=== PATIENT | female | born 1955 | race Caucasian/White ===

== ENCOUNTER → 2018-01-04 15:28 | Outpatient (CLI) | payer MEDICARE, SELFPAY ==
[2018-01-04 15:55] LABS: ALB/GLOB Ratio 1.1 RATIO (0.9-2.4); AST(SGOT) 28 U/L (15-37); Alanine Aminotransfer ALT/SGPT 13 U/L (13-56); Albumin, Serum 3.6 g/dL (3.2-5.0); Alkaline Phosphatase 121 U/L (45-117); Anion Gap 4 (5-15); BUN 22 mg/dL (7-18); BUN/Creat Ratio 26.3 RATIO (10-20); Calcium,Total 9.2 mg/dL (8.5-10.1); Chloride 108 mmol/L (98-107); Creatinine, Serum 0.84 mg/dL (0.55-1.02); EST Glomerular Filtration Rate 73 mL/min (>60); Est Glom Filt Rate - Afr Amer 88 mL/min (>60); Globulin 3.2 g/dL (2.2-4.2); Glucose 88 mg/dL (74-106); Potassium 4.1 mmol/L (3.5-5.1); Protein, Total 6.8 g/dL (6.4-8.2); Sodium Level 144 mmol/L (136-145)
== END ==
PROVIDERS: Family Provider Family Medicine; PCP Family Medicine; Visit Provider Family Medicine
DX: I10 Essential (primary) hypertension (principal)
CPT/HCPCS: 80053

== ENCOUNTER 2018-03-12 04:21 | Emergency (ER) | payer MEDICARE, SELFPAY ==
[2018-03-12 04:22] VITALS: BP 140/86; PULSE 105; RESP 19; TEMP 36.5; O2SAT 98; BMI 26.1
--- NOTE | 2018-03-12 04:34 | CT_ITS ---
STUDY: CT ABDOMEN AND PELVIS WITH CONTRAST REASON FOR EXAM: Female, 62 years old. Abdominal pain and nausea since Sunday. RADIATION DOSAGE (If Supplied By Facility): CTDIvol = ( 14.18 ) mGy, DLP = ( 704.49 ) mGycm TECHNIQUE: Transaxial 3.75 mm images were obtained from the dome of the diaphragm to the symphysis pubis with oral contrast. 100 ml of Isovue 300 contrast was administered. Sagittal and coronal images were reconstructed. Individualized dose optimization techniques were used for this CT. COMPARISON: CT abdomen and pelvis report only 07/04/2012. FINDINGS: Probable minor atelectasis right base, atelectasis or mild mild scarring left base. The visualized portions of the heart are within normal limits. Normal liver. Normal gallbladder and extrahepatic biliary system. Normal spleen. Normal pancreas. Normal bilateral adrenal glands. There is no obstructive uropathy, obstructive renal or ureteral calculi. Anterior rotation of the left renal pelvis. Oral contrast is reaching the transverse colon. Normal visualized stomach. Normal small intestine. Normal colon with mobile cecum in the right upper abdomen. The appendix is not visualized but there are no secondary signs of appendicitis. There is atherosclerosis of the bilateral superficial and proximal femoral arteries. Normal inferior vena cava. Normal retroperitoneum. Normal urinary bladder. Normal abdominal wall. There are diffuse degenerative changes of the visualized spine, bilateral sacroiliac joints, lower lumbar facet joints. Small sacral cyst. CT/Abdomen/Pelvis WITH Contrast IMPRESSION: There is no abscess, collection, perforation or obstruction. Atherosclerosis of the bilateral proximal superficial and deep femoral arteries. The appendix is not visualized but there are no secondary signs of appendicitis. Electronically Signed: Sandra Monge MD at 6:50 EDT , Service support ,
--- NOTE | 2018-03-12 04:37 | ED.VISSUMM ---
- ER Visit Summary Date of Service: 03/12/18 Chief Complaint: Abdominal pain History of Present Illness: The patient is a 62 F presenting with abdominal pain. She states this started on Sunday. She had pain throughout the day on Sunday. She states on Sunday and Sunday she felt okay. Around 2 or 3am today she started having pain again. Pain is in the left lower quadrant. She has associated nausea with no vomiting. Denies diarrhea or constipation. Denies urinary complaints. Denies fever. Denies chest pain or shortness of breath. Denies other complaints. Physical Examination: Vitals are stable. Patient is afebrile. Alert no acute distress. HEENT exam is unremarkable. Neck is supple. Lungs are clear and equal bilaterally. Heart is regular rate and rhythm. Abdomen is soft left lower quadrant tenderness with no rebound or guarding Extremities are unremarkable. Skin is warm and dry. Remainder of exam is unremarkable. Emergency Department Course and Treatment: Patient was given tylenol, Zofran IV. She declined morphine. CBC, chemistries unremarkable other than BUN 22. Alk phos 142. Lipase 73. Urinalysis unremarkable. CT abdomen pelvis IV and oral contrast shows no acute process. On repeat exam her abdomen is soft and nontender with no guarding or rebound. She is feeling improved. She is comfortable with discharge home. She will follow-up with her primary care physician. She is advised return to ED if worsening complaints. Disposition: Discharge home Impression: Abdominal pain This note was generated with SMS Assist dictation software. It may contain incorrect words, spelling, and punctuation that were not noted in review of the chart prior to signing ED Disposition - Plan for ED Patient: Disposition: Home or Assisted Living Chief Complaint: Abd Pain Instructions: ED Abdominal Pain Unkn Cause Prescriptions: Ondansetron [Zofran Odt] 4 mg PO Q8H PRN PRN #10 tablet PRN Reason: Nausea Referrals: David Mujica III, MD [Primary Care Provider] -
[2018-03-12] MEDS: Ondansetron 4 MG/2 ML Vial IV (04:48)
[2018-03-12 04:51] LABS: Absolute Lymphocyte Count 1.17 X10^3/ul (0.83-4.51); Basophil# 0.01 X10^3/uL; Basophil% 0.1 % (0-1); Eosinophil# 0.12 X10^3/uL; Eosinophils% 1.7 % (0-5); Hematocrit 39.9 % (37-47); Lymphocyte # 1.17 X10^3/ul (4.0); Mean Corp Hgb Conc 32.6 g/gl (32-36); Mean Corpuscular Hgb 31.4 pg (27.0-32.0); Mean Corpuscular Volume 96.4 fL (81-99); Mean Platelet Vol. 10.9 fl (6.2-12.0); Monocyte# 0.57 X10^3/uL; Monocyte% 8.3 % (0-10); Neutrophil % 72.9 % (47-70); POSITIVE COUNT NO; POSITIVE DIFFERENTIAL NO; POSITIVE MORPHOLOGY NO; Platelet Count 160 K/mm3 (150-450); RBC Distribution Width CV 13.6 % (11.6-14.6); Red Blood Count 4.14 M/mm3 (4.2-5.4); White Blood Count 6.9 K/mm3 (4.4-11.0)
[2018-03-12 05:04] LABS: AST(SGOT) 25 U/L (15-37); Alanine Aminotransfer ALT/SGPT 28 U/L (13-56); Albumin, Serum 3.1 g/dL (3.2-5.0); Alkaline Phosphatase 142 U/L (45-117); Anion Gap 6 (5-15); BUN 22 mg/dL (7-18); BUN/Creat Ratio 25.5 RATIO (10-20); Calcium,Total 8.8 mg/dL (8.5-10.1); Chloride 107 mmol/L (98-107); Creatinine, Serum 0.86 mg/dL (0.55-1.02); EST Glomerular Filtration Rate 70 mL/min (>60); Est Glom Filt Rate - Afr Amer 85 mL/min (>60); Estimated Creatinine Clearance 57.82 ml/min; Globulin 3.2 g/dL (2.2-4.2); Glucose 91 mg/dL (74-106); Lipase 73 U/L (73-393); Potassium 3.9 mmol/L (3.5-5.1); Protein, Total 6.3 g/dL (6.4-8.2); Sodium Level 143 mmol/L (136-145)
[2018-03-12] MEDS: Acetaminophen 500 MG Tablet 1000 MG PO (05:24)
[2018-03-12 06:35] VITALS: BP 135/84; PULSE 78; RESP 15; O2SAT 97
[2018-03-12 06:46] LABS: White Blood Cells 0 SEEN /hpf (0-5)
[2018-03-12 06:47] LABS: Bacteria 0 SEEN /hpf (None Seen); Mucous, Urine 0 SEEN /hpf (<or=2+); Red Blood Cells-Urine 0 SEEN /hpf (0-5); Squamous Epithelial Cells - UA 0 SEEN /hpf (5-10)
[2018-03-12 06:52] LABS: Glucose, Dipstick Normal (Normal); Ketone-Dipstick Negative (Negative); Leukocyte Esterase-Dipstick Negative /ul (Negative); Nitrite-Dipstick Negative (Negative); Occult Blood-Urine Negative /ul (Negative); Protein-Dipstick Negative (Negative); Urine Bilirubin Dipstick Negative (Negative); Urine Urobilinogen Normal (Normal); Urine pH 6.5 (5.0 - 8.0)
[2018-03-12 06:55] LABS: Color, Urine Yellow (Yellow); Urine Clarity Clear (Clear)
[2018-03-12 07:38] VITALS: BP 101/66; PULSE 85; RESP 16; O2SAT 95
--- NOTE | 2018-03-12 07:46 | ED.DEP ---
ED Disposition - Plan for ED Patient: Chief Complaint: Abd Pain Instructions: ED Abdominal Pain Unkn Cause Prescriptions: Ondansetron [Zofran Odt] 4 mg PO Q8H PRN PRN #10 tablet PRN Reason: Nausea Referrals: David Mujica III, MD [Primary Care Provider] -
== END 2018-03-12 07:49 | disposition home or self-care (01) ==
LOC: ED 04:41
PROVIDERS: Emergency Provider Emergency Medicine; Family Provider Family Medicine; PCP Family Medicine
DX: R10.9 Unspecified abdominal pain (principal); R11.0 Nausea; I10 Essential (primary) hypertension; E78.00 Pure hypercholesterolemia, unspecified; K21.9 Gastro-esophageal reflux disease without esophagitis; G20 Parkinson's disease
CPT/HCPCS: 74177; 80053; 81001; 83690; 85025; 96374; 96375; 99285; J7030; J7040; Q9967; A4216; J2405

== ENCOUNTER → 2018-07-15 20:26 | Outpatient (CLI) | payer MEDICARE, SELFPAY | PROVIDERS: Family Provider Family Medicine; PCP Family Medicine; Referring Provider Nurse Practitioner Adult Health; Visit Provider Nurse Practitioner Adult Health | DX: G47.33 Obstructive sleep apnea (adult) (pediatric) (principal) | CPT/HCPCS: 95810 ==

== ENCOUNTER → 2018-08-06 13:48 | Outpatient (CLI) | payer MEDICARE, SELFPAY ==
[2018-08-06 14:38] LABS: Cholesterol 150 mg/dL (200); High Density Lipoprotein 51 mg/dL; Triglycerides 131 mg/dL; Very Low Density Lipoprotein 26 mg/dL (5-40)
[2018-08-06 14:43] LABS: Vitamin B12 650 pg/mL (211-911); Vitamin D,25 Hydroxy 33.4 ng/mL (29.95-100.01)
== END ==
PROVIDERS: Family Provider Family Medicine; PCP Family Medicine; Referring Provider Family Medicine; Visit Provider Family Medicine
DX: E53.8 Deficiency of other specified B group vitamins (principal); E55.9 Vitamin D deficiency, unspecified; E78.5 Hyperlipidemia, unspecified
CPT/HCPCS: 80061; 82306; 82607

== ENCOUNTER → 2018-09-03 13:02 | Outpatient (CLI) | payer MEDICARE, SELFPAY | LOC: SL 13:03 | PROVIDERS: Family Provider Family Medicine; PCP Family Medicine; Referring Provider Family Medicine; Visit Provider Family Medicine | DX: G47.33 Obstructive sleep apnea (adult) (pediatric) (principal) | CPT/HCPCS: 95811 ==

== ENCOUNTER → 2018-09-07 12:54 | Outpatient (CLI) | payer MEDICARE, SELFPAY | PROVIDERS: Family Provider Family Medicine; PCP Family Medicine; Referring Provider Family Medicine; Visit Provider Family Medicine | DX: R30.0 Dysuria (principal) | CPT/HCPCS: 87086; 87088; 87186 ==

== ENCOUNTER → 2018-12-03 | Outpatient (CLI) | payer MEDICARE, SELFPAY ==
[2018-12-06 11:13] LABS: HSV Culture Without Typing NEGATIVE (.)
== END | disposition home or self-care (01) ==
LOC: LABSPEC 10:35
PROVIDERS: Family Provider Family Medicine; PCP Family Medicine
DX: R21 Rash and other nonspecific skin eruption (principal)
CPT/HCPCS: 87255

== ENCOUNTER 2019-06-25 12:00 | Outpatient (RCR) | payer MEDICARE, SELFPAY ==
--- NOTE | 2019-04-30 15:42 | HP.SP.AD ---
History - History Date of Eval: 04/29/19 Medical Diagnosis (from RX): Parkinsons Date of Onset of Diagnosis: 2004 Previous speech therapy: Yes Results: Excellent results to LSVT Other Relevant Medical History/Diagnoses/Surgery: neuropathy, peripheral, melaonma, Medications related to this diagnosis: Aspirin, symmetrel, sinemet x5 daily, klonopin, fish oil, metoprolol, omeprazole, vitamins, Smoking Status: Never smoker Hx Smoking: No Hx Tobacco Use: No - Pain Is pain an issue with your current prescribed condition?: No Patient Allergies - Allergies Allergies haloperidol [From Haldol] Allergy (Verified 03/12/18 04:21) Other haloperidol lactate [From Haldol] Allergy (Verified 03/12/18 04:21) Other metoclopramide HCl [From Reglan] Allergy (Verified 03/12/18 04:21) Other Subjective Oral Motor - Comments Comments: Patient reported having coughing occasionally during eating. Her last MBS was in 2017. At this time it is recommended to complete one to determine currect abilities. Subjective Voice - Intubation Was the Client intubated: No - Other Product Usage Do you use products containing menthol (if yes, list): No Subjective Clinical Impression - Non-Phonatory Behaviors/Respiration Reduced loudness or vocal weakness: Present Limited breath support for speech: Present Objective Voice - Date of Diagnosis Previous Speech Therapy (If yes, describe): Yes Details of therapy: LSVT - Very positive results. - Medications Familiar with on/off effect: Yes - Implantation Deep brain implantation (If yes, answer next question): Yes - Objective data Objective Data: Objective data: Sound pressure level (SPL acoustic correlation of vocal loudness) was measured with a sound level meter at a distance of 40 cm from the patient's mouth. Average conversational loudness is 70-80 dB and sustained phonation duration is 15 to 20 seconds for a typical adult. Sustained Phonation Intensity (dB SPL): 81 Is the individual stimulable to increase vocal intensity: Yes Vocal Intensity at Conversational Level (dB SPL): 62 dB Plan - Plan Plan: Speech therapy is warranted as Charline's decreased voice is interfering with her ability to communicate wants and needs in all areas of her life. - Recommendations Treatment Warranted: Yes - Frequency Frequency: 2x /Week Duration: 4 Weeks Visits in this POC: 8 - Goals that are Established: Determination:: Goals will be added/modified as deemed necessary and appropriate. Therapy will be discontinued when results of re-evaluation indicate therapy is no longer needed or lack of progress has been documented. - Goal #1-5 Goal #1: Patient will increase vocal loudness to reach a target sound pressure level of 70 dB AUTOMOTIVE SERVICE WRITER with 1 cue during reading at the word and sentence level, which will help increase vocal respiratory support for functional communication. Goal #2: Patient will increase vocal loudness to reach a target sound pressure level of 70 dB AUTOMOTIVE SERVICE WRITER during conversation for functional communication. Education - Patient has Indicated that the Following Identified Educational Needs: None The Patient has indicated that they have no educational or learning abilities that may effect their care.: Yes - Patient Instruction Patient Education: Diagnosis, Treatment Plan, Goals Person Taught: Patient, Significant Other Teaching Method: Discussion Response to teaching: Verbalize understanding
--- NOTE | 2019-07-28 09:15 | HP.SP.DC ---
ST Discharge Summary - Discharged: Discharge: Charline Arreguin is discharged from [facility] as of July 10, 2019. She attended a total of 8 sessions after her initial evaluation on 04/29/19. Her diagnosis is Parkinsons disease which impacted her overall volume. Goals focused on increased volume in structured and unstructured tasks to reach a sound pressure level of 70 dB. She typically averaged around 65 dB to 66 dB in conversation. The patient has a very quiet demeanor. She was able to increase her volume with cues but overall remained functional in a quiet room for her volume. She stated that her reminds her at home as he cannot hear her. (this may be partially due to his hearing impairment as he does not have aids and she stated that he will not get them at this time). She also had a modified barium swallow study completed. No aspiration or penetration. Mild oropharyngeal dysphagia noted but diet was not changed at this time. The patient is aware of progressive nature of her disease and is aware of the need to monitor her swallowing abilities. No further treatment is necessary at this time. A copy of this discharge summary will be sent to her referring physician.
== END 2019-06-25 19:00 | disposition home or self-care (01) ==
LOC: SP 12:00
PROVIDERS: Family Provider Family Medicine; PCP Family Medicine
DX: G20 Parkinson's disease (principal); R47.1 Dysarthria and anarthria
CPT/HCPCS: 92507; 92524

== ENCOUNTER → 2019-07-10 12:36 | Outpatient (CLI) | payer MEDICARE, SELFPAY ==
--- NOTE | 2019-07-10 14:14 | SP.MBSS_ITS ---
PRIMARY / SECONDARY DIAGNOSIS: dysphagia (R13.10) REFERRING PHYSICIAN: Ernestine Mendez NP CURRENT DIET: regular textures, thin liquids DENTITION: WFL MENTAL STATUS: WNL RESPIRATORY STATUS: O2 via room air PREVIOUS MODIFIED BARIUM SWALLOW STUDY: 03/14/[address] [facility] [place] REASON FOR REFERRAL: The patient is a 63/F referred for a modified barium swallow (MBS) study from neurology practice in order to determine presence/degree of aspiration. Patient and spouse report occasional coughing with liquids and solids. Patient reports occasional difficulty with one particular pill that she cuts in half as it scratches and feels as if it gets stuck on occasion. MEDICAL HISTORY: Patient has past medical history of Parkinsons disease status post deep brain simulation (2013), gastroesophageal reflux disease, hypertension, and hypercholesterolemia. STUDY FINDINGS: Patient participated in a Modified Barium Swallow (MBS) study on 07/10/2019. technician inventory specialist present for this evaluation. This study was recorded in the lateral view and images were sent to PACs for storage. The following consistencies were presented to this patient for analysis of oropharyngeal swallow function: thin liquids, nectar thick liquids, pudding, and a regular textured, Lottie Doone cookie. Results of the MBS are as follows: PENETRATION / ASPIRATION SCALE (DEVRIES): 1 = does not enter airway 2 = enters airway/above vocal folds/ejected 3 = enters airway/above vocal folds/not ejected 4 = enters airway/contacts vocal folds/ejected 5 = enters airway/contacts vocal folds/not ejected 6 = enters airway/below vocal folds/ejected 7 = enters airway/below vocal folds/not ejected despite effort 8 = enters airway/below vocal folds/no effort PENETRATION / ASPIRATION SCALE (SCORE): 1) Thin liquid via teaspoon = 1 2) Thin liquids via teaspoon =1 3) Thin liquids via small single sip from cup = 1 4) Thin liquids via large single sip from cup = 1 5) Thin liquids via sequential sips from cup= 1 6) Thin liquids via sequential sips via straw= 1 7) [place] thick liquids via single sip from cup = 1 8) Pudding= 1 9) Cookie= 1 10) Thin liquids via sip from cup = 1 IMPRESSION: mild oropharyngeal dysphagia (R13.12) ORAL PHASE CHARACTERIZED BY: LABIAL SEAL: no labial escape TONGUE CONTROL DURING BOLUS MANIPULATION: cohesive bolus between tongue to palatal seal BOLUS PREPARATION / MASTICATION: slow prolonged chewing/mashing with complete recollection BOLUS TRANSPORT / LINGUAL MOTION: delayed initiation of tongue motion ORAL RESIDUE: trace residue lining oral structures PHARYNGEAL PHASE CHARACTERIZED BY: INITIATION OF PHARYNGEAL SWALLOW: bolus head at posterior angle of ramus at first hyoid excursion SOFT PALATE ELEVATION: no bolus between soft palate and pharyngeal wall LARYNGEAL ELEVATION: complete superior movement of thyroid cartilage with complete approximation of arytenoids cartilage to epiglottic petiole ANTERIOR HYOID EXCURSION: partial anterior movement EPIGLOTTIC MOVEMENT: complete epiglottic inversion LARYNGEAL VESTIBULE CLOSURE AT HEIGHT OF SWALLOW: complete laryngeal vestibule closure with no air/contrast in laryngeal vestibule PHARYNGEAL STRIPPING WAVE: pharyngeal stripping wave present / complete PHARYNGOESOPHAGEAL SEGMENT OPENING: partial distension and partial duration; partial obstruction of flow TONGUE BASE RETRACTION: trace contrast between tongue base and posterior pharyngeal wall PHARYNGEAL RESIDUE: trace residue within or on pharyngeal structures ESOPHAGEAL PHASE CHARACTERIZED BY: ESOPHAGEAL BOLUS CLEARANCE IN THE UPRIGHT POSITION: could not view DIET TEXTURE RECOMMENDATIONS: Will recommend a regular/soft textured, thin liquid diet. COMPENSATORY STRATEGIES RECOMMENDED: Will recommend small bites/sips, alternate bites and sips, cut food into bite sized pieces, seated upright at 90 degrees during PO intake, remain upright for 30-60 minutes post meal (GERD precaution), and medications whole with liquid chaser (larger half pill consider mixing with pudding or puree texture for ease of swallowing). INTERPRETATION OF RESULTS: Patient presents with mild oropharyngeal dysphagia likely secondary to the diagnosis of Parkinsons disease. Oral phase primarily marked by slightly slowed mastication with Lottie Doone shortbread cookie and slight delay in tongue movement. Pharyngeal phase primarily marked by slightly reduced hyoid excursion and trace pharyngeal residue. No aspiration found during evaluation. RECOMMENDATIONS: No further skilled ST services warranted for dysphagia as patient is able to swallow without aspiration at this time. Patient and patients present for review of slides and education regarding recommendations. Both verbalize understanding and agreement at this time. Provided brief overview of signs and symptoms of aspiration, with recommendations for the patient to further discuss symptoms with the patients physician / neurology team. Would consider a repeat modified barium swallow study if any further signs and symptoms of aspiration are noted. Mi Nunez M.A., [facility] RE[employer]ATION TECHNICIAN Speech Language Pathologist [address] [address] [email or web address] [phone]
== END ==
PROVIDERS: PCP Family Medicine
DX: G20 Parkinson's disease (principal); R13.10 Dysphagia, unspecified
CPT/HCPCS: 76000; 92611

== ENCOUNTER → 2019-07-23 08:33 | Outpatient (CLI) | payer MEDICARE, SELFPAY ==
--- NOTE | 2019-07-23 08:35 | BI_ITS ---
MAMMOGRAPHY - BILATERAL SCREENING REASON FOR EXAM: Female, 63 years old. Routine annual screening examination. PERTINENT HISTORY: Aunt with breast cancer. TECHNIQUE: Digital bilateral breast damari (3D mammographic acquisition) in the CC and MLO projections. 2-D mediolateral oblique (MLO) and craniocaudad (CC) views of both breasts were obtained. CAD: Full Field Digital Mammography with Computer Added Detection was performed. COMPARISON: Comparison is made with prior outside examination dated March 17, 2014. FINDINGS: Breast Composition: There are scattered areas of fibroglandular density. There are no dominant masses or suspicious calcifications. No other significant abnormalities are identified. There has been no significant change since the prior study. BI/SCREEN MAMM (CAD) W/DAMARI BILAT IMPRESSION: Stable bilateral screening mammogram. Yearly follow-up mammogram recommended. (A) ASSESSMENT CATEGORY: BIRADS Category 1: Negative. A letter regarding these results will be sent to the patient by the facility within 30 days. Approximately 10% of breast cancers are not detected by mammography. A normal mammogram should not delay biopsy of a clinically suspicious abnormality. [id number] Electronically Signed: Osmar Luo, at 9:17 EST , Service support ,
== END ==
PROVIDERS: PCP Family Medicine; Referring Provider Family Medicine; Visit Provider Family Medicine
DX: Z12.31 Encounter for screening mammogram for malignant neoplasm of breast (principal)
CPT/HCPCS: 77063; 77067

== ENCOUNTER 2020-02-26 14:36 | Emergency (ER) | payer MEDICARE, SELFPAY ==
[2020-02-26 14:37] VITALS: BP 144/77; PULSE 95; RESP 16; TEMP 36.6; O2SAT 99; BMI 29.2
--- NOTE | 2020-02-26 14:54 | ED.VIS.GEN ---
History of Present Illness Chief Complaint: Fall Informant: Patient, Family Narrative: 64-year-old female with past medical history of hypertension and Parkinson's presents with concern for fall. Patient fell last night when she tripped over a box. States that she fell on her right side. Is having pain in her right hip as well as the right side of her back. States it is aching and worse with movement. Denies any head injury or loss of consciousness. On anticoagulation Past Medical History - Allergies and Home Meds Allergies/Adverse Reactions: Allergies haloperidol [From Haldol] Allergy (Verified 02/26/20 14:38) Other haloperidol lactate [From Haldol] Allergy (Verified 02/26/20 14:38) Other metoclopramide HCl [From Reglan] Allergy (Verified 02/26/20 14:38) Other Primary Care Physician: David Mujica III, MD [Primary Care Provider] - Prior records reviewed: Yes Past Medical History: - - Parkinsons and HTN Surgical History: appendectomy, hysterectomy, - - DBS Lives: Spouse/ Significant Other Smoking Status: Never smoker Alcohol: None Drugs: None Review of Systems General: Denies: Chills, Fever, Sweats Eyes: Denies: Visual changes - bilaterally, Diplopia ENT: Denies: Rhinorrhea, Sore throat Cardiovascular: Denies: Chest pain, Palpitations Respiratory: Denies: Dyspnea, Cough, Dyspnea on exertion Gastrointestinal: Denies: Abdominal pain, Nausea, Vomiting, Diarrhea, Melena, Hematochezia Genitourinary: Denies: Dysuria, Hematuria, Frequency Musculoskeletal: Reports: Arthralgias, Back pain. Denies: Extremity Pain Skin: Denies: Rash, Wounds Neurological: Denies: Headache, Weakness, Numbness Physical Exam Vital Signs/Narrative: Vital Signs Temp Pulse Resp BP Pulse Ox 02/26/20 14:37 97.8 F 95 16 144/77 H 99 Inital Vital Signs reviewed: Yes General: Well nourished, Well developed, No Acute Distress Head: Normocephalic, Atraumatic Eyes: Perrl, EOMI ENT: Moist mucous membranes, No rhinorrhea Neck: Supple, Nontender Cardiovascular: Regular rate, Regular rhythm, No murmurs Respiratory: No distress, CTA bilaterally, Chest nontender Abdomen: Soft, Nontender, Nondistended, Normal bowel sounds Back: Normal Inspection, - - Right lumbar spine tenderness into the right posterior pelvis. Extremities: No edema, - - TTP over the right greater trochanter. Skin: Normal color, No rash Neurological: Alert, Oriented x3, Cranial nerves II-XII grossly intact, Normal Strength, Normal Sensation Psychological: Normal Mood, - - Flat affect. Diagnostic/Tx/Re-eval Clinical Impression(s) from Imaging Studies Lumbar Spine CT 02/26/20 15:25 IMPRESSION: L3-4 and L4-5 degenerative changes, as described above. Electronically Signed: Hahnrohan Plasencia, at 15:55 EDT Tel , Service support , Hip/Pelvis X-Ray 02/26/20 15:35 IMPRESSION: No acute bone injury of the pelvis and hip. Electronically Signed: Selma Plasencia, at 15:53 EDT Tel , Service support , - Medical Decision Making Patient appears well nontoxic. Vital signs within normal limits. X-ray of the right hip and pelvis negative. CT of the lumbar spine negative. Patient does not want anything stronger than Advil. Patient able to bear weight. Will be discharged home to the care of her . Asked to return for worsening pain or inability to ambulate. Patient and agreeable and discharged home in stable condition. Impression: 1. Fall 2. Right hip contusion 3. Acute right-sided lumbar back pain 4. History of Parkinson's ED Disposition - Plan for ED Patient: Disposition: Home or Assisted Living Referrals: David Mujica III, MD [Primary Care Provider] -
--- NOTE | 2020-02-26 15:25 | CT_ITS ---
STUDY: CT LUMBAR SPINE WITHOUT CONTRAST REASON FOR EXAM: Female, 64 years old. FALL. having lower back and right hip pain RADIATION DOSAGE (If Supplied By Facility): CTDIvol = ( 15.59 ) mGy, DLP = ( 534.99 ) mGycm TECHNIQUE: The patient was scanned in a multi detector CT scanner. High resolution transaxial imaging was performed. Images were obtained from to . Sagittal and coronal images were reconstructed. Individualized dose optimization techniques were used for this CT. COMPARISON: None FINDINGS: Normal lumbar lordosis. There is no substantial scoliosis. Normal vertebrae of the lumbar spine. L1-2: Normal endplates. Normal disc height and morphology. Normal bilateral facet joints. Normal central canal and bilateral lateral recesses. Normal bilateral intervertebral neural foramina. L2-3: Normal endplates. Normal disc height and morphology. Normal bilateral facet joints. Normal central canal and bilateral lateral recesses. Normal bilateral intervertebral neural foramina. L3-4: Endplate spondylosis. Decreased disc height and small circumferential disc bulge. Degenerative changes of the bilateral facet joints. Mild narrowing of the central canal and bilateral intervertebral neural foramina. L4-5: Endplate spondylosis. Decreased disc height and moderate circumferential disc bulge. Degenerative changes of the bilateral facet joints. Moderate narrowing of the central canal and bilateral intervertebral neural foramina. L5-S1: Normal endplates. Normal disc height and morphology. Normal bilateral facet joints. Normal central canal and bilateral lateral recesses. Normal bilateral intervertebral neural foramina. Normal visualized paraspinous soft tissue structures. CT/Spine Lumbar without Contrast IMPRESSION: L3-4 and L4-5 degenerative changes, as described above. Electronically Signed: Selma Plasencia, at 15:55 EDT Tel , Service support ,
--- NOTE | 2020-02-26 15:35 | RAD_ITS ---
STUDY: X-RAY - PELVIS AND RIGHT HIP REASON FOR EXAM: Female, 64 years old. right hip pain after fall TECHNIQUE: 3 views of the pelvis and hip. COMPARISON: None. FINDINGS: There is a non-specific bowel gas pattern. Normal visualized soft tissue structures. There is narrowing with cortical sclerosis and osteophyte formation of the sacroiliac joint consistent with degenerative osteoarthritic changes. Normal bilateral superior and inferior pubic rami. Normal pubic symphysis. Normal bilateral ischial tuberosities. Normal visualized femoral head. Normal acetabulum. Normal hip joint. RAD/HIP, UNI W/ Pelvis 2-3 Views IMPRESSION: No acute bone injury of the pelvis and hip. Electronically Signed: Selma Plasencia, at 15:53 EDT Tel , Service support ,
[2020-02-26 16:42] VITALS: BP 132/85; PULSE 82; RESP 18; O2SAT 98
== END 2020-02-26 16:43 | disposition home or self-care (01) ==
PROVIDERS: Emergency Provider Emergency Medicine; PCP Family Medicine
DX: S70.01XA Contusion of right hip, initial encounter (principal); W01.0XXA Fall on same level from slipping, tripping and stumbling without subsequent striking against object, initial encounter; Y93.9 Activity, unspecified; Y92.9 Unspecified place or not applicable; Y99.9 Unspecified external cause status; M54.5 Low back pain; G20 Parkinson's disease; I10 Essential (primary) hypertension; Z79.82 Long term (current) use of aspirin; Z79.899 Other long term (current) drug therapy
CPT/HCPCS: 72131; 73502; 99282

== ENCOUNTER → 2020-03-17 12:16 | Outpatient (CLI) | payer MEDICARE, SELFPAY ==
[2020-02-26 14:37] VITALS: BMI 29.2
[2020-03-17 12:50] LABS: Absolute Lymphocyte Count 1.52 X10^3/uL (0.83-4.51); Absolute Neutrophil Count 4.4 X10^3/uL (2.0-7.7); Basophil# 0.04 X10^3/uL; Basophil% 0.6 % (0-1); Eosinophil# 0.14 X10^3/uL; Eosinophils% 2.2 % (0-5); Hematocrit 42.4 % (37-47); Hemoglobin 13.8 g/dL (12.0-15.0); Lymphocyte # 1.52 X10^3/ul (4.0); Lymphocyte % 23.6 % (19-41); Mean Corp Hgb Conc 32.5 g/dL (32-36); Mean Corpuscular Hgb 31.9 pg (27.0-32.0); Mean Corpuscular Volume 98.1 fL (81-99); Monocyte# 0.34 X10^3/uL; Monocyte% 5.3 % (0-10); NRBC Flagged by Analyzer 0 % (0-5); Neutrophil # 4.39 X10^3/uL (2.7-7.7); Neutrophil % 68.1 % (47-70); Platelet Count 189 K/mm3 (150-450); RBC Distribution Width CV 12.4 % (11.6-14.6); RBC Distribution Width SD 44.8 fl (35.1-43.9); Red Blood Count 4.32 M/mm3 (4.2-5.4); White Blood Count 6.4 K/mm3 (4.4-11.0)
[2020-03-17 13:12] LABS: ALB/GLOB Ratio 1.1 RATIO (0.9-2.4); AST(SGOT) 19 U/L (15-37); Alanine Aminotransfer ALT/SGPT 11 U/L (13-56); Albumin, Serum 3.7 g/dL (3.2-5.0); Alkaline Phosphatase 126 U/L (45-117); Anion Gap 4 (5-15); BUN 20 mg/dL (7-18); BUN/Creat Ratio 22.4 RATIO (10-20); Calcium,Total 9.4 mg/dL (8.5-10.1); Chloride 110 mmol/L (98-107); Creatinine, Serum 0.89 mg/dL (0.55-1.02); EST Glomerular Filtration Rate 68 mL/min (>60); Est Glom Filt Rate - Afr Amer 82 mL/min (>60); Globulin 3.5 g/dL (2.2-4.2); Glucose 102 mg/dL (74-106); Potassium 3.9 mmol/L (3.5-5.1); Protein, Total 7.2 g/dL (6.4-8.2); Sodium Level 144 mmol/L (136-145); T4 Free Direct 0.87 ng/dL (0.76-1.46); Thyroid Stim Hormone (TSH) 3.16 uIU/mL (0.358-3.74)
== END ==
PROVIDERS: PCP Family Medicine; Visit Provider Family Medicine
DX: E03.9 Hypothyroidism, unspecified (principal)
CPT/HCPCS: 80053; 84439; 84443; 85025

== ENCOUNTER → 2020-09-06 12:50 | Outpatient (CLI) | payer MEDICARE, SELFPAY ==
--- NOTE | 2020-09-06 12:51 | BI_ITS ---
MAMMOGRAPHY - BILATERAL SCREENING REASON FOR EXAM: Female, 64 years old. Routine annual screening examination. PERTINENT HISTORY: Aunt with breast cancer. TECHNIQUE: Digital bilateral breast damari (3D mammographic acquisition) in the CC and MLO projections. 2-D mediolateral oblique (MLO) and craniocaudad (CC) views of both breasts were obtained. CAD: Full Field Digital Mammography with Computer Added Detection was performed. COMPARISON: Comparison is made with prior study dated 07/23/2019. FINDINGS: Breast Composition: There are scattered areas of fibroglandular density. There are no dominant masses or suspicious calcifications. No other significant abnormalities are identified. There has been no significant change since the prior study. BI/SCRN MAMM (CAD)W/DAMARI BILAT IMPRESSION: Stable bilateral screening mammogram. Yearly follow-up mammogram recommended. (A) ASSESSMENT CATEGORY: BIRADS Category 2: Benign. A letter regarding these results will be sent to the patient by the facility within 30 days. Approximately 10% of breast cancers are not detected by mammography. A normal mammogram should not delay biopsy of a clinically suspicious abnormality. [id number] Electronically Signed: Osmar Luo MD at 13:43 EDT , Service support ,
== END ==
LOC: OPBI 12:50
PROVIDERS: PCP Family Medicine; Referring Provider Family Medicine; Visit Provider Family Medicine
DX: Z12.31 Encounter for screening mammogram for malignant neoplasm of breast (principal)
CPT/HCPCS: 77063; 77067

== ENCOUNTER → 2020-10-29 10:16 | Outpatient (CLI) | payer MEDICARE, SELFPAY ==
[2020-10-29 10:37] LABS: Absolute Lymphocyte Count 1.55 X10^3/uL (0.83-4.51); Absolute Neutrophil Count 4.2 X10^3/uL (2.0-7.7); Basophil# 0.03 X10^3/uL; Basophil% 0.5 % (0-1); Eosinophil# 0.12 X10^3/uL; Eosinophils% 1.9 % (0-5); Hematocrit 44.5 % (37-47); Hemoglobin 14.5 g/dL (12.0-15.0); Lymphocyte # 1.55 X10^3/ul (0.83-4.51); Lymphocyte % 24.3 % (19-41); Mean Corp Hgb Conc 32.6 g/dL (32-36); Mean Corpuscular Volume 98.2 fL (81-99); Mean Platelet Vol. 12.1 fl (6.2-12.0); Monocyte# 0.51 X10^3/uL; NRBC Flagged by Analyzer 0 % (0-5); Neutrophil # 4.15 X10^3/uL (2.7-7.7); Neutrophil % 65.1 % (47-70); Platelet Count 187 K/mm3 (150-450); RBC Distribution Width CV 12.7 % (11.6-14.6); RBC Distribution Width SD 45.4 fl (35.1-43.9); Red Blood Count 4.53 M/mm3 (4.2-5.4); White Blood Count 6.4 K/mm3 (4.4-11.0)
[2020-10-29 10:54] LABS: ALB/GLOB Ratio 1.1 RATIO (0.9-2.4); AST(SGOT) 15 U/L (15-37); Alanine Aminotransfer ALT/SGPT 11 U/L (13-56); Albumin, Serum 3.8 g/dL (3.2-5.0); Alkaline Phosphatase 128 U/L (45-117); Anion Gap 4 (5-15); BNP,B-Type NATRIURETIC PEPTIDE 71.7 pg/mL (0-100); BUN 24 mg/dL (7-18); BUN/Creat Ratio 23.3 RATIO (10-20); Calcium,Total 9.7 mg/dL (8.5-10.1); Chloride 107 mmol/L (98-107); Creatinine, Serum 1.03 mg/dL (0.55-1.02); EST Glomerular Filtration Rate 57 mL/min (>60); Est Glom Filt Rate - Afr Amer 69 mL/min (>60); Globulin 3.5 g/dL (2.2-4.2); Glucose 103 mg/dL (74-106); Magnesium 2.3 mg/dL (1.6-2.6); Potassium 3.9 mmol/L (3.5-5.1); Protein, Total 7.3 g/dL (6.4-8.2); Sodium Level 141 mmol/L (136-145); Thyroid Stim Hormone (TSH) 2.18 uIU/mL (0.358-3.74)
== END ==
PROVIDERS: PCP Family Medicine
DX: R00.2 Palpitations (principal)
CPT/HCPCS: 80053; 83735; 83880; 84443; 85025

== ENCOUNTER → 2020-11-24 08:42 | Outpatient (CLI) | payer MEDICARE, SELFPAY ==
[2020-11-11 16:02] VITALS: BMI 28.3
--- NOTE | 2020-11-24 08:46 | ECHOD_ITS ---
Reason For Study: ARRHYTHMIA Procedure This was a 2D Doppler, Color Flow transthoracic echocardiogram. Exam performed in department. Left Ventricle Normal LV size. Left ventricular systolic function is lower limits of normal. The estimated ejection fraction is 50 %. Stage 1 diastolic dysfunction. No regional wall motion abnormalities noted. Right Ventricle Normal RV size. Normal systolic function. Atria Normal left atrium. Normal right atrium. Mitral Valve Normal mitral valve. Tricuspid Valve Normal tricuspid valve. Mild tricuspid valve insufficiency. Pulmonary artery systolic pressure is 27 mmHg. Aortic Valve Normal aortic valve. Trisinus/trileaflet aortic valve. Mild (1+) eccentric aortic valve insufficiency. Pulmonic Valve Normal pulmonic valve. Great Vessels Normal aortic root. The pulmonary artery is normal size. Normal inferior vena cava. Pericardium/Pleural No pericardial effusion. MMode/2D Measurements & Calculations LVIDd: 4.2 cm IVSd: 0.86 cm Ao root diam: 3.1 cm LVIDs: 3.1 cm LVPWd: 0.87 cm RVDd: 3.6 cm FS: 27.8 % LAV(MOD-bp): 41.7 ml LA A4 area: 16.6 cm2 LA dimension(2D): 3.0 cm LAV(MOD-bp) Indexed: 24.3 ml/m2 LAV(MOD-sp2): 39.7 ml LAV(MOD-sp4): 41.9 ml RA A4 area: 16.5 cm2 Time Measurements MV dec time: 0.21 sec Doppler Measurements & Calculations MV E max toño: 52.2 cm/sec Lat Peak E' Toño: 5.9 cm/sec Med Peak E' Toño: 5.1 cm/sec MV A max toño: 89.2 cm/sec E/E' lat: 8.8 E/E' med: 10.2 MV E/A: 0.59 Ao V2 max: 120.3 cm/sec AI max toño: 438.1 cm/sec LV V1 max: 78.3 cm/sec Ao max P.8 mmHg AI max P.8 mmHg LV V1 max P.5 mmHg AI dec slope: 261.8 cm/sec2 AI P1/2t: 490.2 msec PA V2 max: 80.1 cm/sec TR max toño: 241.2 cm/sec TR max P.3 mmHg ECHO/Echo Complete Interpretation Summary Normal LV size. Left ventricular systolic function is lower limits of normal. The estimated ejection fraction is 50 %. Stage 1 diastolic dysfunction. Mild (1+) eccentric aortic valve insufficiency. Pulmonary artery systolic pressure is 27 mmHg. Ordering Physician: Porfirio Addison Referring Physician: DAVON WHITING III Performed By: Cori Tracy, CHARLIE, RVT
== END ==
PROVIDERS: PCP Family Medicine; Referring Provider Internal Medicine Cardiovascular Disease; Visit Provider Internal Medicine Cardiovascular Disease
DX: G47.33 Obstructive sleep apnea (adult) (pediatric) (principal); Z99.89 Dependence on other enabling machines and devices; I49.3 Ventricular premature depolarization; I10 Essential (primary) hypertension
CPT/HCPCS: 93225; 93226; 93306

== ENCOUNTER → 2020-11-29 12:49 | Outpatient (CLI) | payer MEDICARE, SELFPAY ==
[2020-11-11 16:02] VITALS: BMI 28.3
[2020-11-29 13:39] LABS: Cholesterol 193 mg/dL (200); High Density Lipoprotein 47 mg/dL; Triglycerides 160 mg/dL; Very Low Density Lipoprotein 32 mg/dL (5-40)
== END ==
PROVIDERS: PCP Family Medicine; Referring Provider Nurse Practitioner Family; Visit Provider Nurse Practitioner Family
DX: E78.5 Hyperlipidemia, unspecified (principal)
CPT/HCPCS: 80061

== ENCOUNTER → 2020-12-24 15:20 | Outpatient (CLI) | payer MEDICARE, SELFPAY ==
[2020-11-11 16:02] VITALS: BMI 28.3
== END ==
PROVIDERS: PCP Family Medicine
DX: R35.0 Frequency of micturition (principal)
CPT/HCPCS: 87086; 87088

== ENCOUNTER → 2021-05-11 15:45 | Outpatient (CLI) | payer MEDICARE, SELFPAY ==
[2021-05-11 16:39] LABS: Calcium,Total 9.5 mg/dL (8.5-10.1); Cholesterol 165 mg/dL (200); High Density Lipoprotein 51 mg/dL; Triglycerides 198 mg/dL; Very Low Density Lipoprotein 40 mg/dL (5-40)
[2021-05-11 16:41] LABS: PTHIN 60.1 pg/mL (18.4-80.1)
== END ==
PROVIDERS: PCP Family Medicine; Referring Provider Family Medicine; Visit Provider Family Medicine
DX: I10 Essential (primary) hypertension (principal); E83.52 Hypercalcemia
CPT/HCPCS: 80061; 82310; 83970

== ENCOUNTER 2021-07-30 11:53 | Inpatient (IN) | payer MEDICARE, SELFPAY ==
[2021-07-30] VITALS (13 sets, daily range): BP systolic 59–124; BP diastolic 37–68; PULSE 52–107; RESP 12–30; TEMP 35.9–38.2; O2SAT 91–99; BMI 29.9; BMI 29.5
--- NOTE | 2021-07-30 11:58 | EKG12_ITS ---
Test Reason : Blood Pressure : / mmHG Vent. Rate : 067 BPM Atrial Rate : 067 BPM P-R Int : 088 ms QRS Dur : 060 ms QT Int : 394 ms P-R-T Axes : 012 007 007 degrees QTc Int : 416 ms Sinus rhythm with short AR ST & T wave abnormality, consider inferior ischemia Abnormal ECG Confirmed by BOBO PHILLIPS, HOSSEIN ([id number]), health editor ANG ASCENCIO ([id number]) on 08/01/2021 11:05:25 AM Referred By: JIGNESH Confirmed By:HOSSEIN BROUSSARD MD
--- NOTE | 2021-07-30 11:59 | EDS_ITS ---
HPI History of Present Illness Chief Complaint: Dizziness Informant: patient, spouse/S.O. and EMS Onset/Context/Timing Onset: Hours (Per squad 1 hour prior to presentation. Per who arrived after squad 3 hours) Context: Sudden Onset Timing: Continuous Quality: Dizzy which he defines as vertical diplopia Location: Residents Current Severity: Mild Maximum Severity: Severe Worsened by: Upright position Relieved by: Nothing Associated Symptoms Associated Symptoms: Patient reported black and maroon-colored stool. She is not on an anticoag Narrative Narrative: Patient is an elderly woman with history of hypertension, hyperlipidemia, obstructive sleep apnea and Parkinson's disease. Based on what she and her are telling me she probably has autonomic dysfunction due to her Parkinson's disease. She does have a device that was implanted that prohibits her from having an MRI. She denies headache. She reports vertical diplopia when she is upright. She does not describe a spinning sensation. She denies ringing in ears or decreased hearing. She denies trouble with speech or swallowing. She denies chest pain. She denies shortness of breath. She did endorse black or maroon-colored stool and had significant diarrhea that started this morning. She denies dysuria, frequency, urgency or hematuria. She denies myalgias or arthralgias. Prior similar symptoms: Yes (Autonomic dysfunction due to Parkinson's) Recent Illness/Hospitalization: [facility] Medical History Collagenous colitis Depression with anxiety Diverticulosis Essential hypertension Hyperlipidemia Melanoma Neurogenic bladder NEHEMIAH on CPAP Parkinson's disease RBD (REM behavioral disorder) Squamous cell cancer of skin of forearm Home Medications atorvastatin 10 mg PO QODAY 07/11/13 [History Last Taken Unknown] clonazepam 0.5 mg PO QHS 07/11/13 [History Last Taken Unknown] omeprazole 20 mg PO DAILY 07/11/13 [History Last Taken Unknown] ascorbic acid (vitamin C) 500 mg tablet 500 mg PO DAILY 11/10/20 [History Last Taken Unknown] ergocalciferol (vitamin D2) 400 unit capsule 10 mcg PO DAILY 11/10/20 [History Last Taken Unknown] multivitamin 1 tab PO DAILY 11/10/20 [History Last Taken Unknown] carvedilol 6.25 mg tablet 6.25 mg PO BID #60 tab 12/13/20 [Rx Last Taken Unknown] amantadine HCl 50 mg PO DAILY 07/30/21 [History Last Taken Unknown] carbidopa-levodopa 4.5 tab PO DAILY 07/30/21 [History Last Taken Unknown] metoprolol succinate 25 mg PO DAILY 07/30/21 [History Last Taken Unknown] Allergy/AdvReac Type Severity Reaction Status Date / Time prochlorperazine Allergy Unknown unknown Verified 07/30/21 12:00 [From Compazine] promethazine [From Phenergan] Allergy Unknown unknown Verified 07/30/21 12:00 thioridazine Allergy Unknown unknown Verified 07/30/21 12:00 haloperidol [From Haldol] Allergy Other Verified 07/30/21 12:00 haloperidol lactate Allergy Other Verified 07/30/21 12:00 [From Haldol] metoclopramide HCl Allergy Other Verified 07/30/21 12:00 [From Reglan] Family History Father Diabetes Heart disease Mother Hypertension Diabetes Cancer brain, lymphoma Hyperlipidemia Sister Seizures Brother Heart disease Surgical History History of appendectomy History of bunionectomy (~02/2008) History of colonoscopy (07/19/12) History of hammer toe correction (~02/2008) History of total abdominal hysterectomy and bilateral salpingo-oophorectomy (~1995) S/P deep brain stimulator placement (06/23/13) Social History (Updated 07/30/21 @ 12:[address] Rehan Whittaker MD) household members: spouse Smoking Status: Never smoker alcohol intake: current alcohol intake frequency: a few times a month Alcohol type: wine substance use type: does not use ROS ROS ED Constitutional Constitutional ED: Denies chills, fever(s), subjective, sweats or weight loss Eyes Eyes: Reports diplopia; Denies blurry vision or change in vision ENT ENT ED: Denies ear pain, rhinorrhea or sore throat Cardiovascular Cardiovascular: Denies chest pain, orthopnea, palpitations, paroxysmal nocturnal dyspnea or racing heartbeat Respiratory/Chest Respiratory/Chest: Denies cough, dyspnea, dyspnea on exertion, orthopnea or paroxysmal nocturnal dyspnea Gastrointestinal Gastrointestinal: Reports diarrhea and melena; Denies abdominal pain, constipation, nausea or vomiting Genitourinary Genitourinary ED: Denies dysuria, hematuria or urinary frequency Musculoskeletal Musculoskeletal: Denies arthralgias, back pain, myalgias or neck pain Integumentary Denies rash Neurologic Neurologic: Reports weakness; Denies headache(s) or paresthesias Psychiatric Psychiatric: Reports depression Endocrine Endocrinology: Denies polydipsia, polyphagia or polyuria Hematologic/Lymphatic Hematologic/Lymphatic: Denies anemia, easy bleeding or easy bruising EXAM Physical Exam Const Vital Signs: 07/30/21 11:53 07/30/21 12:02 07/30/21 12:23 Temperature 96.7 F L 96.7 F L Temperature Source Temporal Temporal Pulse Rate 75 52 L Respiratory Rate 16 18 Respiratory Effort Normal Blood Pressure 84/63 L 59/37 L Blood Pressure Mean 70 44 Pulse Ox 91 Oxygen Delivery Method Room Air 07/30/21 12:35 07/30/21 13:06 07/30/21 14:01 Temperature 97.8 F 99.2 F H 99.9 F H Temperature Source Core Core Core Pulse Rate 75 99 100 Respiratory Rate 22 H 30 H 29 H Respiratory Effort Blood Pressure 124/48 H 114/47 L 107/59 L Blood Pressure Mean 73 69 75 Pulse Ox 99 99 96 Oxygen Delivery Method Room Air Room Air Room Air Positive well nourished and well developed General Appearance ED: well developed, NAD and other Patient has masked fax consistent with Parkinson's disease. Mentation is slow. Patient is mottled with delayed capillary refill. HEENT Reports TM's clear and dry mucous membranes HEENT Narrative: Nares patent. Negative for trauma or tenderness Tympanic Membrane ED: Yes TM's clear Mouth ED: Yes dry mucous membranes Mouth: dry mucous membranes Eyes PERRL and EOMs intact bilaterally General Eye ED: Negative for pale conjunctiva or scleral icterus Neck no lymphadenopathy, supple and no JVD Chest Wall inspection of chest normal and palpation of chest normal Resp normal respiratory effort and clear to auscultation bilaterally Cardio regular rate, regular rhythm, S1 normal heart sound, S2 normal heart sound and no murmurs GI normal to inspection, nondistended, normoactive bowel sounds, non-tender and non-distended GI Narrative: There are no fissures, fistulas or hemorrhoids on rectal exam. Stool is watery brown in color. There is no mucus or blood noted. Palpation: soft Back/Spine no CVA tenderness Thoracic Spine / Upper Back: Negative for thoracic spinal tenderness or paraspinal muscle tenderness Extremity normal to inspection Extremity Narrative: Edema is not pitting. General Extremety ED: Yes edema; Negative for tenderness General Extremity: edema Neuro No oriented x3, CN's II-XII intact bilaterally and no sensory deficits noted Sensorium / Orientation: orientation impaired; Negative for alert Motor Exam: strength 5/5 throughout Psych Mood & Affect: depressed Skin Skin Narrative: Skin is mottled. Patient is very cold to touch. Capillary refill is delayed. MDM MDM MDM Narrative Medical decision making narrative: With patient stating her dizziness is worse when she is upright and has a blood pressure of 84/63 suspect her dizziness is due to hypotension. We will need to rule out metabolic versus infectious versus other causes. Since neuro exam is nonfocal imaging of the head was not obtained. A liter of normal saline was ordered. Patient is not tachycardic most likely secondary to patient taking a beta-moris twice daily. Repeat blood pressure is 59/37. And repeat temperature is low. Need to entertain possibility of sepsis. Since patient is hypothermic has edema the lower extremities is cold will obtain TSH to evaluate for possible myxedema coma/profound hypothyroidism. Patient ankle reflex is essentially absent. Unable to determine if she has a delayed relaxation phase. Temperature probe Toure was placed. Patient's core temperature is 93.4. Initial reading was 89.4. I was informed that she has made no urine. She is receiving her second liter of normal saline. Nurse informed me at 1307 that she was having left-sided abdominal pain. Patient was reexamined at 1311. There is no guarding rigidity or peritoneal findings. Bowel sounds are diminished. Of note patient is not tachycardic and her blood pressure is normal. Her temperature has increased as well to 99.2 with passive rewarming. Lab Data Attestation: I reviewed the patient's lab results. Lab results narrative: Hemoglobin is approximately 2 g higher than baseline. This may represent hemoconcentration due to profound dehydration and would explain why there was no urine when Toure was placed. This may also explain her hypotension. This, however, would not explain her hypothermia. TSH is elevated. She does have hypothyroidism. This will need to be addressed during her hospital admission. Lactate elevated 2.6. Since there is no objective finding for infection suspect the lactic acidosis is due to the hypotension. And acute renal insufficiency. Urine reveals hematuria with no evidence of infection. Labs: Laboratory Results - last 24 hr 07/30/21 07/30/21 07/30/21 11:44 11:44 11:44 WBC 10.8 RBC 4.99 Hgb 16.4 H Hct 49.1 H MCV 98.4 MCH 32.9 H MCHC 33.4 RDW Std Deviation 47.8 H RDW Coeff of Carie 13.2 Plt Count 200 MPV 11.9 Immature Gran % (Auto) 0.400 Neut % (Auto) 90.9 H Lymph % (Auto) 2.6 L [place] % (Auto) 5.3 Eos % (Auto) 0.4 Baso % (Auto) 0.4 Absolute Neuts (auto) 9.8 H Absolute Lymphs (auto) 0.28 L Nucleated RBC % 0 Sodium 141 Potassium 4.5 Chloride 107 Carbon Dioxide 28.0 Anion Gap 6 BUN 28 H Creatinine 1.54 H Estim Creat Clear Calc 28.42 Est GFR (MDRD) Af Amer 43 L Est GFR (MDRD) Non-Af 36 L BUN/Creatinine Ratio 18.2 Glucose 133 H Lactic Acid 2.6 H* Calcium 10.2 H Total Bilirubin 0.70 AST 17 ALT 23 Alkaline Phosphatase 132 H Total Protein 8.0 Albumin 4.2 Globulin 3.8 Albumin/Globulin Ratio 1.1 TSH 21.70 H Urine Color Urine Clarity Urine pH Ur Specific [place] Urine Protein Urine Glucose (UA) Urine Ketones Urine Occult Blood Urine Nitrite Urine Bilirubin Urine Urobilinogen Ur Leukocyte Esterase Urine RBC Urine WBC Ur Squamous Epith Cells Urine Bacteria Urine Mucus 07/30/21 12:15 WBC RBC Hgb Hct MCV MCH MCHC RDW Std Deviation RDW Coeff of Carie Plt Count MPV Immature Gran % (Auto) Neut % (Auto) Lymph % (Auto) [place] % (Auto) Eos % (Auto) Baso % (Auto) Absolute Neuts (auto) Absolute Lymphs (auto) Nucleated RBC % Sodium Potassium Chloride Carbon Dioxide Anion Gap BUN Creatinine Estim Creat Clear Calc Est GFR (MDRD) Af Amer Est GFR (MDRD) Non-Af BUN/Creatinine Ratio Glucose Lactic Acid Calcium Total Bilirubin AST ALT Alkaline Phosphatase Total Protein Albumin Globulin Albumin/Globulin Ratio TSH Urine Color Yellow Urine Clarity Sl. Cloudy Urine pH 6.0 Ur Specific [place] 1.010 Urine Protein 100 H Urine Glucose (UA) Normal Urine Ketones 5 H Urine Occult Blood 250 H Urine Nitrite Negative Urine Bilirubin Negative Urine Urobilinogen Normal Ur Leukocyte Esterase 25 H Urine RBC > 100 SEEN Urine WBC 0 SEEN Ur Squamous Epith Cells 5-10 SEEN Urine Bacteria 0 SEEN Urine Mucus 0 SEEN EKG Initial EKG: Attestation: I personally reviewed and interpreted this EKG as follows: Interpretation: Sinus Rhythm (Sinus rhythm with a ventricular rate of 67 and short [place] interval. NJ interval is 88 ms. Cures duration 60 ms. QT durations are 94 ms. [place] is normal. Computer is reading ST and T wave abnormality consider ischemia. This represents her tremor and motion artifact.) Critical Care Time Critical Care Time: Yes Critical care time (excluding procedures): 30-74 minutes (37), Including time spent: (AP, History, physical, documentation, review of prior records, initiation of therapy for hypotension and initiate work-up for possible sepsis versus thyroid disease versus other cause.), Discussing w/Patient &/or Family/[employer] ( informed me that she cannot have an MRI since she has a implanted brain stimulator for her Parkinson's disease. He states he had to help her get dressed this morning. She did not voice any complaints to him other than dizziness .), Discussing w/Consultants and Arranging Admission or Transfer Discharge Plan Triage Chief Complaint: Dizziness ED Provider: Rehan Whittaker Dx/Rx/DC Orders Clinical Impression: Acute hypotension, Acidosis, lactic, Hypovolemia dehydration, Diarrhea, Hypothermia, Hypothyroidism, Acute kidney insufficiency, Hyperglycemia Prescriptions: No Action ergocalciferol (vitamin D2) 400 unit capsule 10 mcg PO DAILY RF: 0 multivitamin Tablet 1 tab PO DAILY RF: 0 ascorbic acid (vitamin C) 500 mg tablet 500 mg PO DAILY RF: 0 atorvastatin 10 MG tablet 10 mg PO QODAY RF: 0 clonazepam 0.5 MG tablet 0.5 mg PO QHS RF: 0 omeprazole 20 MG capsule 20 mg PO DAILY RF: 0 amantadine HCl 100 mg tablet 50 mg PO DAILY RF: 0 metoprolol succinate 25 mg tablet extended release 24 hr 25 mg PO DAILY RF: 0 carbidopa-levodopa 25-100 mg tablet 4.5 tab PO DAILY RF: 0 carvedilol [Coreg] 6.25 mg tablet 6.25 mg PO BID Qty: 60 RF: 11 Primary Care Provider: Abdullahi Major Referrals: Abdullahi Major MD [Primary Care Provider] -
[2021-07-30] MEDS: 0.9% Normal Saline 1,000 ML 1000 ML IV ×2 (12:02→12:23)
[2021-07-30 12:20] LABS: Absolute Lymphocyte Count 0.28 X10^3/uL (0.83-4.51); Absolute Neutrophil Count 9.8 X10^3/uL (2.0-7.7); Basophil# 0.04 X10^3/uL; Basophil% 0.4 % (0-1); Eosinophil# 0.04 X10^3/uL; Eosinophils% 0.4 % (0-5); Hematocrit 49.1 % (37-47); Hemoglobin 16.4 g/dL (12.0-15.0); Lymphocyte # 0.28 X10^3/ul (0.83-4.51); Lymphocyte % 2.6 % (19-41); Mean Corp Hgb Conc 33.4 g/dL (32-36); Mean Corpuscular Hgb 32.9 pg (27.0-32.0); Mean Corpuscular Volume 98.4 fL (81-99); Mean Platelet Vol. 11.9 fl (6.2-12.0); Monocyte# 0.57 X10^3/uL; Monocyte% 5.3 % (0-10); NRBC Flagged by Analyzer 0 % (0-5); Neutrophil # 9.81 X10^3/uL (2.7-7.7); Neutrophil % 90.9 % (47-70); POSITIVE DIFFERENTIAL YES; Platelet Count 200 K/mm3 (150-450); RBC Distribution Width CV 13.2 % (11.6-14.6); RBC Distribution Width SD 47.8 fl (35.1-43.9); Red Blood Count 4.99 M/mm3 (4.2-5.4); White Blood Count 10.8 K/mm3 (4.4-11.0)
[2021-07-30 12:21] LABS: Differential Indicated SCAN CRITERIA MET
[2021-07-30 12:42] LABS: ALB/GLOB Ratio 1.1 RATIO (0.9-2.4); AST(SGOT) 17 U/L (15-37); Alanine Aminotransfer ALT/SGPT 23 U/L (13-56); Albumin, Serum 4.2 g/dL (3.2-5.0); Alkaline Phosphatase 132 U/L (45-117); Anion Gap 6 (5-15); BUN 28 mg/dL (7-18); BUN/Creat Ratio 18.2 RATIO (10-20); Calcium,Total 10.2 mg/dL (8.5-10.1); Chloride 107 mmol/L (98-107); Creatinine, Serum 1.54 mg/dL (0.55-1.02); EST Glomerular Filtration Rate 36 mL/min (>60); Est Glom Filt Rate - Afr Amer 43 mL/min (>60); Estimated Creatinine Clearance 28.42 ml/min; Globulin 3.8 g/dL (2.2-4.2); Glucose 133 mg/dL (74-106); Potassium 4.5 mmol/L (3.5-5.1); Sodium Level 141 mmol/L (136-145)
[2021-07-30 13:16] LABS: Bacteria 0 SEEN /hpf (None Seen); Mucous, Urine 0 SEEN /hpf (<or=2+); White Blood Cells 0 SEEN /hpf (0-5)
[2021-07-30 13:29] LABS: Lactic Acid 2.6 mmol/L (0.4-1.9)
[2021-07-30 13:35] LABS: Color, Urine Yellow (Yellow); Glucose, Dipstick Normal (Normal); Ketone-Dipstick 5 mg/dl (Negative); Leukocyte Esterase-Dipstick 25 /ul (Negative); Nitrite-Dipstick Negative (Negative); Occult Blood-Urine 250 /ul (Negative); Protein-Dipstick 100 mg/dl (Negative); Urine Bilirubin Dipstick Negative (Negative); Urine Clarity Sl. Cloudy (Clear); Urine Urobilinogen Normal (Normal)
[2021-07-30 13:43] LABS: Red Blood Cells-Urine > 100 SEEN /hpf (0-5); Squamous Epithelial Cells - UA 5-10 SEEN /hpf (5-10)
[2021-07-30] MEDS: Levothyroxine 100 MCG Tablet PO (14:00)
--- NOTE | 2021-07-30 14:40 | HP.PCM.HOS_ITS ---
HPI - General General Date of Admission: 07/30/21 Date of Service: 07/30/21 Chief Complaint: Lightheadedness HPI Narrative GLORIA WOOD, is a 65 F with past medical history significant for Parkinson disease with autonomic dysfunction, essential hypertension who presents with lightheadedness. Patient symptoms started diarrhea of almost a days duration. On the morning of her admission patient did experience profound lightheadedness. Per patient's who was with her in the ER patient passed out which he described as patient experiencing a brief moment of unresponsiveness while sitting on the toilet. Patient was brought to the emergency department where he was found to be hypotensive with systolic blood pressure in the 80s. He was also found to be in acute kidney injury with markedly elevated TSH. Her TSH was ordered as a result of bradycardia. Admitted to a monitored bed for further management [facility] Medical History Collagenous colitis Depression with anxiety Diverticulosis Essential hypertension Hyperlipidemia Melanoma Neurogenic bladder NEHEMIAH on CPAP Parkinson's disease RBD (REM behavioral disorder) Squamous cell cancer of skin of forearm Home Medications atorvastatin 10 mg PO QODAY 07/11/13 [History Last Taken Unknown] clonazepam 0.5 mg PO QHS 07/11/13 [History Last Taken Unknown] omeprazole 20 mg PO DAILY 07/11/13 [History Last Taken Unknown] ascorbic acid (vitamin C) 500 mg tablet 500 mg PO DAILY 11/10/20 [History Last Taken Unknown] ergocalciferol (vitamin D2) 400 unit capsule 10 mcg PO DAILY 11/10/20 [History Last Taken Unknown] multivitamin 1 tab PO DAILY 11/10/20 [History Last Taken Unknown] carvedilol 6.25 mg tablet 6.25 mg PO BID #60 tab 12/13/20 [Rx Last Taken Unknown] amantadine HCl 50 mg PO DAILY 07/30/21 [History Last Taken Unknown] carbidopa-levodopa 4.5 tab PO DAILY 07/30/21 [History Last Taken Unknown] metoprolol succinate 25 mg PO DAILY 07/30/21 [History Last Taken Unknown] Allergy/AdvReac Type Severity Reaction Status Date / Time prochlorperazine Allergy Unknown unknown Verified 07/30/21 12:00 [From Compazine] promethazine [From Phenergan] Allergy Unknown unknown Verified 07/30/21 12:00 thioridazine Allergy Unknown unknown Verified 07/30/21 12:00 haloperidol [From Haldol] Allergy Other Verified 07/30/21 12:00 haloperidol lactate Allergy Other Verified 07/30/21 12:00 [From Haldol] metoclopramide HCl Allergy Other Verified 07/30/21 12:00 [From Reglan] Family History Father Diabetes Heart disease Mother Hypertension Diabetes Cancer brain, lymphoma Hyperlipidemia Sister Seizures Brother Heart disease Surgical History History of appendectomy History of bunionectomy (~02/2008) History of colonoscopy (07/19/12) History of hammer toe correction (~02/2008) History of total abdominal hysterectomy and bilateral salpingo-oophorectomy (~1995) S/P deep brain stimulator placement (06/23/13) Social History household members: spouse Smoking Status: Never smoker alcohol intake: current alcohol intake frequency: a few times a month Alcohol type: wine substance use type: does not use ROS ROS Narrative GENERAL: denies fever, chills, night sweats, weight loss, anorexia HEENT: denies headache, sinus congestion, or drainage, dysphagia RESPIRATORY: denies cough, sputum production, shortness of breath, CARDIAC: denies chest pain, palpitations, orthopnea, PND GASTROINTESTINAL: denies abdominal pain, nausea, vomiting, melena, GENITOURINARY: denies dysuria, urgency, frequency, heamaturia EXTREMITY: denies swelling MUSCULOSKELETAL: denies current joint pain or tenderness NEUROLOGIC: denies focal numbness, weakness, tingling HEMATOLOGIC: denies easy bruising and/or hemorrhage INTEGUMENT: denies rashes PSYCHIATRIC: denies suicidal or homicidal ideation Vital Signs Vital Signs Vital Signs: 07/30/21 11:53 07/30/21 12:02 07/30/21 12:23 Temperature 96.7 F L 96.7 F L Temperature Source Temporal Temporal Pulse Rate 75 52 L Respiratory Rate 16 18 Respiratory Effort Normal Blood Pressure 84/63 L 59/37 L Blood Pressure Mean 70 44 Pulse Ox 91 Oxygen Delivery Method Room Air 07/30/21 12:35 07/30/21 13:06 07/30/21 14:01 Temperature 97.8 F 99.2 F H 99.9 F H Temperature Source Core Core Core Pulse Rate 75 99 100 Respiratory Rate 22 H 30 H 29 H Respiratory Effort Blood Pressure 124/48 H 114/47 L 107/59 L Blood Pressure Mean 73 69 75 Pulse Ox 99 99 96 Oxygen Delivery Method Room Air Room Air Room Air 07/30/21 14:30 Temperature 100.3 F H Temperature Source Core Pulse Rate 98 Respiratory Rate 28 H Respiratory Effort Blood Pressure 106/42 L Blood Pressure Mean 63 Pulse Ox 92 Oxygen Delivery Method Room Air Weight Weight: 74.4 kg Body Mass Index (BMI) 29.9 Physical Exam Narrative GENERAL: cooperative HEENT: Atraumatic; EYES; Anicteric, Normal Conjunctiva NECK; supple, normal thyroid, RESPIRATORY: Diminished to auscultation CARDIOVASCULAR: Regular S1 S2, GI: soft, normoactive bowel sounds, : No Renal angle tenderness; EXTREMITIES: No edema, no clubbing, MUSCULOSKELETAL: no muscle wasting NEURO: Awake; no lateralizing signs. SKIN: No Rash PSYCH; Flat affect Results Lab / Micro Data Result Diagrams: 07/30/21 11:44 07/30/21 11:44 Labs: Laboratory Results - last 24 hr 07/30/21 11:44: WBC 10.8, RBC 4.99, Hgb 16.4 H, Hct 49.1 H, MCV 98.4, MCH 32.9 H , MCHC 33.4, RDW Std Deviation 47.8 H, RDW Coeff of Carie 13.2, Plt Count 200, MPV 11.9, Immature Gran % (Auto) 0.400, Neut % (Auto) 90.9 H, Lymph % (Auto) 2.6 L, [place] % (Auto) 5.3, Eos % (Auto) 0.4, Baso % (Auto) 0.4, Absolute Neuts (auto) 9.8 H, Absolute Lymphs (auto) 0.28 L, Nucleated RBC % 0 07/30/21 11:44: Sodium 141, Potassium 4.5, Chloride 107, Carbon Dioxide 28.0, Anion Gap 6, BUN 28 H, Creatinine 1.54 H, Estim Creat Clear Calc 28.42, Est GFR (MDRD) Af Amer 43 L, Est GFR (MDRD) Non-Af 36 L, BUN/Creatinine Ratio 18.2, Glucose 133 H, Calcium 10.2 H, Total Bilirubin 0.70, AST 17, ALT 23, Alkaline Phosphatase 132 H, Total Protein 8.0, Albumin 4.2, Globulin 3.8, Albumi n/Globulin Ratio 1.1, TSH 21.70 H 07/30/21 11:44: Lactic Acid 2.6 H* 07/30/21 12:15: Urine Color Yellow, Urine Clarity Sl. Cloudy, Urine pH 6.0, Ur Specific [place] 1.010, Urine Protein 100 H, Urine Glucose (UA) Normal, Urine Ketones 5 H, Urine Occult Blood 250 H, Urine Nitrite Negative, Urine Bilirubin Negative, Urine Urobilinogen Normal, Ur Leukocyte Esterase 25 H, Urine RBC > 100 SEEN, Urine WBC 0 SEEN, Ur Squamous Epith Cells 5-10 SEEN, Urine Bacteria 0 SEEN, Urine Mucus 0 SEEN Assessment & Plan Assessment/Plan (1) Acidosis, lactic: (2) Acute hypotension: (3) Hypovolemia dehydration: (4) Acute kidney insufficiency: (5) Hypothyroidism: (6) Hypothermia: (7) Diarrhea: PLAN: Patient is a 65-year-old lady presented with lightheadedness. Found to be hypotensive in the ED 1. Acute hypotension ?Secondary to hypovolemia as a result of diarrhea. Patient admitted to a monitored bed where patient is currently being resuscitated with IV fluid with close monitoring of patient's vitals 2. Acute kidney injury ?Secondary to hypovolemia with subsequent hypotension. Patient be resuscitated with IV fluids with serial monitoring of electrolytes ordered 3. Diarrhea ?Patient has history of collagenous colitis plan is to treat symptomatically 4. Lactic acidosis ?Attributed to patient hypovolemia patient does not have any evidence of an infection 5. New onset hypothyroidism ?Patient presented with bradycardia as well as hypothermia. Patient did receive levothyroxine in the ED. An order has been written for patient to be started on levothyroxine 50 mcg daily starting from 07/31/2021 with plans to repeat TSH in 6 weeks 6. History of Parkinson's disease ?Status post deep brain stimulator placement in 2013 7. Essential hypertension ?Patient antihypertensives on hold in view of hypotension 8. Hypothyroidism - Patient is on levothyroxine home dose continued 9. Obstructive sleep apnea ?Patient is on CPAP at night 10. GERD ?Patient is on PPI 11. Depression with anxiety ?Patient is on clonazepam 12. DVT prophylaxis ?SC Lovenox Advance planning; did discuss with the patient and family regarding advanced directives as well as CODE STATUS. Did explain the various scenarios involved ( FULL CODE, DNR CCA, DNR CCA with no intubation, and DNR CC and what each meant) patient elected to remain full code with CPR and intubation if needed. Order was placed. Time spent on discussion 18 minutes. Charges/Coding Visit Charges Inpatient E&M: 43622 Init Hosp L3 Procedures Hospitalists Procedures: 32347 Advncd Care Plan 30 Min
[2021-07-30 16:13] LABS: Reflex Lactate? Y
[2021-07-30] MEDS: 0.9% Normal Saline 1,000 ML 150 ML IV ×2 (16:20→22:15)
[2021-07-30 17:24] LABS: Lactic Acid 2.8 mmol/L (0.4-1.9)
[2021-07-30] MEDS: Carbidopa/Levodopa 25/100 Tablet PO (17:50)
[2021-07-30] MEDS: Ondansetron 4 MG/2 ML Vial IV (21:57)
--- NOTE | 2021-07-30 22:02 | RAD_ITS ---
STUDY: X-RAY - ABDOMEN/PELVIS REASON FOR EXAM: Female, 65 years old. N/V TECHNIQUE: Two AP supine views of the abdomen and pelvis. COMPARISON: 02/26/2020 FINDINGS: Numerous mildly dilated loops of small bowel throughout the abdomen and pelvis suggesting early small bowel obstruction. There are some gaseous distended loops of large bowel as well. No evidence of free air. KAUFMAN catheter in place. Normal osseous structures RAD/Abdomen Single View (Portable) IMPRESSION: Likely early small bowel obstruction Electronically Signed: Albert Ricci DO at 22:25 EST ,
--- NOTE | 2021-07-30 22:30 | RAD_ITS ---
STUDY: X-RAY - ABDOMEN/PELVIS REASON FOR EXAM: Female, 65 years old. Nasogastric tube placement. TECHNIQUE: AP upright abdomen at 11:25 PM. COMPARISON: July 30, 2021 at 10:03 PM, July 30, 2021 11:25 PM # 2, July 30, 2021 at 11:25 PM #3. FINDINGS: Normal visualized lung bases. propulsion generator repairer overlies left mid lung. On image #1 nasogastric tube tip is at the gastric cardia. On image #2 nasogastric tube has been advanced and the tip is overlying the gastric fundus. On image #3 nasogastric tube has been advanced so that the tip is in the gastric fundus and now the side-port is also in the gastric fundus. Dilated loops of small bowel upper abdomen. There is no demonstrated free abdominal air. The visualized liver, spleen and kidneys are grossly normal in size and morphology. Normal soft tissue structures. Normal visualized osseous structures. RAD/Abdomen Single View (Portable) IMPRESSION: On the most recent image of the upper abdomen, July 30, 2021 at 11:25 PM #3, the nasogastric tube tip is in expected location in the gastric fundus. Small bowel obstruction noted previously. Electronically Signed: Alexander Richardson MD at 0:20 EST Reading Location ID and State: [id number] / , Service support ,
--- NOTE | 2021-07-30 22:33 | PCM.HOSP.N ---
Hospitalist Note Patient with recurrent nausea and emesis as well as abdominal distention. Noted have started prior to admission. KUB obtained w/ noted early SBO. Will place NGT, hold all oral regimen, transition to IV PPI, consult General surgery to be cautious.
[2021-07-30] MEDS: Oxymetazoline 0.05% 1 SPRAY SPRAY.BTL 2 SPRAY NASAL (23:20)
[2021-07-30] MEDS: Lidocaine 4% 5 ML Ampul 2 ML INHALATION (23:20)
--- NOTE | 2021-07-30 23:41 | RAD_ITS ---
STUDY: X-RAY - ABDOMEN/PELVIS REASON FOR EXAM: Female, 65 years old. NG placement TECHNIQUE: Single AP view of the abdomen / pelvis. COMPARISON: Plain film earlier FINDINGS: Enteric tube with side-port at the GE junction, recommend advancement by roughly 9 cm. Remainder is unchanged RAD/Abdomen Single View (Portable) IMPRESSION: Continued advancement of NG tube recommended Electronically Signed: Albert Ricci DO at 0:42 EST ,
--- NOTE | 2021-07-30 23:41 | RAD_ITS ---
STUDY: X-RAY - ABDOMEN/PELVIS REASON FOR EXAM: Female, 65 years old. Nasogastric tube placement. TECHNIQUE: AP portable upright abdomen. COMPARISON: July 30, 2021. FINDINGS: Normal visualized lung bases. A nasogastric tube is present which has been advanced so that the tip and side port are in the gastric fundus. Dilated loops of small bowel in the upper abdomen. There is no demonstrated free abdominal air. The visualized liver, spleen and kidneys are grossly normal in size and morphology. Normal soft tissue structures. Normal visualized osseous structures. RAD/Abdomen Single View (Portable) IMPRESSION: Nasogastric tube tip in suspected location. Partially visualized small bowel obstruction noted previously. Electronically Signed: Alexander Richardson MD at 1:09 EST Reading Location ID and State: [id number] / , Service support ,
[2021-07-31] VITALS (10 sets, daily range): BP systolic 94–128; BP diastolic 51–75; PULSE 85–102; RESP 16–18; TEMP 36.5–37; O2SAT 92–97
--- NOTE | 2021-07-31 00:11 | RAD_ITS ---
STUDY: X-RAY CHEST REASON FOR EXAM: Female, 65 years old. fever, mild hypoxia, ? aspiration TECHNIQUE: Single AP portable view of the chest. COMPARISON: None. FINDINGS: NG tube with tip and side-port in the stomach; interval advancement as compared to most recent prior chest x-ray and abdominal plain film The lungs are clear and expanded. There is no demonstrated pleural abnormality. Normal size heart. Normal mediastinum and stefan. Normal visualized pulmonary arteries. Normal visualized aortic arch and descending thoracic aorta. Normal visualized thoracic spine. Normal visualized ribs, clavicles, and shoulders. There is no demonstrated abnormality of the visualized soft tissue structures of the upper abdomen. RAD/Chest 1 View (Portable) IMPRESSION: NG tube with both the tip and side-port in the stomach. Lungs are clear. Electronically Signed: Albert Ricci DO at 0:43 EST ,
[2021-07-31] MEDS: Acetaminophen 650 MG Suppository RC (00:17)
--- NOTE | 2021-07-31 05:55 | RAD_ITS ---
EXAM: XR ABDOMEN, 1 VIEW CLINICAL INDICATION: SBO PAIN TECHNIQUE: Frontal supine view of the abdomen/pelvis. This report was created using [employer] report generation technology. COMPARISON: 07.30.21 FINDINGS: LOWER THORAX: No acute pathology. GASTROINTESTINAL TRACT: Dilated loops of small bowel in the abdomen. ORGANS: Unremarkable as visualized. No organomegaly. No abnormal calcifications. BONES/JOINTS: No acute pathology. SOFT TISSUES: No acute pathology. RAD/Abdomen Single View (Portable) IMPRESSION: Minimal improvement in the small bowel obstruction noted. Electronically Signed: Zen Heard MD at 8:42 EDT ,
[2021-07-31] MEDS: 0.9% Normal Saline 1,000 ML 125 ML IV ×2 (06:53→17:07)
--- NOTE | 2021-07-31 07:18 | PN.HOSP_ITS ---
Subjective Subjective Patient apparently had a complicated night. She had a bout of emesis and abdominal distention KUB demonstrated partial small bowel obstruction conservative management with bowel rest NG tube to suction antinausea medication and pain meds started. Consult placed to general surgery. Patient also did experience a syncopal episode this a.m. while working with PT. Objective Data Objective Data Vital Signs: Vital Signs Temp Pulse Resp BP Pulse Ox 98.4 F 92 18 94/51 L 96 07/31/21 05:24 07/31/21 05:24 07/31/21 05:24 07/31/21 05:24 07/31/21 05:24 Oxygen Flow Rate (L/min) 2 Oxygen Delivery Method Room Air Weight: 73.3 kg Body Mass Index (BMI) 29.5 Intake & Output: Intake and Output for Last 24 Hours 07/29/21 07/30/21 08/01/21 23:59 23:59 00:59 Intake Total 3390.0 / 3390.0 1295.42 / 1295.42 Output Total 550 / 550 325 / 325 Balance 2840.0 / 2840.0 970.42 / 970.42 Lab / Micro Data Result Diagrams: 07/31/21 08:04 07/31/21 08:04 Labs: Laboratory Results - last 24 hr 07/30/21 11:44: WBC 10.8, RBC 4.99, Hgb 16.4 H, Hct 49.1 H, MCV 98.4, MCH 32.9 H , MCHC 33.4, RDW Std Deviation 47.8 H, RDW Coeff of Carie 13.2, Plt Count 200, MPV 11.9, Immature Gran % (Auto) 0.400, Neut % (Auto) 90.9 H, Lymph % (Auto) 2.6 L, [place] % (Auto) 5.3, Eos % (Auto) 0.4, Baso % (Auto) 0.4, Absolute Neuts (auto) 9.8 H, Absolute Lymphs (auto) 0.28 L, Nucleated RBC % 0 07/30/21 11:44: Sodium 141, Potassium 4.5, Chloride 107, Carbon Dioxide 28.0, Anion Gap 6, BUN 28 H, Creatinine 1.54 H, Estim Creat Clear Calc 28.42, Est GFR (MDRD) Af Amer 43 L, Est GFR (MDRD) Non-Af 36 L, BUN/Creatinine Ratio 18.2, Glucose 133 H, Calcium 10.2 H, Total Bilirubin 0.70, AST 17, ALT 23, Alkaline Phosphatase 132 H, Total Protein 8.0, Albumin 4.2, Globulin 3.8, Albumin/Globulin Ratio 1.1, TSH 21.70 H 07/30/21 11:44: Lactic Acid 2.6 H* 07/30/21 12:15: Urine Color Yellow, Urine Clarity Sl. Cloudy, Urine pH 6.0, Ur Specific [place] 1.010, Urine Protein 100 H, Urine Glucose (UA) Normal, Urine Ketones 5 H, Urine Occult Blood 250 H, Urine Nitrite Negative, Urine Bilirubin Negative, Urine Urobilinogen Normal, Ur Leukocyte Esterase 25 H, Urine RBC > 100 SEEN, Urine WBC 0 SEEN, Ur Squamous Epith Cells 5-10 SEEN, Urine Bacteria 0 SEEN, Urine Mucus 0 SEEN 07/30/21 16:42: Lactic Acid 2.8 H* Radiography Diagnostic Testing: Radiology Impression KUB X-Ray 07/30/21 22:02 IMPRESSION: Likely early small bowel obstruction Electronically Signed: Albert Ricci DO at 22:25 EST , KUB X-Ray 07/30/21 22:30 IMPRESSION: On the most recent image of the upper abdomen, July 30, 2021 at 11:25 PM #3, the nasogastric tube tip is in expected location in the gastric fundus. Small bowel obstruction noted previously. Electronically Signed: Alexander Richardson MD at 0:20 EST Reading Location ID and State: [id number] / , Service support , KUB X-Ray 07/30/21 23:41 IMPRESSION: Continued advancement of NG tube recommended Electronically Signed: Albert Ricci DO at 0:42 EST , KUB X-Ray 07/30/21 23:41 IMPRESSION: Nasogastric tube tip in suspected location. Partially visualized small bowel obstruction noted previously. Electronically Signed: Alexander Richardson MD at 1:09 EST , Chest X-Ray 07/31/21 00:11 IMPRESSION: NG tube with both the tip and side-port in the stomach. Lungs are clear. Electronically Signed: Albert Ricci DO at 0:43 EST , Physical Exam Narrative GENERAL: cooperative HEENT: Atraumatic; EYES; Anicteric, Normal Conjunctiva NECK; supple, normal thyroid, RESPIRATORY: Diminished to auscultation CARDIOVASCULAR: Regular S1 S2, GI: soft, normoactive bowel sounds, : No Renal angle tenderness; EXTREMITIES: No edema, no clubbing, MUSCULOSKELETAL: no muscle wasting NEURO: Awake; no lateralizing signs. SKIN: No Rash PSYCH; Flat affect Assessment & Plan Assessment/Plan (1) Acidosis, lactic: (2) Acute hypotension: (3) Hypovolemia dehydration: (4) Acute kidney insufficiency: (5) Hypothyroidism: (6) Hypothermia: (7) Diarrhea: PLAN: Patient is a 65-year-old lady presented with lightheadedness. Found to be hypotensive in the ED 1. Acute hypotension ?Secondary to hypovolemia as a result of diarrhea. Patient admitted to a monitored bed where patient is currently being resuscitated with IV fluid with close monitoring of patient's vitals -07/31/2021 patient blood pressure did stabilize however patient did receive Lasix for suspected fluid overload and IV fluid discontinued 2. Syncopal episode ?Suspected to be secondary to orthostatic hypotension patient did experience syncopal episode while working with PT. Of note she had received Lasix during the night and had IV fluid discontinued. As part of subsequent management ordered serial cardiac enzymes and D-dimer 3. Acute kidney injury ?Secondary to hypovolemia with subsequent hypotension. Patient be resuscitated with IV fluids with serial monitoring of electrolytes ordered -07/31/2021 creatinine down to 1.09 4. Partial small bowel obstruction ?07/31/2021 managed conservatively. Consult was placed to Dr. Smith with general surgery who recommended discontinuing duration of patient NG tube for patient to be started on clear liquids 5. Diarrhea ?Patient has history of collagenous colitis plan is to treat symptomatically 6. Lactic acidosis ?Attributed to patient hypovolemia patient does not have any evidence of an infection 7. New onset hypothyroidism ?Patient presented with bradycardia as well as hypothermia. Patient did receive levothyroxine in the ED. An order has been written for patient to be started on levothyroxine 50 mcg daily starting from 07/31/2021 with plans to repeat TSH in 6 weeks 07/31/2020 TSH on admission was 21.7 8. History of Parkinson's disease ?Status post deep brain stimulator placement in 2013 9. Obstructive sleep apnea ?Patient is on CPAP at night 10. GERD ?Patient is on PPI 11. Depression with anxiety ?Patient is on clonazepam 12. Essential hypertension ?Patient antihypertensives on hold in view of hypotension 13. DVT prophylaxis ?SC Lovenox Charges/Coding Visit Charges Inpatient E&M: 25602 Subs Hosp L3
[2021-07-31 08:35] LABS: Absolute Lymphocyte Count 0.62 X10^3/uL (0.83-4.51); Absolute Neutrophil Count 4.8 X10^3/uL (2.0-7.7); Basophil# 0.02 X10^3/uL; Basophil% 0.3 % (0-1); Eosinophil# 0.03 X10^3/uL; Eosinophils% 0.5 % (0-5); Hematocrit 37.1 % (37-47); Hemoglobin 12.5 g/dL (12.0-15.0); Lymphocyte # 0.62 X10^3/ul (0.83-4.51); Lymphocyte % 10.6 % (19-41); Mean Corp Hgb Conc 33.7 g/dL (32-36); Mean Corpuscular Hgb 33.1 pg (27.0-32.0); Mean Corpuscular Volume 98.1 fL (81-99); Mean Platelet Vol. 11.9 fl (6.2-12.0); Monocyte# 0.37 X10^3/uL; Monocyte% 6.3 % (0-10); NRBC Flagged by Analyzer 0 % (0-5); Neutrophil # 4.75 X10^3/uL (2.7-7.7); Neutrophil % 81.6 % (47-70); POSITIVE MORPHOLOGY YES; Platelet Count 134 K/mm3 (150-450); RBC Distribution Width CV 13.8 % (11.6-14.6); RBC Distribution Width SD 49.4 fl (35.1-43.9); Red Blood Count 3.78 M/mm3 (4.2-5.4); White Blood Count 5.8 K/mm3 (4.4-11.0)
[2021-07-31 08:40] LABS: Differential Indicated SCAN CRITERIA MET
[2021-07-31 08:56] LABS: Anion Gap 4 (5-15); BUN 32 mg/dL (7-18); BUN/Creat Ratio 29.4 RATIO (10-20); Calcium,Total 8.1 mg/dL (8.5-10.1); Chloride 115 mmol/L (98-107); Creatinine, Serum 1.09 mg/dL (0.55-1.02); EST Glomerular Filtration Rate 53 mL/min (>60); Est Glom Filt Rate - Afr Amer 65 mL/min (>60); Estimated Creatinine Clearance 40.15 ml/min; Glucose 108 mg/dL (74-106); Magnesium 1.7 mg/dL (1.6-2.6); Potassium 3.6 mmol/L (3.5-5.1); Sodium Level 142 mmol/L (136-145)
--- NOTE | 2021-07-31 08:56 | EKG12_ITS ---
Test Reason : RAPID RESPONSE Blood Pressure : / mmHG Vent. Rate : 089 BPM Atrial Rate : 089 BPM P-R Int : 136 ms QRS Dur : 060 ms QT Int : 364 ms P-R-T Axes : 056 -01 -39 degrees QTc Int : 442 ms Normal sinus rhythm Septal infarct , age undetermined ST & T wave abnormality, consider anterior ischemia Abnormal ECG When compared with ECG of 30-JUL-2021 12:08, MANUAL COMPARISON REQUIRED, DATA IS UNCONFIRMED Confirmed by BOBO PHILLIPS, HOSSEIN ([id number]), book or script editor ANG ASCENCIO ([id number]) on 08/01/2021 11:19:21 AM Referred By: JOSE Confirmed By:HOSSEIN BROUSSARD MD
[2021-07-31 09:56] LABS: Bedside Glucose 105 mg/dL (74-106)
[2021-07-31] MEDS: Enoxaparin 30 MG/0.3 ML Syringe SC (10:07)
--- NOTE | 2021-07-31 10:15 | CON.PCM.SX_ITS ---
Assessment & Plan Assessment/Plan (1) Partial small bowel obstruction: PLAN: Repeat x-ray showed some improvement in her partial small bowel obstruction. She is still having diarrhea. Her abdomen is soft and does not appear to be having any acute surgical needs at this time. We will follow along. HPI Consult Data Date of Consult: 07/31/21 HPI Narrative HPI Narrative: GLORIA WOOD, is a 65 F who presents with past medical history significant for Parkinson disease with autonomic dysfunction, essential hypertension who presents with lightheadedness. Patient symptoms started diarrhea of almost a days duration. On the morning of her admission patient did experience profound lightheadedness. Per patient's who was with her in the ER patient passed out which he described as patient experiencing a brief moment of unresponsiveness while sitting on the toilet. Patient was brought to the emergency department where he was found to be hypotensive with systolic blood pressure in the 80s. He was also found to be in acute kidney injury with markedly elevated TSH. Her TSH was ordered as a result of bradycardia. Admitted to a monitored bed for further management [facility] Medical History Collagenous colitis Depression with anxiety Diverticulosis Essential hypertension Hyperlipidemia Melanoma Neurogenic bladder NEHEMIAH on CPAP Parkinson's disease RBD (REM behavioral disorder) Squamous cell cancer of skin of forearm Home Medications atorvastatin 10 mg PO QODAY 07/11/13 [History Last Taken 07/30/21] clonazepam 0.5 mg PO QHS 07/11/13 [History Last Taken 07/29/21] omeprazole 20 mg PO DAILY 07/11/13 [History Last Taken 07/30/21] ascorbic acid (vitamin C) 500 mg tablet 500 mg PO DAILY 11/10/20 [History Last Taken 07/30/21] ergocalciferol (vitamin D2) 400 unit capsule 10 mcg PO DAILY 11/10/20 [History Last Taken 07/30/21] multivitamin 1 tab PO DAILY 11/10/20 [History Last Taken 07/30/21] carbidopa-levodopa 4.5 tab PO DAILY 07/30/21 [History Last Taken 07/30/21] carvedilol [Coreg] 6.25 mg PO BID 07/30/21 [History Last Taken 07/30/21] metoprolol succinate 25 mg PO DAILY 07/30/21 [History Last Taken 07/30/21] Allergy/AdvReac Type Severity Reaction Status Date / Time prochlorperazine Allergy Unknown unknown Verified 07/30/21 12:00 [From Compazine] promethazine [From Phenergan] Allergy Unknown unknown Verified 07/30/21 12:00 thioridazine Allergy Unknown unknown Verified 07/30/21 12:00 haloperidol [From Haldol] Allergy Other Verified 07/30/21 12:00 haloperidol lactate Allergy Other Verified 07/30/21 12:00 [From Haldol] metoclopramide HCl Allergy Other Verified 07/30/21 12:00 [From Reglan] Family History Father Diabetes Heart disease Mother Hypertension Diabetes Cancer brain, lymphoma Hyperlipidemia Sister Seizures Brother Heart disease Surgical History History of appendectomy History of bunionectomy (~02/2008) History of colonoscopy (07/19/12) History of hammer toe correction (~02/2008) History of total abdominal hysterectomy and bilateral salpingo-oophorectomy (~1995) S/P deep brain stimulator placement (06/23/13) Social History household members: spouse Smoking Status: Never smoker alcohol intake: current alcohol intake frequency: a few times a month Alcohol type: wine substance use type: does not use ROS Constitutional Constitutional: Denies chills, fatigue or fever(s) Cardiovascular Cardiovascular: Denies chest pain Respiratory/Chest Respiratory/Chest: Denies cough Gastrointestinal Gastrointestinal: Denies abdominal pain, nausea or vomiting Physical Exam Const alert, oriented x3 and no apparent distress General Appearance: cooperative HEENT normocephalic and head/scalp atraumatic Eyes Negative for PERRL or EOMs intact bilaterally Resp No clear to auscultation bilaterally Cardio Rate: Negative for regular rate Rhythm: Negative for regular rhythm GI soft to palpation, non-tender and non-distended Palpation: Negative for guarding Skin no rashes or lesions noted Lab / Micro Data Result Diagrams: 07/31/21 08:04 07/31/21 08:04 Labs: Laboratory Results - last 24 hr 07/30/21 11:44: WBC 10.8, RBC 4.99, Hgb 16.4 H, Hct 49.1 H, MCV 98.4, MCH 32.9 H , MCHC 33.4, RDW Std Deviation 47.8 H, RDW Coeff of Carie 13.2, Plt Count 200, MPV 11.9, Immature Gran % (Auto) 0.400, Neut % (Auto) 90.9 H, Lymph % (Auto) 2.6 L, [place] % (Auto) 5.3, Eos % (Auto) 0.4, Baso % (Auto) 0.4, Absolute Neuts (auto) 9.8 H, Absolute Lymphs (auto) 0.28 L, Nucleated RBC % 0 07/30/21 11:44: Sodium 141, Potassium 4.5, Chloride 107, Carbon Dioxide 28.0, Anion Gap 6, BUN 28 H, Creatinine 1.54 H, Estim Creat Clear Calc 28.42, Est GFR (MDRD) Af Amer 43 L, Est GFR (MDRD) Non-Af 36 L, BUN/Creatinine Ratio 18.2, Glucose 133 H, Calcium 10.2 H, Total Bilirubin 0.70, AST 17, ALT 23, Alkaline Phosphatase 132 H, Total Protein 8.0, Albumin 4.2, Globulin 3.8, Albumin/Globulin Ratio 1.1, TSH 21.70 H 07/30/21 11:44: Lactic Acid 2.6 H* 07/30/21 12:15: Urine Color Yellow, Urine Clarity Sl. Cloudy, Urine pH 6.0, Ur Specific [place] 1.010, Urine Protein 100 H, Urine Glucose (UA) Normal, Urine Ketones 5 H, Urine Occult Blood 250 H, Urine Nitrite Negative, Urine Bilirubin Negative, Urine Urobilinogen Normal, Ur Leukocyte Esterase 25 H, Urine RBC > 100 SEEN, Urine WBC 0 SEEN, Ur Squamous Epith Cells 5-10 SEEN, Urine Bacteria 0 SEEN, Urine Mucus 0 SEEN 07/30/21 16:42: Lactic Acid 2.8 H* 07/31/21 08:04: Sodium 142, Potassium 3.6, Chloride 115 H, Carbon Dioxide 23.0, Anion Gap 4 L, BUN 32 H, Creatinine 1.09 H, Estim Creat Clear Calc 40.15, Est G FR (MDRD) Af Amer 65, Est GFR (MDRD) Non-Af 53 L, BUN/Creatinine Ratio 29.4 H, Glucose 108 H, Calcium 8.1 L, Magnesium 1.7 07/31/21 08:04: WBC 5.8, RBC 3.78 L, Hgb 12.5, Hct 37.1, MCV 98.1, MCH 33.1 H, MCHC 33.7, RDW Std Deviation 49.4 H, RDW Coeff of Carie 13.8, Plt Count 134 L, MPV 11.9, Immature Gran % (Auto) 0.700, Neut % (Auto) 81.6 H, Lymph % (Auto) 10.6 L, [place] % (Auto) 6.3, Eos % (Auto) 0.5, Baso % (Auto) 0.3, Absolute Neuts (auto) 4.8, Absolute Lymphs (auto) 0.62 L, Nucleated RBC % 0, Differential Comment 07/31/21 09:47: POC Glucose 105 Radiology Impression KUB X-Ray 07/30/21 22:02 IMPRESSION: Likely early small bowel obstruction Electronically Signed: Albert iRcci DO at 22:25 EST Reading Location ID and State: [facility] / [place] Tel , Service support , KUB X-Ray 07/30/21 22:30 IMPRESSION: On the most recent image of the upper abdomen, July 30, 2021 at 11:25 PM #3, the nasogastric tube tip is in expected location in the gastric fundus. Small bowel obstruction noted previously. Electronically Signed: Alexander Richardson MD at 0:20 EST Reading Location ID and State: [id number] / , Service support , KUB X-Ray 07/30/21 23:41 IMPRESSION: Continued advancement of NG tube recommended Electronically Signed: Albert Ricci DO at 0:42 EST , KUB X-Ray 07/30/21 23:41 IMPRESSION: Nasogastric tube tip in suspected location. Partially visualized small bowel obstruction noted previously. Electronically Signed: Alexander Richardson MD at 1:09 EST , Chest X-Ray 07/31/21 00:11 IMPRESSION: NG tube with both the tip and side-port in the stomach. Lungs are clear. Electronically Signed: Albert Ricci DO at 0:43 EST , KUB X-Ray 07/31/21 05:55 IMPRESSION: Minimal improvement in the small bowel obstruction noted. Electronically Signed: Zen Heard MD at 8:42 EDT ,
--- NOTE | 2021-07-31 10:21 | NURSING ---
While working with therapy patient became unresponsive, see [employer] documentation.
[2021-07-31 11:17] LABS: Troponin-I HS 52 pg/mL (3.0-54.0)
--- NOTE | 2021-07-31 11:21 | CPS ---
started by ponce
[2021-07-31 11:26] LABS: D-Dimer Quantitative (DVT/PE) 14.14 FEU/ug/m (0.27-0.49)
--- NOTE | 2021-07-31 11:35 | CT_ITS ---
We are attempting to reach an attending provider to discuss findings. An addendum with communication details will be sent when the communication is complete. STUDY: CTA CHEST REASON FOR EXAM: Female, 65 years old. ELEVATED D-DIMER RADIATION DOSAGE (If Supplied By Facility): CTDIvol = ( 6.27 ) mGy, DLP = ( 190.91 ) mGycm TECHNIQUE: The examination was performed with the intravenous administration of IV 100mL Isovue-370. Post-processing of the angiographic images was performed, with multiplanar reformation and 3D reconstruction. Individualized dose optimization techniques were used for this CT. COMPARISON: 07/10/2012, chest x-ray earlier today FINDINGS: Electronic device in the left side of the chest. Normal enhancement of the main pulmonary artery and right and left pulmonary arteries. Normal enhancement of the bilateral peripheral pulmonary arteries. There are multiple small filling defects within subsegmental pulmonary artery branches bilaterally consistent with subsegmental pulmonary emboli. Normal thoracic aorta and visualized great vessels. There is no demonstrated aortic dissection. Normal heart and pericardium. Normal mediastinum. Normal hilar regions. Normal visualized trachea and bronchi. The lungs are well expanded. Some dependent bibasilar atelectasis. Normal pleura. Normal chest wall structures. Normal osseous structures. Normal visualized upper abdomen. CT/CTA Chest W/WO Contrast IMPRESSION: Positive for bilateral subsegmental pulmonary emboli. Electronically Signed: Song Majano MD at 13:38 EDT ,
[2021-07-31 13:37] LABS: Troponin-I HS 324 pg/mL (3.0-54.0)
--- NOTE | 2021-07-31 13:50 | ECHOD_ITS ---
Reason For Study: EMBOLI Procedure This was a 2D Doppler, Color Flow transthoracic echocardiogram. Exam performed portable in patient room. Left Ventricle Normal LV size. Left ventricular systolic function is normal. The estimated ejection fraction is 55 %. Stage 1 diastolic dysfunction. No regional wall motion abnormalities noted. Right Ventricle Normal RV size. Normal systolic function. Atria Normal left atrium. Normal right atrium. Mitral Valve Normal mitral valve. Trivial eccentric mitral valve insufficiency. Tricuspid Valve Normal tricuspid valve. Mild tricuspid valve insufficiency. Pulmonary artery systolic pressure is 33 mmHg. Aortic Valve Trisinus/trileaflet aortic valve. Pulmonic Valve Normal pulmonic valve. Great Vessels Normal aortic root. The pulmonary artery is normal size. Inferior vena cava collapse with respiration. Pericardium/Pleural No pericardial effusion. MMode/2D Measurements & Calculations LVIDd: 4.3 cm IVSd: 0.76 cm Ao root diam: 2.9 cm LVIDs: 3.0 cm LVPWd: 0.98 cm RVDd: 2.9 cm FS: 30.3 % LAV(MOD-bp): 26.3 ml LVAd ap4: 27.5 cm2 SV(MOD-sp4): 46.0 ml LAV(MOD-bp) Indexed: 15.1 ml/m2 LVLd ap4: 8.2 cm LAV(MOD-sp2): 27.2 ml EDV(MOD-sp4): 76.2 ml LAV(MOD-sp4): 24.9 ml EDV(sp4-el): 78.0 ml LVAs ap4: 15.1 cm2 LVLs ap4: 6.7 cm ESV(MOD-sp4): 30.2 ml ESV(sp4-el): 29.0 ml EF(MOD-sp4): 60.3 % EF(sp4-el): 62.8 % SV(sp4-el): 49.0 ml LA A4 area: 12.3 cm2 LA dimension(2D): 3.0 cm RA A4 area: 12.9 cm2 Time Measurements MV dec time: 0.19 sec Doppler Measurements & Calculations MV E max toño: 71.8 cm/sec Lat Peak E' Toño: 8.5 cm/sec Med Peak E' Toño: 8.7 cm/sec MV A max toño: 98.8 cm/sec E/E' lat: 8.4 E/E' med: 8.2 MV E/A: 0.73 Ao V2 max: 159.0 cm/sec LV V1 max: 100.1 cm/sec PA V2 max: 78.7 cm/sec Ao max P.1 mmHg LV V1 max P.0 mmHg TR max toño: 269.4 cm/sec TR max P.0 mmHg ECHO/Echo Complete Interpretation Summary Normal LV size. Left ventricular systolic function is normal. The estimated ejection fraction is 55 %. Stage 1 diastolic dysfunction. Pulmonary artery systolic pressure is 33 mmHg. Ordering Physician: Steve Gonzales Referring Physician: CARON MORALES Performed By: Autumn Gill RDCS
[2021-07-31] MEDS: Carbidopa/Levodopa 25/100 Tablet PO ×2 (13:52→17:06)
[2021-07-31] MEDS: Piperacil/Tazobactam 3.375 GM Q8 PREMIX IV ×2 (13:59→21:18)
[2021-07-31 14:54] LABS: Partial Thromboplast Time 37.9 Seconds (24.1-36.2)
[2021-07-31 14:56] LABS: International Normalized Ratio 1.4; Prothrombin Time (Protime)PT. 16.7 SECONDS (11.7-14.9)
[2021-07-31] MEDS: Heparin Injection (Vial) 5,000 UNIT/ML VIAL 4000 UNIT IV (15:13)
[2021-07-31 17:06] LABS: Troponin-I HS 520 pg/mL (3.0-54.0)
[2021-08-01] VITALS (12 sets, daily range): BP systolic 118–132; BP diastolic 71–84; PULSE 69–101; RESP 16–18; TEMP 36.4–36.8; O2SAT 86–97
[2021-08-01] MEDS: 0.9% Normal Saline 1,000 ML 125 ML IV ×2 (01:07→10:26)
[2021-08-01 05:22] LABS: Absolute Lymphocyte Count 1.05 X10^3/uL (0.83-4.51); Basophil# 0.01 X10^3/uL; Basophil% 0.2 % (0-1); Eosinophil# 0.12 X10^3/uL; Eosinophils% 2.1 % (0-5); Hematocrit 35.2 % (37-47); Hemoglobin 11.6 g/dL (12.0-15.0); Lymphocyte # 1.05 X10^3/ul (0.83-4.51); Lymphocyte % 18.6 % (19-41); Mean Platelet Vol. 11.6 fl (6.2-12.0); Monocyte# 0.41 X10^3/uL; Monocyte% 7.2 % (0-10); NRBC Flagged by Analyzer 0 % (0-5); Neutrophil # 4.04 X10^3/uL (2.7-7.7); Neutrophil % 71.4 % (47-70); POSITIVE MORPHOLOGY YES; Platelet Count 107 K/mm3 (150-450); RBC Distribution Width CV 13.8 % (11.6-14.6); RBC Distribution Width SD 50.4 fl (35.1-43.9); Red Blood Count 3.52 M/mm3 (4.2-5.4); White Blood Count 5.7 K/mm3 (4.4-11.0)
[2021-08-01 05:27] LABS: Differential Indicated SCAN CRITERIA MET
[2021-08-01 05:33] LABS: Partial Thromboplast Time 47.7 Seconds (24.1-36.2)
[2021-08-01] MEDS: Piperacil/Tazobactam 3.375 GM Q8 PREMIX IV ×3 (05:35→22:15)
[2021-08-01] MEDS: Carbidopa/Levodopa 25/100 Tablet PO ×4 (05:36→17:40)
[2021-08-01] MEDS: Levothyroxine 50 MCG Tablet PO (05:36)
[2021-08-01 05:45] LABS: Anion Gap 5 (5-15); BUN 22 mg/dL (7-18); BUN/Creat Ratio 24.8 RATIO (10-20); Calcium,Total 7.6 mg/dL (8.5-10.1); Chloride 116 mmol/L (98-107); Creatinine, Serum 0.89 mg/dL (0.55-1.02); EST Glomerular Filtration Rate 68 mL/min (>60); Est Glom Filt Rate - Afr Amer 82 mL/min (>60); Estimated Creatinine Clearance 49.18 ml/min; Glucose 94 mg/dL (74-106); Sodium Level 143 mmol/L (136-145)
--- NOTE | 2021-08-01 10:24 | PN.HOSP_ITS ---
Subjective Subjective Follow-up on partial bowel obstruction/acute PE: Patient was seen and examined. Her brother was at the bedside. She denied any new complaints. She has been in bed predominantly. Denies any chest pain or dizziness or palpitations. Able to tolerate clear liquid diet Objective Data Objective Data Vital Signs: Vital Signs Temp Pulse Resp BP Pulse Ox 98.2 F 92 16 132/84 H 97 08/01/21 05:30 08/01/21 06:50 08/01/21 05:30 08/01/21 05:30 08/01/21 05:30 Oxygen Flow Rate (L/min) 3 Oxygen Delivery Method Nasal Cannula Weight: 73.3 kg Body Mass Index (BMI) 29.5 Intake & Output: Intake and Output for Last 24 Hours 07/30/21 07/31/21 08/01/21 22:59 23:59 23:59 Intake Total 2095.85 / 2095.85 Output Total 250 / 250 Balance 1845.85 / 1845.85 Lab / Micro Data Result Diagrams: 08/01/21 05:01 08/01/21 05:01 Labs: Laboratory Results - last 24 hr 07/31/21 10:45: D-Dimer Quant (PE/DVT) 14.14 H* 07/31/21 10:45: Troponin I High Sens 52 07/31/21 10:45: APTT 37.9 H 07/31/21 10:45: PT 16.7 H, INR 1.4 07/31/21 12:57: Troponin I High Sens 324 H* 07/31/21 16:30: Troponin I High Sens 520 H* 07/31/21 21:20: APTT 100.0 H* 08/01/21 05:01: WBC 5.7, RBC 3.52 L, Hgb 11.6 L, Hct 35.2 L, MCV 100.0 H, MCH 33.0 H, MCHC 33.0, RDW Std Deviation 50.4 H, RDW Coeff of Carie 13.8, Plt Count 107 L, MPV 11.6, Immature Gran % (Auto) 0.500, Neut % (Auto) 71.4 H, Lymph % (Auto) 18.6 L, [place] % (Auto) 7.2, Eos % (Auto) 2.1, Baso % (Auto) 0.2, Absolute Neuts (auto) 4.0, Absolute Lymphs (auto) 1.05, Nucleated RBC % 0 08/01/21 05:01: Sodium 143, Potassium 3.0 L, Chloride 116 H, Carbon Dioxide 22.0, Anion Gap 5, BUN 22 H, Creatinine 0.89, Estim Creat Clear Calc 49.18, Est GFR (MDRD) Af Amer 82, Est GFR (MDRD) Non-Af 68, BUN/Creatinine Ratio 24.8 H, Glucose 94, Calcium 7.6 L 08/01/21 05:01: APTT 47.7 H Micro: Microbiology 07/31/21 23:40 Stool Enteric Bacteriology - Final 07/31/21 23:40 Stool C. difficile DNA Amplification - Final 07/30/21 12:13 Blood Culture (Wb) - Anticubital Right Blood Culture - Preliminary No growth in 48 hours. 07/30/21 12:10 Blood Culture (Wb) - Anticubital Left Blood Culture - Prelim inary No growth in 48 hours. 07/31/21 17:40 Nasal Secretion SARS-CoV-2 Antigen (Rapid) - Final 07/30/21 12:15 Urine Catheter - Catheter Urine Culture - Preliminary Culture exhibits no growth. Radiography Diagnostic Testing: Radiology Impression Chest CTA 07/31/21 11:35 IMPRESSION: Positive for bilateral subsegmental pulmonary emboli. Electronically Signed: Song Majano MD at 13:38 EDT Reading Location ID and State: [id number] / [employer] Tel , Service support , ADDENDUM: 07/31/21 1352 IMPRESSION: Positive for bilateral subsegmental pulmonary emboli. N.B. : The above Results were Read Back by Song Majano MD to Steve Gonzales and understanding confirmed on 07/31/2021 13:45:19 (ET). Electronically Signed: Song Majano MD at 13:38 EDT , Physical Exam Narrative Physical exam: General: Alert, Oriented x3, Cooperative, No apparent distress, on 3 L of oxygen HEENT: Atraumatic Oral: Moist Mucosa Neck: Supple Lungs: Clear to auscultation Cardiovascular: HS I+II, regular, no murmurs Abdomen: Bowel Sounds Present, Soft, Non Tender Extremities: No edema Skin: No rashes, No breakdown Neurological: Grossly intact Psych/Mental Status: Appropriate Assessment & Plan Assessment/Plan (1) Acidosis, lactic: (2) Acute hypotension: (3) Hypovolemia dehydration: (4) Acute kidney insufficiency: (5) Hypothyroidism: QUALIFIERS: Hypothyroidism type: unspecified Qualified Code(s): E03.9 - Hypothyroidism, unspecified (6) Hypothermia: (7) Diarrhea: PLAN: 1. Acute hypotension, present on admission likely secondary to dehydration from diarrhea Patient blood pressure stable, orthostatic vitals are negative 2. Syncope secondary to acute PE, seen on CTA of the chest Continue heparin drip, continue to monitor 3. Acute kidney injury secondary to dehydration from diarrhea, resolved Continue to monitor 4. Partial small bowel obstruction, remained stable, patient tolerating clear liquid diet General surgery following 5. Diarrhea secondary to acute C. difficile infection, nonfulminant, nonsevere CDI Stool studies were negative for enteric panel but positive for acute C. difficile, antigen and PCR Patient with underlying collagenous colitis Start vancomycin 125 mg p.o. 4 times daily for 10 days 6. Lactic acidosis secondary to hypokalemia, resolved 7. New onset hypothyroidism, continue on levothyroxine Repeat TSH in 6 weeks 8. Rest of chronic medical conditions including history of Parkinson's disease, ?Status post deep brain stimulator placement in 2013, NEHEMIAH, anxiety/depression Remained stable. Home meds continued 9. DVT prophylaxis?Lovenox subcu Charges/Coding Visit Charges Inpatient E&M: 70402 Subs Hosp L2
[2021-08-01] MEDS: Potassium Chloride Oral Tablet 20 MEQ 40 MEQ PO (10:48)
[2021-08-01 11:36] LABS: Partial Thromboplast Time 46.9 Seconds (24.1-36.2)
--- NOTE | 2021-08-01 12:00 | CASEMGMT ---
KUMAR SOSA assessment: Face to Face with patient for initial transition planning/care coordination assessment. KUMAR SOSA introduced self and role at [facility], pt voices understanding and consents to assessment. Pt is sitting up in bed in no distress on 2L. Pt is A/Ox4 and answers questions appropriately. Pt's is at bedside during assessment. Care providers, pharmacy, and demographics verified/updated. Presentation: Pt c/o dizziness howell she woke up-has dbl vision and spinning Admitting dx: Hypotension, JABARI PCP: Moriah Specialists: Chavez and Ernestine Mendez, neuro at [facility] Preferred Pharmacy: [facility] Insurance: [facility] Prescription Benefit: [facility] Living Will/HPOA: Pt has LW/HPOA and is aware that they are not on file at [facility]. Pt states her , Edi Arreguin, is HPOA. LNOK: Edi Arreguin, /HPOA Living Arrangements: Pt lives with in 2 story home and states no concerns at home. Pt is independent with ADL's but assists, if needed Transportation: Pt's drives and states no transportation concerns. DME/HHC: Pt has a cpap thru [employer] and states no need for any further DME. Pt states no hx of SNF or HHC in the past. Pt states no concerns with going home at time of discharge. Pt is retired. Pt states does not smoke cigarettes but does drink Pt states no further concerns/needs. CM to follow for any further discharge planning/needs. Advised pt/ to ask for CM if any further questions/concerns/needs arise, voice understanding. Pt Goal: Home Plan: [place] KUMAR SOSA
--- NOTE | 2021-08-01 12:47 | PCM.PN.SRG ---
Subjective Subjective Patient has no nausea or vomiting. Still having diarrhea. Objective Data Objective Data Slightly distended but soft. No rebound guarding or peritoneal signs. Vital Signs: Vital Signs Temp Pulse Resp BP Pulse Ox 97.9 F 85 18 127/72 H 96 08/01/21 11:40 08/01/21 11:40 08/01/21 11:40 08/01/21 11:40 08/01/21 11:40 Oxygen Flow Rate (L/min) 2 Oxygen Delivery Method Nasal Cannula Weight: 161 lb 9.581 oz Body Mass Index (BMI) 29.5 Intake & Output: Intake and Output for Last 24 Hours 07/30/21 07/31/21 08/01/21 22:59 23:59 23:59 Intake Total 2546.78 / 2546.78 Output Total 650 / 650 Balance 1896.78 / 1896.78 Lab / Micro Data Result Diagrams: 08/01/21 05:01 08/01/21 05:01 Labs: Laboratory Results - last 24 hr 07/31/21 10:45: APTT 37.9 H 07/31/21 10:45: PT 16.7 H, INR 1.4 07/31/21 12:57: Troponin I High Sens 324 H* 07/31/21 16:30: Troponin I High Sens 520 H* 07/31/21 21:20: APTT 100.0 H* 08/01/21 05:01: WBC 5.7, RBC 3.52 L, Hgb 11.6 L, Hct 35.2 L, MCV 100.0 H, MCH 33.0 H, MCHC 33.0, RDW Std Deviation 50.4 H, RDW Coeff of Carie 13.8, Plt Count 107 L, MPV 11.6, Immature Gran % (Auto) 0.500, Neut % (Auto) 71.4 H, Lymph % (Auto) 18.6 L, [place] % (Auto) 7.2, Eos % (Auto) 2.1, Baso % (Auto) 0.2, Absolute Neuts (auto) 4.0, Absolute Lymphs (auto) 1.05, Nucleated RBC % 0 08/01/21 05:01: Sodium 143, Potassium 3.0 L, Chloride 116 H, Carbon Dioxide 22.0, Anion Gap 5, BUN 22 H, Creatinine 0.89, Estim Creat Clear Calc 49.18, Est GFR (MDRD) Af Amer 82, Est GFR (MDRD) Non-Af 68, BUN/Creatinine Ratio 24.8 H, Glucose 94, Calcium 7.6 L 08/01/21 05:01: APTT 47.7 H 08/01/21 11:16: APTT 46.9 H Micro: Microbiology 07/31/21 23:40 Stool Enteric Bacteriology - Final 07/31/21 23:40 Stool C. difficile GDH Antigen & Toxins - Final 07/31/21 23:40 Stool C. difficile DNA Amplification - Final 07/30/21 12:13 Blood Culture (Wb) - Anticubital Right Blood Culture - Preliminary No growth in 48 hours. 07/30/21 12:10 Blood Culture (Wb) - Anticubital Left Blood Culture - Preliminary No growth in 48 hours. 07/31/21 17:40 Nasal Secretion SARS-CoV-2 Antigen (Rapid) - Final 07/30/21 12:15 Urine Catheter - Catheter Urine Culture - Preliminary Culture exhibits no growth. Radiography Diagnostic Testing: Radiology Impression Chest CTA 07/31/21 11:35 IMPRESSION: Positive for bilateral subsegmental pulmonary emboli. Electronically Signed: Song Majano MD at 13:38 EDT , ADDENDUM: 07/31/21 1352 IMPRESSION: Positive for bilateral subsegmental pulmonary emboli. N.B. : The above Results were Read Back by Song Majano MD to Steve Gonzales and understanding confirmed on 07/31/2021 13:45:19 (ET). Electronically Signed: Song Majano MD at 13:38 EDT , Assessment & Plan Assessment/Plan (1) Partial small bowel obstruction: PLAN: Appears to be moving her bowels. Will sign off for now.
[2021-08-01] MEDS: Vancomycin 125 MG/5 ML Susp PO.SYRINGE PO ×2 (17:40→23:24)
[2021-08-01 18:28] LABS: Partial Thromboplast Time 44.8 Seconds (24.1-36.2)
[2021-08-01] MEDS: 0.9% Normal Saline 1,000 ML 75 ML IV (20:01)
[2021-08-01] MEDS: Atorvastatin Calcium 10 MG Tablet PO (22:19)
[2021-08-02] VITALS (11 sets, daily range): BP systolic 136–157; BP diastolic 75–101; PULSE 78–99; RESP 18–20; TEMP 36.8–36.9; O2SAT 93–97
[2021-08-02] MEDS: Piperacil/Tazobactam 3.375 GM Q8 PREMIX IV ×3 (05:09→22:07)
[2021-08-02] MEDS: Vancomycin 125 MG/5 ML Susp PO.SYRINGE PO ×4 (05:09→23:56)
[2021-08-02] MEDS: Levothyroxine 50 MCG Tablet PO (05:09)
[2021-08-02] MEDS: Carbidopa/Levodopa 25/100 Tablet PO ×4 (05:21→17:40)
[2021-08-02 08:01] LABS: Absolute Lymphocyte Count 0.98 X10^3/uL (0.83-4.51); Absolute Neutrophil Count 5.7 X10^3/uL (2.0-7.7); Basophil# 0.03 X10^3/uL; Basophil% 0.4 % (0-1); Eosinophil# 0.05 X10^3/uL; Eosinophils% 0.7 % (0-5); Hematocrit 34.4 % (37-47); Hemoglobin 12.3 g/dL (12.0-15.0); Lymphocyte # 0.98 X10^3/ul (0.83-4.51); Lymphocyte % 13.5 % (19-41); Mean Corp Hgb Conc 35.8 g/dL (32-36); Mean Corpuscular Hgb 33.2 pg (27.0-32.0); Mean Corpuscular Volume 92.7 fL (81-99); Mean Platelet Vol. 11.6 fl (6.2-12.0); Monocyte# 0.42 X10^3/uL; Monocyte% 5.8 % (0-10); NRBC Flagged by Analyzer 0 % (0-5); Neutrophil # 5.74 X10^3/uL (2.7-7.7); Platelet Count 125 K/mm3 (150-450); RBC Distribution Width CV 12.9 % (11.6-14.6); RBC Distribution Width SD 44.2 fl (35.1-43.9); Red Blood Count 3.71 M/mm3 (4.2-5.4); White Blood Count 7.3 K/mm3 (4.4-11.0)
[2021-08-02 08:07] LABS: Partial Thromboplast Time 52.6 Seconds (24.1-36.2)
[2021-08-02 08:17] LABS: ALB/GLOB Ratio 0.8 RATIO (0.9-2.4); AST(SGOT) 19 U/L (15-37); Alanine Aminotransfer ALT/SGPT 12 U/L (13-56); Albumin, Serum 2.6 g/dL (3.2-5.0); Alkaline Phosphatase 88 U/L (45-117); Anion Gap 5 (5-15); BUN 8 mg/dL (7-18); BUN/Creat Ratio 11.6 RATIO (10-20); Calcium,Total 8.2 mg/dL (8.5-10.1); Chloride 110 mmol/L (98-107); Creatinine, Serum 0.69 mg/dL (0.55-1.02); EST Glomerular Filtration Rate 90 mL/min (>60); Est Glom Filt Rate - Afr Amer 109 mL/min (>60); Estimated Creatinine Clearance 43.77 ml/min; Globulin 3.1 g/dL (2.2-4.2); Glucose 111 mg/dL (74-106); Potassium 2.9 mmol/L (3.5-5.1); Protein, Total 5.7 g/dL (6.4-8.2); Sodium Level 138 mmol/L (136-145)
[2021-08-02 08:42] LABS: Partial Thromboplast Time 29.9 Seconds (24.1-36.2)
[2021-08-02] MEDS: Heparin Injection (Vial) 5,000 UNIT/ML VIAL IV (08:57)
[2021-08-02 09:41] LABS: Magnesium 1.7 mg/dL (1.6-2.6)
[2021-08-02] MEDS: Potassium Chloride 10mEq/100mL 10 MEQ/100 ML IV.SOLN. 100 MEQ IV BOLUS ×4 (10:22→14:28)
[2021-08-02] MEDS: 0.9% Normal Saline 1,000 ML 75 ML IV (10:22)
--- NOTE | 2021-08-02 11:29 | CASEMGMT ---
Per , pt is currently active with OP therapy at [facility] and [facility] for a total of 3 days/week. Pt/ updated that pt was min assist of 2 today with therapy and they are recommending further skilled therapy. Per therapy, pt would do well in IP rehab unit. Pt/ discussing. CM to follow. Gela HEATH CM
--- NOTE | 2021-08-02 12:45 | CASEMGMT ---
SW spoke with patient about [facility] 4th floor Rehab Unit. SW left a pamphlet with patient. Patient would like to talk with her about it. SW did let patient know that insurance will have to approve it also. REGINA spoke with Merle and Dr Birmingham reviewed patient's chart. Rehab would be willing to take patient. SW will check back with patient and her . Ivanna LYMAN
--- NOTE | 2021-08-02 14:09 | CASEMGMT ---
SW spoke with patient and her . SW introduced self and role at [facility]. SW explained Inpatient Rehab Unit. Both are agreeable to Inpatient Rehab. SW did tell them that patient's insurance has to approve patient. Ivanna LYMAN
--- NOTE | 2021-08-02 14:15 | PCM.PN.HOSP ---
Subjective Subjective Follow-up on partial bowel obstruction/acute PE: Patient was seen and examined. She had more than 3 bowel movements today. Denies any fever or chills. Objective Data Objective Data Vital Signs: Vital Signs Temp Pulse Resp BP Pulse Ox 98.2 F 81 18 146/75 H 93 08/02/21 09:05 08/02/21 09:05 08/02/21 09:05 08/02/21 09:05 08/02/21 09:05 Oxygen Flow Rate (L/min) 2 Oxygen Delivery Method Nasal Cannula Weight: 73.3 kg Body Mass Index (BMI) 29.5 Intake & Output: Intake and Output for Last 24 Hours 07/31/21 08/01/21 08/02/21 23:59 23:59 23:59 Intake Total 4229.40 / 4229.40 2125. / 2125. Output Total 800 / 800 Balance 3429.40 / 3429.40 / Lab / Micro Data Result Diagrams: 08/02/21 07:42 08/02/21 07:42 Labs: Laboratory Results - last 24 hr 08/01/21 18:05: APTT 44.8 H 08/02/21 00:30: APTT 52.6 H 08/02/21 07:42: WBC 7.3, RBC 3.71 L, Hgb 12.3, Hct 34.4 L, MCV 92.7 D, MCH 33.2 H, MCHC 35.8 D, RDW Std Deviation 44.2 H, RDW Coeff of Carie 12.9, Plt Count 125 L, MPV 11.6, Immature Gran % (Auto) 0.600, Neut % (Auto) 79.0 H, Lymph % (Auto) 13.5 L, [place] % (Auto) 5.8, Eos % (Auto) 0.7, Baso % (Auto) 0.4, Absolute Neuts (auto) 5.7, Absolute Lymphs (auto) 0.98, Nucleated RBC % 0 08/02/21 07:42: Sodium 138, Potassium 2.9 L, Chloride 110 H, Carbon Dioxide 23.0, Anion Gap 5, BUN 8, Creatinine 0.69, Estim Creat Clear Calc 43.77, Est GFR (MDRD) Af Amer 109, Est GFR (MDRD) Non-Af 90, BUN/Creatinine Ratio 11.6, Glucose 111 H, Calcium 8.2 L, Total Bilirubin 0.80, AST 19, ALT 12 L, Alkaline Phosphatase 88, Total Protein 5.7 L, Albumin 2.6 L, Globulin 3.1, Albumin/Globulin Ratio 0.8 L 08/02/21 07:42: APTT 29.9 08/02/21 07:42: Magnesium 1.7 Micro: Microbiology 07/30/21 12:15 Urine Catheter - Catheter Urine Culture - Final Culture exhibits no growth. 07/31/21 23:40 Stool Enteric Bacteriology - Final 07/31/21 23:40 Stool C. difficile GDH Antigen & Toxins - Final 07/31/21 23:40 Stool C. difficile DNA Amplification - Final 07/30/21 12:13 Blood Culture (Wb) - Anticubital Right Blood Culture - Preliminary No growth in 48 hours. 07/30/21 12:10 Blood Culture (Wb) - Anticubital Left Blood Culture - Preliminary No growth in 48 hours. 07/31/21 17:40 Nasal Secretion SARS-CoV-2 Antigen (Rapid) - Final Radiography Diagnostic Testing: Radiology Impression Echocardiogram 07/31/21 13:50 Interpretation Summary Normal LV size. Left ventricular systolic function is normal. The estimated ejection fraction is 55 %. Stage 1 diastolic dysfunction. Pulmonary artery systolic pressure is 33 mmHg. Ordering Physician: Steve Gonzales Referring Physician: CARON MORALES Performed By: Autumn Gill RDCS Physical Exam Narrative Physical exam: General: Alert, Oriented x3, Cooperative, No apparent distress, on 2 L of oxygen HEENT: Atraumatic Oral: Moist Mucosa Neck: Supple Lungs: Clear to auscultation Cardiovascular: HS I+II, regular, no murmurs Abdomen: Bowel Sounds Present, Soft, Non Tender Extremities: No edema Skin: No rashes, No breakdown Neurological: Grossly intact Psych/Mental Status: Appropriate Assessment & Plan Assessment/Plan (1) Acidosis, lactic: (2) Acute hypotension: (3) Hypovolemia dehydration: (4) Acute kidney insufficiency: (5) Hypothyroidism: QUALIFIERS: Hypothyroidism type: unspecified Qualified Code(s): E03.9 - Hypothyroidism, unspecified (6) Hypothermia: (7) Diarrhea: PLAN: 1. Acute hypotension, present on admission likely secondary to dehydration from diarrhea, resolved 2. Syncope secondary to acute PE, seen on CTA of the chest Continue heparin drip, will switch to Eliquis at discharge 3. Acute kidney injury secondary to dehydration from diarrhea, resolved Continue to monitor 4. Partial small bowel obstruction, resolved, tolerating lazaro liquid diet Advance diet as tolerated. General surgery following 5. Diarrhea secondary to acute C. difficile infection, non-fulminant, nonsevere CDI Stool studies were negative for enteric panel but positive for acute C. difficile, antigen and PCR Patient with underlying collagenous colitis Continue on vancomycin 125 mg p.o. 4 times daily for 10 days 6. Lactic acidosis secondary to hypokalemia, resolved 7. New onset hypothyroidism, continue on levothyroxine Repeat TSH in 6 weeks 8. Rest of chronic medical conditions including history of Parkinson's disease, ?Status post deep brain stimulator placement in 2013, NEHEMIAH, anxiety/depression Remained stable. Home meds continued 9. DVT prophylaxis?Lovenox subcu Charges/Coding Visit Charges Inpatient E&M: 81709 Subs Hosp L2
[2021-08-02 15:37] LABS: Partial Thromboplast Time 75.6 Seconds (24.1-36.2)
[2021-08-02] MEDS: 0.9% Saline Lock 10 ML Syringe IV (22:14)
[2021-08-02 23:17] LABS: Partial Thromboplast Time 53.4 Seconds (24.1-36.2)
[2021-08-03] VITALS (8 sets, daily range): BP systolic 120–143; BP diastolic 58–93; PULSE 76–100; RESP 16–18; TEMP 36.5–36.8; O2SAT 92–95
[2021-08-03] MEDS: Vancomycin 125 MG/5 ML Susp PO.SYRINGE PO ×4 (05:34→23:24)
[2021-08-03] MEDS: Piperacil/Tazobactam 3.375 GM Q8 PREMIX IV ×3 (05:34→21:37)
[2021-08-03] MEDS: Levothyroxine 50 MCG Tablet PO (05:35)
[2021-08-03] MEDS: Carbidopa/Levodopa 25/100 Tablet PO ×4 (05:36→17:15)
[2021-08-03 06:02] LABS: Partial Thromboplast Time 48.9 Seconds (24.1-36.2)
--- NOTE | 2021-08-03 07:59 | CPS ---
Pt wearing own AutoPap @.
[2021-08-03 12:21] LABS: Absolute Lymphocyte Count 1.02 X10^3/uL (0.83-4.51); Absolute Neutrophil Count 5.6 X10^3/uL (2.0-7.7); Basophil# 0.03 X10^3/uL; Basophil% 0.4 % (0-1); Eosinophil# 0.04 X10^3/uL; Eosinophils% 0.5 % (0-5); Hematocrit 34.6 % (37-47); Hemoglobin 12.9 g/dL (12.0-15.0); Lymphocyte # 1.02 X10^3/ul (0.83-4.51); Lymphocyte % 13.8 % (19-41); Mean Corp Hgb Conc 37.3 g/dL (32-36); Mean Corpuscular Hgb 33.4 pg (27.0-32.0); Mean Corpuscular Volume 89.6 fL (81-99); Mean Platelet Vol. 11.3 fl (6.2-12.0); Monocyte# 0.59 X10^3/uL; NRBC Flagged by Analyzer 0.4 % (0-5); Neutrophil # 5.62 X10^3/uL (2.7-7.7); Neutrophil % 76.4 % (47-70); Platelet Count 158 K/mm3 (150-450); RBC Distribution Width CV 12.7 % (11.6-14.6); RBC Distribution Width SD 41.7 fl (35.1-43.9); Red Blood Count 3.86 M/mm3 (4.2-5.4); White Blood Count 7.4 K/mm3 (4.4-11.0)
[2021-08-03 12:36] LABS: Partial Thromboplast Time 59.7 Seconds (24.1-36.2)
[2021-08-03 12:57] LABS: ALB/GLOB Ratio 0.8 RATIO (0.9-2.4); AST(SGOT) 43 U/L (15-37); Alanine Aminotransfer ALT/SGPT 13 U/L (13-56); Albumin, Serum 2.8 g/dL (3.2-5.0); Alkaline Phosphatase 164 U/L (45-117); Anion Gap 7 (5-15); BUN 7 mg/dL (7-18); BUN/Creat Ratio 9.5 RATIO (10-20); Calcium,Total 9.1 mg/dL (8.5-10.1); Chloride 104 mmol/L (98-107); Creatinine, Serum 0.74 mg/dL (0.55-1.02); EST Glomerular Filtration Rate 83 mL/min (>60); Est Glom Filt Rate - Afr Amer 101 mL/min (>60); Estimated Creatinine Clearance 43.77 ml/min; Globulin 3.5 g/dL (2.2-4.2); Glucose 122 mg/dL (74-106); Potassium 2.7 mmol/L (3.5-5.1); Protein, Total 6.3 g/dL (6.4-8.2); Sodium Level 139 mmol/L (136-145)
[2021-08-03 14:16] LABS: Magnesium 2.2 mg/dL (1.6-2.6)
--- NOTE | 2021-08-03 15:00 | PN.HOSP_ITS ---
Subjective Subjective Follow-up on partial bowel obstruction/acute PE: Patient was seen and examined. Her diarrhea appears to have slowed down. Denied any fever or chills. Objective Data Objective Data Vital Signs: Vital Signs Temp Pulse Resp BP Pulse Ox 97.7 F L 91 16 131/75 H 92 08/03/21 09:22 08/03/21 09:22 08/03/21 09:22 08/03/21 09:22 08/03/21 09:28 Oxygen Flow Rate (L/min) [ 0 AMBULATING on Room Air] Oxygen Flow Rate (L/min) [At 0 REST on Room Air] Oxygen Flow Rate (L/min) 3 Oxygen Delivery Method Room Air Weight: 73.3 kg Body Mass Index (BMI) 29.5 Intake & Output: Intake and Output for Last 24 Hours 08/01/21 08/02/21 08/03/21 23:59 23:59 23:59 Intake Total 4229.40 / 4229.40 3106.95 / 3106.95 190.13 / 190.13 Output Total 800 / 800 1400 / 1400 Balance 3429.40 / 3429.40 3106.95 / 2206.95 -1209.87 / -1209.87 Lab / Micro Data Result Diagrams: 08/03/21 12:08 08/03/21 12:08 Labs: Laboratory Results - last 24 hr 08/02/21 15:05: APTT 75.6 H 08/02/21 22:40: APTT 53.4 H 08/03/21 05:15: APTT 48.9 H 08/03/21 12:08: APTT 59.7 H 08/03/21 12:08: WBC 7.4, RBC 3.86 L, Hgb 12.9, Hct 34.6 L, MCV 89.6, MCH 33.4 H, MCHC 37.3 H, RDW Std Deviation 41.7, RDW Coeff of Carie 12.7, Plt Count 158, MPV 11.3, Immature Gran % (Auto) 0.900, Neut % (Auto) 76.4 H, Lymph % (Auto) 13.8 L, [place] % (Auto) 8.0, Eos % (Auto) 0.5, Baso % (Auto) 0.4, Absolute Neuts (auto) 5.6, Absolute Lymphs (auto) 1.02, Nucleated RBC % 0.4 08/03/21 12:08: Sodium 139, Potassium 2.7 L*, Chloride 104, Carbon Dioxide 28.0, Anion Gap 7, BUN 7, Creatinine 0.74, Estim Creat Clear Calc 43.77, Est GFR ( MDRD) Af Amer 101, Est GFR (MDRD) Non-Af 83, BUN/Creatinine Ratio 9.5 L, Glucose 122 H, Calcium 9.1, Total Bilirubin 0.80, AST 43 H, ALT 13, Alkaline Phosphatase 164 H, Total Protein 6.3 L, Albumin 2.8 L, Globulin 3.5, Albumin/Globulin Ratio 0.8 L 08/03/21 12:08: Magnesium 2.2 Micro: Microbiology 07/30/21 12:15 Urine Catheter - Catheter Urine Culture - Final Culture exhibits no growth. 07/31/21 23:40 Stool Enteric Bacteriology - Final 07/31/21 23:40 Stool C. difficile GDH Antigen & Toxins - Final 07/31/21 23:40 Stool C. difficile DNA Amplification - Final 07/30/21 12:13 Blood Culture (Wb) - Anticubital Right Blood Culture - Preliminary No growth in 48 hours. 07/30/21 12:10 Blood Culture (Wb) - Anticubital Left Blood Culture - Preliminary No growth in 48 hours. 07/31/21 17:40 Nasal Secretion SARS-CoV-2 Antigen (Rapid) - Final Physical Exam Narrative Physical exam: General: Alert, Oriented x3, Cooperative, No apparent distress, off oxygen HEENT: Atraumatic Oral: Moist Mucosa Neck: Supple Lungs: Diminished to auscultation Cardiovascular: HS I+II, regular, no murmurs Abdomen: Bowel Sounds Present, Soft, Non Tender Extremities: No edema Skin: No rashes, No breakdown Neurological: Grossly intact Psych/Mental Status: Appropriate Assessment & Plan Assessment/Plan (1) Acidosis, lactic: (2) Acute hypotension: (3) Hypovolemia dehydration: (4) Acute kidney insufficiency: (5) Hypothyroidism: QUALIFIERS: Hypothyroidism type: unspecified Qualified Code(s): E03.9 - Hypothyroidism, unspecified (6) Hypothermia: (7) Diarrhea: PLAN: 1. Hypokalemia, potassium 2.7, replaced, recheck in a.m. 2. Acute hypotension, present on admission likely secondary to dehydration from diarrhea, resolved 3. Syncope secondary to acute PE, seen on CTA of the chest Continue heparin drip, will switch to Eliquis at discharge 4 Acute kidney injury secondary to dehydration from diarrhea, resolved Continue to monitor 5. Partial small bowel obstruction, resolved, tolerating lazaro liquid diet Advance diet as tolerated. General surgery following 6. Diarrhea secondary to acute C. difficile infection, non-fulminant, nonsevere CDI, improving Stool studies were negative for enteric panel but positive for acute C. difficile, antigen and PCR Patient with underlying collagenous colitis Continue on vancomycin 125 mg p.o. 4 times daily for 10 days 7. Lactic acidosis secondary to hypokalemia, resolved 8. New onset hypothyroidism, continue on levothyroxine Repeat TSH in 6 weeks 9. Rest of chronic medical conditions including history of Parkinson's disease, ?Status post deep brain stimulator placement in 2013, NEHEMIAH, anxiety/depression Remained stable. Home meds continued 10. DVT prophylaxis?on Heparin drip Charges/Coding Visit Charges Inpatient E&M: 34353 Subs Hosp L2
[2021-08-03] MEDS: Potassium Chloride 10mEq/100mL 10 MEQ/100 ML IV.SOLN. 100 MEQ IV BOLUS ×4 (15:09→18:38)
[2021-08-03 19:11] LABS: Partial Thromboplast Time 64.1 Seconds (24.1-36.2)
[2021-08-03] MEDS: Atorvastatin Calcium 10 MG Tablet PO (21:43)
--- NOTE | 2021-08-03 21:51 | NURSING ---
pt refusing care at this time, refusing vital signs to be check.
--- NOTE | 2021-08-03 23:10 | NURSING ---
pt refusing cpap tonight, 94% on RA.
[2021-08-04] VITALS (11 sets, daily range): BP systolic 89–143; BP diastolic 52–83; PULSE 67–111; RESP 16–18; TEMP 36.7–37.1; O2SAT 89–97
[2021-08-04] MEDS: Piperacil/Tazobactam 3.375 GM Q8 PREMIX IV (05:04)
[2021-08-04] MEDS: Vancomycin 125 MG/5 ML Susp PO.SYRINGE PO ×3 (05:04→17:05)
[2021-08-04] MEDS: Carbidopa/Levodopa 25/100 Tablet PO ×4 (05:04→17:05)
[2021-08-04] MEDS: Levothyroxine 50 MCG Tablet PO (05:04)
[2021-08-04 05:59] LABS: Absolute Lymphocyte Count 1.11 X10^3/uL (0.83-4.51); Absolute Neutrophil Count 5.1 X10^3/uL (2.0-7.7); Basophil# 0.03 X10^3/uL; Basophil% 0.4 % (0-1); Eosinophil# 0.23 X10^3/uL; Eosinophils% 3.2 % (0-5); Hematocrit 35.1 % (37-47); Hemoglobin 12.4 g/dL (12.0-15.0); Lymphocyte # 1.11 X10^3/ul (0.83-4.51); Lymphocyte % 15.5 % (19-41); Mean Corp Hgb Conc 35.3 g/dL (32-36); Mean Corpuscular Hgb 32.6 pg (27.0-32.0); Mean Corpuscular Volume 92.4 fL (81-99); Mean Platelet Vol. 11.2 fl (6.2-12.0); Monocyte# 0.59 X10^3/uL; Monocyte% 8.2 % (0-10); NRBC Flagged by Analyzer 0.3 % (0-5); Neutrophil # 5.11 X10^3/uL (2.7-7.7); Neutrophil % 71.2 % (47-70); Platelet Count 140 K/mm3 (150-450); RBC Distribution Width CV 12.9 % (11.6-14.6); RBC Distribution Width SD 43.2 fl (35.1-43.9); White Blood Count 7.2 K/mm3 (4.4-11.0)
[2021-08-04 06:08] LABS: Partial Thromboplast Time 58.9 Seconds (24.1-36.2)
[2021-08-04 06:25] LABS: ALB/GLOB Ratio 0.8 RATIO (0.9-2.4); AST(SGOT) 62 U/L (15-37); Alanine Aminotransfer ALT/SGPT 50 U/L (13-56); Albumin, Serum 2.8 g/dL (3.2-5.0); Alkaline Phosphatase 209 U/L (45-117); Anion Gap 6 (5-15); BUN 10 mg/dL (7-18); BUN/Creat Ratio 10.6 RATIO (10-20); Calcium,Total 8.8 mg/dL (8.5-10.1); Chloride 107 mmol/L (98-107); Creatinine, Serum 0.94 mg/dL (0.55-1.02); EST Glomerular Filtration Rate 63 mL/min (>60); Est Glom Filt Rate - Afr Amer 76 mL/min (>60); Estimated Creatinine Clearance 46.56 ml/min; Globulin 3.4 g/dL (2.2-4.2); Glucose 128 mg/dL (74-106); Protein, Total 6.2 g/dL (6.4-8.2); Sodium Level 139 mmol/L (136-145)
[2021-08-04] MEDS: Potassium Chloride Oral Tablet 20 MEQ 40 MEQ PO (09:54)
[2021-08-04] MEDS: Ondansetron 4 MG/2 ML Vial IV (09:56)
--- NOTE | 2021-08-04 13:10 | CASEMGMT ---
SW was notified that patient was approved for Inpatient Rehab. SW notified physician and patient. Plan: d/c to [facility] 4th floor rehab unit. Ivanna LYMAN
--- NOTE | 2021-08-04 13:52 | PCM.PN.HOSP ---
Subjective Subjective Follow-up on partial bowel obstruction/acute PE: Patient was seen and examined. She has been working with therapy. She remains with poor functional task performance. She has had fewer bowel movements today. Objective Data Objective Data Vital Signs: Vital Signs Temp Pulse Resp BP Pulse Ox 98.6 F 98 16 120/76 92 08/04/21 13:19 08/04/21 13:19 08/04/21 13:19 08/04/21 13:19 08/04/21 13:19 Oxygen Flow Rate (L/min) [ 0 AMBULATING on Room Air] Oxygen Flow Rate (L/min) [At 0 REST on Room Air] Oxygen Flow Rate (L/min) 3 Oxygen Delivery Method Room Air Weight: 73.3 kg Body Mass Index (BMI) 29.5 Intake & Output: Intake and Output for Last 24 Hours 08/02/21 08/03/21 08/04/21 23:59 23:59 23:59 Intake Total 3106.95 / 3106.95 1362.70 / 1362.70 1545.47 / 1545.47 Output Total 1750 / 1750 250 / 250 Balance 3106.95 / 2206.95 -387.30 / -387.30 1295.47 / 1295.47 Lab / Micro Data Result Diagrams: 08/04/21 05:20 08/04/21 05:20 Labs: Laboratory Results - last 24 hr 08/03/21 12:08: Magnesium 2.2 08/03/21 18:40: APTT 64.1 H 08/04/21 05:20: WBC 7.2, RBC 3.80 L, Hgb 12.4, Hct 35.1 L, MCV 92.4, MCH 32.6 H, MCHC 35.3 D, RDW Std Deviation 43.2, RDW Coeff of Carie 12.9, Plt Count 140 L, MPV 11.2, Immature Gran % (Auto) 1.500 H, Neut % (Auto) 71.2 H, Lymph % (Auto) 15.5 L, [place] % (Auto) 8.2, Eos % (Auto) 3.2, Baso % (Auto) 0.4, Absolute Neuts (auto) 5.1, Absolute Lymphs (auto) 1.11, Nucleated RBC % 0.3 08/04/21 05:20: Sodium 139, Potassium 3.0 L, Chloride 107, Carbon Dioxide 26.0, Anion Gap 6, BUN 10, Creatinine 0.94, Estim Creat Clear Calc 46.56, Est GFR (MDRD) Af Amer 76, Est GFR (MDRD) Non-Af 63, BUN/Creatinine Ratio 10.6, Glucose 128 H, Calcium 8.8, Total Bilirubin 0.60, AST 62 H, ALT 50, Alkaline Phosphatase 209 H, Total Protein 6.2 L, Albumin 2.8 L, Globulin 3.4, Albumin/Globulin Ratio 0.8 L 08/04/21 05:20: APTT 58.9 H Micro: Microbiology 07/30/21 12:15 Urine Catheter - Catheter Urine Culture - Final Culture exhibits no growth. 07/31/21 23:40 Stool Enteric Bacteriology - Final 07/31/21 23:40 Stool C. difficile GDH Antigen & Toxins - Final 07/31/21 23:40 Stool C. difficile DNA Amplification - Final 07/30/21 12:13 Blood Culture (Wb) - Anticubital Right Blood Culture - Preliminary No growth in 48 hours. 07/30/21 12:10 Blood Culture (Wb) - Anticubital Left Blood Culture - Preliminary No growth in 48 hours. 07/31/21 17:40 Nasal Secretion SARS-CoV-2 Antigen (Rapid) - Final Physical Exam Narrative Physical exam: General: Alert, Oriented x3, Cooperative, No apparent distress, off oxygen HEENT: Atraumatic Oral: Moist Mucosa Neck: Supple Lungs: Diminished to auscultation Cardiovascular: HS I+II, regular, no murmurs Abdomen: Bowel Sounds Present, Soft, Non Tender Extremities: No edema Skin: No rashes, No breakdown Neurological: Grossly intact Psych/Mental Status: Appropriate Assessment & Plan Assessment/Plan (1) Acidosis, lactic: (2) Acute hypotension: (3) Hypovolemia dehydration: (4) Acute kidney insufficiency: (5) Hypothyroidism: QUALIFIERS: Hypothyroidism type: unspecified Qualified Code(s): E03.9 - Hypothyroidism, unspecified (6) Hypothermia: (7) Diarrhea: PLAN: 1. Hypokalemia, improved, potassium 3.0, replaced, recheck in a.m. 2. Acute hypotension, present on admission likely secondary to dehydration from diarrhea, resolved 3. Syncope secondary to acute PE, seen on CTA of the chest Continue heparin drip, will switch to Eliquis at discharge 4 Acute kidney injury secondary to dehydration from diarrhea, resolved Continue to monitor 5. Partial small bowel obstruction, resolved, tolerating regular diet General surgery following 6.Diarrhea secondary to acute C. difficile infection, non-fulminant, nonsevere CDI, improving Stool studies were negative for enteric panel but positive for acute C. difficile, antigen and PCR Patient with underlying collagenous colitis Continue on vancomycin 125 mg p.o. 4 times daily for 10 days 7. Lactic acidosis secondary to hypokalemia, resolved 8. New onset hypothyroidism, continue on levothyroxine Repeat TSH in 6 weeks 9. Rest of chronic medical conditions including history of Parkinson's disease, ?Status post deep brain stimulator placement in 2013, NEHEMIAH, anxiety/depression Remained stable. Home meds continued 10. DVT prophylaxis?on Heparin drip 11. Debility, h/o Parkinson's, will be discharged to acute rehab Charges/Coding Visit Charges Inpatient E&M: 87247 Subs Hosp L2
--- NOTE | 2021-08-04 14:00 | PCM.DC ---
Discharge Instructions Diet Discharge Diet: No restrictions Activity Discharge Activity: Return to Normal Activity Follow Up Care Test Results: Test results from this visit will be discussed in further detail at your follow-up appointment, if applicable. Discharge Plan Admission Admit Date/Time: 07/30/21 14:22 Primary Reason for Your Visit: Acute PE, syncope Attending Provider: Soledad Terry Primary Care Provider: Abdullahi Major Consulting Providers: Reuben Smith Discharge Orders/Prescriptions Prescriptions: New Eliquis DVT-PE Treat 30D Start 5 mg (74 tabs) tablets,dose pack 5 mg PO BID Qty: 74 RF: 0 carbidopa-levodopa 25-100 mg Tablet 1 tab PO 0600,1000,1800 Qty: 0 RF: 0 carbidopa-levodopa 25-100 mg Tablet 1.5 tab PO 1400 Qty: 0 RF: 0 acidophilus-pectin, citrus 25 million cell -100 mg Tablet 2 tab PO 4X/DAY Qty: 0 RF: 0 levothyroxine 50 mcg Tablet 50 mcg PO 0600 Qty: 0 RF: 0 Firvanq 25 mg/mL Recon Soln 125 mg PO Q6 6 Days Qty: 120 RF: 0 Continued multivitamin Tablet 1 tab PO DAILY RF: 0 ascorbic acid (vitamin C) 500 mg tablet 500 mg PO DAILY RF: 0 atorvastatin 10 MG tablet 10 mg PO QODAY RF: 0 omeprazole 20 MG capsule 20 mg PO DAILY RF: 0 Discontinued ergocalciferol (vitamin D2) 400 unit capsule 10 mcg PO DAILY RF: 0 clonazepam 0.5 MG tablet 0.5 mg PO QHS RF: 0 metoprolol succinate 25 mg tablet extended release 24 hr 25 mg PO DAILY RF: 0 carbidopa-levodopa 25-100 mg tablet 4.5 tab PO DAILY RF: 0 carvedilol [Coreg] 6.25 mg tablet 6.25 mg PO BID RF: 0 Referrals / Follow Up: Abdullahi Major MD [Primary Care Provider] - Disposition Disposition (needs filled in before D/C Order can be placed): Inpatient Rehab Unit/Facility
--- NOTE | 2021-08-04 14:07 | DS.PCM_ITS ---
Providers Date of Admission: 07/30/21 Date of Discharge: 08/04/21 Primary Care Physician: Dr. Abdullahi Major MD Consultations 07/30/21 22:30 Consult: General Surgery Routine Consulting Provider: Reuben Smith Reason for Consult: early SBO EMERGENT Consult: No MD Notified: Yes Date Notified: 07/30/21 Time Notified: 22:31 Method of Notification: cortext Reason For Visit: HYPOTENSION, JABARI Diagnosis Discharge Diagnosis (1) Acidosis, lactic: Status: Acute Code(s): E87.2 - Acidosis (2) Acute hypotension: Status: Acute Code(s): I95.9 - Hypotension, unspecified (3) Hypovolemia dehydration: Status: Acute Code(s): E86.1 - Hypovolemia (4) Acute kidney insufficiency: Status: Acute Code(s): N28.9 - Disorder of kidney and ureter, unspecified (5) Hypothyroidism: Status: Acute Code(s): E03.9 - Hypothyroidism, unspecified Qualifiers: Hypothyroidism type: unspecified Qualified Code(s): E03.9 - Hypothyroidism, unspecified (6) Hypothermia: Status: Acute Code(s): T68.XXXA - Hypothermia, initial encounter (7) Diarrhea: Status: Acute Code(s): R19.7 - Diarrhea, unspecified Medications at Discharge Home Medications atorvastatin 10 mg PO QODAY 07/11/13 omeprazole 20 mg PO DAILY 07/11/13 ascorbic acid (vitamin C) 500 mg tablet 500 mg PO DAILY 11/10/20 multivitamin 1 tab PO DAILY 11/10/20 apixaban [Eliquis DVT-PE Treat 30D Start] 5 mg PO BID #74 tab 08/02/21 acidophilus-pectin, citrus 2 tab PO 4X/DAY #0 tab 08/04/21 carbidopa-levodopa 1 tab PO 0600,1000,1800 #0 tab 08/04/21 carbidopa-levodopa 1.5 tab PO 1400 #0 tab 08/04/21 levothyroxine 50 mcg PO 0600 #0 tab 08/04/21 vancomycin [Firvanq] 125 mg PO Q6 6 Days #120 ml 08/04/21 Hospital Course Operations None Procedures 2-D Echocardiogram Summary of Care Provided Minutes Spent on Discharge: 35 Hospital Course: 65-year-old female past medical history of Parkinson's disease with autonomic dysfunction, hypertension who comes in with diarrhea and lightheadedness. Patient was said to have passed out briefly while sitting on the toilet. She was brought to the emergency room and blood pressures were in the 80s. She also had acute kidney injury as well as markedly elevated TSH. Patient had underlying history of collagenous colitis. Patient was admitted to the floor, and given IV fluids. She later on developed recurrent nausea and emesis with abdominal distention. KUB was suggestive of partial small bowel obstruction. General surgery was consulted. Patient was managed conservative ly. On 07/31/21, patient had a syncopal episode. Further work-up showed bilateral PEs. Patient was started on heparin drip. She was also maintained on IV fluids. Patient stool studies came back -enteric panel was negative. C. difficile antigen was positive. C. difficile toxin was negative. C. difficile PCR was positive. In the light of patient's current diarrhea, patient was treated as acute C. difficile with oral vancomycin 125 mg p.o. 4 times daily for 10 days. Patient was followed by PT and OT and skilled for discharge to acute rehab. She had electrolyte imbalances -hypokalemia, hypomagnesemia in the hospital state that were repleted. Her acute kidney injury was back to normal at the time of discharge. On the day of discharge, patient had slight reduction a.m. blood pressures from sitting to standing but was not orthostatic. Patient has underlying autonomic dysfunction. She was given IV fluid 500 mils bolus x1. Physical Exam Narrative Physical exam: General: Alert, Oriented x3, Cooperative, No apparent distress, off oxygen HEENT: Atraumatic Oral: Moist Mucosa Neck: Supple Lungs: Diminished to auscultation Cardiovascular: HS I+II, regular, no murmurs Abdomen: Bowel Sounds Present, Soft, Non Tender Extremities: No edema Skin: No rashes, No breakdown Neurological: Grossly intact Psych/Mental Status: Appropriate Weight / BMI Weight Weight: 73.3 kg Body Mass Index (BMI) 29.5 ABG / Lab / Microbiology Data Result Diagrams: 08/04/21 05:20 08/04/21 05:20 Laboratory: Laboratory Results - last 24 hr 08/03/21 12:08: Magnesium 2.2 08/03/21 18:40: APTT 64.1 H 08/04/21 05:20: WBC 7.2, RBC 3.80 L, Hgb 12.4, Hct 35.1 L, MCV 92.4, MCH 32.6 H, MCHC 35.3 D, RDW Std Deviation 43.2, RDW Coeff of Carie 12.9, Plt Count 140 L, MPV 11.2, Immature Gran % (Auto) 1.500 H, Neut % (Auto) 71.2 H, Lymph % (Auto) 15.5 L, [place] % (Auto) 8.2, Eos % (Auto) 3.2, Baso % (Auto) 0.4, Absolute Neuts (auto) 5.1, Absolute Lymphs (auto) 1.11, Nucleated RBC % 0.3 08/04/21 05:20: Sodium 139, Potassium 3.0 L, Chloride 107, Carbon Dioxide 26.0, Anion Gap 6, BUN 10, Creatinine 0.94, Estim Creat Clear Calc 46.56, Est GFR (MD RD) Af Amer 76, Est GFR (MDRD) Non-Af 63, BUN/Creatinine Ratio 10.6, Glucose 128 H, Calcium 8.8, Total Bilirubin 0.60, AST 62 H, ALT 50, Alkaline Phosphatase 209 H, Total Protein 6.2 L, Albumin 2.8 L, Globulin 3.4, Albumin/Globulin Ratio 0.8 L 08/04/21 05:20: APTT 58.9 H Microbiology: Microbiology 07/30/21 12:15 Urine Catheter - Catheter Urine Culture - Final Culture exhibits no growth. 07/31/21 23:40 Stool Enteric Bacteriology - Final 07/31/21 23:40 Stool C. difficile GDH Antigen & Toxins - Final 07/31/21 23:40 Stool C. difficile DNA Amplification - Final 07/30/21 12:13 Blood Culture (Wb) - Anticubital Right Blood Culture - Preliminary No growth in 48 hours. 07/30/21 12:10 Blood Culture (Wb) - Anticubital Left Blood Culture - Preliminary No growth in 48 hours. 07/31/21 17:40 Nasal Secretion SARS-CoV-2 Antigen (Rapid) - Final D/C Instructions Discharge Diet: No restrictions Meaningful Use Info Meaningful Use Diagnoses (Choose all that apply): VTE VTE Anticoag overlap given w/in hospital stay or rx'd at dc?: Yes Pt receive overlap for 5 days?: Yes Discharge Plan Admission Admit Date/Time: 07/30/21 14:22 Primary Reason for Your Visit: Acute PE, syncope Attending Provider: Soledad Terry Primary Care Provider: Abdullahi Major Consulting Providers: Reuben Smith Discharge Orders/Prescriptions Prescriptions: New [place] DVT-PE Treat 30D Start 5 mg (74 tabs) tablets,dose pack 5 mg PO BID Qty: 74 RF: 0 carbidopa-levodopa 25-100 mg Tablet 1 tab PO 0600,1000,1800 Qty: 0 RF: 0 carbidopa-levodopa 25-100 mg Tablet 1.5 tab PO 1400 Qty: 0 RF: 0 acidophilus-pectin, citrus 25 million cell -100 mg Tablet 2 tab PO 4X/DAY Qty: 0 RF: 0 levothyroxine 50 mcg Tablet 50 mcg PO 0600 Qty: 0 RF: 0 Firvanq 25 mg/mL Recon Soln 125 mg PO Q6 6 Days Qty: 120 RF: 0 Continued multivitamin Tablet 1 tab PO DAILY RF: 0 ascorbic acid (vitamin C) 500 mg tablet 500 mg PO DAILY RF: 0 atorvastatin 10 MG tablet 10 mg PO QODAY RF: 0 omeprazole 20 MG capsule 20 mg PO DAILY RF: 0 Discontinued ergocalciferol (vitamin D2) 400 unit capsule 10 mcg PO DAILY RF: 0 clonazepam 0.5 MG tablet 0.5 mg PO QHS RF: 0 metoprolol succinate 25 mg tablet extended release 24 hr 25 mg PO DAILY RF: 0 carbidopa-levodopa 25-100 mg tablet 4.5 tab PO DAILY RF: 0 carvedilol [Coreg] 6.25 mg tablet 6.25 mg PO BID RF: 0 Referrals / Follow Up: Abdullahi Major MD [Primary Care Provider] - Disposition Disposition (needs filled in before D/C Order can be placed): Inpatient Rehab Unit/Facility Charges/Coding Visit Charges Inpatient E&M: 74771 Disch Hosp
[2021-08-04] MEDS: APIXABAN 5 MG TABLET 10 MG PO (16:25)
--- NOTE | 2021-08-04 16:42 | NURSING ---
Report called to KUMAR Arriola in Inpatient [phone].
== END 2021-08-04 17:40 | DRG 371 ==
LOC: ED 12:33 → PCU 14:53
PROVIDERS: Hospitalist; Nurse Practitioner Family; Admitting Provider Internal Medicine; Emergency Provider Emergency Medicine; PCP Family Medicine; Visit Provider Internal Medicine
DX: A04.72 Enterocolitis due to Clostridium difficile, not specified as recurrent (principal); I26.99 Other pulmonary embolism without acute cor pulmonale; N17.9 Acute kidney failure, unspecified; K56.600 Partial intestinal obstruction, unspecified as to cause; T68.XXXA Hypothermia, initial encounter; G20 Parkinson's disease; E86.0 Dehydration; I95.1 Orthostatic hypotension; G47.33 Obstructive sleep apnea (adult) (pediatric); I10 Essential (primary) hypertension; E78.5 Hyperlipidemia, unspecified; E03.9 Hypothyroidism, unspecified; K21.9 Gastro-esophageal reflux disease without esophagitis; F41.8 Other specified anxiety disorders; E86.1 Hypovolemia; E87.6 Hypokalemia; K52.831 Collagenous colitis; R73.9 Hyperglycemia, unspecified; N31.9 Neuromuscular dysfunction of bladder, unspecified; Z79.899 Other long term (current) drug therapy
CPT/HCPCS: 36415; 71045; 71275; 74018; 80048; 80053; 81001; 82962; 83605; 83735; 84443; 84484; 85025; 85379; 85610; 85730; 87040; 87086; 87493; 87506; 87811; 93005; 93306; 94640; 97110; 97163; 97165; 97530; 97535; 99251; 99285; J7030; J7040; Q9967; A4216; G0463; J2405

== ENCOUNTER 2021-08-04 18:05 | Inpatient (IN) | payer MEDICARE, SELFPAY ==
[2021-08-04 18:15] VITALS: BP 125/73; PULSE 94; RESP 18; TEMP 36.8; O2SAT 92; BMI 29.5
[2021-08-04] MEDS: Carbidopa/Levodopa 25/100 Tablet PO (21:31)
[2021-08-04 21:33] VITALS: BP 151/56; PULSE 79; RESP 16; TEMP 36.6; O2SAT 93
[2021-08-04 22:00] VITALS: O2SAT 93
[2021-08-05] MEDS: Vancomycin 125 MG/5 ML Susp PO.SYRINGE PO ×5 (00:21→23:34)
[2021-08-05] MEDS: Levothyroxine 50 MCG Tablet PO (05:01)
[2021-08-05] MEDS: Carbidopa/Levodopa 25/100 Tablet PO ×4 (05:01→17:24)
[2021-08-05 05:06] VITALS: BP 140/72; BP 146/81; BP 149/81; PULSE 100; PULSE 81; PULSE 92
[2021-08-05 07:40] VITALS: BP 155/77; PULSE 95; RESP 16; TEMP 36.8; O2SAT 96
[2021-08-05] MEDS: Multivitamins,Therapeutic Tablet 1 TABLET PO (08:24)
[2021-08-05] MEDS: APIXABAN 5 MG TABLET PO ×2 (08:24→20:47)
[2021-08-05] MEDS: Pantoprazole Sodium 20 MG Tablet PO (08:24)
[2021-08-05] MEDS: Ascorbic Acid 500 MG Tablet PO (08:25)
[2021-08-05 11:25] LABS: Hematocrit 36.8 % (37-47); Hemoglobin 12.3 g/dL (12.0-15.0); Mean Corp Hgb Conc 33.4 g/dL (32-36); Mean Corpuscular Hgb 31.7 pg (27.0-32.0); Mean Corpuscular Volume 94.8 fL (81-99); Mean Platelet Vol. 11.3 fl (6.2-12.0); Platelet Count 177 K/mm3 (150-450); RBC Distribution Width CV 13.4 % (11.6-14.6); RBC Distribution Width SD 46.1 fl (35.1-43.9); Red Blood Count 3.88 M/mm3 (4.2-5.4); White Blood Count 6.8 K/mm3 (4.4-11.0)
[2021-08-05 11:31] LABS: Scan Indicated on CBC? Y/N NO
[2021-08-05 12:01] LABS: ALB/GLOB Ratio 0.8 RATIO (0.9-2.4); AST(SGOT) 43 U/L (15-37); Alanine Aminotransfer ALT/SGPT 30 U/L (13-56); Albumin, Serum 2.7 g/dL (3.2-5.0); Alkaline Phosphatase 217 U/L (45-117); Anion Gap 6 (5-15); BUN 13 mg/dL (7-18); BUN/Creat Ratio 17.4 RATIO (10-20); Calcium,Total 9.3 mg/dL (8.5-10.1); Chloride 109 mmol/L (98-107); Creatinine, Serum 0.75 mg/dL (0.55-1.02); EST Glomerular Filtration Rate 82 mL/min (>60); Est Glom Filt Rate - Afr Amer 99 mL/min (>60); Estimated Creatinine Clearance 43.77 ml/min; Globulin 3.5 g/dL (2.2-4.2); Glucose 94 mg/dL (74-106); Magnesium 1.9 mg/dL (1.6-2.6); Potassium 3.2 mmol/L (3.5-5.1); Protein, Total 6.2 g/dL (6.4-8.2); Sodium Level 140 mmol/L (136-145)
--- NOTE | 2021-08-05 12:32 | REHABEVAL_ITS ---
Admission Information Primary Diagnosis:: Debility with syncope due to dehydration due to diarrhea secondary to C DIFF enterocolitis. Also with PE's (new diagnosis) and hypokalemia. Risk of Complications DVT: RAJ Hose and - (Eliquis) Bleeding: Monitor Lab Values, Nursing to Teach Precautions for anti-coagulation therapy., Wound, if applicable, to be assessed every shift. and Stroke patients assessed for lethargy or change in status. Infection: Clinical Staff to Monitor for S/S of infection: and S/S of infection include fever, redness, warmth, etc. Urinary Tract Infection: Monitor for frequency, burning, discomfort, or incontinence. and Nursing will obtain urine sample for urinalysis and C&S when ordered. Aspiration: Clinical staff will monitor for coughing, drooling, congestion., Speech will evaluate swallowing and dsyphasia. and Nursing will monitor patient swallowing during meals. Falls: Patient will be evaluated for Fall Precautions and Patient will be placed on Fall Precautions as indicated per protocol. Skin Breakdown: Nursing will assess skin daily using assessment tool. and Nursing will place on Skin Breakdown Precautions as indicated. Pain: Clinical staff will assess patient's pain level per protocol., Medications will be given, if needed, and the pain level reassessed. and Other methods: Massage, distraction, decrease stimulus, etc. used PRN. Plan of Care Patient requires physician specializing in physical medicine and rehab oversight to provide close medical supervision of rehab issues including: Pain Management, Sleep Problems, Bowel and Bladder, Medical and co-morbidity Management, DVT prophylaxis, Rehabilitation Leadership and Coordination of treatment team Patient needs Physical Therapy: For a minimum of 1 hour and At least 5 out of 7 days Patient needs Physical Therapy to improve:: Mobility, Strengthening, Transfers, Stretching, ROM, Endurance, Stairs, Gait and Balance Patient needs Occupational Therapy: For a minimum of 1 hour and At least 5 out of 7 days Patient needs Occupational Therapy to improve ADL's incl.: Eating, Grooming, Bathing, Dressing, Toileting, Toilet transfers, Community Reintegration, Higher functioning activities, Household tasks, Adaptive Equipment, Splinting and Other activities as determined Patient requires speech therapy: For a minimum of 1 hour and At least 5 out of 7 days Patient requires speech therapy for: Swallowing, Cognition, Language Skills and Compensatory Strategies Patient requires 24/ Rehabilitation Nursing for: Pain Issues, Identifying and preventing risk factors, Monitoring and reporting current medical conditions, Assisting with ambulation, transfer, and all ADL's, Teaching patients about disease process and medications, Family teaching, Providing safe environment, Bowel and Bladder Issues, Skin integrity and Medication Management Patient needs Medical Accountant/ Case Management for: Discharge Planning, Arranging Home Equipment or Services and Family Interventions Patient needs Dietary and Nutrition Services for: Adequate Nutrition, Nutritional Supplements and Nutritional Education Goals Patient will remain: free from falls and or injury at time of discharge. Patient will perform bed mobility at: MOD I level of assist. Patient will complete transfers from bed to chair at: MOD I level of assist. Patient will ambulate: - (300 feet with a single-point cane versus no assistive device at mod I) Patient will complete upper body dressing at: MOD I level of assist. Patient will complete lower body dressing at: MOD I level of assist. Patient will complete toileting at: MOD I level of assist. Patient will perform bathing at: MOD I level of assist. Patient will complete grooming at: MOD I level of assist. Patient will complete home management skills at: MOD I level of assist. Patient will achieve: - (2 steps at mod I with 1 handrail) Patient will have pain level of: of 3 or less Patient's skin will: remain intact Patient will receive: adequate nutrition.
--- NOTE | 2021-08-05 12:32 | PCM.HP.STD ---
[facility] - General General Date of Admission: 08/04/21 HPI Narrative GLORIA WOOD, is a 65 YO F with a PMH of PD with autonomic dysfunction, S/P deep brain stimulator, essential HTN, collagenous colitis, anxiety/depression, history of diverticulosis, hyperlipidemia, history of melanoma, neurogenic bladder, obstructive sleep apnea on CPAP, mild oropharyngeal dysphagia diagnosed on an MBS in 2019, RBD (REM behavioral disorder), GERD and squamous cell CA of the forearm who presented to the Ed at [facility] on 07/30/2021 complaining of lightheadedness. She also gave a history of recent diarrhea. Her stated that she had passed out while sitting on the toilet. She did not fall to the ground and the episode was very brief. Systolic BP in the ED was in the 80's. She was bradycardic and a TSH was ordered and it was high at 21.7. The BUN was 28 and the CREAT was 1.54 ( it was 1.03 in October of 2020). Hemoglobin was increased at 16.4 secondary to dehydration. The white blood cell count was within normal limits and platelets were also normal. Lactic acid was elevated. She was admitted to the hospital with hypotension and acute kidney injury due to hypovolemia due to diarrhea. Following admission she developed N/V and the KUB was consistent with a partial small bowel obstruction. General surgery was consulted and the patient was managed conservatively. She had a syncopal episode 1 day following admission and a CTA of the chest was obtained and showed bilateral pulmonary emboli. She was started on a heparin drip and later transitioned to Eliquis. An enteric pathogen panel was negative. C. difficile antigen was positive but C. difficile toxin was negative. The C. difficile PCR was also positive. The hospitalist caring for the patient elected to treat for C diff in light of the acute diarrhea and he was started on oral vancomycin 125 mg p.o. 4 times daily. PT and OT were consulted and they recommended admission to acute rehab. She was tilt negative on the day of discharge. At the time of discharge the white blood cell count and hemoglobin were within normal limits. Platelets were mildly decreased to 140,000 and this was likely secondary to heparin. Potassium was low at 3.0 and she was supplemented. BUN was 10 and the creatinine was down to 0.94. Alkaline phosphatase was elevated at 209 and the bilirubin was within normal limits. AST was mildly increased at 62 with a normal ALT. T3 and T4 were not obtained and neither were anti-thyroid antibodies. She ws transferred to the acute inpt rehab unit at [facility] on 08/04/21 for 3 hours of therapy daily to restore function/independence at or near her prior level of independence/function. The chart from the recent acute stay in the hospital was reviewed. An echocardiogram was done during her acute hospital stay and this showed an ejection fraction of 55% with no wall motion abnormalities. There was stage I diastolic dysfunction present. The PA systolic was estimated at 33 mmHg. There was no significant valvular heart disease. She denies any hx, personal or family, of VTE. No FH of thyroid disease. Has not been losing weight. 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 Denies any hx of spread of the melanoma to brain, liver, heart, etc. [facility] Medical History Collagenous colitis Depression with anxiety Diverticulosis Essential hypertension Hyperlipidemia Melanoma Neurogenic bladder NEHEMIAH on CPAP Parkinson's disease RBD (REM behavioral disorder) Squamous cell cancer of skin of forearm Home Medications atorvastatin 10 mg PO QODAY 07/11/13 [History Last Taken 08/03/21 22:00] omeprazole 20 mg PO DAILY 07/11/13 [History Last Taken 07/30/21] ascorbic acid (vitamin C) 500 mg tablet 500 mg PO DAILY 11/10/20 [History Last Taken 07/30/21] multivitamin 1 tab PO DAILY 11/10/20 [History Last Taken 07/30/21] acidophilus-pectin, citrus 2 tab PO 4X/DAY 08/04/21 [History Last Taken Unknown] apixaban [Eliquis DVT-PE Treat 30D Start] 5 mg PO BID 08/04/21 [History Last Taken Unknown] carbidopa-levodopa 1 tab PO 0600,1000,1800 08/04/21 [History Last Taken Unknown] carbidopa-levodopa 1.5 tab PO 1400 08/04/21 [History Last Taken Unknown] levothyroxine 50 mcg PO 0600 08/04/21 [History Last Taken Unknown] vancomycin [Firvanq] 125 mg PO Q6 08/04/21 [History Last Taken Unknown] Allergy/AdvReac Type Severity Reaction Status Date / Time prochlorperazine Allergy Unknown unknown Verified 07/30/21 12:00 [From Compazine] promethazine [From Phenergan] Allergy Unknown unknown Verified 07/30/21 12:00 thioridazine Allergy Unknown unknown Verified 07/30/21 12:00 haloperidol [From Haldol] Allergy Other Verified 07/30/21 12:00 haloperidol lactate Allergy Other Verified 07/30/21 12:00 [From Haldol] metoclopramide HCl Allergy Other Verified 07/30/21 12:00 [From Reglan] Family History Father Diabetes Heart disease Mother Hypertension Diabetes Cancer brain, lymphoma Hyperlipidemia Sister Seizures Brother Heart disease Surgical History History of appendectomy History of bunionectomy (~02/2008) History of colonoscopy (07/19/12) History of hammer toe correction (~02/2008) History of total abdominal hysterectomy and bilateral salpingo-oophorectomy (~1995) S/P deep brain stimulator placement (06/23/13) Social History household members: spouse Smoking Status: Never smoker alcohol intake: current alcohol intake frequency: a few times a month Alcohol type: wine substance use type: does not use ROS Constitutional Constitutional: Reports fatigue and weakness; Denies anorexia, change in weight, chills, fever(s) or night sweats Eyes Eyes: Denies blurry vision, change in vision, eye pain or loss of vision ENT HEENT: Denies abnormal hearing, dysphagia, headache(s), hearing loss, nasal congestion or sore throat Cardiovascular Cardiovascular: Reports edema, lightheadedness and syncope; Denies chest pain, dyspnea on exertion, orthopnea, palpitations or paroxysmal nocturnal dyspnea Respiratory/Chest Respiratory/Chest: Denies cough, dyspnea, shortness of breath at rest, shortness of breath with exertion or wheezing Gastrointestinal Gastrointestinal: Reports diarrhea and nausea; Denies abdominal pain, constipation, dyspepsia, hematemesis or hematochezia Genitourinary Genitourinary: Reports urinary frequency; Denies dysuria, hematuria, nocturia, urinary hesitancy, urinary incontinence or urinary urgency Musculoskeletal Musculoskeletal: Denies back pain, joint pain, joint swelling or neck pain Integumentary Integumentary: Reports change in hair, dry skin and other Details: hair loss recently ; Denies jaundice or wounds Neurologic Neurologic: Reports tremor(s) and weakness; Denies confusion, disequilibrium, dizziness, focal weakness, headache(s), paresthesias or seizures Psychiatric Psychiatric: Denies anxiety, depression, homicidal ideation or suicidal ideation Endocrine Endocrinology: Denies change in body appearance, polydipsia or polyuria Hematologic/Lymphatic Hematologic/Lymphatic: Denies easy bleeding, easy bruising or lymphadenopathy Allergic/Immunologic Allergic/Immunologic: Denies rhinitis, eczemia or asthma Vital Signs Vital Signs Vital Signs: 08/04/21 18:15 08/04/21 21:33 08/04/21 22:00 Temperature 98.3 F 97.8 F Temperature Source Temporal Oral Pulse Rate 94 79 Pulse Rate [Lying] Pulse Rate [Sitting (for 1 minute prior to obtaining)] Pulse Rate [Standing (for 1 minute prior to obtaining)] Respiratory Rate 18 16 Respiratory Effort Normal Non-Labored Respiratory Depth Normal Respiratory Pattern Normal Blood Pressure 125/73 H 151/56 H Blood Pressure [Lying] Blood Pressure [Sitting (for 1 minute prior to obtaining)] Blood Pressure [Standing (for 1 minute prior to obtaining)] Blood Pressure Mean 90 87 Blood Pressure Mean [Lying] Blood Pressure Mean [Sitting (for 1 minute prior to obtaining)] Blood Pressure Mean [Standing (for 1 minute prior to obtaining)] Blood Pressure Source Monitor Monitor Blood Pressure Position Semi-Fowlers Semi-Fowlers Blood Pressure Location Left Arm Left Arm Pulse Ox 92 93 93 Oxygen Delivery Method Room Air Room Air Room Air 08/05/21 05:06 08/05/21 07:40 Temperature 98.2 F Temperature Source Oral Pulse Rate 95 Pulse Rate [Lying] 81 Pulse Rate [Sitting (for 1 minute prior to obtaining)] 92 Pulse Rate [Standing (for 1 minute prior to obtaining)] 100 Respiratory Rate 16 Respiratory Effort Respiratory Depth Respiratory Pattern Blood Pressure 155/77 H Blood Pressure [Lying] 140/72 H Blood Pressure [Sitting (for 1 minute prior to obtaining)] 149/81 H Blood Pressure [Standing (for 1 minute prior to obtaining)] 146/81 H Blood Pressure Mean 103 Blood Pressure Mean [Lying] 94 Blood Pressure Mean [Sitting (for 1 minute prior to obtaining)] 103 Blood Pressure Mean [Standing (for 1 minute prior to obtaining)] 102 Blood Pressure Source Monitor Blood Pressure Position Sitting Blood Pressure Location Right Arm Pulse Ox 96 Oxygen Delivery Method Room Air Weight Weight: 166 lb 0.129 oz Body Mass Index (BMI) 29.5 Physical Exam Const alert, oriented x3 and no apparent distress Constitutional Narrative: Soft Spoken. Masked faces. General Appearance: cooperative, comfortable, well kempt and well developed HEENT HEENT Narrative: MM are very dry. No lesions of the buccal mucosa and no exudates in the posterior pharynx. Eyes PERRL, EOMs intact bilaterally, conjunctivae normal and no scleral icterus Eyes Narrative: no visual field cuts General Eye: normal appearance of both eyes; Negative for exophthalmos Neck no lymphadenopathy, supple and thyroid normal Neck Narrative: thyroid is not enlarged and I do not appreciate any asymmetry General: trachea midline Lymph Lymphatic: no lymphadenopathy noted Chest Chest Narrative: PM is present in the L chest Chest: symmetrical chest wall rise Resp Resp Narrative: Poor respiratory effort. Coarse crackles in both bases with no wheezing and no rhonchi. No cough and no tachypnea. No accessory muscle use. Effort and Inspection: able to speak in complete sentences Cardio regular rate, regular rhythm, S1 normal heart sound, S2 normal heart sound, no murmurs, no rub and no gallops Cardio Narrative: She is having premature beats. GI normal to inspection, nondistended, normoactive bowel sounds, soft to palpation and non-tender GI Narrative: BS's are not hyperactive Extremity no calf tenderness General Extremity: edema bilateral (suspect due the IV's of NS) Skin Skin Narrative: Mild ankle edema. No calf tenderness. Complete skin exam performed and the entire scalp was also visualized. No suspicious looking lesions. Neuro oriented x3 and CN's II-XII intact bilaterally Neuro Narrative: Masked facies. She has bradykinesia and some rigidity. She had no resting tremor at the time of my exam. Psych cooperative Psych Narrative: speech is slow and soft volume. Appearance: grossly normal and appropriate Speech: soft and No slurred Mood & Affect: flat affect Results Lab / Micro Data Result Diagrams: 08/05/21 10:47 08/08/21 05:05 Labs: Laboratory Results - last 24 hr 08/05/21 10:47: WBC 6.8, RBC 3.88 L, Hgb 12.3, Hct 36.8 L, MCV 94.8, MCH 31.7, MCHC 33.4 D, RDW Std Deviation 46.1 H, RDW Coeff of Carie 13.4, Plt Count 177, MPV 11.3 08/05/21 10:47: Sodium 140, Potassium 3.2 L, Chloride 109 H, Carbon Dioxide 25.0, Anion Gap 6, BUN 13, Creatinine 0.75, Estim Creat Clear Calc 43.77, Est GFR (MDRD) Af Amer 99, Est GFR (MDRD) Non-Af 82, BUN/Creatinine Ratio 17.4, Glucose 94, Calcium 9.3, Phosphorus 3.0, Magnesium 1.9, Total Bilirubin 0.30, AST 43 H, ALT 30, Alkaline Phosphatase 217 H, Total Protein 6.2 L, Albumin 2.7 L, Globulin 3.5, Albumin/Globulin Ratio 0.8 L Assessment & Plan Assessment/Plan (1) Pulmonary emboli: (2) Diarrhea: (3) Hypothyroidism: QUALIFIERS: Hypothyroidism type: unspecified Qualified Code(s): E03.9 - Hypothyroidism, unspecified (4) PVCs (premature ventricular contractions): (5) Palpitations: (6) Essential hypertension: (7) Hyperlipidemia: (8) NEHEMIAH on CPAP: (9) Parkinson's disease: (10) Hypokalemia: (11) Elevated alkaline phosphatase level: PLAN: PLAN PT for gait stability OT for ADL's ST for evaluation - cognitive function and swallowing evaluation Analgesics as needed Bowel protocol Fall precautions Assess for Anxiety/Depression GI prophylaxis with pantoprazole DVT prophylaxis with apixaban Follow up with Neurology and Dr. Major following DC from Rehab. Will also have her follow up with Dr. Burgos for hypothyroidism AM lab including CMP, CBC, Mag and Phos - reviewed Continue the Vancomycin for suspected acute C. Diff enterocolitis Needs a recheck on the TSH and a T4 and antithyroid antibodies in 4 weeks. AP may be mildly increased due to the Sinemet. May need a work up to determine why she has PE's......she is very active and has never had VTE. Occult malignancy? Why has she suddenly become hypothyroid? She has no FH of thyroid disease. And why PE's? She has a hx of melanoma? Recurrent CA? Thyroid was not imaged during the recent admission. Unit Exclusion This patient is an acute care inpatient being housed in the excluded unit because of capacity issues related to the disaster or emergency.: Yes Charges/Coding Visit Charges Inpatient E&M: 49487 Init Hosp L2
[2021-08-05] MEDS: Potassium Chloride Oral Tablet 20 MEQ 40 MEQ PO (13:41)
[2021-08-05 13:56] VITALS: O2SAT 96
[2021-08-05 19:50] VITALS: BP 150/84; PULSE 68; RESP 16; TEMP 36.4; O2SAT 95
[2021-08-05] MEDS: Atorvastatin Calcium 10 MG Tablet PO (20:47)
[2021-08-06] MEDS: Levothyroxine 50 MCG Tablet PO (05:12)
[2021-08-06] MEDS: Vancomycin 125 MG/5 ML Susp PO.SYRINGE PO ×3 (05:13→17:13)
[2021-08-06] MEDS: Carbidopa/Levodopa 25/100 Tablet PO ×4 (05:13→17:13)
[2021-08-06] MEDS: Ascorbic Acid 500 MG Tablet PO (07:31)
[2021-08-06] MEDS: Pantoprazole Sodium 20 MG Tablet PO (07:32)
[2021-08-06] MEDS: Multivitamins,Therapeutic Tablet 1 TABLET PO (07:32)
[2021-08-06] MEDS: APIXABAN 5 MG TABLET PO ×2 (07:32→22:22)
[2021-08-06] MEDS: Potassium Chloride Oral Tablet 10 MEQ PO (07:32)
[2021-08-06 09:57] VITALS: BP 111/75; PULSE 63; RESP 18; TEMP 37; O2SAT 97
[2021-08-06 19:32] VITALS: BP 156/67; PULSE 80; RESP 16; TEMP 36.6; O2SAT 97
[2021-08-07] MEDS: Vancomycin 125 MG/5 ML Susp PO.SYRINGE PO ×5 (01:33→23:56)
[2021-08-07] MEDS: Levothyroxine 50 MCG Tablet PO (05:43)
[2021-08-07] MEDS: Carbidopa/Levodopa 25/100 Tablet PO ×4 (05:43→18:16)
--- NOTE | 2021-08-07 07:33 | NURSING ---
Patient had several incontinent bm episodes yesterday. Stool is very soft semi loose. Today, patient upset that staff had to put an attends on her when she did not want it. This nurse explained the contact precaution and with being incontinent of stool she needs to wear an attends for staff safety of exposure.
--- NOTE | 2021-08-07 07:44 | NURSING ---
updated. This nurse asked if he can come in and let staff know if this is her normal state of mind or if he thinks she is confused. Night nurse found patient up at 5am walking out in the hallway looking for the bathroom and the alarm was unhooked that had been on her. Night nurse redirected her into the bathroom at that time and reported she was incontinent of urine throughout the night and at that time as well. Patient denies any dysuria at this time.
[2021-08-07 07:56] VITALS: BP 139/75; PULSE 81; RESP 20; TEMP 36.7; O2SAT 94
[2021-08-07] MEDS: APIXABAN 5 MG TABLET PO ×2 (08:24→20:38)
[2021-08-07] MEDS: Potassium Chloride Oral Tablet 10 MEQ PO (08:24)
[2021-08-07] MEDS: Pantoprazole Sodium 20 MG Tablet PO (08:25)
[2021-08-07] MEDS: Multivitamins,Therapeutic Tablet 1 TABLET PO (08:26)
[2021-08-07] MEDS: Ascorbic Acid 500 MG Tablet PO (08:26)
--- NOTE | 2021-08-07 09:00 | NURSING ---
Patient voiced no concern about wearing attends after she ate breakfast and was very pleasant. reports no noted confusion and neither does staff this AM at this time.
[2021-08-07 19:43] VITALS: BP 133/87; PULSE 97; RESP 16; TEMP 36.2; O2SAT 93
[2021-08-07] MEDS: Triamcinolone 0.5% Cream 1 APPLIC TOPICAL (19:47)
[2021-08-07] MEDS: Menthol/Lanolin/Calamine/Znox 113 GM Tube 1 APPLIC TOPICAL (19:47)
[2021-08-07] MEDS: Atorvastatin Calcium 10 MG Tablet PO (20:38)
[2021-08-08] MEDS: Carbidopa/Levodopa 25/100 Tablet PO ×4 (05:13→17:27)
[2021-08-08] MEDS: Vancomycin 125 MG/5 ML Susp PO.SYRINGE PO ×4 (05:13→23:18)
[2021-08-08] MEDS: Levothyroxine 50 MCG Tablet PO (05:13)
[2021-08-08 05:48] VITALS: BP 137/82; BP 139/83; BP 148/76; PULSE 103; PULSE 86; PULSE 97
[2021-08-08 06:17] LABS: Anion Gap 4 (5-15); BUN 14 mg/dL (7-18); BUN/Creat Ratio 18.7 RATIO (10-20); Calcium,Total 9.1 mg/dL (8.5-10.1); Chloride 107 mmol/L (98-107); Creatinine, Serum 0.75 mg/dL (0.55-1.02); EST Glomerular Filtration Rate 82 mL/min (>60); Est Glom Filt Rate - Afr Amer 99 mL/min (>60); Estimated Creatinine Clearance 43.77 ml/min; Glucose 110 mg/dL (74-106); Phosphorus 3.3 mg/dL (2.5-4.9); Potassium 3.8 mmol/L (3.5-5.1); Sodium Level 140 mmol/L (136-145)
[2021-08-08] MEDS: Potassium Chloride Oral Tablet 10 MEQ PO (07:34)
[2021-08-08] MEDS: Ascorbic Acid 500 MG Tablet PO (07:34)
[2021-08-08] MEDS: Multivitamins,Therapeutic Tablet 1 TABLET PO (07:34)
[2021-08-08] MEDS: Pantoprazole Sodium 20 MG Tablet PO (07:34)
[2021-08-08] MEDS: APIXABAN 5 MG TABLET PO ×2 (07:35→20:46)
[2021-08-08 08:22] VITALS: BP 137/82; PULSE 86; RESP 16; TEMP 36.7; O2SAT 94
[2021-08-08] MEDS: Menthol/Lanolin/Calamine/Znox 113 GM Tube 1 APPLIC TOPICAL ×2 (09:56→20:46)
[2021-08-08] MEDS: Triamcinolone 0.5% Cream 1 APPLIC TOPICAL (09:57)
--- NOTE | 2021-08-08 15:14 | CASEMGMT ---
Social Work IDT met with patient and for Team meeting. Discussed patient's progress in PT/OT/ST and nursing. Pt making progress. Explained [employer] with [employer] 08/11 and continued stay is not guaranteed with each review. The goal is for pt to return home with . Pt was very active prior. She participated in the [facility], [employer] and [employer] exercise classes and swam at the [facility]. ensure she completes HEP. Will Reteam. SW to continue to follow for DC planning. Nel Dobbs, PAYROLL AND BENEFITS MANAGER HEEL SEAM RUBBER
[2021-08-08 15:32] VITALS: O2SAT 98
[2021-08-08 19:28] VITALS: BP 146/85; PULSE 91; RESP 16; TEMP 36.6; O2SAT 95
[2021-08-08] MEDS: Ketoconazole Cream 1 APPLIC TOPICAL (20:46)
[2021-08-08 22:00] VITALS: PULSE 91; RESP 16
[2021-08-09 05:03] VITALS: BP 121/66; BP 136/77; BP 141/85; PULSE 101; PULSE 86; PULSE 87
[2021-08-09] MEDS: Carbidopa/Levodopa 25/100 Tablet PO ×5 (05:08→17:59)
[2021-08-09] MEDS: Vancomycin 125 MG/5 ML Susp PO.SYRINGE PO ×4 (05:08→23:27)
[2021-08-09] MEDS: Levothyroxine 50 MCG Tablet PO (05:08)
[2021-08-09 07:20] VITALS: O2SAT 96
[2021-08-09 07:46] VITALS: BP 121/66; PULSE 87; RESP 18; TEMP 36.7; O2SAT 95
[2021-08-09] MEDS: Potassium Chloride Oral Tablet 10 MEQ PO (08:46)
[2021-08-09] MEDS: Pantoprazole Sodium 20 MG Tablet PO (08:46)
[2021-08-09] MEDS: Ascorbic Acid 500 MG Tablet PO (08:46)
[2021-08-09] MEDS: Multivitamins,Therapeutic Tablet 1 TABLET PO (08:46)
[2021-08-09] MEDS: APIXABAN 5 MG TABLET PO ×2 (08:46→20:45)
[2021-08-09] MEDS: Menthol/Lanolin/Calamine/Znox 113 GM Tube 1 APPLIC TOPICAL ×2 (08:48→20:44)
[2021-08-09] MEDS: Ketoconazole Cream 1 APPLIC TOPICAL ×2 (08:49→20:45)
[2021-08-09 19:06] VITALS: BP 143/69; PULSE 88; RESP 17; TEMP 36.2; O2SAT 95
[2021-08-09] MEDS: Atorvastatin Calcium 10 MG Tablet PO (20:45)
[2021-08-09 22:00] VITALS: PULSE 69; RESP 16
[2021-08-10] MEDS: Vancomycin 125 MG/5 ML Susp PO.SYRINGE PO ×3 (05:00→17:18)
[2021-08-10] MEDS: Levothyroxine 50 MCG Tablet PO (05:00)
[2021-08-10 07:02] VITALS: BP 128/70; PULSE 86; RESP 18; TEMP 37; O2SAT 93
[2021-08-10] MEDS: Carbidopa/Levodopa 25/100 Tablet PO ×3 (07:50→17:18)
[2021-08-10] MEDS: Potassium Chloride Oral Tablet 10 MEQ PO (07:50)
[2021-08-10] MEDS: Ascorbic Acid 500 MG Tablet PO (07:50)
[2021-08-10] MEDS: Multivitamins,Therapeutic Tablet 1 TABLET PO (07:50)
[2021-08-10] MEDS: APIXABAN 5 MG TABLET PO ×2 (07:50→20:32)
[2021-08-10] MEDS: Ketoconazole Cream 1 APPLIC TOPICAL ×2 (07:51→20:33)
[2021-08-10] MEDS: Menthol/Lanolin/Calamine/Znox 113 GM Tube 1 APPLIC TOPICAL ×2 (07:51→20:33)
[2021-08-10] MEDS: Pantoprazole Sodium 20 MG Tablet PO (08:05)
--- NOTE | 2021-08-10 11:38 | PCM.PN.BLA ---
Progress Note late entry for 08/08/21 Charline was seen on TEAM rounds today. Her was present in the room for rounds. Afebrile VSS Maintaining appropriate oxygen saturation on RA Oral intake is adequate Discussed with nursing - no problems that need addressed Reviewed the PT/OT/ST notes Medication list reviewed. Denies CP, SOB, palpitations, n/abd pain/v, lightheadedness, cephalgia, calf pain. No cough and no hemoptysis. She has no complaints today. She has been sleeping well and the appetite is good. Physical Exam Const alert and oriented x3 Constitutional Narrative: voice is still somewhat soft General Appearance: cooperative Eyes conjunctivae normal and no scleral icterus Resp Resp Narrative: clear to auscultation after a few deep breaths Breathing is not labored and she is not tachypneic Cardio regular rate and regular rhythm Cardio Narrative: no ectopy GI normal to inspection, nondistended, normoactive bowel sounds, soft to palpation and non-tender Extremity no calf tenderness and no pedal edema Assessment & Plan Assessment/Plan (1) Pulmonary emboli: (2) Diarrhea: (3) Hypothyroidism: QUALIFIERS: Hypothyroidism type: unspecified Qualified Code(s): E03.9 - Hypothyroidism, unspecified (4) Parkinson's disease: PLAN: 1. I am curious what lead to the pulmonary emboli? Was it because she was dehydrated and ill and not moving around much? does she have an acquired hypercoagulable disorder? occult malignancy? May need to be further worked up as an OP. Is it possible she has a thyroid maligancy leading to hypothyroidism and VTE? 2. Continue therapy to get her stronger so that she will be able to return home safely at [place] from Rehab 3. Consider imaging of the thyroid and anti-thyroid antibodies as an OP. 4. Consider referral to Dr. Burgos at [place] Visit Charges Inpatient E&M: 23691 Subs Hosp L2
--- NOTE | 2021-08-10 11:43 | PCM.PN.BLA ---
Progress Note Afebrile VSS Maintaining appropriate oxygen saturation on RA Oral intake is good Discussed with nursing - no problems that need addressed Reviewed the PT/OT/ST notes - she is making good progress. Medication list reviewed. Charline has no complaints today. She denies CP, SOB, cough, N/V/abd pain, dysuria, BA, lightheadedness, calf pain. Physical Exam Const alert, oriented x3 and no apparent distress Constitutional Narrative: Voice is louder with better projection. I have no problem understanding her now.I observed her walking in the parallel bars while alternately lifting her leg/foot high and continuing to maintain balance. She was very focused. General Appearance: cooperative, comfortable, well kempt and well developed Eyes PERRL, EOMs intact bilaterally, conjunctivae normal and no scleral icterus Neck no lymphadenopathy and supple Resp clear to auscultation bilaterally Resp Narrative: Air exchange has improved since admission and she is able to take deeper breaths. Not tachypneic and no labored breathing. Cardio regular rate, regular rhythm, S1 normal heart sound, S2 normal heart sound and no gallops GI normal to inspection, nondistended, normoactive bowel sounds, soft to palpation and non-tender GI Narrative: No guarding with palpation. Extremity no calf tenderness and no pedal edema Skin General Skin Exam: no breakdown Rashes: no rashes Assessment & Plan Assessment/Plan (1) Pulmonary emboli: (2) Diarrhea: (3) Parkinson's disease: PLAN: 1. Vancomycin will conclude tomorrow - diarrhea has resolved 2. She is getting stronger and progressing in therapy 3. Continue therapy Visit Charges Inpatient E&M: 72706 Subs Hosp L2
[2021-08-10 20:14] VITALS: BP 140/90; PULSE 90; RESP 16; TEMP 36.4; O2SAT 95
[2021-08-11] MEDS: Vancomycin 125 MG/5 ML Susp PO.SYRINGE PO ×4 (00:10→17:45)
[2021-08-11] MEDS: Carbidopa/Levodopa 25/100 Tablet PO ×4 (05:39→17:45)
[2021-08-11] MEDS: Levothyroxine 50 MCG Tablet PO (05:39)
[2021-08-11 07:45] VITALS: BP 132/63; PULSE 88; RESP 18; TEMP 36.8; O2SAT 94
[2021-08-11] MEDS: Potassium Chloride Oral Tablet 10 MEQ PO (08:08)
[2021-08-11] MEDS: Pantoprazole Sodium 20 MG Tablet PO (08:08)
[2021-08-11] MEDS: APIXABAN 5 MG TABLET PO ×2 (08:08→20:59)
[2021-08-11] MEDS: Multivitamins,Therapeutic Tablet 1 TABLET PO (08:08)
[2021-08-11] MEDS: Ascorbic Acid 500 MG Tablet PO (08:09)
[2021-08-11] MEDS: Ketoconazole Cream 1 APPLIC TOPICAL ×2 (08:10→21:01)
[2021-08-11] MEDS: Menthol/Lanolin/Calamine/Znox 113 GM Tube 1 APPLIC TOPICAL ×2 (08:11→21:00)
[2021-08-11 19:18] VITALS: BP 141/74; PULSE 85; RESP 16; TEMP 36.6; O2SAT 97
[2021-08-11] MEDS: Atorvastatin Calcium 10 MG Tablet PO (20:59)
[2021-08-12] MEDS: Carbidopa/Levodopa 25/100 Tablet PO ×4 (05:29→18:11)
[2021-08-12] MEDS: Levothyroxine 50 MCG Tablet PO (05:29)
[2021-08-12 07:31] VITALS: BP 142/71; PULSE 87; RESP 18; TEMP 36.2; O2SAT 96
[2021-08-12] MEDS: APIXABAN 5 MG TABLET PO (07:53)
[2021-08-12] MEDS: Potassium Chloride Oral Tablet 10 MEQ PO (07:53)
[2021-08-12] MEDS: Pantoprazole Sodium 20 MG Tablet PO (07:53)
[2021-08-12] MEDS: Multivitamins,Therapeutic Tablet 1 TABLET PO (07:53)
[2021-08-12] MEDS: Ascorbic Acid 500 MG Tablet PO (07:54)
[2021-08-12] MEDS: Menthol/Lanolin/Calamine/Znox 113 GM Tube 1 APPLIC TOPICAL ×2 (08:02→21:47)
[2021-08-12] MEDS: Ketoconazole Cream 1 APPLIC TOPICAL ×2 (08:03→21:48)
[2021-08-12 10:32] LABS: Bacteria 0 SEEN /hpf (None Seen); Mucous, Urine 0 SEEN /hpf (<or=2+)
--- NOTE | 2021-08-12 10:35 | NURSING ---
pt straight cathed at this time per order for urine specimen. pt states urgency and frequency with some burning. 30 ml of urine noted to be dark red in color with blood clots. pt stated mild discomfort with the cath procedure but voices no other concerns. pt assisted back into recliner and call light within reach. dr knox aware of urine color.
[2021-08-12 10:36] LABS: Color, Urine Red (Yellow); Glucose, Dipstick Normal (Normal); Ketone-Dipstick 15 mg/dl (Negative); Leukocyte Esterase-Dipstick 100 /ul (Negative); Nitrite-Dipstick Negative (Negative); Occult Blood-Urine 250 /ul (Negative); Protein-Dipstick 500 mg/dl (Negative); Urine Bilirubin Dipstick Negative (Negative); Urine Clarity Turbid (Clear); Urine Urobilinogen Normal (Normal); Urine pH 6.5 (5.0 - 8.0)
[2021-08-12 10:44] LABS: Red Blood Cells-Urine 50-100 SEEN /hpf (0-5); Squamous Epithelial Cells - UA 0-5 SEEN /hpf (5-10); White Blood Cells 10-25 SEEN /hpf (0-5)
--- NOTE | 2021-08-12 11:55 | PCM.PROGNOTE ---
Subjective Subjective Afebrile VSS Maintaining appropriate oxygen saturation on RA Oral intake is adequate Discussed with nursing - nursing reports she had blood in the urine today. She is c/o frequency and urgency and burning when wiping. No fevers Reviewed the PT/OT/ST notes Medication list reviewed. Denies suprapubic pain, nausea, flank pain, vomiting. No shaking chills. No CP, SOB, increased palpitations. Denies calf pain. No hemoptysis and no bleeding from the nose or the gums. The intertrigo of the groin is much better and now there is some hyperpigmentation. There is erythema at the introitus and some white DC. She was straight cath'd and the urine is maroon colored. There is no odor to the vaginal DC. Impressions 1. Suspected UTI - Obtain a UA and order a culture. Hematuria likely is exacerbated by the Apixaban for PE's . Start Rocephin empirically. She denies antibiotic allergies. She has only had 1 urine culture at [facility] and it was in 2019 and grew a nguyen-sensitive E. Coli. 2. Hematuria - Watch for clots - may need to insert a 3 way catheter and irrigate if she develops clots. 3. BL subsegmental PE's - continue Eliquis 4. vaginitis - suspect yeast. Monistat Objective Data Objective Data Vital Signs: Vital Signs Temp Pulse Resp BP Pulse Ox 97.2 F L 87 18 142/71 H 96 08/12/21 07:31 08/12/21 07:31 08/12/21 07:31 08/12/21 07:31 08/12/21 07:31 Oxygen Delivery Method Room Air Weight: 161 lb 9.581 oz Body Mass Index (BMI) 29.5 Intake & Output: Intake and Output for Last 24 Hours 08/10/21 08/11/21 08/12/21 23:59 23:59 23:59 Intake Total 60 / 60 1200 / 1200 Balance 60 / 60 1200 / 1200 Lab / Micro Data Result Diagrams: 08/05/21 10:47 08/08/21 05:05 Labs: Laboratory Results - last 24 hr 08/12/21 10:20: Urine Color Red, Urine Clarity Turbid, Urine pH 6.5, Ur Specific Sarah Ann 1.020, Urine Protein 500 H, Urine Glucose (UA) Normal, Urine Ketones 15 H, Urine Occult Blood 250 H, Urine Nitrite Negative, Urine Bilirubin Negative, Urine Urobilinogen Normal, Ur Leukocyte Esterase 100 H, Urine RBC 50-100 SEEN, Urine WBC 10-25 SEEN, Ur Squamous Epith Cells 0-5 SEEN, Urine Bacteria 0 SEEN, Urine Mucus 0 SEEN Charges/Coding Visit Charges Inpatient E&M: 55092 Subs Hosp L2
[2021-08-12] MEDS: Amox/Clavulanate 500 MG Tablet PO ×2 (14:22→21:45)
[2021-08-12] MEDS: Phenazopyridine 95 MG Tablet PO ×2 (14:22→21:45)
[2021-08-12 19:30] VITALS: BP 130/65; PULSE 60; RESP 18; TEMP 36.7; O2SAT 96
[2021-08-12] MEDS: Miconazole-7 Nitrate Cream 1 APPLIC VAGINAL (21:45)
[2021-08-13] MEDS: Carbidopa/Levodopa 25/100 Tablet PO ×4 (06:22→17:05)
[2021-08-13] MEDS: Amox/Clavulanate 500 MG Tablet PO ×3 (06:22→21:38)
[2021-08-13] MEDS: Phenazopyridine 95 MG Tablet PO ×3 (06:22→21:38)
[2021-08-13] MEDS: Levothyroxine 50 MCG Tablet PO (06:23)
[2021-08-13 08:05] VITALS: BP 144/87; PULSE 92; RESP 18; TEMP 36.8; O2SAT 92
[2021-08-13] MEDS: Ascorbic Acid 500 MG Tablet PO (08:40)
[2021-08-13] MEDS: Potassium Chloride Oral Tablet 10 MEQ PO (08:41)
[2021-08-13] MEDS: Pantoprazole Sodium 20 MG Tablet PO (08:41)
[2021-08-13] MEDS: Multivitamins,Therapeutic Tablet 1 TABLET PO (08:41)
[2021-08-13] MEDS: Ketoconazole Cream 1 APPLIC TOPICAL ×2 (08:45→21:39)
[2021-08-13] MEDS: Menthol/Lanolin/Calamine/Znox 113 GM Tube 1 APPLIC TOPICAL ×2 (08:45→21:39)
[2021-08-13] MEDS: Miconazole-7 Nitrate Cream 1 APPLIC VAGINAL (21:36)
[2021-08-13] MEDS: APIXABAN 5 MG TABLET PO (21:37)
[2021-08-13] MEDS: Atorvastatin Calcium 10 MG Tablet PO (21:37)
[2021-08-13 22:00] VITALS: BP 146/88; PULSE 86; RESP 16; RESP 18; TEMP 36.8; O2SAT 95
[2021-08-14] MEDS: Amox/Clavulanate 500 MG Tablet PO ×2 (06:21→13:26)
[2021-08-14] MEDS: Levothyroxine 50 MCG Tablet PO (06:22)
[2021-08-14] MEDS: Phenazopyridine 95 MG Tablet PO (06:22)
[2021-08-14] MEDS: Carbidopa/Levodopa 25/100 Tablet PO ×4 (06:22→17:34)
[2021-08-14] MEDS: APIXABAN 5 MG TABLET PO ×2 (08:05→21:42)
[2021-08-14] MEDS: Potassium Chloride Oral Tablet 10 MEQ PO (08:05)
[2021-08-14] MEDS: Ascorbic Acid 500 MG Tablet PO (08:06)
[2021-08-14] MEDS: Multivitamins,Therapeutic Tablet 1 TABLET PO (08:06)
[2021-08-14] MEDS: Pantoprazole Sodium 20 MG Tablet PO (08:06)
[2021-08-14 08:17] VITALS: BP 134/74; PULSE 94; RESP 16; TEMP 36.4; O2SAT 94
[2021-08-14] MEDS: Menthol/Lanolin/Calamine/Znox 113 GM Tube 1 APPLIC TOPICAL ×2 (09:45→21:42)
[2021-08-14] MEDS: Ketoconazole Cream 1 APPLIC TOPICAL ×2 (09:45→21:42)
[2021-08-14 18:56] VITALS: BP 116/71; PULSE 96; RESP 18; TEMP 36.7; O2SAT 97
[2021-08-14] MEDS: Miconazole-7 Nitrate Cream 1 APPLIC VAGINAL (21:42)
[2021-08-14 22:00] VITALS: PULSE 96; RESP 16
[2021-08-15] MEDS: Levothyroxine 50 MCG Tablet PO (06:03)
[2021-08-15] MEDS: Carbidopa/Levodopa 25/100 Tablet PO ×4 (06:03→17:17)
[2021-08-15] MEDS: levoFLOXacin 250 MG Tablet PO (06:04)
[2021-08-15 07:35] VITALS: BP 150/79; PULSE 72; RESP 18; TEMP 36.6; O2SAT 95
[2021-08-15] MEDS: Menthol/Lanolin/Calamine/Znox 113 GM Tube 1 APPLIC TOPICAL ×2 (07:56→21:18)
[2021-08-15] MEDS: Multivitamins,Therapeutic Tablet 1 TABLET PO (07:57)
[2021-08-15] MEDS: Ketoconazole Cream 1 APPLIC TOPICAL ×2 (07:57→21:18)
[2021-08-15] MEDS: Potassium Chloride Oral Tablet 10 MEQ PO (07:57)
[2021-08-15] MEDS: Ascorbic Acid 500 MG Tablet PO (07:58)
[2021-08-15] MEDS: APIXABAN 5 MG TABLET PO ×2 (07:58→21:27)
[2021-08-15] MEDS: Pantoprazole Sodium 20 MG Tablet PO (07:58)
--- NOTE | 2021-08-15 09:35 | EKG12_ITS ---
Test Reason : CP Blood Pressure : / mmHG Vent. Rate : 089 BPM Atrial Rate : 089 BPM P-R Int : 000 ms QRS Dur : 068 ms QT Int : 386 ms P-R-T Axes : 000 -05 040 degrees QTc Int : 469 ms Accelerated Junctional rhythm with frequent Premature ventricular complexes ST & T wave abnormality, consider inferolateral ischemia Abnormal ECG When compared with ECG of 31-JUL-2021 08:56, Junctional rhythm has replaced Sinus rhythm Criteria for Septal infarct are no longer Present Nonspecific T wave abnormality, improved in Lateral leads Confirmed by BOBO PHILLIPS, HOSSEIN ([id number]), order editor ANG ASCENCIO ([id number]) on 08/17/2021 1:48:26 PM Referred By: MARTINA Confirmed By:HOSSEIN BROUSSARD MD
--- NOTE | 2021-08-15 09:50 | RAD_ITS ---
STUDY: X-RAY CHEST REASON FOR EXAM: Female, 65 years old. Crackles TECHNIQUE: Single AP portable view of the chest. COMPARISON: Comparison is made with prior study dated 07/11/2013. FINDINGS: A battery pack from a stimulator device is seen overlying the left upper lobe. The lungs are clear and expanded. There is no demonstrated pleural abnormality. Normal size heart. Normal mediastinum and stefan. Normal visualized pulmonary arteries. There is atherosclerotic tortuosity of the aortic arch and descending thoracic aorta. Normal visualized thoracic spine. Normal visualized ribs, clavicles, and shoulders. There is no demonstrated abnormality of the visualized soft tissue structures of the upper abdomen. RAD/Chest 1 View (Portable) IMPRESSION: No acute abnormality is seen. Stable examination. Electronically Signed: Osmar Luo MD at 10:21 EDT ,
[2021-08-15 10:00] VITALS: BP 126/68; PULSE 69; RESP 18; O2SAT 94
--- NOTE | 2021-08-15 10:04 | NURSING ---
Addendum entered by Germaine Webb 08/15/21 10:29: pt states that the pain is gone. GI cocktail not given at this time. Lab work ordered. will continue to monitor Original Note: Pt c/o 02/27 mid chest pain radiating into abdomen and mild SOB. Dr Birmingham made aware. VS WNL. Stat EKG and Chest Xray ordered. GI cocktail ordered. pt resting in bed at this time will continue to monitor.
--- NOTE | 2021-08-15 10:30 | PCM.PROGNOTE ---
Subjective Subjective Afebrile VSS-blood pressure is somewhat erratic. The diastolic blood pressure is almost always within normal limits however the systolic fluctuates between 116 and 150. Maintaining appropriate oxygen saturation on RA-94 to 97%. Oral intake is good Post void residuals are all less than 50. Discussed with nursing - no problems that need addressed Reviewed the PT/OT/ST notes Medication list reviewed. Charline denies dysuria today. No frequency or urgency. The urine culture grew E. Coli R to Augmentin and only intermediately sensitive to Cefazolin and the antibiotic was changed to Levaquin. Raisa tells me that she ate a large breakfast today and was sitting in the chair at the bedside and suddenly awoke with Substernal and epigastric pain associated with nausea. No radiation into the arms, neck or back. No diaphoresis. No vomiting. She was burping. She has had pain like this only 1 time in the past. No hx of Heart disease. Denies lightheadedness. Denies palpitations. When she took a deep breath sitting in the chair she had pain in the LUQ of the abd. EKG showed NSR with trigeminal PVC's. No significant change in the ST and T waves from EKG done 07/31/21. there is a lot of interference, possibly from the brain stimulator implanted in the left chest. BP is normal and the HR is in the 80's. Pulse ox on RA is 95% and breathing is unlabored. Objective Data Objective Data Vital Signs: Vital Signs Temp Pulse Resp BP Pulse Ox 97.9 F 69 18 126/68 H 94 08/15/21 07:35 08/15/21 10:00 08/15/21 10:00 08/15/21 10:00 08/15/21 10:00 Oxygen Delivery Method Room Air Weight: 161 lb 9.581 oz Body Mass Index (BMI) 29.5 Intake & Output: Intake and Output for Last 24 Hours 08/13/21 08/14/21 08/15/21 23:59 23:59 23:59 Intake Total 860 / 860 1340 / 1340 120 / 120 Output Total 900 / 900 1175 / 1175 300 / 300 Balance -40 / -40 165 / 165 -180 / -180 Lab / Micro Data Result Diagrams: 08/15/21 11:08 08/08/21 05:05 Micro: Microbiology 08/12/21 10:20 Urine, Catheterized Urine Culture - Final Escherichia coli Radiography Diagnostic Testing: Radiology Impression Chest X-Ray 08/15/21 09:50 IMPRESSION: No acute abnormality is seen. Stable examination. Electronically Signed: Osmar Luo MD at 10:21 EDT , Physical Exam Const alert Constitutional Narrative: looks to be distressed Her voice is very soft and difficult to understand......not projecting. Chest Chest: symmetrical chest wall rise Resp normal respiratory effort Resp Narrative: She has coarse crackles in both bases with no wheezing. Hesitant to take a deep breath due to increased pain in the LUQ of the abd. Not tachypneic. Breathing is not labored. Effort and Inspection: able to speak in complete sentences Cardio regular rhythm, no rub and no gallops Cardio Narrative: She is having a pause every third beat. There is a PVC on the rhythm strip every 3rd beat and it is not being conducted pulse she looses her pulse with this. There is a short TN on the EKG. Jugular Venous Distention: Negative for JVD GI normal to inspection, nondistended, normoactive bowel sounds GI Narrative: Pain with seep palpation of the LUQ of the abd. No guarding. Normal BS's. Extremity Extremity Narrative: The mild ankle edema is better. She has no pain in the calves. Skin General Skin Exam: no breakdown Rashes: no rashes Assessment & Plan Assessment/Plan (1) Chest pain: QUALIFIERS: Chest pain type: precordial pain Qualified Code(s): R07.2 - Precordial pain (2) PVCs (premature ventricular contractions): (3) Pulmonary emboli: QUALIFIERS: Pulmonary embolism type: multiple subsegmental (without acute cor pulmonale) Qualified Code(s): I26.94 - Multiple subsegmental pulmonary emboli without acute cor pulmonale (4) Hypothyroidism: QUALIFIERS: Hypothyroidism type: unspecified Qualified Code(s): E03.9 - Hypothyroidism, unspecified (5) Parkinson's disease: (6) Acute UTI (urinary tract infection): (7) Vaginal candidiasis: PLAN: 1. EKG and rhythm strip obtained. 2. CE's, mag and BMP and HH 3. pCXR - shows large gastric bubble in the LUQ of the abd. No infiltrates. Possible atelectasis in the R base. No PVC. Took a good sized breath. 4. GI cocktail ordered but the pain had subsided prior to getting the Medication. She is on Protonix 20 mg once a day. 5. Continue the Levaquin 6. Finish the monistat 7 vaginal cream. 7. Needs a T4 and a TSH in another 3 weeks or so. Charges/Coding Visit Charges Inpatient E&M: 04567 Subs Hosp L2
[2021-08-15 10:33] VITALS: BP 127/72; BP 134/76; BP 136/73; PULSE 84; PULSE 87; PULSE 88
[2021-08-15 11:22] LABS: Hematocrit 40.6 % (37-47); Hemoglobin 13.2 g/dL (12.0-15.0)
[2021-08-15 11:32] LABS: Anion Gap 4 (5-15); BUN 30 mg/dL (7-18); BUN/Creat Ratio 31.5 RATIO (10-20); Calcium,Total 9.1 mg/dL (8.5-10.1); Chloride 103 mmol/L (98-107); Creatinine, Serum 0.95 mg/dL (0.55-1.02); EST Glomerular Filtration Rate 62 mL/min (>60); Est Glom Filt Rate - Afr Amer 75 mL/min (>60); Estimated Creatinine Clearance 46.07 ml/min; Glucose 108 mg/dL (74-106); Magnesium 2.8 mg/dL (1.6-2.6); Potassium 4.5 mmol/L (3.5-5.1); Sodium Level 139 mmol/L (136-145); Troponin-I HS 10 pg/mL (3.0-54.0)
--- NOTE | 2021-08-15 13:09 | CASEMGMT ---
Social Work IDT met with patient and for Team meeting. Discussed patient's progress in PT/OT/ST and nursing. Explained [employer] insurance with NRD 08/15 and continued stay is not guaranteed. Pt making progress, however, pt and still feel she is not ready to DC home yet. They would like to continue working with the intensive therapy for best progress. Inquired about DC plans if insurance does issue DC. Pt and prefer outpatient therapy at [facility]. No DME needs indicated. SW will update pt/ on insurance outcome. Nel Dobbs, OUT OF TOWN COLLECTION CLERK SILK PRINTER
[2021-08-15 13:54] LABS: Troponin-I HS 10 pg/mL (3.0-54.0)
[2021-08-15 17:31] LABS: Troponin-I HS 9 pg/mL (3.0-54.0)
[2021-08-15 19:20] VITALS: BP 123/75; PULSE 68; RESP 16; TEMP 36; O2SAT 96
[2021-08-15 21:00] VITALS: PULSE 68; RESP 16; O2SAT 96
[2021-08-15] MEDS: Miconazole-7 Nitrate Cream 1 APPLIC VAGINAL (21:15)
[2021-08-15] MEDS: Atorvastatin Calcium 10 MG Tablet PO (21:27)
[2021-08-15 22:00] VITALS: PULSE 87; RESP 16
[2021-08-16] MEDS: Mag Hydrox/Al Hydrox/Simeth 30 ML UDC PO (05:12)
[2021-08-16] MEDS: levoFLOXacin 250 MG Tablet PO (06:56)
[2021-08-16] MEDS: Levothyroxine 50 MCG Tablet PO (06:56)
[2021-08-16] MEDS: Carbidopa/Levodopa 25/100 Tablet PO ×4 (06:56→17:54)
[2021-08-16 07:33] VITALS: BP 127/74; PULSE 65; RESP 16; TEMP 36.6; O2SAT 93
[2021-08-16] MEDS: Multivitamins,Therapeutic Tablet 1 TABLET PO (07:47)
[2021-08-16] MEDS: Potassium Chloride Oral Tablet 10 MEQ PO (07:47)
[2021-08-16] MEDS: APIXABAN 5 MG TABLET PO ×2 (07:48→21:50)
[2021-08-16] MEDS: Ascorbic Acid 500 MG Tablet PO (07:48)
[2021-08-16] MEDS: Pantoprazole Sodium 20 MG Tablet PO ×2 (07:48→21:50)
[2021-08-16] MEDS: Menthol/Lanolin/Calamine/Znox 113 GM Tube 1 APPLIC TOPICAL ×2 (07:49→21:49)
[2021-08-16] MEDS: Ketoconazole Cream 1 APPLIC TOPICAL ×2 (07:49→21:50)
--- NOTE | 2021-08-16 10:58 | PCM.PN.BLA ---
Progress Note Afebrile VSS Maintaining appropriate oxygen saturation on RA Oral intake - she is eating well but , she does not have adequate fluid intake. Discussed with nursing - no problems that need addressed Reviewed the PT/OT/ST notes Medication list reviewed. Charline tells me that she had a little heartburn prior to eating breakfast this morning and it resolved. She denies nausea and SOB and diaphoresis. No vomiting. Denies palpitations. No calf pain. Troponins yesterday were all normal X 3. Alert, NAD Lungs - Coarse crackles in the bases unchanged. HRRR with premature beats that are not conducted RAJ hose in place with a trace of ankle edema Impressions: 1. CP due to GERD/non-cardiac 2. PD 3. generalized weakness - improving. Will increase the Protonix to BID Would not be unreasonable to obtain a stress test as an OP.......nuclear. Encouraged increased fluid intake. Home at [place]. Visit Charges Inpatient E&M: 15712 Subs Hosp L1
--- NOTE | 2021-08-16 16:14 | CASEMGMT ---
Social Work Left a message with explaining insurance approved through 08/19 with DC 08/20 and to confirm DC plan remains home with [facility] PT/OT/ST. No DME needs. Will continue to follow. HELENA SimmsW
[2021-08-16 21:20] VITALS: BP 133/64; PULSE 86; RESP 17; TEMP 36.4; O2SAT 97
[2021-08-16] MEDS: Miconazole-7 Nitrate Cream 1 APPLIC VAGINAL (21:49)
[2021-08-17] MEDS: Levothyroxine 50 MCG Tablet PO (05:18)
[2021-08-17] MEDS: Carbidopa/Levodopa 25/100 Tablet PO ×4 (05:18→18:05)
[2021-08-17] MEDS: levoFLOXacin 250 MG Tablet PO (05:18)
[2021-08-17] MEDS: Potassium Chloride Oral Tablet 10 MEQ PO (08:06)
[2021-08-17] MEDS: Multivitamins,Therapeutic Tablet 1 TABLET PO (08:06)
[2021-08-17 10:00] VITALS: BP 133/63; PULSE 88; RESP 16; TEMP 36.6; O2SAT 95
[2021-08-17] MEDS: APIXABAN 5 MG TABLET PO (10:02)
[2021-08-17] MEDS: Menthol/Lanolin/Calamine/Znox 113 GM Tube 1 APPLIC TOPICAL (10:02)
[2021-08-17] MEDS: Senna/Docusate Sodium 1 Tablet 2 TABLET PO (10:02)
[2021-08-17] MEDS: Ketoconazole Cream 1 APPLIC TOPICAL (10:03)
[2021-08-17] MEDS: Ascorbic Acid 500 MG Tablet PO (10:06)
[2021-08-17] MEDS: Pantoprazole Sodium 20 MG Tablet PO (11:59)
--- NOTE | 2021-08-17 16:31 | CASEMGMT ---
Social Work Spoke with pt and in room. Both agreeable to DC /. Still requesting [facility] PT/OT/ST. Referral made. No DME needs. to transport. Plan: DC home with 08/20, [facility] PT/OT/ST Nel Dobbs, FIELD OBSERVER CONSUMER MARKETING MANAGER
[2021-08-17 19:00] VITALS: BP 138/63; PULSE 75; RESP 18; TEMP 36.4; O2SAT 97
[2021-08-18] MEDS: Atorvastatin Calcium 10 MG Tablet PO (00:10)
[2021-08-18] MEDS: APIXABAN 5 MG TABLET PO ×3 (00:10→21:15)
[2021-08-18] MEDS: Miconazole-7 Nitrate Cream 1 APPLIC VAGINAL ×2 (00:10→21:18)
[2021-08-18] MEDS: Pantoprazole Sodium 20 MG Tablet PO ×3 (00:11→21:17)
[2021-08-18] MEDS: Menthol/Lanolin/Calamine/Znox 113 GM Tube 1 APPLIC TOPICAL ×3 (00:11→21:16)
[2021-08-18] MEDS: Ketoconazole Cream 1 APPLIC TOPICAL ×3 (00:12→21:18)
[2021-08-18] MEDS: Levothyroxine 50 MCG Tablet PO (05:15)
[2021-08-18] MEDS: Carbidopa/Levodopa 25/100 Tablet PO ×4 (05:15→18:09)
[2021-08-18] MEDS: levoFLOXacin 250 MG Tablet PO (05:15)
[2021-08-18] MEDS: Multivitamins,Therapeutic Tablet 1 TABLET PO (08:01)
[2021-08-18] MEDS: Potassium Chloride Oral Tablet 10 MEQ PO (08:02)
[2021-08-18 08:40] VITALS: BP 141/65; PULSE 87; RESP 18; TEMP 36.6; O2SAT 94
[2021-08-18 10:00] VITALS: BP 104/51; BP 130/74; BP 137/79; PULSE 87; PULSE 89; PULSE 91
[2021-08-18] MEDS: Ascorbic Acid 500 MG Tablet PO (10:34)
[2021-08-18 19:28] VITALS: BP 132/77; PULSE 78; RESP 16; TEMP 36.6; O2SAT 96
--- NOTE | 2021-08-18 19:31 | PN_ITS ---
Progress Note Afebrile VSS Maintaining appropriate oxygen saturation on RA Oral intake is less than stellar and she is always c/o thick saliva and dry mouth. Discussed with nursing - no problems that need addressed Reviewed the PT/OT/ST notes Medication list reviewed. She denies any CP, SOB, nausea, palpitations, calf pain, dysuria. She is doing well with therapy. Plan is for DC this Sunday and she will need her RX's faxed to the [facility]. She will get OP therapy. She does not need any DME. Alert NAD Lungs - CTA HRRR, no gallop no calf tenderness and no significant ankle edema no skin breakdown Assessment & Plan Assessment/Plan (1) C. difficile diarrhea: (2) Syncope: (3) Physical debility: (4) Pulmonary emboli: QUALIFIERS: Pulmonary embolism type: multiple subsegmental (without acute cor pulmonale) Qualified Code(s): I26.94 - Multiple subsegmental pulmonary emboli without acute cor pulmonale (5) Hypothyroidism: QUALIFIERS: Hypothyroidism type: unspecified Qualified Code(s): E03.9 - Hypothyroidism, unspecified PLAN: 1. DC tomorrow 2. No DME needs Visit Charges Inpatient E&M: 92857 Subs Hosp L1
--- NOTE | 2021-08-19 04:03 | NURSING ---
REVIEWED AND AGREE WITH BRIM POUNCER MACHINE OPERATOR'S FUNCTIONAL ASSESSMENT AND HANDOFF CHARTING.
[2021-08-19] MEDS: Levothyroxine 50 MCG Tablet PO (04:48)
[2021-08-19] MEDS: Carbidopa/Levodopa 25/100 Tablet PO ×4 (04:48→17:55)
[2021-08-19] MEDS: levoFLOXacin 250 MG Tablet PO (04:48)
[2021-08-19] MEDS: Potassium Chloride Oral Tablet 10 MEQ PO (08:52)
[2021-08-19] MEDS: Multivitamins,Therapeutic Tablet 1 TABLET PO (08:52)
[2021-08-19] MEDS: Ketoconazole Cream 1 APPLIC TOPICAL ×2 (08:53→20:21)
[2021-08-19] MEDS: Menthol/Lanolin/Calamine/Znox 113 GM Tube 1 APPLIC TOPICAL ×2 (08:53→20:21)
[2021-08-19] MEDS: APIXABAN 5 MG TABLET PO ×2 (08:53→20:20)
[2021-08-19] MEDS: Senna/Docusate Sodium 1 Tablet 2 TABLET PO (08:54)
[2021-08-19] MEDS: Pantoprazole Sodium 20 MG Tablet PO ×2 (08:54→20:20)
[2021-08-19] MEDS: Ascorbic Acid 500 MG Tablet PO (08:55)
[2021-08-19 09:00] VITALS: BP 108/72; PULSE 84; RESP 15; TEMP 36.6; O2SAT 94
[2021-08-19 10:00] VITALS: BP 134/72; BP 139/72; BP 142/72; PULSE 90; PULSE 95
--- NOTE | 2021-08-19 18:52 | NURSING ---
will set up all of patients appointments at discharge.
[2021-08-19 19:27] VITALS: BP 153/93; PULSE 96; RESP 16; TEMP 36.4; O2SAT 96
[2021-08-19] MEDS: Atorvastatin Calcium 10 MG Tablet PO (20:21)
--- NOTE | 2021-08-19 20:33 | PCM.DC ---
Discharge Instructions Diet Discharge Diet: - (Regular diet. Avoid large meals to help prevent/reduce reflux. Do not lie down for at least 30 minutes after eating. Avoid cholcolate, peppermint and caffeine because this decreases LES pressure and increases reflux. Low salt diet to decrease the LE edema.) Activity Discharge Activity: Return to Normal Activity, May Not Drive, May Shower and Use Walker (when ambulating outside of the house.) Weight Bearing Status: Full weight bearing Keep extremity elevated above heart level: Legs (Elevate the legs when sitting to help control the ankle swelling.) Dressing / Incision Call your doctor if you observe: Fever of 101 or Higher, Inability to have a bowel movement, Shortness of breath, Dizziness, Fainting spells, Chest pain, Calf discomfort, Uncontrolled pain and - (Burning with urination, worsening heartburn) Follow Up Care Please Follow Up With: Abdullahi Major MD When: within the next 7-10 days Test Results: Test results from this visit will be discussed in further detail at your follow-up appointment, if applicable. Pending Tests Upon Discharge: none Discharge Plan Admission Admit Date/Time: 08/04/21 18:05 Primary Reason for Your Visit: Debility due to acute hospital admission for C. Diff diarrhea/ARF/PD Attending Provider: Alyssa Birmingham Primary Care Provider: Abdullahi Major Instructions Patient Instructions: Kegel Exercises, Treating Incontinence in Women ..., Types of Incontinence, Parkinson Disease Common Sx, Clostridium Difficile Infection, ED GERD (Adult), ED Hypothyroidism Additional Instructions / Restrictions: 1. The diarrhea you had at admission to the hospital was due to a bacteria called Clostridium Difficile (C. DIFF for short). People sometimes get this after they have been taking an antibiotic. You were treated with a medication called Vancomycin and the symptoms/infection have resolved. Because of the severe diarrhea you got very dehydrated and your kidneys started to fail and your BP dropped and you passed out. These problems have all resolved since the infection was treated. 2. While you were in the hospital you were diagnosed with an underactive thyroid (also known as hypothyroidism). You were started on a thyroid supplement and will need to more blood drawn around the end of August to check the thyroid levels to see if you are on the correct dose. If your levels are still low you will need the dose increased and the lab will need redrawn in another 4-6 weeks to make sure the levels of thyroid hormone is within normal limits. There is an director of outpatient services in [place] and thyroid disease is one of her specialties. Her name is Dr. Ancelmo Burgos and she is very good and also very nice. I recommend you get an appt with Dr. Burgos. There are many reasons why people can develop an underactive thyroid. You should have a test to image the thyroid to make sure you do not have any cysts or masses in the thyroid gland. I am going to give you a requisition to have an ultrasound of the thyroid to check for any abnormalities. Dr. Burgos may want to do some additional lab test. I am also going to give you a lab requisition to have your thyroid lab tests repeated somewhere in the third or fourth week of August. 3. Another problem that was discovered while you were in the hospital is you have blood clots in your lungs. Your body will dissolve these clots over time and you will need to be taking Eliquis, which is a blood thinner, for at least 6 months. I do not know why you developed blood clots, it may have been due to the severe dehydration and inactivity while you were sick. Blood clots can also develop when a person has a cancer.......sometimes the clots happen before the cancer is even diagnosed. Please discuss with your family doctor any testing you may need.....make sure to get the thyroid ultrasound. Make sure you are up to date on mammograms and colonoscopies. Blood thinners (also called anticoagulants) can make you bleed more easily than normal. If your start bleeding from your nose, your gums or your vagina OR you are getting large bruises or coughing up blood call your doctor for advice. 4. I am giving you some literature to read on urinary incontinence. There are some things that you can do to help prevent losing your urine before you make it to the bathroom. Caffeine causes the bladder to get irritable and spasm leading to urine coming out when you do not want it to. Discontinuing caffeine can help. Scheduling regular bathroom trips, even if you do not feel like you have to go to empty the bladder. If you wait too long the bladder will be distended and when it gets very distended the bladder contracts and urine comes out suddenly. Wearing the compression stockings with help with the need to urinate a lot at night because the stockings are doing a good job controlling the swelling in your ankles. When you have swelling in the ankles and you go to bed and elevate your legs and take away the effects of gravity the fluid in the ankles moves back into the veins and this increases the blood return to your heart which increases the amount of blood being pumped out of the heart to your kidneys and your kidneys respond by increasing your urine Output. Put the stockings on when you get up in the morning and take them off when you get in bed at night. If you stop drinking water after 7 or 8 PM at night this will also help decrease night time urination. Doing exercises to strengthen the muscles in the pelvic floor can help to improve your control of urination. These exercises are called Kegel exercises and I have given you a handout on how to do these exercises. If this problem gets worse there is a urologist at the hospital here who only treats women and she has helped many of my patients. Her name is Dr. Augusta Rucker. 5. The chest pain you have been having is due to heartburn which is also called reflux. I have given you a handout on reflux and how to help control it. Foods to avoid include caffeine, chocolate and peppermints. Do not eat for 3 hours prior to going to bed. Eat smaller meals more frequently so as not to overdistend the stomach forcing the acid up into the esophagus. You will also be taking the medicine to decrease the acid in the stomach twice a day now, in the morning and prior to bedtime. 6. It has been a pleasure getting to know you Charline. You have done well in therapy and I have seen a lot of progress since you first arrived. If you have any questions after you leave rehab please call me. Office: [phone] Be well and happy Charline and Keep active! Discharge Orders/Prescriptions Prescriptions: New Eliquis 5 mg Tablet 5 mg PO BID 30 Days Qty: 60 RF: 0 acetaminophen [Tylenol] 325 mg Tablet 650 mg PO Q6H PRN PRN (Reason: PAIN) Qty: 0 RF: 0 pantoprazole 20 mg Tablet,Delayed Release (Dr/Ec) 20 mg PO BID Qty: 60 RF: 0 potassium chloride 10 mEq Tablet,Er Particles/Crystals 10 meq PO DAILYCM Qty: 30 RF: 0 Continued multivitamin Tablet 1 tab PO DAILY RF: 0 ascorbic acid (vitamin C) 500 mg tablet 500 mg PO DAILY RF: 0 atorvastatin 10 MG tablet 10 mg PO QODAY Qty: 30 RF: 0 levothyroxine 50 mcg tablet 50 mcg PO 0600 Qty: 30 RF: 0 carbidopa-levodopa 25-100 mg tablet 1 tab PO 0600,1000,1800 Qty: 90 RF: 0 carbidopa-levodopa 25-100 mg tablet 1.5 tab PO 1400 Qty: 45 RF: 0 Discontinued omeprazole 20 MG capsule 20 mg PO DAILY RF: 0 acidophilus-pectin, citrus 25 million cell -100 mg tablet 2 tab PO 4X/DAY RF: 0 Eliquis DVT-PE Treat 30D Start 5 mg (74 tabs) tablets,dose pack 5 mg PO BID RF: 0 Firvanq 25 mg/mL recon soln 125 mg PO Q6 RF: 0 Referrals / Follow Up: Abdullahi Major MD [Primary Care Provider] - Ancelmo Burgos MD [STAFF PHYSICIAN] - (office will call to make appointment ) Disposition Disposition (needs filled in before D/C Order can be placed): Home, Self Care
--- NOTE | 2021-08-20 02:11 | NURSING ---
Reviewed and agree with QUALITY ASSURANCE SUPERVISOR CHASSIS documentation and assessment charting.
[2021-08-20] MEDS: levoFLOXacin 250 MG Tablet PO (05:28)
[2021-08-20] MEDS: Levothyroxine 50 MCG Tablet PO (05:28)
[2021-08-20] MEDS: Carbidopa/Levodopa 25/100 Tablet PO ×3 (05:28→13:02)
[2021-08-20 07:04] VITALS: BP 137/67; PULSE 61; RESP 16; TEMP 36.3; O2SAT 97
[2021-08-20] MEDS: Potassium Chloride Oral Tablet 10 MEQ PO (08:33)
[2021-08-20] MEDS: Multivitamins,Therapeutic Tablet 1 TABLET PO (08:34)
[2021-08-20] MEDS: APIXABAN 5 MG TABLET PO (08:35)
[2021-08-20] MEDS: Menthol/Lanolin/Calamine/Znox 113 GM Tube 1 APPLIC TOPICAL (08:35)
[2021-08-20] MEDS: Ketoconazole Cream 1 APPLIC TOPICAL (08:36)
[2021-08-20] MEDS: Pantoprazole Sodium 20 MG Tablet PO (08:37)
[2021-08-20] MEDS: Ascorbic Acid 500 MG Tablet PO (08:38)
[2021-08-20 09:38] VITALS: PULSE 72; O2SAT 96
--- NOTE | 2021-08-20 10:54 | DS.PCM_ITS ---
Providers Date of Admission: 08/04/21 Date of Discharge: 08/20/21 Primary Care Physician: Dr. Abdullahi Major MD Reason For Visit: DEBILITY Diagnosis Discharge Diagnosis (1) Physical debility: Status: Acute Code(s): R53.81 - Other malaise (2) Dehydration: Status: Resolved Code(s): E86.0 - Dehydration (3) Syncope: Status: Acute Code(s): R55 - Syncope and collapse (4) Diarrhea: Status: Resolved Code(s): R19.7 - Diarrhea, unspecified (5) C. difficile diarrhea: Status: Resolved Code(s): A04.72 - Enterocolitis due to Clostridium difficile, not specified as recurrent (6) Chest pain: Status: Resolved Code(s): R07.9 - Chest pain, unspecified Qualifiers: Chest pain type: unspecified Qualified Code(s): R07.9 - Chest pain, unspecified (7) Pulmonary emboli: Status: Acute Code(s): I26.99 - Other pulmonary embolism without acute cor pulmonale Qualifiers: Pulmonary embolism type: multiple subsegmental (without acute cor pulmonale) Qualified Code(s): I26.94 - Multiple subsegmental pulmonary emboli without acute cor pulmonale (8) Acute UTI (urinary tract infection): Status: Acute Code(s): N39.0 - Urinary tract infection, site not specified (9) Vaginal candidiasis: Status: Acute Code(s): B37.3 - Candidiasis of vulva and vagina (10) Chest pain: Status: Acute Code(s): R07.9 - Chest pain, unspecified Qualifiers: Chest pain type: precordial pain Qualified Code(s): R07.2 - Precordial pain (11) PVCs (premature ventricular contractions): Status: Acute Code(s): I49.3 - Ventricular premature depolarization (12) Hypothyroidism: Status: Acute Code(s): E03.9 - Hypothyroidism, unspecified Qualifiers: Hypothyroidism type: unspecified Qualified Code(s): E03.9 - Hypothyroidism, unspecified (13) Parkinson's disease: Status: Chronic Code(s): G20 - Parkinson's disease (14) Elevated alkaline phosphatase level: Status: Acute Code(s): R74.8 - Abnormal levels of other serum enzymes (15) Hypokalemia: Status: Resolved Code(s): E87.6 - Hypokalemia (16) Essential hypertension: Status: Chronic Code(s): I10 - Essential (primary) hypertension (17) Hyperlipidemia: Status: Chronic Code(s): E78.5 - Hyperlipidemia, unspecified (18) NEHEMIAH on CPAP: Status: Chronic Code(s): G47.33 - Obstructive sleep apnea (adult) (pediatric); Z99.89 - Dependence on other enabling machines and devices Plan: 1. DC home with OP therapy 2. No DME needed 3. Follow up with Dr. Major for primary care 4. follow up with Dr. Ancelmo Burgos for newly diagnosed hypothyroidism 5. OP thyroid US 6. Repeat TSH and T4 in late August Medications at Discharge Home Medications ascorbic acid (vitamin C) 500 mg tablet 500 mg PO DAILY 11/10/20 multivitamin 1 tab PO DAILY 11/10/20 acetaminophen [Tylenol] 650 mg PO Q6H PRN PRN #0 tab 08/19/21 apixaban [Eliquis] 5 mg PO BID 30 Days #60 tab 08/19/21 atorvastatin 10 mg PO QODAY #30 tab 08/19/21 carbidopa-levodopa 1 tab PO 0600,1000,1800 #90 tab 08/19/21 carbidopa-levodopa 1.5 tab PO 1400 #45 tab 08/19/21 levothyroxine 50 mcg PO 0600 #30 tab 08/19/21 pantoprazole 20 mg PO BID #60 tab 08/19/21 potassium chloride 10 meq PO DAILYCM #30 tab 08/19/21 Hospital Course Operations None Procedures None Summary of Care Provided Minutes Spent on Discharge: 50 Hospital Course: CHRALINE WOOD, is a 65 YO F with a PMH of PD with autonomic dysfunction, S/P deep brain stimulator, essential HTN, collagenous colitis, anxiety/depression, history of diverticulosis, hyperlipidemia, history of melanoma, neurogenic bladder, urge urinary incontinence, obstructive sleep apnea on CPAP, mild oropharyngeal dysphagia diagnosed on an MBS in 2019, RBD (REM behavioral disorder), GERD and squamous cell CA of the forearm who presented to the ED at [facility] on 07/30/2021 complaining of lightheadedness. She also gave a history of recent diarrhea. Her stated that she had passed out while sitting on the toilet. She did not fall to the ground and the e pisode was very brief. Systolic BP in the ED was in the 80's. She was bradycardic and a TSH was ordered and it was high at 21.7. The BUN was 28 and the CREAT was 1.54 ( it was 1.03 in October of 2020). Hemoglobin was increased at 16.4 secondary to dehydration. The white blood cell count was within normal limits and platelets were also normal. Lactic acid was elevated. She was admitted to the hospital with hypotension and acute kidney injury due to hypovolemia due to diarrhea. Following admission she developed N/V and the KUB was consistent with a partial small bowel obstruction. General surgery was consulted and the patient was managed conservatively. She had a syncopal episode 1 day following admission and a CTA of the chest was obtained and showed bilateral pulmonary emboli. She was started on a heparin drip and later transitioned to Eliquis. An enteric pathogen panel was negative. C. difficile antigen was positive but C. difficile toxin was negative. The C. difficile PCR was also positive. The hospitalist caring for the patient elected to treat for C diff in light of the acute diarrhea and she was started on oral vancomycin 125 mg p.o. 4 times daily. PT and OT were consulted for weakness and they recommended admission to acute rehab. She was tilt negative on the day of discharge. Charline did well in therapy and her strength steadily increased. During her admission to rehab she developed dysuria and a UA had pyuria and bacteria. She was started on Augmentin while the urine culture was pending. The urine grew E. Coli and it was resistant to Ampicillin. She was transitioned to Levaquin and had 5 days of Levaquin with complete resolution of her symptoms. She also had precordial CP while in rehab that woke her from sleep while sitting in a chair. She related that she had a particularly large breakfast that morning. She has a hx of GERD and was taking 20 mg of Protonix once a day. EKG was unremarkable and serial troponins were normal. The pain gets better if she drinks cold water. Protonix was increased to BID and she was educated on the non-pharmacologic treatment of GERD. Diarrhea resolved after vancomycin was given but, since the Toxin was negative I am not entirely certain she had C DIFF......she may just be a carrier. She has been diagnosed with collagenous colitis in the past and is not currently on tx. If diarrhea reoccurs she may need to be seen by Dr. Cruz from gastroenterology. Prior to did charge Jojo was able to do 7 sit to stands in 30 seconds. She was able to a send/descend 2 steps independently with 1 handrail allowing for safe entry and exit into her home. She had ambulated up to 800 feet without an assistive device at contact-guard assist. I did recommend to her that when she is out in the community ambulating she consider taking her front wheel walker. She was able to do the turn up and go test in 13.65 seconds with no assistive device prior to discharge which is excellent, especially given that she has Parkinson's disease. She was able to eat and groom herself independently. She required minimal assistance with upper body and lower body dressing and was contact-guard assist for toileting and toilet transfer. She was also contact-guard assist for tub/shower transfer. Prior to discharge her came in for family training and was educated about how best to assist Jojo at home. Jojo was discharged home on 08/20/2021 and will have outpatient therapy. She already has all the DME she needs at home. Jojo will follow up with Dr. Major for primary care and she will also follow-up with Dr. Ancelmo Burgos for newly diagnosed hypothyroidism. She was given an outpatient requisition to obtain a thyroid ultrasound and also to have repeat TSH and T4 in another 3 weeks. Since she had PE's, no source was identified, she will need 6 months of anticoagulation. Would obtain a venous US of the legs prior to discontinuing anticoagulation and consider a hypercoagulable panel 2 weeks after the anticoagulant is discontinued as she may have a acquired hypercoagulable disorder. Occult malignancy can not be ruled out at this time. Physical Exam Const alert, oriented x3 and no apparent distress Constitutional Narrative: Her voice is stronger/louder and projects better than it did at admission to rehab. General Appearance: cooperative, comfortable, well kempt and well developed HEENT normocephalic and oropharynx normal HEENT Narrative: MM membranes are always dry and the BUN/CREAT ratio is increased. She has a hx of autonomic dysfunction due to PD and we discussed the importance of stay well hydrated to prevent lightheadeness and additional episodes of syncope going forward. Thrush has resolved Mouth: dry mucous membranes Eyes PERRL, EOMs intact bilaterally, conjunctivae normal and no scleral icterus Eyes Narrative: no visual field cuts. No scleral icterus and no conjunctival injection. General Eye: normal appearance of both eyes; Negative for exophthalmos Neck no lymphadenopathy, supple and thyroid normal Neck Narrative: thyroid is not enlarged and I do not appreciate any asymmetry General: trachea midline Lymph Lymphatic: no lymphadenopathy noted Chest Chest Narrative: PM is present in the L chest Chest: symmetrical chest wall rise Resp normal respiratory effort and clear to auscultation bilaterally Resp Narrative: Effort and Inspection: able to speak in complete sentences Cardio regular rate, regular rhythm, S1 normal heart sound, S2 normal heart sound, no murmurs, no rub and no gallops Cardio Narrative: No ectopy today Jugular Venous Distention: Negative for JVD GI normal to inspection, nondistended, normoactive bowel sounds, soft to palpation and non-tender GI Narrative: No pain with palpation and no guarding. Extremity no calf tenderness and no pedal edema Extremity Narrative: The mild ankle edema is all gone with consistent use of RAJ hose. I recommended to her that she continue with the compression hose at home to decrease nighttime urination and to prevent her ankles swelling AND to help with autonomic insufficiency. General Extremity: edema bilateral (suspect due the IV's of NS) Skin General Skin Exam: no breakdown Rashes: no rashes Neuro oriented x3, CN's II-XII intact bilaterally, no focal motor deficits and no sensory deficits noted Neuro Narrative: Masked facies. She has bradykinesia and some rigidity. She had no resting tremor at the time of my exam. Motor Exam: strength 5/5 throughout Psych cooperative Appearance: grossly normal and appropriate Speech: soft and No slurred Weight / BMI Weight Weight: 155 lb 13.869 oz Body Mass Index (BMI) 29.5 ABG / Lab / Microbiology Data Result Diagrams: 08/15/21 11:08 08/15/21 11:08 Microbiology: Microbiology 08/12/21 10:20 Urine, Catheterized Urine Culture - Final Escherichia coli D/C Instructions Discharge Diet: - (Regular diet. Avoid large meals to help prevent/reduce reflux. Do not lie down for at least 30 minutes after eating. Avoid cholcolate, peppermint and caffeine because this decreases LES pressure and increases reflux. Low salt diet to decrease the LE edema.) Weight Bearing Status: Full weight bearing Keep extremity elevated above heart level: Legs (Elevate the legs when sitting to help control the ankle swelling.) Call your doctor if you observe: Fever of 101 or Higher, Inability to have a bowel movement, Shortness of breath, Dizziness, Fainting spells, Chest pain, Calf discomfort, Uncontrolled pain and - (Burning with urination, worsening heartburn) Pending Tests Upon Discharge: none Please Follow Up With: Abdullahi Major MD When: within the next 7-10 days Meaningful Use Info Meaningful Use Diagnoses (Choose all that apply): None applicable Discharge Plan Admission Admit Date/Time: 08/04/21 18:05 Primary Reason for Your Visit: Debility due to acute hospital admission for C. Diff diarrhea/ARF/PD Attending Provider: Alyssa Birmingham Primary Care Provider: Abdullahi Major Instructions Patient Instructions: Kegel Exercises, Treating Incontinence in Women ..., Types of Incontinence, Parkinson Disease Common Sx, Clostridium Difficile Infection, ED GERD (Adult), ED Hypothyroidism Additional Instructions / Restrictions: 1. The diarrhea you had at admission to the hospital was due to a bacteria called Clostridium Difficile (C. DIFF for short). People sometimes get this after they have been taking an antibiotic. You were treated with a medication called Vancomycin and the symptoms/infection have resolved. Because of the sev ere diarrhea you got very dehydrated and your kidneys started to fail and your BP dropped and you passed out. These problems have all resolved since the infection was treated. 2. While you were in the hospital you were diagnosed with an underactive thyroid (also known as hypothyroidism). You were started on a thyroid supplement and will need to more blood drawn around the end of August to check the thyroid levels to see if you are on the correct dose. If your levels are still low you will need the dose increased and the lab will need redrawn in another 4-6 weeks to make sure the levels of thyroid hormone is within normal limits. There is an catalyst recovery operator in [place] and thyroid disease is one of her specialties. Her name is Dr. Ancelmo Burgos and she is very good and also very nice. I recommend you get an appt with Dr. Bugros. There are many reasons why people can develop an underactive thyroid. You should have a test to image the thyroid to make sure you do not have any cysts or masses in the thyroid gland. I am going to give you a requisition to have an ultrasound of the thyroid to check for any abnormalities. Dr. Burogs may want to do some additional lab test. I am also going to give you a lab requisition to have your thyroid lab tests repeated somewhere in the third or fourth week of August. 3. Another problem that was discovered while you were in the hospital is you have blood clots in your lungs. Your body will dissolve these clots over time and you will need to be taking Eliquis, which is a blood thinner, for at least 6 months. I do not know why you developed blood clots, it may have been due to the severe dehydration and inactivity while you were sick. Blood clots can also develop when a person has a cancer.......sometimes the clots happen before the cancer is even diagnosed. Please discuss with your family doctor any testing you may need.....make sure to get the thyroid ultrasound. Make sure you are up to date on mammograms and colonoscopies. Blood thinners (also called anticoagulants) can make you bleed more easily than normal. If your start bleeding from your nose, your gums or your vagina OR you are getting large bruises or coughing up blood call your doctor for advice. 4. I am giving you some literature to read on urinary incontinence. There are some things that you can do to help prevent losing your urine before you make it to the bathroom. Caffeine causes the bladder to get irritable and spasm leading to urine coming out when you do not want it to. Discontinuing caffeine can help. Scheduling regular bathroom trips, even if you do not feel like you have to go to empty the bladder. If you wait too long the bladder will be distended and when it gets very distended the bladder contracts and urine comes out suddenly. Wearing the compression stockings with help with the need to urinate a lot at night because the stockings are doing a good job controlling the swelling in your ankles. When you have swelling in the ankles and you go to bed and elevate your legs and take away the effects of gravity the fluid in the ankles moves back into the veins and this increases the blood return to your heart which increases the amount of blood being pumped out of the heart to your kidneys and your kidneys respond by increasing your urine Output. Put the stockings on when you get up in the morning and take them off when you get in bed at night. If you stop drinking water after 7 or 8 PM at night this will also help decrease night time urination. Doing exercises to strengthen the muscles in the pelvic floor can help to improve your control of urination. These exercises are called Kegel exercises and I have given you a handout on how to do these exercises. If this problem gets worse there is a urologist at the hospital here who only treats women and she has helped many of my patients. Her name is Dr. Augusta Rucker. 5. The chest pain you have been having is due to heartburn which is also called reflux. I have given you a handout on reflux and how to help control it. Foods to avoid include caffeine, chocolate and peppermints. Do not eat for 3 hours prior to going to bed. Eat smaller meals more frequently so as not to overdistend the stomach forcing the acid up into the esophagus. You will also be taking the medicine to decrease the acid in the stomach twice a day now, in the morning and prior to bedtime. 6. It has been a pleasure getting to know you Charline. You have done well in therapy and I have seen a lot of progress since you first arrived. If you have any questions after you leave rehab please call me. Office: [phone] Be well and happy Charline and Keep active! Discharge Orders/Prescriptions Prescriptions: New Eliquis 5 mg Tablet 5 mg PO BID 30 Days Qty: 60 RF: 0 acetaminophen [Tylenol] 325 mg Tablet 650 mg PO Q6H PRN PRN (Reason: PAIN) Qty: 0 RF: 0 pantoprazole 20 mg Tablet,Delayed Release (Dr/Ec) 20 mg PO BID Qty: 60 RF: 0 potassium chloride 10 mEq Tablet,Er Particles/Crystals 10 meq PO DAILYCM Qty: 30 RF: 0 Continued multivitamin Tablet 1 tab PO DAILY RF: 0 ascorbic acid (vitamin C) 500 mg tablet 500 mg PO DAILY RF: 0 atorvastatin 10 MG tablet 10 mg PO QODAY Qty: 30 RF: 0 levothyroxine 50 mcg tablet 50 mcg PO 0600 Qty: 30 RF: 0 carbidopa-levodopa 25-100 mg tablet 1 tab PO 0600,1000,1800 Qty: 90 RF: 0 carbidopa-levodopa 25-100 mg tablet 1.5 tab PO 1400 Qty: 45 RF: 0 Discontinued omeprazole 20 MG capsule 20 mg PO DAILY RF: 0 acidophilus-pectin, citrus 25 million cell -100 mg tablet 2 tab PO 4X/DAY RF: 0 Eliquis DVT-PE Treat 30D Start 5 mg (74 tabs) tablets,dose pack 5 mg PO BID RF: 0 Firvanq 25 mg/mL recon soln 125 mg PO Q6 RF: 0 Referrals / Follow Up: Abdullahi Major MD [Primary Care Provider] - Ancelmo Burgos MD [STAFF PHYSICIAN] - (office will call to make appointment ) Disposition Disposition (needs filled in before D/C Order can be placed): Home, Self Care Charges/Coding Visit Charges Inpatient E&M: 93923 Disch Hosp
--- NOTE | 2021-08-20 13:45 | NURSING ---
Discharge to home with , verbalized understanding to discharge instruct given.
[2021-08-20 13:55] VITALS: BP 137/67; PULSE 61; RESP 16; TEMP 36.3; O2SAT 97
== END 2021-08-20 13:45 | disposition home or self-care (01) | DRG 371 ==
PROVIDERS: Admitting Provider Internal Medicine; PCP Family Medicine; Visit Provider Internal Medicine
DX: A04.72 Enterocolitis due to Clostridium difficile, not specified as recurrent (principal); I26.94 Multiple subsegmental thrombotic pulmonary emboli without acute cor pulmonale; N39.0 Urinary tract infection, site not specified; G20 Parkinson's disease; E03.9 Hypothyroidism, unspecified; E78.5 Hyperlipidemia, unspecified; B37.3 Candidiasis of vulva and vagina; B96.20 Unspecified Escherichia coli [E. coli] as the cause of diseases classified elsewhere; K21.9 Gastro-esophageal reflux disease without esophagitis; I10 Essential (primary) hypertension; E87.6 Hypokalemia; G47.33 Obstructive sleep apnea (adult) (pediatric); Z79.01 Long term (current) use of anticoagulants; Z79.899 Other long term (current) drug therapy; Z79.890 Hormone replacement therapy; Z85.820 Personal history of malignant melanoma of skin; N31.9 Neuromuscular dysfunction of bladder, unspecified; R13.12 Dysphagia, oropharyngeal phase
CPT/HCPCS: 36415; 71045; 80048; 80053; 81001; 83735; 84100; 84484; 85014; 85018; 85027; 87077; 87086; 87088; 87186; 92507; 92523; 92610; 92611; 93005; 96125; 97110; 97116; 97129; 97130; 97161; 97166; 97530; 97535; 97802

== ENCOUNTER 2021-08-29 18:26 | Emergency (ER) | payer MEDICARE, SELFPAY ==
[2021-08-29 18:26] VITALS: BP 131/79; PULSE 87; RESP 18; TEMP 36.2; O2SAT 96; BMI 28.3
[2021-08-29 18:49] VITALS: BP 116/82; BP 120/79; PULSE 80; PULSE 84; PULSE 88
--- NOTE | 2021-08-29 18:49 | EKG12_ITS ---
Test Reason : SYNCOPE Blood Pressure : / mmHG Vent. Rate : 085 BPM Atrial Rate : 085 BPM P-R Int : 098 ms QRS Dur : 062 ms QT Int : 332 ms P-R-T Axes : 014 001 011 degrees QTc Int : 395 ms Sinus rhythm with short MO with frequent Premature ventricular complexes Nonspecific ST and T wave abnormality Abnormal ECG Confirmed by EFRA PHILLIPS, MAKENNA ([id number]), web content editor ANG ASCENCIO ([id number]) on 09/01/2021 1:13:16 PM Referred By: Alyssa Birmingham Confirmed By:MAKENNA KRAUS MD
--- NOTE | 2021-08-29 18:59 | EDS_ITS ---
HPI History of Present Illness Chief Complaint: Syncope Detail of Chief Complaint: Syncope x2 upon arising Informant: patient and spouse/S.O. Onset/Context/Timing Onset: Today (After breakfast x1 when she stood up) and Yesterday (X1 after breakfast when she stood up) Context: Sudden Onset Timing: Intermittent (60 to 90 seconds with no seizure activity or postictal state) Quality: Patient stared became unresponsive lost postural tone Location: Kitchen Current Severity: Gone Maximum Severity: Severe Worsened by: Rising from sitting position Relieved by: assisted her to the floor put 4 pillows under her feet and one pill Associated Symptoms Associated Symptoms: None Narrative Narrative: Patient is 65-year-old woman who has history of Parkinson's disease with a stimulator in place for approximately 7 to 8 years. The battery is been changed x1 per the . She was recently admitted for C. difficile which was complicated with pulmonary embolus. She is present on Eliquis. She states her stool is maroon. She denies black stool. She denies bruising easily. Denies bleeding of her gums. She denies hematuria. Prior similar symptoms: No Recent Illness/Hospitalization: Yes PFSH [facility] Medical History Collagenous colitis Depression with anxiety Diverticulosis Essential hypertension Hyperlipidemia Melanoma Neurogenic bladder NEHEMIAH on CPAP Parkinson's disease RBD (REM behavioral disorder) Squamous cell cancer of skin of forearm Home Medications ascorbic acid (vitamin C) 500 mg tablet 500 mg PO DAILY 11/10/20 [History Last Taken 07/30/21] multivitamin 1 tab PO DAILY 11/10/20 [History Last Taken 07/30/21] acetaminophen [Tylenol] 650 mg PO Q6H PRN PRN #0 tab 08/19/21 [Rx Last Taken Unknown] apixaban [Eliquis] 5 mg PO BID 30 Days #60 tab 08/19/21 [Rx Last Taken Unknown] atorvastatin 10 mg PO QODAY #30 tab 08/19/21 [Rx Last Taken Unknown] carbidopa-levodopa 1 tab PO 0600,1000,1800 #90 tab 08/19/21 [Rx Last Taken Unknown] carbidopa-levodopa 1.5 tab PO 1400 #45 tab 08/19/21 [Rx Last Taken Unknown] levothyroxine 50 mcg PO 0600 #30 tab 08/19/21 [Rx Last Taken Unknown] pantoprazole 20 mg PO BID #60 tab 08/19/21 [Rx Last Taken Unknown] potassium chloride 10 meq PO DAILYCM #30 tab 08/19/21 [Rx Last Taken Unknown] carvedilol 6.25 mg PO BID 08/29/21 [History Last Taken Unknown] clonazepam 0.5 mg PO QHS 08/29/21 [History Last Taken Unknown] Allergy/AdvReac Type Severity Reaction Status Date / Time prochlorperazine Allergy Unknown unknown Verified 08/29/21 18:28 [From Compazine] promethazine [From Phenergan] Allergy Unknown unknown Verified 08/29/21 18:28 thioridazine Allergy Unknown unknown Verified 08/29/21 18:28 haloperidol [From Haldol] Allergy Other Verified 08/29/21 18:28 haloperidol lactate Allergy Other Verified 08/29/21 18:28 [From Haldol] metoclopramide HCl Allergy Other Verified 08/29/21 18:28 [From Reglan] Family History Father Diabetes Heart disease Mother Hypertension Diabetes Cancer brain, lymphoma Hyperlipidemia Sister Seizures Brother Heart disease Surgical History History of appendectomy History of bunionectomy (~02/2008) History of colonoscopy (07/19/12) History of hammer toe correction (~02/2008) History of total abdominal hysterectomy and bilateral salpingo-oophorectomy (~1995) S/P deep brain stimulator placement (06/23/13) Social History household members: spouse Smoking Status: Never smoker alcohol intake: current alcohol intake frequency: a few times a month Alcohol type: wine substance use type: does not use ROS ROS ED Constitutional Constitutional ED: Denies chills, fever(s), subjective, sweats or weight loss Eyes Eyes: Denies blurry vision, change in vision or diplopia ENT ENT ED: Denies ear pain, rhinorrhea or sore throat Cardiovascular Cardiovascular: Denies chest pain, orthopnea, palpitations, paroxysmal nocturnal dyspnea or racing heartbeat Respiratory/Chest Respiratory/Chest: Denies cough, dyspnea, dyspnea on exertion, orthopnea or paroxysmal nocturnal dyspnea Gastrointestinal Gastrointestinal: Reports other Details: Maroon per patient ; Denies abdominal pain, constipation, diarrhea, melena, nausea or vomiting Genitourinary Genitourinary ED: Denies dysuria, hematuria or urinary frequency Musculoskeletal Musculoskeletal: Denies arthralgias, back pain, myalgias or neck pain Integumentary Denies rash Neurologic Neurologic: Reports weakness; Denies headache(s) or paresthesias Psychiatric Psychiatric: Reports depression Endocrine Endocrinology: Denies polydipsia, polyphagia or polyuria Hematologic/Lymphatic Hematologic/Lymphatic: Denies anemia, easy bleeding or easy bruising EXAM Physical Exam Const Vital Signs: 08/29/21 18:26 08/29/21 18:45 08/29/21 18:49 Temperature 97.1 F L Temperature Source Temporal Pulse Rate 87 Pulse Rate [Lying] 80 Pulse Rate [Sitting (for 1 minute prior to obtaining)] 84 Pulse Rate [Standing (for 1 minute prior to obtaining)] 88 Respiratory Rate 18 Respiratory Effort Normal Respiratory Pattern Normal Blood Pressure 131/79 H Blood Pressure [Lying] 116/82 H Blood Pressure [Sitting (for 1 minute prior to obtaining)] 120/79 Blood Pressure [Standing (for 1 minute prior to obtaining)] 120/79 Blood Pressure Mean 96 Blood Pressure Mean [Lying] 93 Blood Pressure Mean [Sitting (for 1 minute prior to obtaining)] 92 Blood Pressure Mean [Standing (for 1 minute prior to obtaining)] 92 Pulse Ox 96 Oxygen Delivery Method Room Air Positive well nourished and well developed General Appearance ED: well developed and NAD; Negative for cyanotic, diaphoretic or pallor HEENT Reports TM's clear and moist mucous membranes HEENT Narrative: Uvula midline. No erythema or exudate of the posterior pharynx. Negative for trauma or tenderness Tympanic Membrane ED: Yes TM's clear Eyes PERRL and EOMs intact bilaterally General Eye ED: Negative for pale conjunctiva or scleral icterus Neck no lymphadenopathy, supple and no JVD Neck Narrative: Trachea is midline. 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 Resp normal respiratory effort and clear to auscultation bilaterally Effort and Inspection: Negative for pain with movement Cardio regular rate, regular rhythm, S1 normal heart sound, S2 normal heart sound and no murmurs GI normal to inspection, nondistended, normoactive bowel sounds, non-tender and non-distended GI Narrative: No fissures, fistulas or hemorrhoids were noted. Stool is light brown in color to the hand. Palpation: soft Back/Spine no CVA tenderness Thoracic Spine / Upper Back: Negative for thoracic spinal tenderness or paraspinal muscle tenderness Lumbar Spine / Lower Back: Negative for lumbar spinal tenderness Extremity normal to inspection General Extremety ED: Yes edema; Negative for tenderness General Extremity: edema Neuro oriented x3, CN's II-XII intact bilaterally and no sensory deficits noted Sensorium / Orientation: alert Motor Exam: strength 5/5 throughout Psych Mood & Affect: depressed Skin no rashes or lesions noted and no wounds General Skin Exam: Negative for jaundice or pallor MDM MDM MDM Narrative Medical decision making narrative: Patient with syncopal sewed upon rising this may represent orthostatic hypotension. Since there is no postictal state doubt absence seizure. Will obtain electrolyte panel since she has had recent admission with significant diarrhea due to pseudomembranous enterocolitis. Because she reported maroon stool even though her stool was not maroon at this time stool was sent for Hemoccult testing. CBC to assess for anemia. Orthostatic vitals were ordered as well since she had an episode yesterday and this morning. She presently has no symptoms. Orthostatic vital signs were negative. History suggest this is orthostatic. Since she is elderly with a brain stimulator due to Parkinson's disease and had an episode yesterday as well as today will discuss with cardiology regarding event monitor versus Holter monitor versus follow-up Plan is to decrease carvedilol from 6.25 to 3.125 mg twice a day and Holter monitor for 48 hours. She is to follow-up with Dr. Porfirio Addison next week Lab Data Attestation: I reviewed the patient's lab results. Lab results narrative: White count and H&H are unremarkable. Basic metabolic panel is unremarkable with a slight elevation of BUN to creatinine ratio, 26.4- 1. Labs: Laboratory Results - last 24 hr 08/29/21 08/29/21 19:15 19:15 WBC 5.5 RBC 3.94 L Hgb 12.7 Hct 38.2 MCV 97.0 MCH 32.2 H MCHC 33.2 RDW Std Deviation 46.8 H RDW Coeff of Carie 13.2 Plt Count 198 MPV 11.2 Immature Gran % (Auto) 0.200 Neut % (Auto) 54.0 Lymph % (Auto) 29.3 [place] % (Auto) 10.4 H Eos % (Auto) 5.6 H Baso % (Auto) 0.5 Absolute Neuts (auto) 3.0 Absolute Lymphs (auto) 1.61 Nucleated RBC % 0 Sodium 143 Potassium 4.0 Chloride 110 H Carbon Dioxide 31.0 Anion Gap 2 L BUN 22 H Creatinine 0.83 Estim Creat Clear Calc 52.73 Est GFR (MDRD) Af Amer 88 Est GFR (MDRD) Non-Af 73 BUN/Creatinine Ratio 26.4 H Glucose 100 Calcium 9.2 EKG Initial EKG: Attestation: I personally reviewed and interpreted this EKG as follows: Interpretation: Sinus Rhythm (Sinus rhythm with a rate of 85 and premature ventricular complexes. DC interval is 98 ms. Cures duration 62 ms. QT dura tion 332 ms. [place] is normal. There is artifact noted which in my inion is the reason why the computer read nonspecific ST-T wave abnormalities.) Prior: Unchanged (Dated August 14, 2021) Discharge Plan Triage Chief Complaint: Syncope ED Provider: Rehan Whittaker Dx/Rx/DC Orders Clinical Impression: Syncope and collapse, Physical debility, Parkinson's disease Instructions: ED Fainting, Uncertain Cause Prescriptions: No Action multivitamin Tablet 1 tab PO DAILY RF: 0 ascorbic acid (vitamin C) 500 mg tablet 500 mg PO DAILY RF: 0 Eliquis 5 mg Tablet 5 mg PO BID 30 Days Qty: 60 RF: 0 acetaminophen [Tylenol] 325 mg Tablet 650 mg PO Q6H PRN PRN (Reason: PAIN) Qty: 0 RF: 0 pantoprazole 20 mg Tablet,Delayed Release (Dr/Ec) 20 mg PO BID Qty: 60 RF: 0 potassium chloride 10 mEq Tablet,Er Particles/Crystals 10 meq PO DAILYCM Qty: 30 RF: 0 atorvastatin 10 MG tablet 10 mg PO QODAY Qty: 30 RF: 0 levothyroxine 50 mcg tablet 50 mcg PO 0600 Qty: 30 RF: 0 carbidopa-levodopa 25-100 mg tablet 1 tab PO 0600,1000,1800 Qty: 90 RF: 0 carbidopa-levodopa 25-100 mg tablet 1.5 tab PO 1400 Qty: 45 RF: 0 carvedilol 6.25 mg Tablet 6.25 mg PO BID RF: 0 clonazepam 0.5 mg Tablet 0.5 mg PO QHS RF: 0 Primary Care Provider: Abdullahi Major Referrals: Porfirio Addison MD [STAFF PHYSICIAN] - 5-7 Days Abdullahi Major MD [Primary Care Provider] - Activity Restrictions/Additional Instructions: Decrease carvedilol from 1 tablet twice a day to half a tablet twice a day. Contact Dr. Porfirio Addison's office tomorrow to be seen next week. Disposition Disposition: Home, Self Care
[2021-08-29 19:26] LABS: Absolute Lymphocyte Count 1.61 X10^3/uL (0.83-4.51); Basophil# 0.03 X10^3/uL; Basophil% 0.5 % (0-1); Eosinophil# 0.31 X10^3/uL; Eosinophils% 5.6 % (0-5); Hematocrit 38.2 % (37-47); Hemoglobin 12.7 g/dL (12.0-15.0); Lymphocyte # 1.61 X10^3/ul (0.83-4.51); Lymphocyte % 29.3 % (19-41); Mean Corp Hgb Conc 33.2 g/dL (32-36); Mean Corpuscular Hgb 32.2 pg (27.0-32.0); Mean Platelet Vol. 11.2 fl (6.2-12.0); Monocyte# 0.57 X10^3/uL; Monocyte% 10.4 % (0-10); NRBC Flagged by Analyzer 0 % (0-5); Neutrophil # 2.97 X10^3/uL (2.7-7.7); Platelet Count 198 K/mm3 (150-450); RBC Distribution Width CV 13.2 % (11.6-14.6); RBC Distribution Width SD 46.8 fl (35.1-43.9); Red Blood Count 3.94 M/mm3 (4.2-5.4); White Blood Count 5.5 K/mm3 (4.4-11.0)
[2021-08-29 19:40] LABS: Anion Gap 2 (5-15); BUN 22 mg/dL (7-18); BUN/Creat Ratio 26.4 RATIO (10-20); Calcium,Total 9.2 mg/dL (8.5-10.1); Chloride 110 mmol/L (98-107); Creatinine, Serum 0.83 mg/dL (0.55-1.02); EST Glomerular Filtration Rate 73 mL/min (>60); Est Glom Filt Rate - Afr Amer 88 mL/min (>60); Estimated Creatinine Clearance 52.73 ml/min; Glucose 100 mg/dL (74-106); Sodium Level 143 mmol/L (136-145)
[2021-08-29 20:35] VITALS: BP 122/61; PULSE 85; RESP 18; O2SAT 96
== END 2021-08-29 20:36 | disposition home or self-care (01) ==
PROVIDERS: Emergency Provider Emergency Medicine; PCP Family Medicine; Visit Provider Emergency Medicine
DX: R55 Syncope and collapse (principal); G20 Parkinson's disease; I10 Essential (primary) hypertension; E78.5 Hyperlipidemia, unspecified; I49.9 Cardiac arrhythmia, unspecified
CPT/HCPCS: 80048; 82274; 85025; 93005; 93225; 93226; 99285; A4216

== ENCOUNTER → 2021-09-06 | Outpatient (CLI) | payer MEDICARE, SELFPAY ==
--- NOTE | 2021-09-06 11:54 | US_ITS ---
STUDY: THYROID ULTRASOUND REASON FOR EXAM: Female, 65 years old. NEWLY DX HYPOTHYROIDISM/GOITER TECHNIQUE: Ultrasound evaluation of the thyroid was performed with real-time and static arriola-scale imaging. COMPARISON: None. FINDINGS: RIGHT LOBE: The right lobe of the thyroid gland measures 3.8 x 1.5 x 1.3 cm. There is a heterogeneous echotexture. Single thyroid cyst measures 3 mm (TR 1). LEFT LOBE: The left lobe of the thyroid gland measures 4.3 x 1.4 x 1.8 cm. There is a heterogeneous echotexture. There are no demonstrated solid, cystic or complex lesions. ISTHMUS: The isthmus measures 7 mm. The regional lymph nodes are normal. US/Thyroid IMPRESSION: 1. No complex cystic or solid thyroid masses/nodules. 2. Diffuse heterogeneous thyroid parenchyma suggesting thyroiditis. Electronically Signed: Daniel Benoit MD (Brooks) at 8:51 EDT Reading Location ID and State: [id number] [place] , Service support ,
[2021-09-06 14:19] LABS: T4 Total, Thyroxin 9.5 ug/dL (4.8-13.9); Thyroid Stim Hormone (TSH) 3.16 uIU/mL (0.358-3.74)
== END | disposition home or self-care (01) ==
PROVIDERS: PCP Family Medicine; Visit Provider Internal Medicine
DX: E03.9 Hypothyroidism, unspecified (principal)
CPT/HCPCS: 36415; 76536; 84436; 84443

== ENCOUNTER → 2021-09-16 | Outpatient (CLI) | payer MEDICARE, SELFPAY | END | disposition home or self-care (01) | LOC: CVS 09:17 | PROVIDERS: PCP Family Medicine; Referring Provider Internal Medicine Cardiovascular Disease; Visit Provider Internal Medicine Cardiovascular Disease | DX: R55 Syncope and collapse (principal); I49.9 Cardiac arrhythmia, unspecified | CPT/HCPCS: 93225; 93226 ==

== ENCOUNTER 2021-10-05 11:30 | Outpatient (RCR) | payer MEDICARE, SELFPAY ==
--- NOTE | 2021-09-01 10:50 | HP.SP.AD_ITS ---
History - History Date of Eval: 09/01/21 Medical Diagnosis (from RX): Parkinson's and Debility Date of Onset of Diagnosis: 2004 Previous speech therapy: Yes Results: 2021 -- targeting Parkinson's and cognition during inpatient rehab admission. 2019 -- targeting Parkinson's at the outpatient level. D/c summary reports: She attended a total of 8 sessions after her initial evaluation on 04/29/19. Her diagnosis is Parkinson's disease which impacted her overall volume. Goals focused on increased volume in structured and unstructured tasks to reach a sound pressure level of 70 dB. She typically averaged around 65 dB to 66 dB in conversation. The patient has a very quiet demeanor. She was able to increase her volume with cues but overall remained functional in a quiet room for her volume. She stated that her reminds her at home as he cannot hear her. She also had a modified barium swallow study completed. No aspiration or penetration. Mild oropharyngeal dysphagia noted but diet was not changed at this time. The patient is aware of progressive nature of her disease and is aware of the need to monitor her swallowing abilities. Unknown year prior -- targeting Parkinson's (per last evaluation here given chart review) Other Relevant Medical History/Diagnoses/Surgery: CHARLINE WOOD is a 65 year old female who presents to [facility] speech therapy for a speech and cognitive evaluation s/p Parkinson's dx and stay in hospital. Pt had blocked bowl, blood clots in lungs, C-diff. She has support hose and blood thinners. She is seeing endocrinology for overactive thyroid. They have not see Neurologist in awhile. She was in Rehab for 2 weeks and 2 days. She passed out once in the hospital. Pt reports enjoying to bake and paint at home and would like to get back to those things. Pt reports having difficulty with her memory while baking as well as multi-tasking. Pt manages her own medications with a pill box and double-checks the finances with a check register after her completes it initially. Pt reports not participating in many social activities outside of her home. 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 Visual Assistive Devices: Glasses Patients Living Arrangements: With Significant Other Patient Allergies - Allergies Allergies prochlorperazine [From Compazine] Allergy (Unknown, Verified 08/29/21 18:28) unknown promethazine [From Phenergan] Allergy (Unknown, Verified 08/29/21 18:28) unknown thioridazine Allergy (Unknown, Verified 08/29/21 18:28) unknown haloperidol [From Haldol] Allergy (Verified 08/29/21 18:28) Other haloperidol lactate [From Haldol] Allergy (Verified 08/29/21 18:28) Other metoclopramide HCl [From Reglan] Allergy (Verified 08/29/21 18:28) Other Subjective Dysphagia - Symptoms Reported Symptoms/Problems with: Coughing - Current Diet Solids Current Diet: Regular - Current Diet Liquids Current Liquids: Thin CLQT - CLQT CLQT Administered: Yes CLQT: Cognitive Linguistic Quick Test (CLQT) is a criterion - referenced assessment designed for adults between the ages of 18 and 89 with known or suspected neurological dysfuntions. The CLQT is to assess strength and weaknesses in five cognitive domains. Severity ratings are within normal limits, mild, moderate, severe deficits. The subtests are as follows: Date: 09/01/21 - Attention Attention: Mild - Memory Memory: Mild - Executive Functions Executive Functions: Mild - Language Language: Mild - Visuospatial Skills Visuospatial Skills: Mild - Composite Severity Rating Composite Severity Rating: Mild - Clock Drawing Severity Rating Clock Drawing Severity Rating: WNL Subjective Dysarthria/Motor - Subjective Subjective: In conversation throughout session, Pt's speech appeared mildly dysarthric even with appropriate conversation volume of speech. Informal observations revealing errors on words containing sibilants. Plan to investigate further during next session d/t time constraints of initial evaluation time. Subjective Clinical Impression - Adult Clinical Impression Voice deterioration: reduction of volume or vocal quality with prolonged use: P resent - Non-Phonatory Behaviors/Respiration Reduced loudness or vocal weakness: Present Limited breath support for speech: Present Objective Voice - Date of Diagnosis Date of diagnosis: 2004 Previous Speech Therapy (If yes, describe): Yes Details of therapy: See above - Medications Familiar with on/off effect: Yes - Carbidopa-Levodopa - Implantation Deep brain implantation (If yes, answer next question): Yes Date and Effectiveness: Implanted about 8 years ago. Helps to alleviate tremor - does not benefit her balance or slow the progression of PD Plan - Plan Plan: Will recommend Pt for weekly outpatient speech therapy to address mild- moderate cognitive-linguistic impairment characterized by deficits in immediate and short-term memory, word retrieval, executive functioning, attention, problem solving/reasoning, as well as a moderate speech impairment 2/2 Parkinson's dx. Pt would benefit from training in compensatory strategies for recall and word retrieval, cognitive training to improve cognitive functioning, and speech intelligibility strategies to improve overall clarity. Without skilled ST services, the Pt is at risk for decreased independence completing daily living tasks. Will plan to continue speech assessment next session - cognitive testing was prioritize d/t recent hospitalization and informal observation of speech appearing with mild deficits in loudness - deficits appear to be in clarity of speech. - Recommendations Treatment Warranted: Yes - Frequency Frequency: 1x/Week - Prognosis Prognosis: Good - Goals that are Established: Determination:: Goals will be added/modified as deemed necessary and appropriate. Therapy will be discontinued when results of re-evaluation indicate therapy is no longer needed or lack of progress has been documented. - Goal #1-5 Goal #1: Charline will demonstrate use of word finding strategies to complete complex convergent/divergent naming tasks and in conversation with 90% acc independently across 3 measured opportunities to improve word retrieval. Goal #2: Charline will demonstrate and utilize recommended compensatory articulation techniques (increased vocal intensity, reduced rate of speech, exaggerated articulation) to reduce articulation errors to 10% at the conversation level with minimal verbal cues across 3 consecutive sessions to facilitate increased expressive communication abilities in the home and social environments. Goal #3: Charline will complete basic to mod complex problem solving/reasoning, math, money, and time tasks with 85% acc independently across 3 measured opportunities. Education - Patient has Indicated that the Following Identified Educational Needs: None The Patient has indicated that they have no educational or learning abilities that may effect their care.: Yes - Patient Instruction Patient Education: Diagnosis, Treatment Plan, Goals Person Taught: Patient, Family Teaching Method: Discussion Response to teaching: Verbalize understanding, Reinforcement needed, Teaching Completed, Has Prior Knowledge
--- NOTE | 2021-09-06 11:06 | HP.PTEVAL_ITS ---
Patient's Visit Information GLORIA WOOD is a 65 year old F referred to Physical Therapy by Dr. Abdullahi Major MD with a diagnosis of Debility, Parkinson's Disease. Date of Evaluation: 08/29/21 Physical Therapist: MARIO Botello - Visit Plan Frequency: 2x /Week Duration: 6 Weeks Plan: check 4 square, SLB score, 30 sec sit to stand, 360 degrees test (steps and seconds), and cog TUG (20 backeard by 3). Add additional goals - Subjective Pt had blocked bowl, blood clots in lungs, C-diff. She has support hose and blood thinners. She is seeing endocrinology for overactive thyroid. They have not see Neurologist in awhile. She was in Rehab for 2 weeks and 2 days. She passed out once in the hospital. She finished breakfast on Sunday morning and passed out and then passed out this morning after breakfast as well. She did hit the floor this time but she was not hurt. She does not feel like she is going to pass out before this happens. elevated feet and put a pillow under her had and hollared at her and she came to. They have notified any Dr of these episodes. I called Dr Garcia )pt signed release) to let him know about the passing out episodes. Her reports that her balance can be good or it c ould be bad. She lives in a bi level. She lives downstairs so does not use the spiral staircase. She reports that other than the las 2 days she has not fallen at all. She walks at home without the walker. It is behind the couch if having a bad day. She reports that she is sleeping ok and has a Cpap. She is also seeing Speech Therapy also. She just got her 4th booster on Sunday morning. M-W-F does rolling, arms above head, works on AP, knee to chest, lower abs to build core at home everyday. She does squats at home with arms overhead, OH presses, shld abd, bicep curls and other exercises. - Objective Gait: Walks with short stride and decreased heel to to gait pattern. Pt has fw propulsion with gait. Pt has decreased arm swing. worked on walking with picking up R toes with gait. Pt is able to go about 5 steps heel to toe and then reverts back to shuffled gait unless cued verbally to go back to heel to toe. LE MMT: B hip flex 4+/5, B knee flex 4+/5, B knee ext 4+/5, B hip abd in sitting 4+/5. FGA: 9. 4 square: 19:78 sec. SLB R 15 and L 17 seconds. 30 sec sit to stand: 7 times. 360 degrees test (steps and seconds) 10 steps 9.14 seconds. cog TUG (20 backward by 3) 45.98. Stairs: up and down recip with 2 hand rails with SBA. Sit to stand: worked on sit to stand with fw weight shifting as pt does not like to weight shift fw with sit to stand. - Balance/Special Test Scores Functional Gait Assessment Score: 9 % Disability: 70.0000 Lower Extremity Functional Score: 28 - Goals Goal 1:: I HEP Goal Time Frame: 6-8 Weeks Goal 2:: Walk with increase stride and increase heel to toe gait pattern Goal Time Frame: 6-8 Weeks Goal 3:: Decrease TUG time by 2 seconds to decrease fall risk (score was 13.06 at time of eval). Goal Time Frame: 6-8 Weeks Goal 4:: Decrease 4 square time by 2 seconds (19.78 at time of eval). Goal Time Frame: 4-6 Weeks - Rehabilitation Potential Rehabilitation Potential: Good - Anticipated Interventions Patient/Client Instruction: Educate patient on: Condition, Plan of Care For the Purpose of:: To increase ROM, To improve nutrient delivery to tissue, To improve muscle performance and motor function, To improve ability to perform ADL's, To increase tolerance to activity/condition/position, To improve performance and independence with ADL's, To decrease level of supervision to perform tasks, To improve ability of physical actions for home/community/work/leisure, To improve gait and locomotor functions, To improve endurance, To improve balance, To improve safety with gait Therapeutic Exercise to Include: Strength training, Endurance training, Balance training, Coordination, Body mechanics, Postural training, Flexibilty training, Gait and locomotor training, Neuromotor development, Passive ROM, Active ROM, Dynamic Lumbar Stabilization For the Purpose of:: To decrease pain, To increase ROM, To improve nutrient delivery to tissue, To improve muscle performance and motor function, To improve ability to perform ADL's, To increase tolerance to activity/condition/position, To improve performance and independence with ADL's, To improve ability of physical actions for home/community/work/leisure, To improve gait and locomotor functions, To improve health of tissue, To decrease soft tissue restriction, To increase flexibility/ROM, To improve endurance, To improve balance, To improve safety with gait Functional Training to Include: Gait training For the Purpose of:: To improve gait and locomotor functions, To improve safety with gait Thank you for the opportunity to evaluate your patient. For Medicare and Medicare HMO plans, please review the plan of care and approve it. It will need to be FAXED BACK to us at [phone] for Medicare purposes. For Medicare only, by signing this I certify the plan of care. Please let me know if there are questions or concerns regarding this plan of care. Physician Signature: Date:
--- NOTE | 2022-02-13 10:19 | HP.PT.NRP ---
GLORIA WOOD was seen in my office for initial evaluation on 08/29/21. The following Plan of Care was established for this patient: Initial Frequency: 2x /Week Initial Duration: 6 Weeks Patient/Client Instruction: Educate patient on: Condition, Plan of Care For the Purpose of:: To increase ROM, To improve nutrient delivery to tissue, To improve muscle performance and motor function, To improve ability to perform ADL's, To increase tolerance to activity/condition/position, To improve performance and independence with ADL's, To decrease level of supervision to perform tasks, To improve ability of physical actions for home/community/work/leisure, To improve gait and locomotor functions, To improve endurance, To improve balance, To improve safety with gait Therapeutic Exercise to Include: Strength training, Endurance training, Balance training, Coordination, Body mechanics, Postural training, Flexibilty training, Gait and locomotor training, Neuromotor development, Passive ROM, Active ROM, Dynamic Lumbar Stabilization For the Purpose of:: To decrease pain, To increase ROM, To improve nutrient delivery to tissue, To improve muscle performance and motor function, To improve ability to perform ADL's, To increase tolerance to activity/condition/position, To improve performance and independence with ADL's, To improve ability of physical actions for home/community/work/leisure, To improve gait and locomotor functions, To improve health of tissue, To decrease soft tissue restriction, To increase flexibility/ROM, To improve endurance, To improve balance, To improve safety with gait Functional Training to Include: Gait training For the Purpose of:: To improve gait and locomotor functions, To improve safety with gait This patient was last seen in our office 10/05/21. Pertinent comments regarding their Physical therapy will appear below: NATHAN PT as pt did not reschedule additional visits At this point I will be discontinuing this patient from physical therapy. I would be happy to see this patient again in the future if found appropriate by the physician. Thank you! Magda Florian, MPT Balance/Gait/Functional tests - Balance/Special Test Scores Functional Gait Assessment Score: 9 % Disability: 70.0000 Lower Extremity Functional Score: 28
== END 2021-10-05 19:00 | disposition home or self-care (01) ==
LOC: PT 11:30
PROVIDERS: PCP Family Medicine; Referring Provider Internal Medicine; Visit Provider Family Medicine
DX: G20 Parkinson's disease (principal)
CPT/HCPCS: 92507; 92523; 97110; 97162; 97530

== ENCOUNTER → 2021-11-02 | Outpatient (CLI) | payer MEDICARE, SELFPAY ==
[2021-11-02 10:31] LABS: Absolute Lymphocyte Count 1.47 X10^3/uL (0.83-4.51); Absolute Neutrophil Count 3.2 X10^3/uL (2.0-7.7); Basophil# 0.02 X10^3/uL; Basophil% 0.4 % (0-1); Eosinophil# 0.12 X10^3/uL; Eosinophils% 2.3 % (0-5); Hematocrit 41.4 % (37-47); Hemoglobin 13.5 g/dL (12.0-15.0); Lymphocyte # 1.47 X10^3/ul (0.83-4.51); Lymphocyte % 28.5 % (19-41); Mean Corp Hgb Conc 32.6 g/dL (32-36); Mean Corpuscular Hgb 31.9 pg (27.0-32.0); Mean Corpuscular Volume 97.9 fL (81-99); Mean Platelet Vol. 11.3 fl (6.2-12.0); Monocyte# 0.36 X10^3/uL; NRBC Flagged by Analyzer 0 % (0-5); Neutrophil # 3.18 X10^3/uL (2.7-7.7); Neutrophil % 61.6 % (47-70); Platelet Count 202 K/mm3 (150-450); RBC Distribution Width CV 13.3 % (11.6-14.6); RBC Distribution Width SD 47.4 fl (35.1-43.9); Red Blood Count 4.23 M/mm3 (4.2-5.4); White Blood Count 5.2 K/mm3 (4.4-11.0)
[2021-11-02 11:04] LABS: Anion Gap 4 (5-15); BUN 21 mg/dL (7-18); BUN/Creat Ratio 23.1 RATIO (10-20); Calcium,Total 9.8 mg/dL (8.5-10.1); Chloride 105 mmol/L (98-107); Creatinine, Serum 0.91 mg/dL (0.55-1.02); EST Glomerular Filtration Rate 66 mL/min (>60); Est Glom Filt Rate - Afr Amer 79 mL/min (>60); Glucose 111 mg/dL (74-106); Potassium 3.9 mmol/L (3.5-5.1); Sodium Level 141 mmol/L (136-145); Thyroid Stim Hormone (TSH) 3.05 uIU/mL (0.358-3.74)
== END | disposition home or self-care (01) ==
LOC: LAB 09:42
PROVIDERS: PCP Family Medicine; Visit Provider Nurse Practitioner Gerontology
DX: R53.83 Other fatigue (principal); R42 Dizziness and giddiness
CPT/HCPCS: 36415; 80048; 84439; 84443; 85025

== ENCOUNTER → 2021-12-22 | Outpatient (CLI) | payer MEDICARE, SELFPAY ==
--- NOTE | 2021-12-22 09:02 | CDU_ITS ---
Reason For Study: dizziness Rt. Velocities/BP Lt. Velocities/BP Prox CCA 90.4/21.3 cm/sec. Prox CCA 119.3/22.5 cm/sec. Mid CCA 82.6/21.3 cm/sec. Mid CCA 94.9/20.0 cm/sec. Dist CCA 73.4/17.3 cm/sec. Dist CCA 83.9/16.3 cm/sec. Prox ICA 79.9/17.3 cm/sec. Prox ICA 55.6/10.2 cm/sec. Mid ICA 63.0/16.0 cm/sec. Mid ICA 64.2/15.1 cm/sec. Dist ICA 66.9/17.3 cm/sec. Dist ICA 47.0/17.6 cm/sec. Rt. ICA/CCA = 1.0. Lt. ICA/CCA = .7. Prox ECA 113.8/13.4 cm/sec. Prox ECA 60.5/9.0 cm/sec. Rt. Vert. 30.5/9.7 cm/sec. Lt. Vert. 29.6/9.7 cm/sec. Right Extracranial There is intimal thickening but no significant atherosclerotic plaque noted in the right common carotid artery. There is intimal thickening but no significant atherosclerotic plaque noted in the right internal carotid artery. There is heterogeneous, irregular atherosclerotic plaque noted in the right external carotid artery. Antegrade flow is noted in the right vertebral artery. Left Extracranial There is intimal thickening but no significant atherosclerotic plaque noted in the left common carotid artery. There is intimal thickening but no significant atherosclerotic plaque noted in the left internal carotid artery. There is intimal thickening but no significant atherosclerotic plaque noted in the left external carotid artery. Antegrade flow is noted in the left vertebral artery. Procedure Carotid Duplex 38421. This is a Carotid Duplex examination using B-mode, color flow and specral Doppler. The exam was diagnostic. Exam performed in department. VL/Carotid Duplex Ultrasound Interpretation Summary Minimal plaque at the proximal right internal carotid artery with less than 50% stenosis Less than 50% stenosis right external carotid artery Intimal thickening of the left internal carotid artery with less than 50% steno sis Less than 50% stenosis left external carotid artery Patent and antegrade vertebral arteries bilaterally Ordering Physician: Ana Jimenez Performed By: Jameson Phillips RVT
== END | disposition home or self-care (01) ==
PROVIDERS: PCP Family Medicine; Referring Provider Nurse Practitioner Gerontology; Visit Provider Nurse Practitioner Gerontology
DX: R55 Syncope and collapse (principal); R42 Dizziness and giddiness
CPT/HCPCS: 93880

== ENCOUNTER 2023-01-02 07:47 | Observation (INO) | payer MEDICARE, SELFPAY ==
[2023-01-02] VITALS (18 sets, daily range): BP systolic 136–172; BP diastolic 62–99; PULSE 60–88; RESP 15–22; TEMP 36.3–36.4; O2SAT 20–99; BMI 28.3; BMI 27.6
--- NOTE | 2023-01-02 07:50 | RAD_ITS ---
HISTORY: Neuro deficit, acute, stroke suspected. TECHNIQUE: XR Chest 1 View. COMPARISON: 08/15/2021. FINDINGS: CARDIOMEDIASTINAL BORDERS: Cardiac silhouette within normal limits in size. Mediastinal contour unremarkable with calcification of the aortic knob. LUNGS: Radiographically clear. Battery pack in the left chest with electrode in the left neck again seen. PLEURA: No pleural effusion or pneumothorax seen. OSSEOUS STRUCTURES: Unremarkable. RAD/Chest 1 View IMPRESSION: No acute cardiopulmonary process identified. Electronically Signed: Sonia Allen MD at 12:19 EDT ,
--- NOTE | 2023-01-02 07:50 | EKG12_ITS ---
Test Reason : STROKE ALERT Blood Pressure : / mmHG Vent. Rate : 101 BPM Atrial Rate : 101 BPM P-R Int : 128 ms QRS Dur : 074 ms QT Int : 372 ms P-R-T Axes : -01 004 022 degrees QTc Int : 482 ms Sinus tachycardia with occasional and with frequent and consecutive Premature ventricular complexes Nonspecific ST and T wave abnormality Abnormal ECG Normal sinus rhythm Confirmed by SHON ZAMARRIPA ([id number]), assistant editor MICHAEL ACEVES ([id number]) on 01/09/2023 8:28:19 AM Referred By: Confirmed By:SHON ZAMARRIPA
--- NOTE | 2023-01-02 07:50 | CT_ITS ---
HISTORY: CVA. TECHNIQUE: Multiple axial images were obtained of the head without intravenous contrast. A radiation dose optimization technique was used for this scan. 228 images. COMPARISON: None. FINDINGS: BRAIN PARENCHYMA: Multiple foci and zones of low attenuation in the bilateral cerebral white matter compatible with chronic small vessel ischemic gliosis. Chronic appearing lacunar infarcts in the basal ganglia. No acute intra-axial hemorrhage identified with artifact from stimulator electrodes. CSF SPACES: Generalized volume loss. No midline shift or other significant mass effect. No acute extra-axial hemorrhage seen. OTHER: Frontal renato holes noted. No significant air fluid levels in the paranasal sinuses or mastoid air cells. Unremarkable orbits. CT/STROKE Brain/Head without Cont IMPRESSION: No acute intracranial process identified. Mild chronic involutional and white matter changes. N.B. : The above Results were Read Back by Sonia Allen MD to Nikos Guevara DO, and understanding confirmed on 01/02/2023 08:13:21 (ET). Electronically Signed: Sonia Allen MD at 8:07 EDT ,
--- NOTE | 2023-01-02 07:51 | CT_ITS ---
We are attempting to reach an attending provider to discuss findings. An addendum with communication details will be sent when the communication is complete. HISTORY: CVA alert. TECHNIQUE: [place]/head and carotid CT angiogram protocol was performed after the intravenous administration of 100 mL Isovue 370. NASCET criteria using the distal ICAs for comparison were used for evaluation of stenoses. 3D reconstructions were reviewed. A radiation dose optimization technique was used for this scan. 1697 images. COMPARISON: CT head same day. FINDINGS: AORTIC ARCH AND BRANCHES: Mild atherosclerosis. RIGHT CCA: No occlusion, significant stenosis or dissection. RIGHT ICA: No occlusion, significant stenosis or dissection. LEFT CCA: No occlusion, significant stenosis or dissection. LEFT ICA: No occlusion, significant stenosis or dissection. RIGHT VERTEBRAL ARTERY: No occlusion, significant stenosis or dissection. LEFT VERTEBRAL ARTERY: No occlusion, significant stenosis or dissection. ICAs: No significant stenosis at the intracranial/visualized segments. ACAs: No significant stenosis at the visualized segments. MCAs: No significant stenosis at the visualized segments. field operator: No significant stenosis at the visualized segments. BASILAR ARTERY: No significant stenosis. VERTEBRAL ARTERIES: No significant stenosis at the intradural/visualized segments. No evidence of intracranial aneurysm or vascular malformation. CT/CTA Head AND Neck W/ Contrast IMPRESSION: No evidence for significant stenosis or occlusion in the carotid or vertebral arteries of the neck. No evidence for large vessel occlusion or other focal vascular abnormality in the [place] region. Electronically Signed: Sonia Allen MD at 8:46 EDT ,
--- NOTE | 2023-01-02 08:10 | ED.RN ---
STROKE NEUROLOGIST DR. SOLANO ASSESSING PT
[2023-01-02 08:16] LABS: Absolute Lymphocyte Count 1.25 X10^3/uL (0.83-4.51); Absolute Neutrophil Count 3.5 X10^3/uL (2.0-7.7); Basophil# 0.02 X10^3/uL; Basophil% 0.4 % (0-1); Eosinophils% 3.7 % (0-5); Hematocrit 34.4 % (37-47); Hemoglobin 11.6 g/dL (12.0-15.0); Lymphocyte # 1.25 X10^3/ul (0.83-4.51); Lymphocyte % 23.2 % (19-41); Mean Corp Hgb Conc 33.7 g/dL (32-36); Mean Corpuscular Hgb 33.8 pg (27.0-32.0); Mean Corpuscular Volume 100.3 fL (81-99); Mean Platelet Vol. 11.1 fl (6.2-12.0); Monocyte# 0.43 X10^3/uL; NRBC Flagged by Analyzer 0 % (0-5); Neutrophil # 3.47 X10^3/uL (2.7-7.7); Neutrophil % 64.5 % (47-70); Platelet Count 144 K/mm3 (150-450); RBC Distribution Width CV 13.2 % (11.6-14.6); RBC Distribution Width SD 48.4 fl (35.1-43.9); Red Blood Count 3.43 M/mm3 (4.2-5.4); White Blood Count 5.4 K/mm3 (4.4-11.0)
--- NOTE | 2023-01-02 08:25 | EX.ED.DYSGE1 ---
HPI History of Present Illness Chief Complaint: Stroke Alert [facility] Medical History Abnormal TSH Arrhythmia C. difficile diarrhea Chest pain Collagenous colitis Dehydration Depression with anxiety Diverticulosis Dizziness Elevated alkaline phosphatase level Essential hypertension Fatigue History of pulmonary embolus (PE) (07/31/21) Hyperlipidemia Hypothyroidism Melanoma Neurogenic bladder NEHEMIAH on CPAP Parkinson's disease Physical debility RBD (REM behavioral disorder) Squamous cell cancer of skin of forearm Syncope Home Medications ascorbic acid (vitamin C) 500 mg tablet 500 mg PO DAILY supplement 11/10/20 [History Last Taken 07/30/21] multivitamin 1 tab PO DAILY supplement 11/10/20 [History Last Taken 07/30/21] atorvastatin 10 mg tablet 10 mg PO QODAY cholesterol #30 tabs 08/19/21 [Rx Last Taken Unknown] carbidopa 25 mg-levodopa 100 mg tablet 1 tab PO 0600,1000,1800 parkinsons #90 tabs 08/19/21 [Rx Last Taken Unknown] carbidopa 25 mg-levodopa 100 mg tablet 1.5 tab PO 1400 parkinsons #45 tabs 08/19/21 [Rx Last Taken Unknown] clonazepam 0.5 mg tablet 0.5 mg PO QHS 08/29/21 [History Last Taken Unknown] apixaban 5 mg tablet (Eliquis) 5 mg PO BID #60 tabs 09/13/21 [Rx Last Taken Unknown] acetaminophen 325 mg tablet (Tylenol) 325 mg PO Q6H PRN PRN PAIN 07/11/22 [History Last Taken Unknown] calcium carbonate 600 mg calcium (1,500 mg) tablet 600 mg PO BID 07/11/22 [History Last Taken Unknown] cholecalciferol (vitamin D3) 50 mcg (2,000 unit) tablet 50 mcg PO DAILY 07/11/22 [History Last Taken Unknown] cyanocobalamin (vitamin B-12) 100 mcg tablet (Vitamin B-12) 100 mcg PO DAILY 07/11/22 [History Last Taken Unknown] entacapone 200 mg tablet 200 mg PO TID 07/11/22 [History Last Taken Unknown] carvedilol 6.25 mg tablet 6.25 mg PO BID #180 tabs 11/13/22 [Rx Last Taken Unknown] Allergy/AdvReac Type Severity Reaction Status Date / Time prochlorperazine Allergy Unknown unknown Verified 07/11/22 10:35 [From Compazine] promethazine [From Phenergan] Allergy Unknown unknown Verified 07/11/22 10:35 thioridazine Allergy Unknown unknown Verified 07/11/22 10:35 haloperidol [From Haldol] Allergy Other Verified 07/11/22 10:35 haloperidol lactate Allergy Other Verified 07/11/22 10:35 [From Haldol] metoclopramide HCl Allergy Other Verified 07/11/22 10:35 [From Reglan] Family History Father Diabetes Heart disease Mother Hypertension Diabetes Cancer brain, lymphoma Hyperlipidemia Sister Seizures Brother Heart disease Surgical History History of appendectomy History of bunionectomy (~02/2008) History of colonoscopy (07/19/12) History of hammer toe correction (~02/2008) History of total abdominal hysterectomy and bilateral salpingo-oophorectomy (~1995) S/P deep brain stimulator placement (06/23/13) Social History household members: spouse Smoking Status: Never smoker alcohol intake: current alcohol intake frequency: a few times a month Alcohol type: wine substance use type: does not use EXAM Physical Exam Const Vital Signs: 01/02/23 07:48 01/02/23 07:51 01/02/23 07:53 Temperature 97.4 F L Temperature Source Temporal Pulse Rate 71 Respiratory Rate 18 Blood Pressure 161/81 H 161/81 H Blood Pressure Mean 107 107 Pulse Ox 97 97 Oxygen Delivery Method Room Air 01/02/23 07:55 01/02/23 07:55 01/02/23 08:04 Temperature Temperature Source Pulse Rate 79 Respiratory Rate 22 H Blood Pressure 156/99 H 141/70 H Blood Pressure Mean 118 93 Pulse Ox 97 95 Oxygen Delivery Method Room Air Room Air 01/02/23 08:20 01/02/23 08:36 01/02/23 09:00 Temperature Temperature Source Pulse Rate 64 65 66 Respiratory Rate 15 15 18 Blood Pressure 136/71 H 136/71 H Blood Pressure Mean 92 92 Pulse Ox 97 97 97 Oxygen Delivery Method Room Air Room Air Room Air 01/02/23 09:30 01/02/23 10:00 01/02/23 11:21 Temperature Temperature Source Pulse Rate 88 60 68 Respiratory Rate 16 18 18 Blood Pressure 139/66 H 155/77 H 168/65 H Blood Pressure Mean 90 103 99 Pulse Ox 98 98 20 Oxygen Delivery Method Room Air Room Air Room Air 01/02/23 11:30 01/02/23 12:00 01/02/23 12:43 Temperature Temperature Source Pulse Rate 80 70 70 Respiratory Rate 16 16 18 Blood Pressure 170/71 H 168/70 H 172/70 H Blood Pressure Mean 104 102 104 Pulse Ox 98 99 99 Oxygen Delivery Method Room Air Room Air Room Air [facility] [place] Narr[place] Medical decision making narrative: HISTORY OF PRESENT ILLNESS: 67-year-old female here with left arm weakness. Last known well was 7 PM on 01/01/2023. There is no report of falls. Does report of chest pain. Per her she is history of Parkinson's disease status post deep brain stimulator. She is no longer on anticoagulation per the . REVIEW OF SYSTEMS: Pertinent positives: Left arm weakness Pertinent negatives: Headache, slurred speech PHYSICAL EXAM: Nursing triage notes reviewed, Vital signs reviewed Constitutional: please see mdm HENT: MMM Eyes: Pupils equal round and reactive to light, Extraocular muscles intact Neck: No stridor, no JVD, full neck ROM Lungs: Clear to auscultation, No wheezing or rales. No increased work of breathing, no conversational dyspnea, no accessory muscle use, no nasal flaring. No respiratory distress noted Heart: Regular rate and rhythm, No murmurs, No rubs and No gallops, 2+ distal pulses (radial, femoral, posterior tibial) in all extremities Abdomen: Soft, there is no tenderness, rigidity, rebound or guarding, no obvious peritoneal signs, no palpable pulsatile abdominal masses, no auscultated abdominal bruit : No CVAT Extremities: No edema Neuro: NIH of 1 for left upper extremity drift, no obvious sensory abnormalities, no slurred speech or obvious cranial nerve abnormalities, no obvious ataxia, no neglect. Skin: No rash or lesions noted MEDICAL DECISION MAKING: Chief Complaint: Left arm weakness External records reviewed: No recent advanced imaging of the brain noted in the chart Factors affecting care: Parkinson's disease, deep brain stimulator Social determinants of health: Elderly History obtained from others: The patient's Consults: Stroke neurology ALL IMAGES (IF OBTAINED) HAVE BEEN PERSONALLY REVIEWED AND INTERPRETED BY MYSELF. EKG with normal sinus rhythm, normal axis, occasional PVCs, mildly prolonged QT, no STEMI MDM Narrative: Patient was initially hemodynamically stable, afebrile, nontoxic-appearing. Initial neurologic exam NIH of 1 for left upper extremity drift. I considered the following differential diagnosis: CVA, ICH, focal seizure Patient will then for 24-hour thrombectomy given last known well approximate 12 hours prior to arrival. She had a candidate for TNK at this time. She was taken directly to CT for Noncon CT of her brain as well as a CTA of her head and neck. Noncon CT was negative for bleed. She was given aspirin for mortality benefit. CTA showed no evidence of large vessel occlusion. Given patient's clinical presentation which is most concerned with acute CVA we will admit the patient for respiratory modification and possible MRI. Discussed with the hospitalist. The patient and/or family, caregivers express understanding. The patient and/or family, caregivers agrees with the plan. Shared decision making: I will have a discussion with the patient and or visitors regarding risk/benefits of further testing or admission. They will be made aware of of the risk/benefits inherent in this decision they will be given the opportunity to voice understanding. Total critical care time today provided was at least 35 minutes. This excludes separately billable procedures. Critical care time (if documented) is secondary to the patient having high probability of clinically significant/life threatening deterioration in the patient's condition which required my urgent intervention. Lab Data Labs: Laboratory Results - last 24 hr 01/02/23 08:05 WBC 5.4 RBC 3.43 L Hgb 11.6 L Hct 34.4 L MCV 100.3 H MCH 33.8 H MCHC 33.7 RDW Std Deviation 48.4 H RDW Coeff of Carie 13.2 Plt Count 144 L MPV 11.1 Immature Gran % (Auto) 0.200 Neut % (Auto) 64.5 Lymph % (Auto) 23.2 [place] % (Auto) 8.0 Eos % (Auto) 3.7 Baso % (Auto) 0.4 Absolute Neuts (auto) 3.5 Absolute Lymphs (auto) 1.25 Nucleated RBC % 0 PT 14.4 INR 1.1 APTT 26.7 Sodium 140 Potassium 3.9 Chloride 107 Carbon Dioxide 29.0 Anion Gap 4 L BUN 28 H Creatinine 0.82 Estim Creat Clear Calc 51.93 Est GFR (MDRD) Af Amer 89 Est GFR (MDRD) Non-Af 73 BUN/Creatinine Ratio 34.0 H Glucose 104 Calcium 9.1 Troponin I High Sens 8 Radiography Diagnostic Testing: Clinical Impression(s) from Imaging Studies Brain CT 01/02/23 07:50 IMPRESSION: No acute intracranial process identified. Mild chronic involutional and white matter changes. N.B. : The above Results were Read Back by Sonia Allen MD to Nikos Guevara DO, and understanding confirmed on 01/02/2023 08:13:21 (ET). Electronically Signed: Sonia Allen MD at 8:07 EDT , Chest X-Ray 01/02/23 07:50 IMPRESSION: No acute cardiopulmonary process identified. Electronically Signed: Sonia Allen MD at 12:19 EDT , Head/Neck CTA 01/02/23 07:51 IMPRESSION: No evidence for significant stenosis or occlusion in the carotid or vertebral arteries of the neck. No evidence for large vessel occlusion or other focal vascular abnormality in the [place] region. Electronically Signed: Sonia Allen MD at 8:46 EDT , ADDENDUM: 01/02/23 0900 IMPRESSION: No evidence for significant stenosis or occlusion in the carotid or vertebral arteries of the neck. No evidence for large vessel occlusion or other focal vascular abnormality in the [place] region. N.B. : The above Results were Read Back by Sonia Allen MD to Ismael, Nikos, DO, and understanding confirmed on 01/02/2023 08:53:35 (ET). Electronically Signed: Sonia Allen MD at 8:46 EDT , Discharge Plan Triage Chief Complaint: Stroke Alert ED Provider: Nikos Guevara Dx/Rx/DC Orders Clinical Impression: Acute cerebrovascular accident (CVA) Prescriptions: No Action multivitamin Tablet 1 tab PO DAILY ascorbic acid (vitamin C) 500 mg tablet 500 mg PO DAILY acetaminophen [Tylenol] 325 mg tablet 325 mg PO Q6H PRN PRN (Reason: PAIN) calcium carbonate 600 mg calcium (1,500 mg) tablet 600 mg PO BID cholecalciferol (vitamin D3) 50 mcg (2,000 unit) tablet 50 mcg PO DAILY entacapone 200 mg tablet 200 mg PO TID Rx Instructions: administer at the same time as l-dopa/carbidopa dose cyanocobalamin (vitamin B-12) [Vitamin B-12] 100 mcg tablet 100 mcg PO DAILY atorvastatin 10 MG tablet 10 mg PO QODAY Qty: 30 0RF carbidopa-levodopa 25-100 mg tablet 1 tab PO 0600,1000,1800 Qty: 90 0RF carbidopa-levodopa 25-100 mg tablet 1.5 tab PO 1400 Qty: 45 0RF clonazepam 0.5 mg Tablet 0.5 mg PO QHS Eliquis 5 mg tablet 5 mg PO BID Qty: 60 11RF carvedilol 6.25 mg tablet 6.25 mg PO BID Qty: 180 3RF Primary Care Provider: Abdullahi Major Referrals: Abdullahi Major MD [Primary Care Provider] - Disposition Disposition: Acute Care Hospital [facility]
[2023-01-02 08:38] LABS: Anion Gap 4 (5-15); BUN 28 mg/dL (7-18); Calcium,Total 9.1 mg/dL (8.5-10.1); Chloride 107 mmol/L (98-107); Creatinine, Serum 0.82 mg/dL (0.55-1.02); EST Glomerular Filtration Rate 73 mL/min (>60); Est Glom Filt Rate - Afr Amer 89 mL/min (>60); Estimated Creatinine Clearance 51.93 ml/min; Glucose 104 mg/dL (74-106); Potassium 3.9 mmol/L (3.5-5.1); Sodium Level 140 mmol/L (136-145); Troponin-I HS 8 pg/mL (3.0-54.0)
[2023-01-02 09:05] LABS: International Normalized Ratio 1.1; Partial Thromboplast Time 26.7 Seconds (24.1-36.2); Prothrombin Time (Protime)PT. 14.4 SECONDS (11.7-14.9)
[2023-01-02] MEDS: Aspirin 325 MG Tablet PO (09:12)
--- NOTE | 2023-01-02 12:25 | ED.RN ---
Patient ambulatory to bathroom, gait steady. Patient was incontinent of urine in pullup, assisted patient with new adult diaper.
[2023-01-02 14:04] LABS: Bedside Glucose 104 mg/dL (74-106)
--- NOTE | 2023-01-02 14:58 | HP.PCM.HOS_ITS ---
HPI - General General Date of Admission: 01/02/23 HPI Narrative GLORIA WOOD, is a 67 F who presents with concern for possible stroke. Her last known well was yesterday evening at 7 PM. This morning she woke up with an inability to move her right hand, she can move the fingers but she cannot flex or dorsiflex the wrist. She does have a history of and symptoms of deep brain stimulator so she is unable to get an MRI. In the ER she is given a NIH score of 1. CT of the head and neck is unremarkable and CT of the brain does not show a stroke. FOR[facility]LY [facility] Medical History (Updated 01/02/23 @ 15:27 by Gabi Layton) Abnormal TSH Arrhythmia C. difficile diarrhea Chest pain Collagenous colitis CPAP (continuous positive airway pressure) dependence Dehydration Depression with anxiety Diverticulosis Dizziness Elevated alkaline phosphatase level Essential hypertension Fatigue History of pulmonary embolus (PE) (07/31/21) Hyperlipidemia Hypothyroidism Melanoma Neurogenic bladder Non-smoker NEHEMIAH on CPAP Parkinson's disease Physical debility Pulmonary embolism RBD (REM behavioral disorder) Squamous cell cancer of skin of forearm Syncope Home Medications ascorbic acid (vitamin C) 500 mg tablet 500 mg PO DAILY supplement 11/10/20 [History Last Taken 07/30/21] multivitamin 1 tab PO DAILY supplement 11/10/20 [History Last Taken 07/30/21] atorvastatin 10 mg tablet 10 mg PO QODAY cholesterol #30 tabs 08/19/21 [Rx Last Taken Unknown] carbidopa 25 mg-levodopa 100 mg tablet 1 tab PO 0600,1000,1800 parkinsons #90 tabs 08/19/21 [Rx Last Taken Unknown] carbidopa 25 mg-levodopa 100 mg tablet 1.5 tab PO 1400 parkinsons #45 tabs 08/19/21 [Rx Last Taken Unknown] clonazepam 0.5 mg tablet 0.5 mg PO QHS 08/29/21 [History Last Taken Unknown] acetaminophen 325 mg tablet (Tylenol) 325 mg PO Q6H PRN PRN PAIN 07/11/22 [History Last Taken Unknown] cholecalciferol (vitamin D3) 50 mcg (2,000 unit) tablet 50 mcg PO DAILY 07/11/22 [History Last Taken Unknown] cyanocobalamin (vitamin B-12) 100 mcg tablet (Vitamin B-12) 100 mcg PO DAILY 07/11/22 [History Last Taken Unknown] carvedilol 6.25 mg tablet 6.25 mg PO BID #180 tabs 11/13/22 [Rx Last Taken Unknown] Allergy/AdvReac Type Severity Reaction Status Date / Time prochlorperazine Allergy Unknown unknown Verified 01/02/23 15:19 [From Compazine] promethazine [From Phenergan] Allergy Unknown unknown Verified 01/02/23 15:19 thioridazine Allergy Unknown unknown Verified 01/02/23 15:19 haloperidol [From Haldol] Allergy Other Verified 01/02/23 15:19 haloperidol lactate Allergy Other Verified 01/02/23 15:19 [From Haldol] metoclopramide HCl Allergy Other Verified 01/02/23 15:19 [From Reglan] Family History Father Diabetes Heart disease Mother Hypertension Diabetes Cancer brain, lymphoma Hyperlipidemia Sister Seizures Brother Heart disease Surgical History History of appendectomy History of bunionectomy (~02/2008) History of colonoscopy (07/19/12) History of hammer toe correction (~02/2008) History of total abdominal hysterectomy and bilateral salpingo-oophorectomy (~1995) S/P deep brain stimulator placement (06/23/13) Social History household members: spouse Smoking Status: Never smoker alcohol intake: current alcohol intake frequency: a few times a month Alcohol type: wine substance use type: does not use ROS Constitutional Constitutional: Denies chills, fatigue, fever(s) or malaise Eyes Eyes: Denies blurry vision ENT HEENT: Denies headache(s) or nasal discharge Cardiovascular Cardiovascular: Denies chest pain, dyspnea on exertion or syncope Respiratory/Chest Respiratory/Chest: Denies cough, shortness of breath at rest or shortness of breath with exertion Gastrointestinal Gastrointestinal: Denies constipation, diarrhea, nausea or vomiting Genitourinary Genitourinary: Denies dysuria Neurologic Neurologic: Reports focal weakness; Denies numbness or tremor(s) Psychiatric Psychiatric: Denies anxiety or depression Vital Signs Vital Signs Vital Signs: 01/02/23 07:48 01/02/23 07:51 01/02/23 07:53 Temperature 97.4 F L Temperature Source Temporal Pulse Rate 71 Respiratory Rate 18 Blood Pressure 161/81 H 161/81 H Blood Pressure Mean 107 107 Pulse Ox 97 97 Oxygen Delivery Method Room Air 01/02/23 07:55 01/02/23 07:55 01/02/23 08:04 Temperature Temperature Source Pulse Rate 79 Respiratory Rate 22 H Blood Pressure 156/99 H 141/70 H Blood Pressure Mean 118 93 Pulse Ox 97 95 Oxygen Delivery Method Room Air Room Air 01/02/23 08:20 01/02/23 08:36 01/02/23 09:00 Temperature Temperature Source Pulse Rate 64 65 66 Respiratory Rate 15 15 18 Blood Pressure 136/71 H 136/71 H Blood Pressure Mean 92 92 Pulse Ox 97 97 97 Oxygen Delivery Method Room Air Room Air Room Air 01/02/23 09:30 01/02/23 10:00 01/02/23 11:21 Temperature Temperature Source Pulse Rate 88 60 68 Respiratory Rate 16 18 18 Blood Pressure 139/66 H 155/77 H 168/65 H Blood Pressure Mean 90 103 99 Pulse Ox 98 98 20 Oxygen Delivery Method Room Air Room Air Room Air 01/02/23 11:30 01/02/23 12:00 01/02/23 12:43 Temperature Temperature Source Pulse Rate 80 70 70 Respiratory Rate 16 16 18 Blood Pressure 170/71 H 168/70 H 172/70 H Blood Pressure Mean 104 102 104 Pulse Ox 98 99 99 Oxygen Delivery Method Room Air Room Air Room Air 01/02/23 14:30 Temperature 97.5 F L Temperature Source Temporal Pulse Rate 73 Respiratory Rate 20 H Blood Pressure 151/67 H Blood Pressure Mean 95 Pulse Ox 97 Oxygen Delivery Method Room Air Weight Weight: 154 lb 15.759 oz Body Mass Index (BMI) 28.3 Physical Exam Narrative General: Alert, Oriented x3, Cooperative, No apparent distress HEENT: Atraumatic, PERRLA, EOMI, Normocephalic Oral: Moist Mucosa Neck: Supple, No JVD Lungs: Diminished, Normal air movement, No rhonchi, No wheeze, No rales Cardiovascular: Regular rate, Regular Rhythm, Normal S1, Normal S2, No murmurs Abdomen: Soft, Non Tender, Non-Distended, No Hepato-splenomegaly Extremities: No edema, Capillary Refill Less than 3 Seconds Skin: No rashes, No breakdown Musculoskeletal: No Tenderness to Palpation of Joints or Extremities Neurological: Chronic neurological changes from Parkinson's are stable, cannot dorsiflex left wrist Psych/Mental Status: Flat affect, Appropriate Results Lab / Micro Data 01/02/23 08:05 01/02/23 08:05 Labs: Laboratory Results - last 24 hr 01/02/23 07:48: POC Glucose 104 01/02/23 08:05: WBC 5.4, RBC 3.43 L, Hgb 11.6 L, Hct 34.4 L, MCV 100.3 H, MCH 33.8 H, MCHC 33.7, RDW Std Deviation 48.4 H, RDW Coeff of Carie 13.2, Plt Count 144 L, MPV 11.1, Immature Gran % (Auto) 0.200, Neut % (Auto) 64.5, Lymph % (Auto) 23.2, White % (Auto) 8.0, Eos % (Auto) 3.7, Baso % (Auto) 0.4, Absolute Neuts (auto) 3.5, Absolute Lymphs (auto) 1.25, Nucleated RBC % 0, PT 14.4, INR 1.1, APTT 26.7, Sodium 140, Potassium 3.9, Chloride 107, Carbon Dioxide 29.0, An ion Gap 4 L, BUN 28 H, Creatinine 0.82, Estim Creat Clear Calc 51.93, Est GFR (MDRD) Af Amer 89, Est GFR (MDRD) Non-Af 73, BUN/Creatinine Ratio 34.0 H, Glucose 104, Calcium 9.1, Troponin I High Sens [address] 01/02/23 07:50 IMPRESSION: No acute intracranial process identified. Mild chronic involutional and white matter changes. N.B. : The above Results were Read Back by Sonia Allen MD to Nikos Guevara DO, and understanding confirmed on 01/02/2023 08:13:21 (ET). Electronically Signed: Sonia Allen MD at 8:07 EDT , Chest X-Ray 01/02/23 07:50 IMPRESSION: No acute cardiopulmonary process identified. Electronically Signed: Sonia Allen MD at 12:19 EDT , Head/Neck CTA 01/02/23 07:51 IMPRESSION: No evidence for significant stenosis or occlusion in the carotid or vertebral arteries of the neck. No evidence for large vessel occlusion or other focal vascular abnormality in the [place] region. Electronically Signed: Sonia Allen MD at 8:46 EDT , ADDENDUM: 01/02/23 0900 IMPRESSION: No evidence for significant stenosis or occlusion in the carotid or vertebral arteries of the neck. No evidence for large vessel occlusion or other focal vascular abnormality in the [place] region. N.B. : The above Results were Read Back by Sonia Allen MD to Nikos Guevara DO, and understanding confirmed on 01/02/2023 08:53:35 (ET). Electronically Signed: Sonia Allen MD at 8:46 EDT , Assessment & Plan Assessment/Plan (1) TIA (transient ischemic attack): PLAN: Plan 1. Possible TIA/Parkinson's disease ? Last known well was last evening so she did not qualify for any tPA ? Her biggest symptom is the fact that she cannot move her left wrist everything else according to her and her is at baseline chronically from her Parkinson's. ? She does have a deep brain stimulator in for her Parkinson's therefore cannot get an MRI we will proceed with a CT scan in the morning ? Continue with aspirin and Lipitor and allow for permissive hypertension ? We will continue with her Sinemet 2. HTN/HLD ? We will hold her blood pressure medications ? We will place her on 80 of Lipitor instead of the Lipitor 10 mg every other d ay which the only reason she was doing was because she did not think that her LDL was supposed to be below 100 DVT: Heparin Charges/Coding Visit Charges Inpatient E&M: 46583 Init Hosp L2
--- NOTE | 2023-01-02 15:34 | ECHOD_ITS ---
Reason For Study: TIA/CVA Procedure This was a 2D Doppler, Color Flow transthoracic echocardiogram. Exam performed portable in patient room. Left Ventricle Normal LV size. Left ventricular systolic function is normal. The estimated ejection fraction is 55 %. Stage 1 diastolic dysfunction. Right Ventricle Normal RV size. Normal systolic function. Atria Normal left atrium. Normal right atrium. Bubble contrast study negative for right to left interatrial shunt. Mitral Valve Mild mitral annular calcification. The mitral valve is structurally normal. No prolapse or stenosis seen. Trivial mitral valve insufficiency. Tricuspid Valve Normal tricuspid valve. Mild (1+) tricuspid valve insufficiency. Right ventricular systolic pressure estimated to be 20 mmHg. Aortic Valve Trisinus/trileaflet aortic valve. Mild focal aortic valve thickening. Mild (1+) aortic valve insufficiency. Pulmonic Valve Normal pulmonic valve. Trivial pulmonic valve insufficiency. Great Vessels Normal aortic root. Pericardium/Pleural No pericardial effusion. Medication Performed a rapid injection of agitated mix of 9 cc saline and 1cc air to assess for atrial septal defect. MMode/2D Measurements & Calculations LVIDd: 4.1 cm IVSd: 0.98 cm Ao root diam: 3.0 cm LVIDs: 2.8 cm LVPWd: 0.99 cm RVDd: 3.5 cm FS: 32.1 % LAV(MOD-bp): 27.8 ml LVAd ap4: 25.4 cm2 SV(MOD-sp4): 42.5 ml LAV(MOD-bp) Indexed: 16.4 ml/m2 LVLd ap4: 7.5 cm LAV(MOD-sp2): 30.9 ml EDV(MOD-sp4): 70.4 ml LAV(MOD-sp4): 23.2 ml EDV(sp4-el): 72.6 ml LVAs ap4: 14.3 cm2 LVLs ap4: 6.4 cm ESV(MOD-sp4): 27.9 ml ESV(sp4-el): 27.3 ml EF(MOD-sp4): 60.4 % EF(sp4-el): 62.4 % SV(sp4-el): 45.3 ml LA A4 area: 11.2 cm2 LA dimension(2D): 3.1 cm RA A4 area: 13.6 cm2 TAPSE: 2.4 cm Time Measurements MV dec time: 0.25 sec Doppler Measurements & Calculations MV E max toño: 60.0 cm/sec Lat Peak E' Toño: 5.1 cm/sec Med Peak E' Toño: 3.5 cm/sec MV A max toño: 91.9 cm/sec E/E' lat: 11.8 E/E' med: 16.9 MV E/A: 0.65 MV dec slope: 236.9 cm/sec2 Ao V2 max: 147.9 cm/sec AI max toño: 348.1 cm/sec Ao max P.8 mmHg AI max P.5 mmHg Ao V2 mean: 106.1 cm/sec AI dec slope: 188.2 cm/sec2 Ao mean P.0 mmHg AI P1/2t: 541.8 msec Ao V2 VTI: 27.9 cm AV (velocity ratio): 0.90 LV V1 max: 119.8 cm/sec PA V2 max: 68.6 cm/sec TR max toño: 203.9 cm/sec LV V1 max P.8 mmHg TR max P.6 mmHg LV V1 mean P.2 mmHg LV V1 mean: 84.0 cm/sec LV V1 VTI: 25.1 cm ECHO/Echo Complete Interpretation Summary Normal LV systolic function. The estimated ejection fraction is 55 %. Stage 1 diastolic dysfunction. Trivial mitral valve insufficiency. Mild (1+) tricuspid valve insufficiency. Right ventricular systolic pressure estimated to be 20 mmHg. Mild (1+) aortic valve insufficiency. Ordering Physician: Gustavo Hartley Referring Physician: Abdullahi Major Performed By: Janina Maldonado, CHARLIE, RVT
[2023-01-02] MEDS: Heparin Injection (Vial) 5,000 UNIT/ML VIAL 5000 UNIT SC (21:48)
[2023-01-02] MEDS: Atorvastatin Calcium 80 MG Tablet PO (21:48)
[2023-01-02] MEDS: 0.9% Saline Lock 10 ML Syringe IV (21:48)
[2023-01-02] MEDS: clonazePAM 0.5 MG Tablet PO (21:48)
[2023-01-02] MEDS: Carbidopa/Levodopa 25/100 Tablet PO (21:48)
--- NOTE | 2023-01-02 22:23 | CPS ---
Pt on home cpap machine for the night.
[2023-01-03 02:00] VITALS: BP 121/67; PULSE 77; RESP 16; TEMP 36.3; O2SAT 97
[2023-01-03 05:51] LABS: Absolute Neutrophil Count 3.1 X10^3/uL (2.0-7.7); Basophil# 0.03 X10^3/uL; Basophil% 0.5 % (0-1); Eosinophil# 0.25 X10^3/uL; Eosinophils% 4.6 % (0-5); Hematocrit 39.3 % (37-47); Hemoglobin 12.9 g/dL (12.0-15.0); Mean Corp Hgb Conc 32.8 g/dL (32-36); Mean Corpuscular Hgb 33.1 pg (27.0-32.0); Mean Corpuscular Volume 100.8 fL (81-99); Mean Platelet Vol. 11.7 fl (6.2-12.0); Monocyte# 0.41 X10^3/uL; Monocyte% 7.5 % (0-10); NRBC Flagged by Analyzer 0 % (0-5); Neutrophil # 3.09 X10^3/uL (2.7-7.7); Neutrophil % 56.2 % (47-70); Platelet Count 174 K/mm3 (150-450); RBC Distribution Width CV 13.3 % (11.6-14.6); RBC Distribution Width SD 49.4 fl (35.1-43.9); White Blood Count 5.5 K/mm3 (4.4-11.0)
[2023-01-03] MEDS: Carbidopa/Levodopa 25/100 Tablet PO ×3 (05:52→13:50)
--- NOTE | 2023-01-03 05:55 | CT_ITS ---
EXAM: CT HEAD WITHOUT INTRAVENOUS CONTRAST CLINICAL INDICATION: CVA r/o TECHNIQUE: Multiple axial images were obtained of the head without intravenous contrast. This CT exam was performed using one or more of the following dose reduction techniques: automated exposure control, adjustment of the mA and/or kV according to patient size, and/or use of iterative reconstruction technique. RADIATION DOSE: CTDIvol = 44.99 mGy, DLP = 779.24 mGy-cm. COMPARISON: January 02, 2023 at 7:53 AM FINDINGS: BRAIN AND EXTRA-AXIAL SPACES: See below. BONES/JOINTS: Sourav hole is in the calvarium are again noted. No discrete lytic or blastic abnormalities. SINUSES: Unremarkable as visualized. Clear. MASTOID AIR CELLS: Unremarkable. Clear. ORBITS: Visualized globes, extraocular muscles, optic nerves and retrobulbar fat appear unremarkable. TUBES, LINES AND DEVICES: Stable appearance of the bilateral neurostimulator leads, tip extending to the cerebral peduncle bilaterally. No intracranial hemorrhage. Similar presumed prominent perivascular space inferior to the right basal ganglia. Stable midline structures. CT/Brain/Head without Contrast IMPRESSION: Stable exam. Neurostimulator leads. No intracranial hemorrhage or midline shift. Electronically Signed: Chuyita Suarez MD at 6:01 EDT ,
[2023-01-03 06:00] VITALS: BP 137/78; PULSE 73; RESP 18; TEMP 36.5; O2SAT 96
[2023-01-03 06:15] LABS: Anion Gap 6 (5-15); BUN 23 mg/dL (7-18); Calcium,Total 9.3 mg/dL (8.5-10.1); Chloride 108 mmol/L (98-107); Cholesterol 164 mg/dL (200); EST Glomerular Filtration Rate 59 mL/min (>60); Est Glom Filt Rate - Afr Amer 71 mL/min (>60); Estimated Creatinine Clearance 42.59 ml/min; Glucose 98 mg/dL (74-106); High Density Lipoprotein 52 mg/dL; Potassium 4.1 mmol/L (3.5-5.1); Sodium Level 143 mmol/L (136-145); Triglycerides 143 mg/dL; Very Low Density Lipoprotein 29 mg/dL (5-40)
[2023-01-03 06:50] VITALS: O2SAT 97
[2023-01-03 09:10] VITALS: BP 122/78; PULSE 85; RESP 16; TEMP 36.2; O2SAT 98
[2023-01-03] MEDS: Multivitamins,Therapeutic Tablet 1 TABLET PO (09:14)
[2023-01-03] MEDS: Ascorbic Acid 500 MG Tablet PO (09:14)
[2023-01-03] MEDS: Cholecalciferol (VIT D3) 25 MCG TABLET (1,000 UNITS) 50 MCG PO (09:14)
[2023-01-03 09:26] VITALS: BP 122/78; PULSE 85; RESP 16; TEMP 36.2; O2SAT 98
--- NOTE | 2023-01-03 12:28 | CASEMGMT ---
?Met with patient and her to complete CHAPPELL form. CHAPPELL form explained to both patient and her who voiced understanding. Patient asked that her sign form d/t her having difficulty at the present time signing forms. Original form placed in pt?s chart and copy provided to patient. .
--- NOTE | 2023-01-03 13:51 | DCINST_ITS ---
Discharge Instructions Diet Discharge Diet: No restrictions Activity Discharge Activity: Return to Normal Activity Weight Bearing Status: Full weight bearing Follow Up Care Please Follow Up With: Abdullahi Major MD When: As needed Test Results: Test results from this visit will be discussed in further detail at your follow- up appointment, if applicable. Pending Tests Upon Discharge: Echo results Discharge Plan Admission Admit Date/Time: 01/02/23 13:59 Primary Reason for Your Visit: stroke-like symptoms Attending Provider: Emir Block Primary Care Provider: Abdullahi Major Consulting Providers: Gustavo Hartley Instructions Additional Instructions / Restrictions: Your echocardiogram read from radiology was pending on discharge. We had low concern that this would show any significant issues, and felt comfortable discharging you while this was pending. Your PCP can follow-up on the result with you. Continue home medications as prescribed. Follow up with your PCP as needed. Discharge Orders/Prescriptions Prescriptions: Continued multivitamin Tablet 1 tab PO DAILY ascorbic acid (vitamin C) 500 mg tablet 500 mg PO DAILY acetaminophen [Tylenol] 325 mg tablet 325 mg PO Q6H PRN PRN (Reason: PAIN) cholecalciferol (vitamin D3) 50 mcg (2,000 unit) tablet 50 mcg PO DAILY cyanocobalamin (vitamin B-12) [Vitamin B-12] 100 mcg tablet 100 mcg PO DAILY atorvastatin 10 MG tablet 10 mg PO QODAY Qty: 30 0RF carbidopa-levodopa 25-100 mg tablet 1 tab PO 0600,1000,1800 Qty: 90 0RF carbidopa-levodopa 25-100 mg tablet 1.5 tab PO 1400 Qty: 45 0RF clonazepam 0.5 mg Tablet 0.5 mg PO QHS carvedilol 6.25 mg tablet 6.25 mg PO BID Qty: 180 3RF Referrals / Follow Up: Abdullahi Major MD [Primary Care Provider] - Disposition Disposition (needs filled in before D/C Order can be placed): Home, Self Care
--- NOTE | 2023-01-03 13:56 | PCM.DC.SUM ---
Providers Date of Admission: 01/02/23 Date of Discharge: 01/03/23 Primary Care Physician: Dr. Abdullahi Major MD Reason For Visit: CVA Diagnosis Discharge Diagnosis (1) TIA (transient ischemic attack): Status: Acute Code(s): G45.9 - Transient cerebral ischemic attack, unspecified Medications at Discharge Home Medications ascorbic acid (vitamin C) 500 mg tablet 500 mg PO DAILY supplement 11/10/20 multivitamin 1 tab PO DAILY supplement 11/10/20 atorvastatin 10 mg tablet 10 mg PO QODAY cholesterol #30 tabs 08/19/21 carbidopa 25 mg-levodopa 100 mg tablet 1 tab PO 0600,1000,1800 parkinsons #90 tabs 08/19/21 carbidopa 25 mg-levodopa 100 mg tablet 1.5 tab PO 1400 parkinsons #45 tabs 08/19/21 clonazepam 0.5 mg tablet 0.5 mg PO QHS 08/29/21 acetaminophen 325 mg tablet (Tylenol) 325 mg PO Q6H PRN PRN PAIN 07/11/22 cholecalciferol (vitamin D3) 50 mcg (2,000 unit) tablet 50 mcg PO DAILY 07/11/22 cyanocobalamin (vitamin B-12) 100 mcg tablet (Vitamin B-12) 100 mcg PO DAILY 07/11/22 carvedilol 6.25 mg tablet 6.25 mg PO BID #180 tabs 11/13/22 Hospital Course Procedures Transthoracic echo and - (CT head without contrast x2, CT head and neck with contrast, chest x-ray) Summary of Care Provided Minutes Spent on Discharge: 22 Hospital Course: Patient is a 67-year-old female with history significant for Parkinson's disease (diagnosed about 20 years ago), hyperlipidemia and depression who presented to the [facility] ED on 01/02 with right wrist weakness. Had concern for an acute stroke given this was a change from her baseline. Patient notably has a deep brain stimulator for her Parkinson's disease. She has had 3 deep brain stimulators actually that of each lasted about 5 years. She is currently on her third one. She also takes Sinemet 3 times daily. Her symptoms have been fairly well controlled recently. In the ED, she was given an NIH score of 1. She was unable to have an MRI brain done because of deep brain stimulator. CT head without contrast was negative. CT head and neck with IV contrast also was unremarkable. She was kept overnight for further monitoring and had no worsening of her symptoms. Repeat CT head without contrast the next morning was again negative for any acute pathology. Overall, her labs were fairly unremarkable. Her vitals remained stable throughout this admission. A transthoracic echocardiogram was completed, and the read was pending prior to discharge. Plans were made to have patient work with PT and OT; however after conversation with her , he had very low concern that patient had a stroke especially given the negative imaging. He was comfortable with taking her home and will provide her care there. She was discharged home in stable condition. I will plan to call the patient if there is any concerning findings on the TTE, though I suspect it will be benign. Discharge diagnoses: Possible TIA, resolved Parkinson's disease Hypertension Hyperlipidemia Depression Total clinical time spent by myself addressing the patient's discharge needs: 22 minutes. Physical Exam Const alert, oriented x3, no apparent distress and average body habitus Constitutional Narrative: Sitting comfortably in bed, no acute distress. Parkinsonian features noted including slowed speech and flat affect. General Appearance: cooperative and comfortable HEENT normocephalic, head/scalp atraumatic, hearing grossly normal bilaterally, nasal mucous membranes and turbinates normal and moist oral mucous membranes Eyes PERRL, EOMs intact bilaterally and conjunctivae normal Neck full ROM, no lymphadenopathy and supple Lymph Lymphatic: no lymphadenopathy noted Chest inspection of chest normal Resp normal respiratory effort, normal air movement, no use of accessory muscles and clear to auscultation bilaterally Cardio regular rate, regular rhythm, no murmurs and peripheral pulses 2+ throughout GI normal to inspection, nondistended, normoactive bowel sounds, soft to palpation, non-tender and non-distended Back/Spine normal ROM Extremity normal to inspection, full ROM and no pedal edema Skin no rashes or lesions noted Psych mental status grossly normal Weight / BMI Weight Weight: 68.5 kg Body Mass Index (BMI) 27.6 ABG / Lab / Microbiology Data 01/03/23 05:01 01/03/23 05:01 Laboratory: Laboratory Results - last 24 hr 01/02/23 07:48: POC Glucose 104 01/03/23 05:01: WBC 5.5, RBC 3.90 L, Hgb 12.9, Hct 39.3, MCV 100.8 H, MCH 33.1 H, MCHC 32.8, RDW Std Deviation 49.4 H, RDW Coeff of Carie 13.3, Plt Count 174, MPV 11.7, Immature Gran % (Auto) 0.200, Neut % (Auto) 56.2, Lymph % (Auto) 31.0, Brown % (Auto) 7.5, Eos % (Auto) 4.6, Baso % (Auto) 0.5, Absolute Neuts (auto) 3.1, Absolute Lymphs (auto) 1.70, Nucleated RBC % 0, Sodium 143, Potassium 4.1, Chloride 108 H, Carbon Dioxide 29.0, Anion Gap 6, BUN 23 H, Creatinine 1.00, Estim Creat Clear Calc 42.59, Est GFR (MDRD) Af Amer 71, Est GFR (MDRD) Non-Af 59 L, BUN/Creatinine Ratio 23.0 H, Glucose 98, Calcium 9.3, Triglycerides 143, Cholesterol 164, LDL Cholesterol 83, VLDL Cholesterol 29, HDL Cholesterol 52 Radiography Diagnostic Testing: Radiology Impression Brain CT 01/03/23 05:55 IMPRESSION: Stable exam. Neurostimulator leads. No intracranial hemorrhage or midline shift. Electronically Signed: Chuyita Suarez MD at 6:01 EDT Reading Location ID and State: [facility] / [place] Tel , Service support , D/C Instructions Discharge Diet: No restrictions Weight Bearing Status: Full weight bearing Pending Tests Upon Discharge: none Please Follow Up With: Abdullahi Major MD When: As needed Meaningful Use Info Meaningful Use Diagnoses (Choose all that apply): None applicable Discharge Plan Admission Admit Date/Time: 01/02/23 13:59 Primary Reason for Your Visit: stroke-like symptoms Attending Provider: Emir Block Primary Care Provider: Abdullahi Major Consulting Providers: Gustavo Hartley Instructions Additional Instructions / Restrictions: Your echocardiogram read from radiology was pending on discharge. We had low concern that this would show any significant issues, and felt comfortable discharging you while this was pending. Your PCP can follow-up on the result with you. Continue home medications as prescribed. Follow up with your PCP as needed. Discharge Orders/Prescriptions Prescriptions: Continued multivitamin Tablet 1 tab PO DAILY ascorbic acid (vitamin C) 500 mg tablet 500 mg PO DAILY acetaminophen [Tylenol] 325 mg tablet 325 mg PO Q6H PRN PRN (Reason: PAIN) cholecalciferol (vitamin D3) 50 mcg (2,000 unit) tablet 50 mcg PO DAILY cyanocobalamin (vitamin B-12) [Vitamin B-12] 100 mcg tablet 100 mcg PO DAILY atorvastatin 10 MG tablet 10 mg PO QODAY Qty: 30 0RF carbidopa-levodopa 25-100 mg tablet 1 tab PO 0600,1000,1800 Qty: 90 0RF carbidopa-levodopa 25-100 mg tablet 1.5 tab PO 1400 Qty: 45 0RF clonazepam 0.5 mg Tablet 0.5 mg PO QHS carvedilol 6.25 mg tablet 6.25 mg PO BID Qty: 180 3RF Referrals / Follow Up: Abdullahi Major MD [Primary Care Provider] - Disposition Disposition (needs filled in before D/C Order can be placed): Home, Self Care Charges/Coding Visit Charges Inpatient E&M: 87909 Disch Hosp
[2023-01-03 16:46] VITALS: BP 122/78; PULSE 78; RESP 16; TEMP 36.6; O2SAT 98
== END 2023-01-03 14:56 | disposition home or self-care (01) ==
LOC: ED 14:38 → PCU 15:07
PROVIDERS: Admitting Provider Family Medicine; Emergency Provider Emergency Medicine; PCP Family Medicine; Visit Provider Hospitalist
DX: G45.9 Transient cerebral ischemic attack, unspecified (principal); G20 Parkinson's disease; I10 Essential (primary) hypertension; E78.5 Hyperlipidemia, unspecified; R94.31 Abnormal electrocardiogram [ECG] [EKG]; I08.3 Combined rheumatic disorders of mitral, aortic and tricuspid valves; Z79.899 Other long term (current) drug therapy; Z79.01 Long term (current) use of anticoagulants; G47.33 Obstructive sleep apnea (adult) (pediatric); R47.81 Slurred speech
CPT/HCPCS: 36415; 70450; 70496; 70498; 71045; 80048; 80061; 82962; 84484; 85025; 85610; 85730; 93005; 93306; 94762; 97162; 97166; 99221; 99285; Q9967; A4216; G0378

== ENCOUNTER 2023-08-20 13:23 | Emergency (ER) | payer MEDICARE, SELFPAY ==
[2023-08-20] VITALS (14 sets, daily range): BP systolic 122–160; BP diastolic 60–108; PULSE 56–92; RESP 23–44; TEMP 36.1; O2SAT 92–98; BMI 27.6
--- NOTE | 2023-08-20 | FLU_PTH ---
PATIENT: GLORIA BHATIA LOC: ED U#:[id number] AGE/SX: 67/F ROOM: RE08/20/[address]: Dr. Juan Jose DO : 1955 BED: DIS: 08/21/2023 SPEC #: [id number] RECD: 08/20/23 15:04 STATUS: ELMA RECecy #: [id number] SUNG: 08/20/23 00:[address]: Juan Jose DEPT: CYTOLOGY RECD BY: Kay Evans ENTERED: 08/21/23 08:38 SP TYPE: Fluid OTHR DR: Dr. Abdullahi Major MD Tissues: Pleural fluid, NOS Procedures: Special Stain Group II Surgery Specimen Level IV Cytospin Fluid HEADER OPERATION: Thoracentesis PRE-OP DIAGNOSIS: Pleural effusion- right TISSUE SUBMITTED: Thoracentesis fluid DIAGNOSIS CYTOLOGY Thoracentesis fluid for cytology (cytospin and cellblock): Very rare atypical epithelial cells present. Acute inflammation. AM/mr 08/22/23 CYTOLOGY STUDY Slides are reviewed. CYTOLOGY GROSS Received is 90 ml of red-cloudy fluid labeled with the patient's name and and designated per the requisition as Thoracentesis. Submitted for cytology preparation including cell block. mr 08/21/2023 TC: CPT: 36801,46869
--- NOTE | 2023-08-20 13:50 | EKG12_ITS ---
Test Reason : Blood Pressure : / mmHG Vent. Rate : 092 BPM Atrial Rate : 092 BPM P-R Int : 128 ms QRS Dur : 068 ms QT Int : 366 ms P-R-T Axes : 039 -04 024 degrees QTc Int : 452 ms Sinus rhythm with frequent Premature ventricular complexes Possible Left atrial enlargement Nonspecific ST abnormality Abnormal ECG Confirmed by Seng Rios ([id number]), communications editor ANG ASCENCIO ([id number]) on 08/21/2023 10:10:17 AM Referred By: LAM/PATI/EDWIN Confirmed By:Seng Rios
--- NOTE | 2023-08-20 13:55 | RAD_ITS ---
HISTORY: sob. TECHNIQUE: XR Chest 1 View. COMPARISON: None. FINDINGS: CARDIOMEDIASTINAL BORDERS: Cardiac silhouette within normal limits in size. Mediastinal contour unremarkable. LUNGS: Atelectasis of the right mid to lower lung. Stimulator device with electrode in the right neck. PLEURA: Large right pleural effusion. OSSEOUS STRUCTURES: Nondisplaced right eighth and ninth rib fractures. RAD/Chest 1 View (Portable) IMPRESSION: Large right pleural effusion with atelectasis or consolidation of the right mid to lower lung. Right eighth and ninth rib fractures. Electronically Signed: Sonia Allen MD at 14:02 EDT ,
--- NOTE | 2023-08-20 14:09 | EDS_ITS ---
HPI <Dr. Angelic Gonzalez MD - Last Filed: 08/20/23 15:25> History of Present Illness Chief Complaint: Shortness of Breath Informant: patient and spouse/S.O. Onset/Context/Timing Onset: Days (4 days) Narrative Narrative: Patient presents with spouse secondary to increased shortness of breath and concern for pneumonia. She is a history of Parkinson's disease and falls frequently. He states that she fell 5 weeks ago and had 3 right-sided rib fractures. Over the past 4 days she has had increasing shortness of breath with mild cough. She was seen at the [facility] and they were concerned she may have pneumonia and sent her to the emergency room. Patient also reportedly has a history of pulmonary embolism and is no longer on anticoagulants. [facility] <Dr. Angelic Gonzalez MD - Last Filed: 08/20/23 15:25> [facility] Medical History Abnormal TSH Arrhythmia C. difficile diarrhea Chest pain Collagenous colitis CPAP (continuous positive airway pressure) dependence Dehydration Depression with anxiety Diverticulosis Dizziness Elevated alkaline phosphatase level Essential hypertension Fatigue History of pulmonary embolus (PE) (07/31/21) Hyperlipidemia Hypothyroidism Melanoma Neurogenic bladder Non-smoker NEHEMIAH on CPAP Parkinson's disease Physical debility Pulmonary embolism RBD (REM behavioral disorder) Squamous cell cancer of skin of forearm Syncope Home Medications ascorbic acid (vitamin C) 500 mg tablet 500 mg PO DAILY supplement 11/10/20 [History Last Taken 07/30/21] multivitamin 1 tab PO DAILY supplement 11/10/20 [History Last Taken 07/30/21] atorvastatin 10 mg tablet 10 mg PO QODAY cholesterol #30 tabs 08/19/21 [Rx Last Taken Unknown] carbidopa 25 mg-levodopa 100 mg tablet 1 tab PO 0600,1000,1800 parkinsons #90 tabs 08/19/21 [Rx Last Taken Unknown] carbidopa 25 mg-levodopa 100 mg tablet 1.5 tab PO 1400 parkinsons #45 tabs 08/19/21 [Rx Last Taken Unknown] clonazepam 0.5 mg tablet 0.5 mg PO QHS 08/29/21 [History Last Taken Unknown] acetaminophen 325 mg tablet (Tylenol) 325 mg PO Q6H PRN PRN PAIN 07/11/22 [History Last Taken Unknown] cholecalciferol (vitamin D3) 50 mcg (2,000 unit) tablet 50 mcg PO DAILY 07/11/22 [History Last Taken Unknown] cyanocobalamin (vitamin B-12) 100 mcg tablet (Vitamin B-12) 100 mcg PO DAILY 07/11/22 [History Last Taken Unknown] carvedilol 6.25 mg tablet 6.25 mg PO BID #180 tabs 11/13/22 [Rx Last Taken Unknown] vibegron 75 mg tablet (Gemtesa) 75 mg PO DAILY 08/20/23 [History Last Taken Unknown] Allergy/AdvReac Type Severity Reaction Status Date / Time prochlorperazine Allergy Unknown unknown Verified 01/02/23 15:19 [From Compazine] promethazine [From Phenergan] Allergy Unknown unknown Verified 01/02/23 15:19 thioridazine Allergy Unknown unknown Verified 01/02/23 15:19 haloperidol [From Haldol] Allergy Other Verified 01/02/23 15:19 haloperidol lactate Allergy Other Verified 01/02/23 15:19 [From Haldol] metoclopramide HCl Allergy Other Verified 01/02/23 15:19 [From Reglan] Family History Father Diabetes Heart disease Mother Hypertension Diabetes Cancer brain, lymphoma Hyperlipidemia Sister Seizures Brother Heart disease Surgical History History of appendectomy History of bunionectomy (~02/2008) History of colonoscopy (07/19/12) History of hammer toe correction (~02/2008) History of total abdominal hysterectomy and bilateral salpingo-oophorectomy (~1995) S/P deep brain stimulator placement (06/23/13) Social History household members: spouse housing: house Smoking Status: Never smoker alcohol intake: current alcohol intake frequency: a few times a month Alcohol type: wine substance use type: does not use ROS <Dr. Angelic Gonzalez MD - Last Filed: 08/20/23 15:25> ROS ED Constitutional Constitutional ED: Denies chills or fever(s) Eyes Eyes: Denies change in vision or discharge from eye(s) ENT ENT ED: Denies discharge from eye(s), rhinorrhea or sore throat Cardiovascular Cardiovascular: Reports chest pain; Denies palpitations Respiratory/Chest Respiratory/Chest: Reports cough and dyspnea Gastrointestinal Gastrointestinal: Denies abdominal pain, nausea or vomiting Genitourinary Genitourinary ED: Denies dysuria Musculoskeletal Musculoskeletal: Denies back pain or extremity pain Integumentary Denies Abrasions or rash Neurologic Neurologic: Denies headache(s) or weakness Allergic/Immunologic Allergic/Immunologic ED: Denies lip swelling or urticaria EXAM <Dr. Angelic Gonzalez MD - Last Filed: 08/20/23 15:25> Physical Exam Const Vital Signs: 08/20/23 13:24 08/20/23 13:24 08/20/23 13:26 Temperature 96.9 F L 96.9 F L 96.9 F L Temperature Source Temporal Temporal Temporal Pulse Rate 65 58 L 56 L Respiratory Rate 24 H 24 H 24 H Respiratory Effort Respiratory Depth Respiratory Pattern Blood Pressure 160/78 H 160/78 H 160/78 H Blood Pressure Mean 105 105 105 Pulse Ox 94 94 95 Oxygen Delivery Method Room Air Room Air Room Air Oxygen Flow Rate (L/min) 08/20/23 13:43 08/20/23 13:46 08/20/23 15:20 Temperature Temperature Source Pulse Rate 92 61 Respiratory Rate 44 H 23 H Respiratory Effort Short of Breath Labored Respiratory Depth Shallow Respiratory Pattern Tachypnea Blood Pressure 147/75 H 158/69 H Blood Pressure Mean 99 98 Pulse Ox 93 94 Oxygen Delivery Method Nasal Cannula Nasal Cannula Nasal Cannula Oxygen Flow Rate (L/min) 2 2 08/20/23 14:43 08/20/23 14:45 08/20/23 14:50 Temperature Temperature Source Pulse Rate 91 90 88 Respiratory Rate 32 H 32 H 32 H Respiratory Effort Short of Breath Labored Respiratory Depth Respiratory Pattern Tachypnea Blood Pressure 148/64 H 135/66 H 134/66 H Blood Pressure Mean Pulse Ox Oxygen Delivery Method Nasal Cannula Nasal Cannula Nasal Cannula Oxygen Flow Rate (L/min) 2 2 2 08/20/23 15:00 08/20/23 15:10 08/20/23 17:00 Temperature Temperature Source Pulse Rate 90 92 91 Respiratory Rate 34 H 40 H 31 H Respiratory Effort Respiratory Depth Respiratory Pattern Blood Pressure 124/108 H 157/78 H 153/76 H Blood Pressure Mean 101 Pulse Ox 96 Oxygen Delivery Method Nasal Cannula Nasal Cannula Nasal Cannula Oxygen Flow Rate (L/min) 2 2 2 08/20/23 19:00 08/20/23 21:00 Temperature Temperature Source Pulse Rate 87 82 Respiratory Rate 36 H 28 H Respiratory Effort Respiratory Depth Respiratory Pattern Blood Pressure 137/73 H 122/60 H Blood Pressure Mean 94 80 Pulse Ox 96 98 Oxygen Delivery Method Nasal Cannula Nasal Cannula Oxygen Flow Rate (L/min) 2 2 Positive well nourished and well developed General Appearance ED: well developed HEENT Reports moist mucous membranes Eyes EOMs intact bilaterally Chest Wall inspection of chest normal and palpation of chest normal Resp Resp Narrative: Patient tachypneic with respiratory rate in the 40s. Equal air movement in the upper lungs bilaterally. Diminished breath sounds at the right base. Cardio regular rate and regular rhythm GI non-tender Palpation: soft Extremity normal to inspection Neuro oriented x3 Psych Mood & Affect: anxious <Dr. Juan Jose, DO - Last Filed: 08/20/23 22:03> Physical Exam Const Vital Signs: 08/20/23 13:24 08/20/23 13:24 08/20/23 13:26 Temperature 96.9 F L 96.9 F L 96.9 F L Temperature Source Temporal Temporal Temporal Pulse Rate 65 58 L 56 L Respiratory Rate 24 H 24 H 24 H Respiratory Effort Respiratory Depth Respiratory Pattern Blood Pressure 160/78 H 160/78 H 160/78 H Blood Pressure Mean 105 105 105 Pulse Ox 94 94 95 Oxygen Delivery Method Room Air Room Air Room Air Oxygen Flow Rate (L/min) 08/20/23 13:43 08/20/23 13:46 08/20/23 15:20 Temperature Temperature Source Pulse Rate 92 61 Respiratory Rate 44 H 23 H Respiratory Effort Short of Breath Labored Respiratory Depth Shallow Respiratory Pattern Tachypnea Blood Pressure 147/75 H 158/69 H Blood Pressure Mean 99 98 Pulse Ox 93 94 Oxygen Delivery Method Nasal Cannula Nasal Cannula Nasal Cannula Oxygen Flow Rate (L/min) 2 2 08/20/23 14:43 08/20/23 14:45 08/20/23 14:50 Temperature Temperature Source Pulse Rate 91 90 88 Respiratory Rate 32 H 32 H 32 H Respiratory Effort Short of Breath Labored Respiratory Depth Respiratory Pattern Tachypnea Blood Pressure 148/64 H 135/66 H 134/66 H Blood Pressure Mean Pulse Ox Oxygen Delivery Method Nasal Cannula Nasal Cannula Nasal Cannula Oxygen Flow Rate (L/min) 2 2 2 08/20/23 15:00 08/20/23 15:10 08/20/23 17:00 Temperature Temperature Source Pulse Rate 90 92 91 Respiratory Rate 34 H 40 H 31 H Respiratory Effort Respiratory Depth Respiratory Pattern Blood Pressure 124/108 H 157/78 H 153/76 H Blood Pressure Mean 101 Pulse Ox 96 Oxygen Delivery Method Nasal Cannula Nasal Cannula Nasal Cannula Oxygen Flow Rate (L/min) 2 2 2 08/20/23 19:00 08/20/23 21:00 Temperature Temperature Source Pulse Rate 87 82 Respiratory Rate 36 H 28 H Respiratory Effort Respiratory Depth Respiratory Pattern Blood Pressure 137/73 H 122/60 H Blood Pressure Mean 94 80 Pulse Ox 96 98 Oxygen Delivery Method Nasal Cannula Nasal Cannula Oxygen Flow Rate (L/min) 2 2 MDM <Dr. Angelic Gonzalez MD - Last Filed: 08/20/23 15:25> [facility] MDM Narrative Medical decision making narrative: Patient placed on hoop maker helper machine. IV line initiated. EKG obtained to evaluate for cardiac arrhythmia/ischemia. Chest x-ray obtained to evaluate for acute lung pathology, cardiac size, or mediastinal abnormality. Labwork obtained to evaluate for leukocytosis, anemia, and electrolyte derangement. Patient's chest x-ray was reviewed shortly after it was taken. Patient has a large right-sided pleural effusion. I was able to speak with radiology and they can do an ultrasound-guided thoracentesis. History & Record Review Discussion w/independent historian: Patient and Significant other Lab Data Attestation: I reviewed the patient's lab results. Labs: Laboratory Results - last 24 hr 08/20/23 08/20/23 13:55 Unknown WBC 8.9 RBC 3.70 L Hgb 11.7 L Hct 36.4 L MCV 98.4 MCH 31.6 MCHC 32.1 RDW Std Deviation 49.7 H RDW Coeff of Carie 13.8 Plt Count 289 MPV 10.6 Immature Gran % (Auto) 1.800 H Neut % (Auto) 76.5 H Lymph % (Auto) 11.7 L Duval % (Auto) 8.0 Eos % (Auto) 1.7 Baso % (Auto) 0.3 Absolute Neuts (auto) 6.8 Absolute Lymphs (auto) 1.04 Nucleated RBC % 0 PT 15.0 H INR 1.2 APTT 28.8 D-Dimer Quant (PE/DVT) 4.72 H* Sodium 141 Potassium 4.1 Chloride 106 Carbon Dioxide 30.0 Anion Gap 5 BUN 24 H Creatinine 0.89 Estim Creat Clear Calc 57.06 Est GFR (MDRD) Af Amer 81 Est GFR (MDRD) Non-Af 67 BUN/Creatinine Ratio 27.0 H Glucose 115 H Calcium 9.2 Troponin I High Sens 9 Fluid Source PLEURAL FLUID Fluid Color RED Fluid Appearance TURBID Fluid WBC 2.648 Fluid RBC 0.299 Fluid Tot Cell Count 2.743 H Fld Polynuclear WBCs # 1.683 Fld Polynuclear WBCs % 63.5 Fluid Mononuclear WBCs 0.965 Fld Mononuclear WBCs % 36.5 Fluid Neutrophils 67 Fluid Lymphocytes 9 Fluid Monocytes 17 Fluid Macrophages 7 Fl Pathologist Comment May follow Fluid Glucose 121 H Fluid Total Protein 4.2 Fluid LDH 234 Fluid Comment 2 SEE COMMENT Radiography Chest X-Ray - ED: 1 View, Read by ED Physician and - (Large right pleural effusion.) Diagnostic Testing: Clinical Impression(s) from Imaging Studies Chest X-Ray 08/20/23 13:55 IMPRESSION: Large right pleural effusion with atelectasis or consolidation of the right mid to lower lung. Right eighth and ninth rib fractures. Electronically Signed: Sonia Allen MD at 14:02 EDT , Chest X-Ray 08/20/23 14:30 IMPRESSION: Mildly decreased size of large right pleural effusion with improved aeration of the mid lung. Electronically Signed: Sonia Allen MD at 15:19 EDT , Chest CTA 08/20/23 15:25 IMPRESSION: Subsegmental right upper lobe pulmonary emboli. Large right pleural effusion with severe atelectasis of the right lung. Subacute right eighth, ninth, and 10th rib fractures. Electronically Signed: Sonia Allen MD at 15:49 EDT , ADDENDUM: 08/20/23 1853 IMPRESSION: Subsegmental right upper lobe pulmonary emboli. Large right pleural effusion with severe atelectasis of the right lung. Subacute right eighth, ninth, and 10th rib fractures. N.B. : Jamila Israel OT, confirmed on 08/20/2023 18:46:32 (ET) that the healthcare facility has received the radiology report. Electronically Signed: Sonia Allen MD at 15:49 EDT , EKG Initial EKG: Attestation: I personally reviewed and interpreted this EKG as follows: Interpretation: Sinus Rhythm (Sinus at 92 with PVCs. No obvious ischemia.) Treatment and Re-Evaluation :: CBC was normal normal white count 8.9 with a hemoglobin 11.7. 76% neutrophils noted. Chemistry studies unremarkable with normal renal function. Troponin is normal at 9 but D-dimer is elevated at 4.72. Ultrasound-guided thoracentesis was performed. 930 mL of dark red fluid were withdrawn. Postprocedure inspiration and expiration x-rays show only mild improvement in aeration of the right lung. I do not see obvious pneumothorax. Patient has been discussed with the hospitalist. We will send the patient for CTA of the chest given her history of pulmonary embolism and to further evaluate this pleural effusion. Patient did fall and break ribs 5 weeks ago and this may be loculated blood. Patient be signed out to oncoming physician for further evaluation and final disposition. <Dr. Juan Jose, DO - Last Filed: 08/20/23 22:03> [facility] Lab Data Labs: Laboratory Results - last 24 hr 08/20/23 08/20/23 13:55 Unknown WBC 8.9 RBC 3.70 L Hgb 11.7 L Hct 36.4 L MCV 98.4 MCH 31.6 MCHC 32.1 RDW Std Deviation 49.7 H RDW Coeff of Carie 13.8 Plt Count 289 MPV 10.6 Immature Gran % (Auto) 1.800 H Neut % (Auto) 76.5 H Lymph % (Auto) 11.7 L Duval % (Auto) 8.0 Eos % (Auto) 1.7 Baso % (Auto) 0.3 Absolute Neuts (auto) 6.8 Absolute Lymphs (auto) 1.04 Nucleated RBC % 0 PT 15.0 H INR 1.2 APTT 28.8 D-Dimer Quant (PE/DVT) 4.72 H* Sodium 141 Potassium 4.1 Chloride 106 Carbon Dioxide 30.0 Anion Gap 5 BUN 24 H Creatinine 0.89 Estim Creat Clear Calc 57.06 Est GFR (MDRD) Af Amer 81 Est GFR (MDRD) Non-Af 67 BUN/Creatinine Ratio 27.0 H Glucose 115 H Calcium 9.2 Troponin I High Sens 9 Fluid Source PLEURAL FLUID Fluid Color RED Fluid Appearance TURBID Fluid WBC 2.648 Fluid RBC 0.299 Fluid Tot Cell Count 2.743 H Fld Polynuclear WBCs # 1.683 Fld Polynuclear WBCs % 63.5 Fluid Mononuclear WBCs 0.965 Fld Mononuclear WBCs % 36.5 Fluid Neutrophils 67 Fluid Lymphocytes 9 Fluid Monocytes 17 Fluid Macrophages 7 Fl Pathologist Comment May follow Fluid Glucose 121 H Fluid Total Protein 4.2 Fluid LDH 234 Fluid Comment 2 SEE COMMENT Radiography Diagnostic Testing: Clinical Impression(s) from Imaging Studies Chest X-Ray 08/20/23 13:55 IMPRESSION: Large right pleural effusion with atelectasis or consolidation of the right mid to lower lung. Right eighth and ninth rib fractures. Electronically Signed: Sonia Allen MD at 14:02 EDT , Chest X-Ray 08/20/23 14:30 IMPRESSION: Mildly decreased size of large right pleural effusion with improved aeration of the mid lung. Electronically Signed: Sonia Allen MD at 15:19 EDT , Chest CTA 08/20/23 15:25 IMPRESSION: Subsegmental right upper lobe pulmonary emboli. Large right pleural effusion with severe atelectasis of the right lung. Subacute right eighth, ninth, and 10th rib fractures. Electronically Signed: Sonia Allen MD at 15:49 EDT , ADDENDUM: 08/20/23 1853 IMPRESSION: Subsegmental right upper lobe pulmonary emboli. Large right pleural effusion with severe atelectasis of the right lung. Subacute right eighth, ninth, and 10th rib fractures. N.B. : Jamila Israel OT, confirmed on 08/20/2023 18:46:32 (ET) that the healthcare facility has received the radiology report. Electronically Signed: Sonia Allen MD at 15:49 EDT , Treatment and Re-Evaluation :: CBC was normal normal white count 8.9 with a hemoglobin 11.7. 76% neutrophils noted. Chemistry studies unremarkable with normal renal function. Troponin is normal at 9 but D-dimer is elevated at 4.72. Ultrasound-guided thoracentesis was performed. 930 mL of dark red fluid were withdrawn. Postprocedure inspiration and expiration x-rays show only mild improvement in aeration of the right lung. I do not see obvious pneumothorax. Patient has been discussed with the hospitalist. We will send the patient for CTA of the chest given her history of pulmonary embolism and to further evaluate this pleural effusion. Patient did fall and break ribs 5 weeks ago and this may be loculated blood. Patient be signed out to oncoming physician for further evaluation and final disposition. Care of the patient was turned over to me pending CTA results. CTA of the chest showed subsegmental pulmonary emboli in the right upper lobe. There is also a large pleural effusion and subacute fractures of the eighth, ninth, and 10th ribs. This was interpreted by the radiologist was also independently reviewed by myself. Patient requested to go to [facility]. When I contacted the transfer center at [facility], they said that there would not be a bed available until tomorrow at the earliest and possibly even the next day. Case was discussed with the [facility] transfer line for [facility] in [place]. Case was discussed with Dr. Colindres who accepted the patient as long as cardiothoracic surgery was agreeable with this. Case was discussed with Dr. Russ. He agreed with transferring the patient and admitting to the hospitalist service. Patient will be transferred there when a bed is assigned. Patient and family understood and were agreeable with the plan. All questions were answered. Discharge Plan Triage Chief Complaint: Shortness of Breath ED Provider: Angelic Gonzalez Dx/Rx/DC Orders Clinical Impression: History of rib fracture, Pleural effusion, Hemothorax, Pulmonary embolism Instructions: MARTÍNEZ RN Thoracentesis Dc Prescriptions: No Action multivitamin Tablet 1 tab PO DAILY ascorbic acid (vitamin C) 500 mg tablet 500 mg PO DAILY acetaminophen [Tylenol] 325 mg tablet 325 mg PO Q6H PRN PRN (Reason: PAIN) cholecalciferol (vitamin D3) 50 mcg (2,000 unit) tablet 50 mcg PO DAILY cyanocobalamin (vitamin B-12) [Vitamin B-12] 100 mcg tablet 100 mcg PO DAILY atorvastatin 10 MG tablet 10 mg PO QODAY Qty: 30 0RF carbidopa-levodopa 25-100 mg tablet 1 tab PO 0600,1000,1800 Qty: 90 0RF carbidopa-levodopa 25-100 mg tablet 1.5 tab PO 1400 Qty: 45 0RF clonazepam 0.5 mg Tablet 0.5 mg PO QHS Gemtesa 75 mg tablet 75 mg PO DAILY carvedilol 6.25 mg tablet 6.25 mg PO BID Qty: 180 3RF Primary Care Provider: Abdullahi Major Referrals: Abdullahi Major MD [Primary Care Provider] - Disposition Disposition: Acute Care Hospital Discharge Location: [facility]
[2023-08-20 14:15] LABS: Absolute Lymphocyte Count 1.04 X10^3/uL (0.83-4.51); Absolute Neutrophil Count 6.8 X10^3/uL (2.0-7.7); Basophil# 0.03 X10^3/uL; Basophil% 0.3 % (0-1); Eosinophil# 0.15 X10^3/uL; Eosinophils% 1.7 % (0-5); Hematocrit 36.4 % (37-47); Hemoglobin 11.7 g/dL (12.0-15.0); Lymphocyte # 1.04 X10^3/ul (0.83-4.51); Lymphocyte % 11.7 % (19-41); Mean Corp Hgb Conc 32.1 g/dL (32-36); Mean Corpuscular Hgb 31.6 pg (27.0-32.0); Mean Corpuscular Volume 98.4 fL (81-99); Mean Platelet Vol. 10.6 fl (6.2-12.0); Monocyte# 0.71 X10^3/uL; NRBC Flagged by Analyzer 0 % (0-5); Neutrophil # 6.77 X10^3/uL (2.7-7.7); Neutrophil % 76.5 % (47-70); Platelet Count 289 K/mm3 (150-450); RBC Distribution Width CV 13.8 % (11.6-14.6); RBC Distribution Width SD 49.7 fl (35.1-43.9); White Blood Count 8.9 K/mm3 (4.4-11.0)
[2023-08-20] MEDS: 0.9% Normal Saline (1000mL) 1,000 ML 150 ML IV ×2 (14:19→22:00)
--- NOTE | 2023-08-20 14:30 | RAD_ITS ---
HISTORY: post thora. TECHNIQUE: XR Chest 2 Views. COMPARISON: 13:52. FINDINGS: LINES/TUBES: Battery pack with electrode in the left neck again seen. CARDIOMEDIASTINAL BORDERS: Stable. LUNGS: Improved aeration of the right midlung with atelectasis or consolidation in the right lung base again seen. PLEURA: Moderate right pleural effusion without pneumothorax identified. RAD/Chest Insp/Exp 2 View IMPRESSION: Mildly decreased size of large right pleural effusion with improved aeration of the mid lung. Electronically Signed: Sonia Allen MD at 15:19 EDT ,
[2023-08-20 14:34] LABS: D-Dimer Quantitative (DVT/PE) 4.72 FEU/ug/m (0.27-0.49)
[2023-08-20 14:36] LABS: Partial Thromboplast Time 28.8 Seconds (24.1-36.2)
[2023-08-20 14:40] LABS: Anion Gap 5 (5-15); BUN 24 mg/dL (7-18); Calcium,Total 9.2 mg/dL (8.5-10.1); Chloride 106 mmol/L (98-107); Creatinine, Serum 0.89 mg/dL (0.55-1.02); EST Glomerular Filtration Rate 67 mL/min (>60); Est Glom Filt Rate - Afr Amer 81 mL/min (>60); Estimated Creatinine Clearance 57.06 ml/min; Glucose 115 mg/dL (74-106); Potassium 4.1 mmol/L (3.5-5.1); Sodium Level 141 mmol/L (136-145); Troponin-I HS 9 pg/mL (3.0-54.0)
[2023-08-20] MEDS: Lidocaine 2% (20 ml mdv) 20 ML Vial INFILT (14:48)
[2023-08-20 14:49] LABS: International Normalized Ratio 1.2
--- NOTE | 2023-08-20 15:06 | PRO.PCM_ITS ---
Procedure Report Date of Procedure: 08/20/23 Assessment & Plan Assessment/Plan (1) Pleural effusion, right: PLAN: PROCEDURE: Ultrasound Guided Thoracentesis ORDERING PROVIDER: Dr. Gonzalez INDICATION: Female, 67 years old. Right pleural effusion. PROVIDER: ELIZA Packer PROCEDURE: The risks, benefits, and alternatives to the procedure were explained to the patient. The specific risks of bleeding, infection, and pneumothorax requiring chest tube insertion were discussed and accepted. Written informed consent was obtained. The patient was placed in the sitting, upright position. Ultrasonographic evaluation of the bilateral lower pleural spaces was carried out. An adequate pocket was identified in the right lower pleural space.The overlying skin was prepped and draped in sterile fashion. 2% lidocaine was administered subcutaneously for local anesthesia. Under ultrasound guidance, a 5-[place] Islander thoracentesis needle/catheter system was advanced into the right posterior lower pleural fluid collection. 930 ml of dark red colored fluid was drained. 100 mL of this fluid was sent to the laboratory for analysis. The catheter was removed, and a sterile dressing was applied. The patient tolerated the procedure well. A chest x-ray was ordered. IMPRESSION: Successful ultrasound-guided thoracentesis of right pleural effusion. Procedures Radiology Radiology US Procedures: [id number] Thoracentesis
[2023-08-20 15:22] LABS: Body Fluid Mononuclear WBC # 0.965 10^3/uL; Body Fluid Mononuclear WBC % 36.5 %; Body Fluid Polynuclear WBC # 1.683 10^3/uL; Body Fluid Polynuclear WBC % 63.5 %; Body Fluid Total Cells Counted 2.743 10^3/ul; Red Cell Count/Body Fluid 0.299 10^6/ul; White Blood Count/Body Fluid 2.648 10^3/uL
--- NOTE | 2023-08-20 15:25 | CT_ITS ---
ACR Level 3 findings have been noted. An addendum which confirms receipt of the report will follow. HISTORY: sob, elevated d-dimer, pleural effusion. TECHNIQUE: CT angiogram of the chest was performed after the intravenous administration of IV 100mL [id number]-[id number]. Post-processing of the angiographic images was performed with multiplanar reformation and 3D reconstruction. Individualized dose optimization techniques were used for this CT. 1113 images. COMPARISON: None. FINDINGS: CENTRAL AIRWAYS: Patent. LUNGS: Marked atelectasis of the right upper lobe. Complete right middle and lower lobe atelectasis. Very mild lingular and left lower lobe atelectasis. PLEURA: Large right pleural effusion. HEART/PERICARDIUM: Heart within normal limits in size. No pericardial effusion. No significant right heart strain. PULMONARY ARTERIES: Right upper lobe subsegmental filling defects. AORTA/VESSELS: No thoracic aortic aneurysm or dissection flap. Mild atherosclerosis. MEDIASTINUM/JULIA: No pathologically enlarged lymph nodes. OSSEOUS STRUCTURES: Segmental fractures of the right eighth and ninth ribs, some with callus formation and mild displacement. Mildly displaced right 10th rib fracture posteriorly. Battery pack in the left chest with electrode in the left neck UPPER ABDOMEN: Unremarkable. CT/CTA Chest W/WO Contrast IMPRESSION: Subsegmental right upper lobe pulmonary emboli. Large right pleural effusion with severe atelectasis of the right lung. Subacute right eighth, ninth, and 10th rib fractures. Electronically Signed: Sonia Allen MD at 15:49 EDT ,
[2023-08-20 16:03] LABS: Auto B Fluid Analyzer BKGD Ct COUNTS W/IN LIMITS (W/IN LIMITS); Color/Body Fluid RED; Source- Body Fluid PLEURAL FLUID
[2023-08-20 16:37] LABS: Appearance/Body Fluid TURBID
[2023-08-20 16:39] LABS: Body Fluid QC Type(s) BF1Q
[2023-08-20 16:52] LABS: Glucose, Body Fluid 121 mg/dL (40-70); LDH,Body Fluid 234 Units/L (Not Establ.); Protein, Body Fluid 4.2 g/dL (Not Establ.)
[2023-08-20 17:09] LABS: Lymphocytes 9 %; Macrophages 7 %; Monocytes 17 %; Neutrophil (Segs) 67 %
[2023-08-21 01:00] VITALS: BP 139/63; PULSE 85; RESP 28; O2SAT 95
[2023-08-21 02:39] VITALS: BP 131/91; PULSE 83; RESP 27; TEMP 36.4; O2SAT 97
[2023-08-21 13:02] LABS: Pathologist Comment/Body Fluid Reviewed
== END 2023-08-21 03:08 | disposition short-term general hospital (02) ==
PROVIDERS: Emergency Medicine; Emergency Provider Emergency Medicine; PCP Family Medicine; Visit Provider Emergency Medicine
DX: R06.02 Shortness of breath (principal); G20.A1 Parkinson's disease without dyskinesia, without mention of fluctuations; I26.99 Other pulmonary embolism without acute cor pulmonale; J90 Pleural effusion, not elsewhere classified; J94.2 Hemothorax; I10 Essential (primary) hypertension; E78.5 Hyperlipidemia, unspecified; G47.33 Obstructive sleep apnea (adult) (pediatric); Z99.89 Dependence on other enabling machines and devices; Z79.899 Other long term (current) drug therapy; F41.8 Other specified anxiety disorders; Z90.49 Acquired absence of other specified parts of digestive tract; Z90.710 Acquired absence of both cervix and uterus; Z90.722 Acquired absence of ovaries, bilateral; Z90.79 Acquired absence of other genital organ(s); S22.41XA Multiple fractures of ribs, right side, initial encounter for closed fracture; W19.XXXA Unspecified fall, initial encounter
CPT/HCPCS: 32555; 71045; 71046; 71275; 80048; 82945; 83615; 84157; 84484; 85025; 85379; 85610; 85730; 87631; 88108; 88305; 88313; 89050; 93005; 99285; J7030; Q9967

== ENCOUNTER 2023-08-30 15:45 | Inpatient (IN) | payer MEDICARE, SELFPAY ==
--- NOTE | 2023-08-30 16:00 | NURSING ---
Patient arrived to the unit via car transfer from [facility] in [place]. x2 assist to get from car to w/c and staff propelled patient to the unit. Patient alert but is forgetful and needs reminders and cues.
--- NOTE | 2023-08-30 16:05 | HP.PCM_ITS ---
[facility] - General General Date of Admission: 08/30/23 Date of Service: 08/30/23 Chief Complaint: Debility due to R hemothorax with history of right thoracoscopy and partial decortication HPI Narrative GLORIA WOOD, is a 67 YO F with a PMH of Parkinson's disease with autonomic dysfunction, history of implantation of deep brain stimulator, RBD (REM behavioral disorder) essential hypertension, remote history of a pulmonary embolism, collagenous colitis, anxiety/depression, history of diverticulosis, hyperlipidemia, history of melanoma, neurogenic bladder, obstructive sleep apnea on CPAP and mild oropharyngeal dysphagia diagnosed on a modified barium swallow in 2019 who is known to me from an admission to the acute inpatient rehab unit in July 2021. She presented to the emergency department at [facility] on 08/20/2023 with a complaint of increasing shortness of breath. Respiratory rate in the emergency room was in the 40s. She had diminished breath sounds in the right base. Chest x-ray showed a large right-sided pleural effusion and subacute fractures of the right eighth, ninth and 10th ribs. Her hu sband related that she had fallen 5 weeks prior and broke some ribs. A CTA of the chest showed subsegmental right upper lobe pulmonary emboli. She had pulmonary emboli in the past but anticoagulation has been discontinued since then. An ultrasound-guided thoracentesis was performed and there was only mild improvement in the aeration of the right lung. The fluid was bloody. She was transferred to [facility] and was seen by Dr. Archie Russ. On 08/21/2023 she underwent a right thoracoscopy, partial decortication, biopsy of a diaphragmatic nodule, biopsy of pleural and cryoanalgesia. Pleural fluid was negative for malignant cells. The pleura had extensive chronic inf lammation with reactive mesothelial cells, hemorrhage and abundant hemosiderin laden macrophages. The diaphragmatic nodule was consistent with an organizing blood clot. There was no evidence of atypia or malignancy seen on the biopsies. While at [facility] she was found to have a DVT in the left posterior tibial vein and she was placed on subcu heparin 3 times daily. While at [facility] she was seen by PT and OT and she was felt to be unsafe for home-going due to requiring maximal assistance for all ADLs with 1-2 people present for safety. Acute inpatient rehab was recommended at discharge. She was transferred to the acute inpatient rehab unit at [facility] on for 3 hours of therapy daily to restore function/independence at or near her level prior to recent fall and fractured ribs. I suspect she had been declining at home for the past 5 weeks and not just since she was diagnosed with the hemothorax. [facility] Medical History (Updated 08/30/23 @ 17:[address] Alyssa Birmingham, DO) Abnormal TSH Arrhythmia C. difficile diarrhea Chest pain Collagenous colitis CPAP (continuous positive airway pressure) dependence Depression with anxiety Diverticulosis Elevated alkaline phosphatase level Essential hypertension Grade I diastolic dysfunction History of pulmonary embolus (PE) (07/31/21) Hyperlipidemia Hypothyroidism Melanoma Neurogenic bladder Non-smoker NEHEMIAH on CPAP Parkinson's disease Physical debility Pulmonary embolism RBD (REM behavioral disorder) Squamous cell cancer of skin of forearm Syncope Home Medications ascorbic acid (vitamin C) 500 mg tablet 500 mg PO DAILY supplement 11/10/20 [History Last Taken 07/30/21] multivitamin 1 tab PO DAILY supplement 11/10/20 [History Last Taken 07/30/21] atorvastatin 10 mg tablet 10 mg PO QODAY cholesterol #30 tabs 08/19/21 [Rx Last Taken Unknown] carbidopa 25 mg-levodopa 100 mg tablet 1 tab PO 0600,1000,1800 parkinsons #90 tabs 08/19/21 [Rx Last Taken 08/30/23] carbidopa 25 mg-levodopa 100 mg tablet 1.5 tab PO 1400 parkinsons #45 tabs 08/19/21 [Rx Last Taken 08/30/23] clonazepam 0.5 mg tablet 0.5 mg PO QHS sleep 08/29/21 [History Last Taken 08/29/23] acetaminophen 325 mg tablet (Tylenol) 325 mg PO Q6H PRN PRN PAIN 07/11/22 [History Last Taken Unknown] cyanocobalamin (vitamin B-12) 100 mcg tablet (Vitamin B-12) 100 mcg PO DAILY supplement 07/11/22 [History Last Taken Unknown] carvedilol 6.25 mg tablet 6.25 mg PO BID blood pressure #180 tabs 11/13/22 [Rx Last Taken 08/30/23] vibegron 75 mg tablet (Gemtesa) 75 mg PO DAILY overactive bladder 08/20/23 [History Last Taken Unknown] hydrocodone-acetaminophen 5-325mg 5mg-325mg 1 tab PO Q6H PRN pain 1-10 08/30/23 [History Last Taken 08/29/23] Allergy/AdvReac Type Severity Reaction Status Date / Time prochlorperazine Allergy Unknown unknown Verified 01/02/23 15:19 [From Compazine] promethazine [From Phenergan] Allergy Unknown unknown Verified 01/02/23 15:19 thioridazine Allergy Unknown unknown Verified 01/02/23 15:19 haloperidol [From Haldol] Allergy Other Verified 01/02/23 15:19 haloperidol lactate Allergy Other Verified 01/02/23 15:19 [From Haldol] metoclopramide HCl Allergy Other Verified 01/02/23 15:19 [From Reglan] Family History Father Diabetes Heart disease Mother Hypertension Diabetes Cancer brain, lymphoma Hyperlipidemia Sister Seizures Brother Heart disease Surgical History (Updated 08/30/23 @ 17:[address] Alyssa Birmingham DO) History of appendectomy History of bunionectomy (~02/2008) History of colonoscopy (07/19/12) History of hammer toe correction (~02/2008) History of thoracic surgery History of total abdominal hysterectomy and bilateral salpingo-oophorectomy (~1995) S/P deep brain stimulator placement (06/23/13) Social History household members: spouse housing: house Smoking Status: Never smoker alcohol intake: current alcohol intake frequency: a few times a month Alcohol type: wine substance use type: does not use ROS Review of Systems ROS Unobtainable: due to encephalopathy and other Details: She is only respondin g to questions with 1 word answers. ROS difficult to obtain and is therefore limited. She tells me that she is very tired. was in the room and able to give me some hx. Constitutional Constitutional: Reports body ache(s), fatigue, frequent falls, lethargy and other Details: Looks older than her stated age. Has masked facies. Voice is soft and she does not project well. Eyes Eyes: Denies bloody eye, change in vision, diplopia or discharge from eye(s) ENT HEENT: Reports dry mouth Cardiovascular Cardiovascular: Reports chest pain; Denies dyspnea at rest Respiratory/Chest Respiratory/Chest: Reports pain with cough; Denies cough Gastrointestinal Gastrointestinal: Reports other Details: reports that she has not had a BM since Sunday but, nursing states she had a large BM today. ; Denies nausea or vomiting Genitourinary Genitourinary: Reports other Details: She is reporting suprapubic discomfort and some burning with urination. Musculoskeletal Musculoskeletal: Reports difficulty walking, muscle weakness and stiffness Integumentary Integumentary: Reports wounds; Denies jaundice Neurologic Neurologic: Reports weakness and other Details: very drowsy and slow to respond to questions at present. Hematologic/Lymphatic Hematologic/Lymphatic: Reports anemia Physical Exam Const Constitutional Narrative: Very drowsy. Slow to respond to questions. Voice is very soft and it does not project well so it is difficult to hear her when she speaks. She looks very tired but, she does not look to be in any significant distress. General Appearance: well kempt, well developed and appears older than stated age HEENT HEENT Narrative: masked facies. MM are somewhat dry and there is no evidence of thrush. Head and Scalp: normocephalic and atraumatic Eyes PERRL, EOMs intact bilaterally, conjunctivae normal and no scleral icterus Eyes Narrative: No discharge from the eyes. Neck No nodes Chest Chest: symmetrical chest wall rise Resp Resp Narrative: Not taking deep breaths. BS's are diminished throughout but, worst in the bases. She has coarse crackles in both bases posteriorly. No wheezing. She is not tachypneic and the respirations are not labored. Cardio regular rate, regular rhythm, no murmurs, no rub and no gallops Cardio Narrative: frequent premature beats. GI normal to inspection, nondistended, normoactive bowel sounds and soft to palpation GI Narrative: no guarding with palpation. Mildly tympanic. no CVA tenderness Extremity no calf tenderness and no pedal edema Skin Skin Narrative: She has a wound of the R lateral chest which is bandaged. Will examine when the dressing is changed by nursing. Rashes: no rashes Wound Narrative: She has 2 puncture wounds in the right lateral chest secondary to thoracoscopy and chest tube. They appear to be healing well. There is no nonblanchable erythema around the sites. There is a small amount of serous drainage on the dressing but no discharge observed from the wound. There is a small eschar on one of the wounds and there is no dehiscence of either wound. Neuro Neuro Narrative: + rigidity, + bradykinesia, soft voice, no resting tremors noted. The R hand is stiff and rigid when she is resting. She is able to flex her fingers when instructed. Psych cooperative Psych Narrative: Very flat affect. Results Lab / Micro Data 08/31/23 08:05 08/31/23 08:05 Assessment & Plan Assessment/Plan (1) Physical debility: (2) Hemothorax on right: (3) History of thoracic surgery: (4) Deep vein thrombosis: QUALIFIERS: Affected thrombotic vein of extremity: tibial Chronicity: acute DVT location: lower extremity Laterality: left Qualified Code(s): I82.442 - Acute embolism and thrombosis of left tibial vein PLAN: Left posterior tibial vein on US at [facility] (5) Pulmonary embolism: QUALIFIERS: Pulmonary embolism type: multiple subsegmental (without acute cor pulmonale) Qualified Code(s): I26.94 - Multiple subsegmental pulmonary emboli without acute cor pulmonale PLAN: RUL. She also had hx of PE in 2021 when she was admitted to the hospital with a bowel obstruction. (6) Acute blood loss anemia: (7) Hyperlipidemia: QUALIFIERS: Hyperlipidemia type: unspecified Qualified Code(s): E78.5 - Hyperlipidemia, unspecified (8) Neurogenic bladder: (9) ENHEMIAH on CPAP: (10) RBD (REM behavioral disorder): PLAN: Will continue Klonopin at (11) Parkinson's disease: QUALIFIERS: Dyskinesia presence: unspecified whether dyskinesia Fluctuating manifestations: unspecified whether manifestations fluctuate Qualified Code(s): G20.A1 - Parkinson's disease without dyskinesia, without mention of fluctuations PLAN: Has [address] She follows at the [facility] or [facility]. (12) Essential hypertension: (13) Ribs, multiple fractures: QUALIFIERS: Encounter type: subsequent encounter Fracture type: closed Laterality: right PLAN: Plan PLAN PT for gait stability OT for ADL's ST for evaluation Analgesics as needed Bowel protocol Fall precautions Assess for Anxiety/Depression GI prophylaxis -not necessary at this time. She denies nausea/vomiting/epiga stric pain/heartburn. Hemoccult stool will be ordered and if it is positive we will then consider a PPI. DVT prophylaxis with heparin 5000 units SQ every 8 hours Follow up with Dr. Major, Dr. Archie Russ and [facility] neurology following DC from [facility] lab including CMP, CBC, Mag, Phos, TSH and T4 Straight cath for UA Hemoccult stool Will need to get in touch with Dr. Russ to find out when we can start anticoagulation for the subsegmental PE's......or if this is contraindicated should we be putting in an IVC filter Obtain the results of the venous US done of the legs at [facility]. Charges/Coding Visit Charges Inpatient E&M: 11596 Init Hosp L2
[2023-08-30 16:38] VITALS: BP 141/84; PULSE 73; RESP 17; TEMP 36.6; O2SAT 96
[2023-08-30 17:34] LABS: Mucous, Urine 0 SEEN /hpf (<or=2+); Red Blood Cells-Urine 0 SEEN /hpf (0-5); Squamous Epithelial Cells - UA 0 SEEN /hpf (5-10)
[2023-08-30 17:36] LABS: Color, Urine Yellow (Yellow); Glucose, Dipstick Normal (Normal); Ketone-Dipstick Negative (Negative); Leukocyte Esterase-Dipstick 500 /ul (Negative); Nitrite-Dipstick Negative (Negative); Occult Blood-Urine 10 /ul (Negative); Protein-Dipstick 15 mg/dl (Negative); Urine Bilirubin Dipstick Negative (Negative); Urine Clarity Sl. Cloudy (Clear); Urine Urobilinogen 1 mg/dl (Normal)
[2023-08-30] MEDS: Carbidopa/Levodopa 25/100 Tablet PO (17:55)
[2023-08-30 18:26] LABS: Bacteria 1+ /hpf (None Seen); White Blood Cells 50-100 SEEN /hpf (0-5)
[2023-08-30 20:00] VITALS: BP 134/78; PULSE 90; RESP 15; TEMP 36.2; O2SAT 96
[2023-08-30] MEDS: Menthol/Lanolin/Calamine/Znox 113 GM Tube 1 APPLIC TOPICAL (21:15)
[2023-08-30] MEDS: Nystatin Powder 15gm Bottle 1 APPLIC TOPICAL (21:15)
[2023-08-30] MEDS: Carvedilol 6.25 MG Tablet PO (21:15)
[2023-08-30] MEDS: Senna/Docusate Sodium 1 Tablet 2 TABLET PO (21:15)
[2023-08-30] MEDS: clonazePAM 0.5 MG Tablet PO (21:15)
[2023-08-30] MEDS: Heparin Injection (Vial) 5,000 UNIT/ML VIAL 5000 UNIT SC (21:15)
[2023-08-30 22:00] VITALS: BMI 27.4
--- NOTE | 2023-08-30 23:20 | NURSING ---
This nurse heard noise coming from patient's room and patient found on ground lying on back beside the trash can and bed. Patient denied pain, patient alert to self and place but forgetful per her baseline. Patient had full ROM, assisted x 2 to recliner and brought up to the desk for staff supervision. called and notified and spoke to patient. The reported she got confused at the other hospital this time of the night as well and the nurses there would call him. VS [id number] Right arm-97% RA. Neuro assessment WNL, speech per normal and PERRLA. No skin redness or bruising noted.
--- NOTE | 2023-08-30 23:45 | NURSING ---
Dr. Han notified, hospitalist, and CT scan brain no contrast ordered and patient taken down to CT by AP[employer]MENT [employer]INTENANCE.
--- NOTE | 2023-08-30 23:51 | CT_ITS ---
STUDY: CT BRAIN WITHOUT CONTRAST REASON FOR EXAM: Female, 67 years old. Headache status post fall RADIATION DOSAGE (If Supplied By Facility): CTDIvol = ( 44.99 ) mGy, DLP = ( 745.49 ) mGycm TECHNIQUE: Transaxial CT imaging of the brain was performed without administration of intravenous contrast material. Individualized dose optimization techniques were used for this CT. COMPARISON: No relevant priors. FINDINGS: Normal soft tissue structures. Extra-axial calcified lesion noted overlying the high left frontal lobe. Bilateral deep brain stimulators in place. There is mild cerebral atrophy with widening of the extra-axial spaces and ventricular dilatation. There is mild to moderate bilateral periventricular and subcortical white matter hypoattenuation which is symmetric in distribution. Well-defined hypoattenuated lesion in the right lateral basal ganglia. Normal thalami. Normal brainstem. Normal cerebellum. There is no intracranial hemorrhage. There are no findings of an acute ischemic infarction. Normal visualized paranasal sinuses. CT/Brain/Head without Contrast IMPRESSION: 1. No acute intracranial abnormality. 2. Mild bilateral periventricular and subcortical white matter and basal ganglial chronic small vessel disease with age appropriate cerebral atrophy. 3. Calcified meningioma overlying the high left frontal lobe. Electronically Signed: Efra Garcia MD at 1:04 EDT ,
[2023-08-31] MEDS: Menthol/Lanolin/Calamine/Znox 113 GM Tube 1 APPLIC TOPICAL (04:59)
[2023-08-31] MEDS: Heparin Injection (Vial) 5,000 UNIT/ML VIAL 5000 UNIT SC ×3 (05:00→22:02)
[2023-08-31] MEDS: Carbidopa/Levodopa 25/100 Tablet PO ×4 (05:44→18:02)
[2023-08-31 07:10] VITALS: O2SAT 95
[2023-08-31 08:10] VITALS: BP 122/64; PULSE 59; RESP 17; TEMP 37.1; O2SAT 96
[2023-08-31 08:29] LABS: Absolute Lymphocyte Count 0.98 X10^3/uL (0.83-4.51); Absolute Neutrophil Count 5.7 X10^3/uL (2.0-7.7); Basophil# 0.03 X10^3/uL; Basophil% 0.4 % (0-1); Eosinophil# 0.34 X10^3/uL; Eosinophils% 4.5 % (0-5); Hemoglobin 11.6 g/dL (12.0-15.0); Lymphocyte # 0.98 X10^3/ul (0.83-4.51); Lymphocyte % 12.9 % (19-41); Mean Corp Hgb Conc 31.4 g/dL (32-36); Mean Corpuscular Hgb 30.8 pg (27.0-32.0); Mean Corpuscular Volume 98.1 fL (81-99); Mean Platelet Vol. 10.3 fl (6.2-12.0); Monocyte# 0.52 X10^3/uL; Monocyte% 6.8 % (0-10); NRBC Flagged by Analyzer 0 % (0-5); Neutrophil # 5.68 X10^3/uL (2.7-7.7); Neutrophil % 74.7 % (47-70); Platelet Count 294 K/mm3 (150-450); RBC Distribution Width CV 14.1 % (11.6-14.6); RBC Distribution Width SD 50.8 fl (35.1-43.9); Red Blood Count 3.77 M/mm3 (4.2-5.4); White Blood Count 7.6 K/mm3 (4.4-11.0)
[2023-08-31 09:31] LABS: ALB/GLOB Ratio 0.8 RATIO (0.9-2.4); AST(SGOT) 20 U/L (15-37); Alanine Aminotransfer ALT/SGPT 12 U/L (13-56); Albumin, Serum 2.7 g/dL (3.2-5.0); Alkaline Phosphatase 164 U/L (45-117); Anion Gap 5 (5-15); BUN 19 mg/dL (7-18); BUN/Creat Ratio 22.5 RATIO (10-20); Calcium,Total 9.6 mg/dL (8.5-10.1); Chloride 107 mmol/L (98-107); Creatinine, Serum 0.84 mg/dL (0.55-1.02); EST Glomerular Filtration Rate 71 mL/min (>60); Est Glom Filt Rate - Afr Amer 86 mL/min (>60); Estimated Creatinine Clearance 60.27 ml/min; Globulin 3.4 g/dL (2.2-4.2); Glucose 125 mg/dL (74-106); Magnesium 2.4 mg/dL (1.6-2.6); Phosphorus 2.8 mg/dL (2.5-4.9); Potassium 3.8 mmol/L (3.5-5.1); Protein, Total 6.1 g/dL (6.4-8.2); Sodium Level 141 mmol/L (136-145); T4 Free Direct 1.16 ng/dL (0.76-1.46)
[2023-08-31] MEDS: Carvedilol 6.25 MG Tablet PO ×2 (09:40→22:02)
[2023-08-31] MEDS: Multivitamins,Therapeutic Tablet 1 TABLET PO (09:40)
[2023-08-31] MEDS: Vibegron 75 MG TABLET PO (09:40)
[2023-08-31] MEDS: Senna/Docusate Sodium 1 Tablet 2 TABLET PO ×2 (09:41→22:02)
[2023-08-31] MEDS: Ascorbic Acid 500 MG Tablet PO (09:42)
[2023-08-31] MEDS: Cyanocobalamin 500 MCG Tablet PO (09:43)
[2023-08-31] MEDS: Nystatin Powder 15gm Bottle 1 APPLIC TOPICAL (09:43)
--- NOTE | 2023-08-31 09:56 | PCM.RU.PYE ---
Admission Information Primary Diagnosis:: physical debility Status Changes from Prescreening?: Medical (she has a UTI) Actual Problem List:: UTI, Pain, ALteration in Cmfrt, Depression, Alteration in Sleep, Mobility Impaired, Self Care Deficit, Know.Dfct/Disease Process and Alteration-Leisure Activ. Risk of Complications DVT: RAJ Michaud Bleeding: Monitor Lab Values, Nursing to Teach Precautions for anti-coagulation therapy., Wound, if applicable, to be assessed every shift. and Stroke patients assessed for lethargy or change in status. Infection: Clinical Staff to Monitor for S/S of infection: and S/S of infection include fever, redness, warmth, etc. Urinary Tract Infection: Monitor for frequency, burning, discomfort, or incontinence. and Nursing will obtain urine sample for urinalysis and C&S when ordered. Aspiration: Clinical staff will monitor for coughing, drooling, congestion., Speech will evaluate swallowing and dsyphasia. and Nursing will monitor patient swallowing during meals. Falls: Patient will be evaluated for Fall Precautions and Patient will be placed on Fall Precautions as indicated per protocol. Skin Breakdown: Nursing will assess skin daily using assessment tool. and Nursing will place on Skin Breakdown Precautions as indicated. Pain: Clinical staff will assess patient's pain level per protocol., Medications will be given, if needed, and the pain level reassessed. and Other methods: Massage, distraction, decrease stimulus, etc. used PRN. Plan of Care Patient requires physician specializing in physical medicine and rehab oversight to provide close medical supervision of rehab issues including: Pain Management, Sleep Problems, Bowel and Bladder, Medical and co-morbidity Management, DVT prophylaxis, Rehabilitation Leadership and Coordination of treatment team Patient needs Physical Therapy: For a minimum of 1 hour and At least 5 out of 7 days Patient needs Physical Therapy to improve:: Mobility, Strengthening, Transfers, Stretching, ROM, Endurance, Stairs, Gait and Balance Patient needs Occupational Therapy: For a minimum of 1 hour and At least 5 out of 7 days Patient needs Occupational Therapy to improve ADL's incl.: Eating, Grooming, Bathing, Dressing, Toileting, Toilet transfers, Community Reintegration, Higher functioning activities, Household tasks, Adaptive Equipment, Splinting and Other activities as determined Patient requires speech therapy: For a minimum of 1 hour and At least 5 out of 7 days Patient requires speech therapy for: Swallowing, Cognition, Language Skills and Compensatory Strategies Patient requires 24/7 Rehabilitation Nursing for: Pain Issues, Identifying and preventing risk factors, Monitoring and reporting current medical conditions, Assisting with ambulation, transfer, and all ADL's, Teaching patients about disease process and medications, Family teaching, Providing safe environment, Bowel and Bladder Issues, Skin integrity and Medication Management Patient needs Dishwashing Machine Repairer/ Case Management for: Discharge Planning, Arranging Home Equipment or Services and Family Interventions Patient needs Dietary and Nutrition Services for: Adequate Nutrition, Nutritional Supplements and Nutritional Education Goals Goals Patient will remain: free from falls Patient will perform eating at: MOD I level of assist. Patient will perform bed mobility at: MOD I level of assist. Patient will complete transfers from bed to chair at: Standby Assist. Patient will ambulate: - (350 feet with least restrictive device at standby assist on various surfaces) Patient will complete upper body dressing at: - (Set up) Patient will complete lower body dressing at: - (Supervision with adaptive equipment as needed) Patient will complete toilet transfer at: - (Supervision) Patient will complete toileting at: - (Supervision) Patient will perform bathing at: - (Upper body bathing at set up and lower body bathing at supervision with adaptive equipment as needed) Patient will perform Tub/Shower transfer at: Standby Assist. Patient will complete grooming at: - (Supervision) Patient will achieve: 12 stairs (With 1 handrail at standby assist to allow access to the basement shower) Patient will have pain level of: of 3 or less Patient's skin will: remain intact Patient will receive: adequate nutrition. Discharge Planning Pt Prognosis for Sig. Practical Improv. w/in Reasonable Time: Good Estimated Length of stay (days): 21 Anticipated D/C Destination: Home w/ family or friends Was Preadmission Assessment Accurate?: Yes
--- NOTE | 2023-08-31 09:57 | PN_ITS ---
Subjective Subjective Afebrile VSS Maintaining appropriate oxygen saturation on RA Oral intake - FOOD she had 75 to 100% of her dinner last night and ate 50 to 74% of breakfast. FLUIDS I&O ordered Discussed with nursing - fell out of bed yesterday. Not injured. She gets more confused at night and the nurses had her sitting out at the nurses station so they could watch her. CT head did not show any acute changes. there is a ca lcified meningioma in the Left frontal lobe that has been there in the past. Reviewed the THERAPY notes Medication list reviewed. All lab from this morning was personally reviewed. The white blood cell count is normal at 7.6. Hemoglobin is stable at 11.6. She has normochromic normocytic indices but the RDW is increased. BUN is 19 with a creatinine of 0.84 and a BUN/creatinine ratio of 22.5. Calcium corrected for hypoalbuminemia is 10.6 which is elevated. AP is mildly elevated and this is chronic. FBS is 125 today. UA showed 50-100 WBCs per high-power field and 1+ bacteria. This was a catheterized specimen. It was nitrite negative. She has grown E. coli in the past which has been resistant to ampicillin/Augmentin and intermediately sensitive to cefazolin. Urine culture is pending. Much more alert today than when I saw her yesterday. She is c/o pain in the R side with movement. She has not taken any hydrocodone since admission to rehab and has not had any acetaminophen either. I suspect the [place] makes her drowsy and more confused.....this is how she was at admission yesterday. She denies upper CP, pain with a deep breath, SOB, palpitations, N/V/Abd pain, calf t enderness. Has some burning with urination which she was able to tell me about yesterday. She also c/o suprapubic pain yesterday and she denies this today. Objective Data Objective Data Vital Signs: Vital Signs Temp Pulse Resp BP Pulse Ox O2 Del Method 98.7 F 59 L 17 122/64 H 96 Room Air 08/31/23 08:10 08/31/23 08:10 08/31/23 08:10 08/31/23 08:10 08/31/23 08:10 08/31/23 08:10 Oxygen Delivery Method Room Air Weight: 155 lb Body Mass Index (BMI) 27.4 Intake & Output: Intake and Output for Last 24 Hours 08/29/23 08/30/23 08/31/23 23:59 23:59 23:59 Output Total 400 / 400 150 / 150 Balance -400 / -400 -150 / -150 Lab / Micro Data 08/31/23 08:05 08/31/23 08:05 Labs: Laboratory Results - last 24 hr 08/30/23 17:20: Urine Color Yellow, Urine Clarity Sl. Cloudy, Urine pH 7.0, Ur Specific Denio 1.010, Urine Protein 15 H, Urine Glucose (UA) Normal, Urine Ketones Negative, Urine Occult Blood 10 H, Urine Nitrite Negative, Urine Bilirubin Negative, Urine Urobilinogen 1 H, Ur Leukocyte Esterase 500 H, Urine RBC 0 SEEN, Urine WBC 50-100 SEEN, Ur Squamous Epith Cells 0 SEEN, Urine Bacteria 1+, Urine Mucus 0 SEEN 08/31/23 08:05: WBC 7.6, RBC 3.77 L, Hgb 11.6 L, Hct 37.0, MCV 98.1, MCH 30.8, MCHC 31.4 L, RDW Std Deviation 50.8 H, RDW Coeff of Carie 14.1, Plt Count 294, MPV 10.3, Immature Gran % (Auto) 0.700, Neut % (Auto) 74.7 H, Lymph % (Auto) 12.9 L, Cloud % (Auto) 6.8, Eos % (Auto) 4.5, Baso % (Auto) 0.4, Absolute Neuts (auto) 5.7, Absolute Lymphs (auto) 0.98, Nucleated RBC % 0, Sodium 141, Potassium 3.8, Chloride 107, Carbon Dioxide 29.0, Anion Gap 5, BUN 19 H, Creatinine 0.84, Estim Creat Clear Calc 60.27, Est GFR (MDRD) Af Amer 86, Est GFR (MDRD) Non-Af 71, BUN/Creatinine Ratio 22.5 H, Glucose 125 H, Calcium 9.6, Phosphorus 2.8, Magnesium 2.4, Total Bilirubin 0.50, AST 20, ALT 12 L, Alkaline Phosphatase 164 H, Total Protein 6.1 L, Albumin 2.7 L, Globulin 3.4, Albumin/Globulin Ratio 0.8 L, TSH 2.70, Free T4 1.16 Radiography Diagnostic Testing: Radiology Impression Brain CT 08/30/23 23:51 IMPRESSION: 1. No acute intracranial abnormality. 2. Mild bilateral periventricular and subcortical white matter and basal ganglial chronic small vessel disease with age appropriate cerebral atrophy. 3. Calcified meningioma overlying the high left frontal lobe. Electronically Signed: Efra Garcia MD at 1:04 EDT , Physical Exam Const Constitutional Narrative: more alert today. She cooperated with therapy but, she fatigues easily. I suspect she has been decompensating over the past 6 weeks......when she first fell and broke her ribs. HEENT head/scalp atraumatic Mouth: dry mucous membranes Resp Resp Narrative: coarse crackles in both bases that persist after a few deep breaths. No wheezing. Not tachypneic. breathing is not labored. Cardio regular rate, regular rhythm and no gallops GI normal to inspection, nondistended, normoactive bowel sounds, soft to palpation and non-tender GI Narrative: Mildly tympanic. No guarding with palpation. Extremity no calf tenderness General Extremity: Negative for edema Skin General Skin Exam: no breakdown Rashes: no rashes Wound Narrative: She has 2 puncture wounds in the R lateral chest. They are both healing. There is no DC from either wound. No significant swelling. One of the wounds has a dry eschar. Neuro Neuro Narrative: Masked facies. Some rigidity and bradykinesia. Speaks softly and does not open her mouth much. Voice does not project well. Shuffling gait. Poor exercise tolerance. No tremor at rest. Psych cooperative Psych Narrative: Flat affect. Impulsive...tries to get up and out of the bed without calling the nurses. CAn not remember to use the call light. Attitude: No agitated Assessment & Plan Assessment/Plan (1) Physical debility: (2) Hemothorax on right: (3) History of thoracic surgery: (4) Deep vein thrombosis: QUALIFIERS: DVT location: lower extremity Affected thrombotic vein of extremity: tibial Chronicity: acute Laterality: left Qualified Code(s): I82.442 - Acute embolism and thrombosis of left tibial vein PLAN: Left posterior tibial vein on US at [facility] (5) Pulmonary embolism: QUALIFIERS: Pulmonary embolism type: multiple subsegmental (without acute cor pulmonale) Qualified Code(s): I26.94 - Multiple subsegmental pulmonary emboli without acute cor pulmonale PLAN: RUL. She also had hx of PE in 2021 when she was admitted to the hospital with a bowel obstruction. (6) Acute blood loss anemia: (7) RBD (REM behavioral disorder): PLAN: Will continue Klonopin at (8) Parkinson's disease: QUALIFIERS: Dyskinesia presence: unspecified whether dyskinesia Fluctuating manifestations: unspecified whether manifestations fluctuate Qualified Code(s): G20.A1 - Parkinson's disease without dyskinesia, without mention of fluctuations PLAN: Has [address] She follows at the [facility] or [facility]. (9) Ribs, multiple fractures: QUALIFIERS: Encounter type: subsequent encounter Fracture type: closed Laterality: right (10) Cystitis: PLAN: Plan 1. Continue therapy 2. Order venous ultrasounds of both lower extremities to see if the DVT is propagating. We are awaiting the results of a venous US done at the previous hospital.....reported in the notes to be in the posterior tibial vein. She was on heparin 5,000 units TID at the previous hospital. Pulse ox is good and she denies SOB and CP. she has had a DVT/PE in the past when she was hospitalized in 2021 for a bowel obstruction. She was anticoagulated at the time. D- Dimer on 08/20/23 was 4.72. 3. FBS is elevated. Will check a HGBA1C. 4. Start nitrofurantoin 100 mg mg BID and await the results of the urine c ulture. The E. Coli she grew in the past was susceptible to Nitrofurantoin. 5. Has not been asking for pain medication but, she was in obvious pain following PT. Will schedule Tylenol. DC [place] because it makes her very drowsy and transition to Tramadol 25 mg TID for a few days. Charges/Coding Visit Charges Inpatient E&M: 48651 Subs Hosp L1
--- NOTE | 2023-08-31 10:07 | VDLE_ITS ---
Reason For Study: HX LLE DVT RIGHT LEFT GSV is normal. GSV is normal. CFV is compressible, spontaneous, phasic, CFV is compressible, spontaneous, phasic, competent and demonstrates normal competent, and demonstrates normal augmentation. augmentation. FV is compressible, spontaneous, phasic, FV is compressible, spontaneous, phasic, competent and demonstrates normal competent and demonstrates normal augmentation. augmentation. POP V is compressible, spontaneous, phasic, POP V is compressible, spontaneous, and competent and demonstrates normal phasic. augmentation. T/P Trunk is compressible. T/P Trunk is compressible. Acute deep vein thrombosis is noted in the PTV is compressible. PTV. It is dilated and NONCOMPRESSIBLE. RT PerV is compressible. LT PerV is compressible. Non vascularized anechoic area noted in Rt Pop Fossa measuring approximately 5.40cm x 1.03cm. Procedure This is a venous duplex using B-mode, color flow and spectral Doppler. Exam performed portable in patient room. The exam was diagnostic. A preliminary report was called and/or faxed to Dr. Birmingham. VL/Venous Duplex US - Robert Extrem Interpretation Summary Acute deep vein thrombosis is noted in the left posterior tibial vein. Deep veins of the right lower extremity are patent and compressible segmentally . There is no evidence of right lower extremity deep vein thrombosis. The bilateral great sap henous veins appear patent and compressible segmentally. Non vascularized anechoic area noted in right popliteal fossa measuring approxi mately 5.40cm x 1.03cm. Ordering Physician: Alyssa Birmingham Referring Physician: Abdullahi Major Performed By: Gwyn Meyers RVT
[2023-08-31 10:40] VITALS: BP 125/61; PULSE 86; O2SAT 100
[2023-08-31 10:53] LABS: Hemoglobin A1c 5.2 % (3.8-5.6)
--- NOTE | 2023-08-31 11:30 | NURSING ---
pt personal alarm went off, when staff entered room pt was attempting to get out of recliner. pt educated on the need to call staff for help. pt assisted to BSC than taking to therapy room for lunch. Pt than refused lunch and kept pushing recliner away from table and attempting to stand up on her own. pt was moved to the nurses station for supervision.
[2023-08-31] MEDS: Nitrofurantoin Macrocrystals 100 MG Capsule PO ×2 (12:15→22:02)
--- NOTE | 2023-08-31 13:00 | NURSING ---
pt bed alarm going off, when staff entered room pt was attempting to get out of bed on her own. Pt educated on the need for her to use call light and call for assistance to avoid falling. pt was placed in recliner and taking to sit at the nurses station for supervision.
[2023-08-31] MEDS: Acetaminophen 500 MG Tablet 1000 MG PO ×2 (13:52→22:02)
[2023-08-31] MEDS: traMADol 50 MG Tablet 25 MG PO ×2 (13:54→22:05)
--- NOTE | 2023-08-31 15:54 | CASEMGMT ---
Social Work SW met with patient to complete admission assessment. Pt was laying in bed. She did answer questions but generally kept eyes shut and this worker did have to repeat questions at times. Staff stated patient has not been sleeping well. SW educated patient to insurance coverage and NRD 09/07/23. Pt stated she would like to go home with but would be open to SNF placement if needed. She stated she has been in nursing homes before and did not have a preference. SW will continue to provide support and assist with DC planning. Sejal MARTINEZ
[2023-08-31 19:23] VITALS: BP 159/71; PULSE 96; RESP 12; TEMP 36.6; O2SAT 96
[2023-08-31] MEDS: Atorvastatin Calcium 10 MG Tablet PO (22:02)
[2023-08-31] MEDS: clonazePAM 0.5 MG Tablet PO (22:05)
--- NOTE | 2023-08-31 23:47 | NURSING ---
2250 pt awake and noncompliant. attempted to give pills with applesauce and she was not swallowing them. she then swallowed with water. pt was continually trying to get out of bed. redirection provided. shirring tender sat with pt about 15 min and she did go to sleep. bed alarms on.
[2023-09-01] MEDS: Carbidopa/Levodopa 25/100 Tablet PO ×4 (06:05→17:59)
[2023-09-01] MEDS: Acetaminophen 500 MG Tablet 1000 MG PO ×3 (06:05→20:14)
[2023-09-01] MEDS: Heparin Injection (Vial) 5,000 UNIT/ML VIAL 5000 UNIT SC ×3 (06:05→20:16)
[2023-09-01] MEDS: traMADol 50 MG Tablet 25 MG PO ×3 (06:07→20:14)
[2023-09-01] MEDS: Menthol/Lanolin/Calamine/Znox 113 GM Tube 1 APPLIC TOPICAL ×2 (06:10→20:16)
[2023-09-01 07:24] VITALS: BP 119/61; PULSE 71; RESP 18; TEMP 36.9; O2SAT 94
[2023-09-01] MEDS: Senna/Docusate Sodium 1 Tablet 2 TABLET PO (07:53)
[2023-09-01] MEDS: Carvedilol 6.25 MG Tablet PO ×2 (07:53→20:14)
[2023-09-01] MEDS: Multivitamins,Therapeutic Tablet 1 TABLET PO (07:53)
[2023-09-01] MEDS: Vibegron 75 MG TABLET PO (07:54)
[2023-09-01] MEDS: Cyanocobalamin 500 MCG Tablet PO (07:54)
[2023-09-01] MEDS: Nitrofurantoin Macrocrystals 100 MG Capsule PO ×2 (07:54→20:14)
[2023-09-01] MEDS: Ascorbic Acid 500 MG Tablet PO (07:56)
[2023-09-01] MEDS: Nystatin Powder 15gm Bottle 1 APPLIC TOPICAL ×2 (07:59→20:16)
[2023-09-01 19:31] VITALS: BP 120/70; PULSE 70; RESP 16; TEMP 36.3; O2SAT 95
[2023-09-01] MEDS: clonazePAM 0.5 MG Tablet PO (20:14)
[2023-09-02] MEDS: Acetaminophen 500 MG Tablet 1000 MG PO ×3 (05:16→21:36)
[2023-09-02] MEDS: Heparin Injection (Vial) 5,000 UNIT/ML VIAL 5000 UNIT SC ×3 (05:16→21:36)
[2023-09-02] MEDS: Carbidopa/Levodopa 25/100 Tablet PO ×4 (05:16→18:03)
[2023-09-02] MEDS: traMADol 50 MG Tablet 25 MG PO ×3 (05:16→21:35)
[2023-09-02] MEDS: Menthol/Lanolin/Calamine/Znox 113 GM Tube 1 APPLIC TOPICAL ×2 (05:28→21:37)
--- NOTE | 2023-09-02 06:49 | NURSING ---
Dressing to right flank changed per order.
[2023-09-02 07:45] VITALS: BP 147/62; PULSE 82; RESP 17; TEMP 36.9; O2SAT 94
[2023-09-02] MEDS: Nitrofurantoin Macrocrystals 100 MG Capsule PO ×2 (07:54→21:36)
[2023-09-02] MEDS: Carvedilol 6.25 MG Tablet PO ×2 (07:54→21:36)
[2023-09-02] MEDS: Multivitamins,Therapeutic Tablet 1 TABLET PO (07:54)
[2023-09-02] MEDS: Cyanocobalamin 500 MCG Tablet PO (07:54)
[2023-09-02] MEDS: Ascorbic Acid 500 MG Tablet PO (07:54)
[2023-09-02] MEDS: Vibegron 75 MG TABLET PO (07:54)
[2023-09-02] MEDS: Nystatin Powder 15gm Bottle 1 APPLIC TOPICAL ×2 (07:57→21:37)
[2023-09-02 20:02] VITALS: BP 126/66; PULSE 85; RESP 17; TEMP 36.6; O2SAT 96
[2023-09-02] MEDS: Atorvastatin Calcium 10 MG Tablet PO (21:35)
[2023-09-02] MEDS: clonazePAM 0.5 MG Tablet PO (21:35)
[2023-09-03] MEDS: Acetaminophen 500 MG Tablet 1000 MG PO ×3 (06:15→20:37)
[2023-09-03] MEDS: Heparin Injection (Vial) 5,000 UNIT/ML VIAL 5000 UNIT SC ×3 (06:16→20:37)
[2023-09-03] MEDS: Menthol/Lanolin/Calamine/Znox 113 GM Tube 1 APPLIC TOPICAL ×2 (06:16→20:39)
[2023-09-03] MEDS: traMADol 50 MG Tablet 25 MG PO ×3 (06:16→20:38)
[2023-09-03] MEDS: Carbidopa/Levodopa 25/100 Tablet PO ×4 (06:16→17:50)
[2023-09-03 07:28] VITALS: BP 152/77; PULSE 76; RESP 17; TEMP 36.6; O2SAT 95
--- NOTE | 2023-09-03 09:27 | PCM.PROGNOTE ---
Subjective Subjective Jojo was seen on team rounds today. Her was present in the room for rounds. All questions asked were appropriately answered. Day #4/5 for E. Coli UTI. Afebrile VSS Maintaining appropriate oxygen saturation on RA Oral intake - FOOD good FLUIDS adequate, improved Discussed with nursing - no problems that need addressed. Slept well last night. Refused CPAP but was amenable to wearing 2 L of nasal O2. Reviewed the THERAPY notes Medication list reviewed. Stool for occult blood was negative. The urine culture grew only 1,000 colonies of E. Coli but, since the antibiotics were started her mentation has improved and she has not been getting agitated. Jojo denies lightheadedness, cephalgia, cough, shortness of breath, chest pain, nausea/vomiting, dysuria and suprapubic pain. She also denies calf pain. She is sleeping better at night. She has been taking tramadol 25 mg p.o. 3 times daily and she has not complained of chest pain or rib pain since this was started. In another few days will decrease to twice daily but continue the acetaminophen 1000 mg p.o. every 8 hours. No report on the venous US in the EMR but, the tech told me on Sunday that she had a small clot in the posterior tibial Vein in the mid calf. Objective Data Objective Data Vital Signs: Vital Signs Temp Pulse Resp BP Pulse Ox O2 Del Method 97.8 F 76 17 152/77 H 95 Room Air 09/03/23 07:28 09/03/23 07:28 09/03/23 07:28 09/03/23 07:28 09/03/23 07:28 09/03/23 07:28 Oxygen Delivery Method Room Air Weight: 155 lb 0.006 oz Body Mass Index (BMI) 27.4 Intake & Output: Intake and Output for Last 24 Hours 09/01/23 09/02/23 09/03/23 23:59 23:59 23:59 Intake Total 1295 / 1295 1400 / 1400 Output Total 900 / 900 950 / 1350 550 / 550 Balance 395 / 395 450 / 50 -550 / -550 Lab / Micro Data 08/31/23 08:05 08/31/23 08:05 Micro: Microbiology 09/01/23 15:00 Stool Stool Occult Blood (JUDI) - Final 08/30/23 17:20 Urine, Catheterized Urine Culture - Final Escherichia coli Physical Exam Const alert Constitutional Narrative: Cooperative. Her voice is stronger and it is projecting better. She is pleasant and more talkative today. HEENT Mouth: dry mucous membranes Resp Resp Narrative: Coarse crackles in the left base only. She is not tachypneic and she has no conversational dyspnea. Cardio regular rhythm and no gallops Cardio Narrative: Frequent ectopy. Extremity no calf tenderness General Extremity: Negative for edema Skin Rashes: no rashes Wound Narrative: wounds are healing with no erythema and no DC. Neuro Neuro Narrative: pleasant and cooperative today. Not restless and not agitated. Assessment & Plan Assessment/Plan (1) Physical debility: (2) Hemothorax on right: (3) History of thoracic surgery: (4) Deep vein thrombosis: QUALIFIERS: Affected thrombotic vein of extremity: tibial Chronicity: acute DVT location: lower extremity Laterality: left Qualified Code(s): I82.442 - Acute embolism and thrombosis of left tibial vein PLAN: Left posterior tibial vein on US at [facility] (5) Pulmonary embolism: QUALIFIERS: Pulmonary embolism type: multiple subsegmental (without acute cor pulmonale) Qualified Code(s): I26.94 - Multiple subsegmental pulmonary emboli without acute cor pulmonale PLAN: RUL. She also had hx of PE in 2021 when she was admitted to the hospital with a bowel obstruction. (6) Acute blood loss anemia: (7) RBD (REM behavioral disorder): PLAN: Will continue Klonopin at (8) Parkinson's disease: QUALIFIERS: Dyskinesia presence: unspecified whether dyskinesia Fluctuating manifestations: unspecified whether manifestations fluctuate Qualified Code(s): G20.A1 - Parkinson's disease without dyskinesia, without mention of fluctuations PLAN: Has [address] She follows at the [facility] or [facility]. (9) Ribs, multiple fractures: QUALIFIERS: Encounter type: subsequent encounter Fracture type: closed Laterality: right (10) Cystitis: PLAN: Secondary to E. coli. PLAN: Plan 1. Continue therapy 2. Continue nitrofurantoin, she has 3 doses left. 3. With the scheduled tramadol and acetaminophen she is no longer complaining of pain in her ribs or right chest. She did complain of some knee pain today and would utilize some compounded arthritis cream twice a day to help with this. 4. Continue heparin 5000 units subcu every 8 hours until discharge but no plans for chronic anticoagulation post discharge. Would recommend that in 2 weeks post discharge she have a venous ultrasound of the left leg to make sure the clot is not propagating off heparin. Charges/Coding Visit Charges Inpatient E&M: 69171 Subs Hosp L2
[2023-09-03] MEDS: Multivitamins,Therapeutic Tablet 1 TABLET PO (09:38)
[2023-09-03] MEDS: Cyanocobalamin 500 MCG Tablet PO (09:38)
[2023-09-03] MEDS: Nitrofurantoin Macrocrystals 100 MG Capsule PO ×2 (09:38→20:38)
[2023-09-03] MEDS: Vibegron 75 MG TABLET PO (09:38)
[2023-09-03] MEDS: Carvedilol 6.25 MG Tablet PO ×2 (09:38→20:38)
[2023-09-03] MEDS: Ascorbic Acid 500 MG Tablet PO (09:39)
[2023-09-03] MEDS: Nystatin Powder 15gm Bottle 1 APPLIC TOPICAL ×2 (09:42→20:39)
--- NOTE | 2023-09-03 15:50 | CASEMGMT ---
Social Work IDT met with patient and for Team Meeting. Discuss patient's prgoress in PT/OT/ST/SN. Educated to [employer] benefits with NRD of 09/07/23. Pt is doing much better and is beginning to make progress in therapy. DC plans discussed. Pt and would like for her to return home at discharge but would be open to SNF placement if needed. SW will provide list of SNF's to . SW will continue to follow. Sejal MARTINEZ
[2023-09-03 19:55] VITALS: BP 134/76; PULSE 60; RESP 14; TEMP 36.5; O2SAT 96
[2023-09-03] MEDS: clonazePAM 0.5 MG Tablet PO (20:38)
--- NOTE | 2023-09-04 01:35 | NURSING ---
Reviewed and agree with Chapin CASAS, documentation and assessment charting.
[2023-09-04] MEDS: Menthol/Lanolin/Calamine/Znox 113 GM Tube 1 APPLIC TOPICAL ×2 (05:00→21:22)
[2023-09-04] MEDS: Heparin Injection (Vial) 5,000 UNIT/ML VIAL 5000 UNIT SC ×3 (05:00→21:24)
[2023-09-04] MEDS: Carbidopa/Levodopa 25/100 Tablet PO ×4 (05:00→18:01)
[2023-09-04] MEDS: Acetaminophen 500 MG Tablet 1000 MG PO ×3 (05:00→21:22)
[2023-09-04] MEDS: traMADol 50 MG Tablet 25 MG PO ×3 (05:01→21:25)
[2023-09-04 07:54] VITALS: BP 146/63; PULSE 56; RESP 17; TEMP 36.5; O2SAT 95
[2023-09-04] MEDS: Carvedilol 6.25 MG Tablet PO ×2 (09:19→21:23)
[2023-09-04] MEDS: Nitrofurantoin Macrocrystals 100 MG Capsule PO ×2 (09:19→21:23)
[2023-09-04] MEDS: Ascorbic Acid 500 MG Tablet PO (09:19)
[2023-09-04] MEDS: Vibegron 75 MG TABLET PO (09:19)
[2023-09-04] MEDS: Senna/Docusate Sodium 1 Tablet 2 TABLET PO (09:20)
[2023-09-04] MEDS: Multivitamins,Therapeutic Tablet 1 TABLET PO (09:20)
[2023-09-04] MEDS: Nystatin Powder 15gm Bottle 1 APPLIC TOPICAL ×2 (09:20→21:25)
[2023-09-04] MEDS: Cyanocobalamin 500 MCG Tablet PO (09:23)
[2023-09-04 21:15] VITALS: BP 128/63; PULSE 77; RESP 15; TEMP 36.8; O2SAT 97
[2023-09-04] MEDS: Atorvastatin Calcium 10 MG Tablet PO (21:23)
[2023-09-04] MEDS: clonazePAM 0.5 MG Tablet PO (21:24)
[2023-09-05] MEDS: Heparin Injection (Vial) 5,000 UNIT/ML VIAL 5000 UNIT SC ×3 (05:26→20:42)
[2023-09-05] MEDS: Acetaminophen 500 MG Tablet 1000 MG PO ×3 (05:26→20:43)
[2023-09-05] MEDS: Menthol/Lanolin/Calamine/Znox 113 GM Tube 1 APPLIC TOPICAL ×2 (05:27→20:49)
[2023-09-05] MEDS: Carbidopa/Levodopa 25/100 Tablet PO ×4 (05:27→18:02)
[2023-09-05] MEDS: traMADol 50 MG Tablet 25 MG PO ×3 (05:27→20:45)
[2023-09-05 07:20] VITALS: BP 151/76; PULSE 85; RESP 17; TEMP 36.8; O2SAT 96
[2023-09-05] MEDS: Cyanocobalamin 500 MCG Tablet PO (10:01)
[2023-09-05] MEDS: Vibegron 75 MG TABLET PO (10:01)
[2023-09-05] MEDS: Multivitamins,Therapeutic Tablet 1 TABLET PO (10:02)
[2023-09-05] MEDS: Carvedilol 6.25 MG Tablet PO ×2 (10:02→20:42)
[2023-09-05] MEDS: Ascorbic Acid 500 MG Tablet PO (10:02)
[2023-09-05] MEDS: Nystatin Powder 15gm Bottle 1 APPLIC TOPICAL ×2 (10:07→20:50)
[2023-09-05 20:06] VITALS: BP 149/66; PULSE 80; RESP 16; TEMP 36.4; O2SAT 98
[2023-09-05] MEDS: Senna/Docusate Sodium 1 Tablet 2 TABLET PO (20:47)
[2023-09-05] MEDS: clonazePAM 0.5 MG Tablet PO (20:49)
[2023-09-06] MEDS: Acetaminophen 500 MG Tablet 1000 MG PO ×3 (05:19→21:48)
[2023-09-06] MEDS: Carbidopa/Levodopa 25/100 Tablet PO ×4 (05:20→18:01)
[2023-09-06] MEDS: Heparin Injection (Vial) 5,000 UNIT/ML VIAL 5000 UNIT SC ×3 (05:20→21:48)
[2023-09-06] MEDS: Menthol/Lanolin/Calamine/Znox 113 GM Tube 1 APPLIC TOPICAL ×2 (05:25→20:16)
[2023-09-06] MEDS: traMADol 50 MG Tablet 25 MG PO (06:55)
[2023-09-06] MEDS: Ascorbic Acid 500 MG Tablet PO (07:43)
[2023-09-06] MEDS: Cyanocobalamin 500 MCG Tablet PO (07:43)
[2023-09-06] MEDS: Multivitamins,Therapeutic Tablet 1 TABLET PO (07:43)
[2023-09-06] MEDS: Senna/Docusate Sodium 1 Tablet 2 TABLET PO ×2 (07:43→21:48)
[2023-09-06] MEDS: Carvedilol 6.25 MG Tablet PO (07:43)
[2023-09-06] MEDS: Vibegron 75 MG TABLET PO (07:43)
[2023-09-06] MEDS: Nystatin Powder 15gm Bottle 1 APPLIC TOPICAL ×2 (07:44→21:52)
[2023-09-06 07:47] VITALS: BP 150/80; PULSE 80; RESP 17; TEMP 36.6; O2SAT 96
--- NOTE | 2023-09-06 09:23 | PCM.PROGNOTE ---
Subjective Subjective Afebrile VSS-systolic blood pressure is often elevated but, diastolic is within goal. Heart rate is within normal limits. Maintaining appropriate oxygen saturation on RA Oral intake - FOOD taking 50 to 100% of her meals. FLUIDS needs a lot of encouragement to keep oral fluid intake above 1000. Incontinent of urine at times. Having a bowel movement every other day. Discussed with nursing - Did not sleep well last night. Did not fall asleep until 1 AM and then awoke at 3 AM and 5 AM to urinate. Was fixated on doing the laundry. Klonopin was given early at 8:45 PM. Seems weaker today OR it may be due to having a different therapist today. Reviewed the THERAPY notes Medication list reviewed. C/O lightheadedness when sitting up and standing up. Denies pain, SOB, palpitations, N/V/abd pain, dysuria and calf pain. BUN/creatinine ratio is consistently elevated. Her only antihypertensive is Coreg 6.25 mg daily. Objective Data Objective Data Vital Signs: Vital Signs Temp Pulse Resp BP Pulse Ox O2 Del Method 97.8 F 80 17 150/80 H 96 Room Air 09/06/23 07:47 09/06/23 07:47 09/06/23 07:47 09/06/23 07:47 09/06/23 07:47 09/06/23 07:47 Oxygen Delivery Method Room Air Weight: 155 lb 0.006 oz Body Mass Index (BMI) 27.4 Intake & Output: Intake and Output for Last 24 Hours 09/04/23 09/05/23 09/06/23 23:59 23:59 23:59 Intake Total 930 / 930 1050 / 1050 220 / 220 Output Total 750 / 750 1100 / 1100 100 / 100 Balance 180 / 180 -50 / -50 120 / 120 Lab / Micro Data 08/31/23 08:05 08/31/23 08:05 Micro: Microbiology 09/01/23 15:00 Stool Stool Occult Blood (JUDI) - Final 08/30/23 17:20 Urine, Catheterized Urine Culture - Final Escherichia coli Physical Exam Const alert Constitutional Narrative: LOB when up walking with the WW and started to fall backwards but, no fall because nursing and OT caught her and eased her down into a chair. General Appearance: cooperative HEENT HEENT Narrative: voice is very soft again today and not projecting well. Mouth: dry mucous membranes Resp Resp Narrative: Not tachypneic, Denies SOB. Coarse crackles in the left base....the R base has no crackles but, it is very diminished. Auscultation: diminished lung sounds bilateral (bases due to poor inspiratory effort. ) Cardio Cardio Narrative: Having a lot of ectopy. No gallops. Denies orthopnea. No rub. Assessment & Plan Assessment/Plan (1) Physical debility: (2) Hemothorax on right: (3) History of thoracic surgery: (4) Deep vein thrombosis: QUALIFIERS: DVT location: lower extremity Affected thrombotic vein of extremity: tibial Chronicity: acute Laterality: left Qualified Code(s): I82.442 - Acute embolism and thrombosis of left tibial vein (5) Pulmonary embolism: QUALIFIERS: Pulmonary embolism type: multiple subsegmental (without acute cor pulmonale) Qualified Code(s): I26.94 - Multiple subsegmental pulmonary emboli without acute cor pulmonale (6) Acute blood loss anemia: (7) RBD (REM behavioral disorder): (8) Parkinson's disease: QUALIFIERS: Dyskinesia presence: unspecified whether dyskinesia Fluctuating manifestations: unspecified whether manifestations fluctuate Qualified Code(s): G20.A1 - Parkinson's disease without dyskinesia, without mention of fluctuations (9) Ribs, multiple fractures: QUALIFIERS: Encounter type: subsequent encounter Fracture type: closed Laterality: right PLAN: Plan 1. Continue therapy 2. Change the Klonopin to 0.75 mg at 8 PM nightly 3. BMP, HH in a.m. 4. Check orthostatics today. If she is orthostatic consider IV fluids Charges/Coding Visit Charges Inpatient E&M: 48233 Subs Hosp L1
[2023-09-06 09:36] VITALS: BP 125/59; BP 66/33; BP 99/46; PULSE 74; PULSE 76
[2023-09-06] MEDS: Lactated Ringers 1,000 ML 100 ML IV ×2 (12:19→21:53)
[2023-09-06 14:27] VITALS: BMI 25.7
[2023-09-06] MEDS: clonazePAM 0.5 MG Tablet 0.75 MG PO (20:12)
[2023-09-06] MEDS: Atorvastatin Calcium 10 MG Tablet PO (21:48)
[2023-09-06] MEDS: Carvedilol 3.125 MG TABLET 3.25 MG PO (21:50)
[2023-09-06 22:00] VITALS: BP 155/69; PULSE 82; RESP 18; TEMP 36.6; O2SAT 96
[2023-09-07] MEDS: Menthol/Lanolin/Calamine/Znox 113 GM Tube 1 APPLIC TOPICAL ×2 (06:32→20:20)
[2023-09-07] MEDS: Acetaminophen 500 MG Tablet 1000 MG PO ×3 (06:39→21:09)
[2023-09-07] MEDS: Heparin Injection (Vial) 5,000 UNIT/ML VIAL 5000 UNIT SC ×3 (06:39→21:10)
[2023-09-07] MEDS: Carbidopa/Levodopa 25/100 Tablet PO ×4 (06:39→17:54)
[2023-09-07] MEDS: Vibegron 75 MG TABLET PO (07:47)
[2023-09-07] MEDS: Senna/Docusate Sodium 1 Tablet 2 TABLET PO ×2 (07:47→20:20)
[2023-09-07] MEDS: Ascorbic Acid 500 MG Tablet PO (07:47)
[2023-09-07] MEDS: Multivitamins,Therapeutic Tablet 1 TABLET PO (07:47)
[2023-09-07] MEDS: Cyanocobalamin 500 MCG Tablet PO (07:47)
[2023-09-07] MEDS: Nystatin Powder 15gm Bottle 1 APPLIC TOPICAL ×2 (07:48→20:20)
[2023-09-07] MEDS: Carvedilol 3.125 MG TABLET 3.25 MG PO ×2 (07:48→20:18)
[2023-09-07 08:00] VITALS: BP 123/56; BP 135/67; BP 98/56; PULSE 79; PULSE 80; PULSE 85
[2023-09-07 09:10] VITALS: BP 135/84; PULSE 87; RESP 17; TEMP 36.8; O2SAT 94
[2023-09-07 10:13] LABS: Hematocrit 40.1 % (37-47); Hemoglobin 12.6 g/dL (12.0-15.0)
--- NOTE | 2023-09-07 10:18 | PCM.PROGNOTE ---
Subjective Subjective Afebrile VSS-blood pressure lying today was 123/56 with a pulse rate of 79. The blood pressure sitting was 135/67 with a heart rate of 80. Blood pressure standing was 98/56 with a pulse rate of 85. Still orthostatic but, weakness and lightheadedness have improved. Maintaining appropriate oxygen saturation on RA Oral intake - FOOD good FLUIDS she took 1080 cc orally yesterday with encouragement. With the IV fluid the total intake yesterday was 2036 with a fluid balance of + 1437. Overnight she had 1240 in and 200 for a balance of 1040. Discussed with nursing -the Klonopin dose was increased to 0.75 mg at 8 PM nightly. She slept much better last night and responds better to the medication when it is given a couple hours before bedtime. Reviewed the THERAPY notes Medication list reviewed. All morning labs were personally reviewed. Hemoglobin is stable and is actually up to 12.6 from 11.6 on the and she is better hydrated today. Sodium is 145 and the potassium is 3.6 today. The BUN is 12 with a creatinine of 0.8 which is stable. BUN/creatinine ratio is 14.9, down from 27 on 08/20/2023. Calcium is within normal limits. Denies nausea/vomiting/epigastric pain, lightheadedness, vertigo, palpitations, dysuria, suprapubic pain and calf tenderness. She tells me she feels stronger and more alert today. We discussed how important it is for her to maintain a good fluid intake to prevent symptomatic orthostatic hypotension and falls. She is still orthostatic today but, the MAP is 70 and she is not lightheaded. Objective Data Objective Data Vital Signs: Vital Signs Temp Pulse Resp BP Pulse Ox O2 Del Method 98.2 F 87 17 135/84 H 94 Room Air 09/07/23 09:10 09/07/23 09:10 09/07/23 09:10 09/07/23 09:10 09/07/23 09:10 09/07/23 09:10 Oxygen Delivery Method Room Air Weight: 145 lb 8.081 oz Body Mass Index (BMI) 25.7 Intake & Output: Intake and Output for Last 24 Hours 09/05/23 09/06/23 09/07/23 23:59 23:59 23:59 Intake Total 1050 / 1050 1240 / 1240 Output Total 1100 / 1100 600 / 600 200 / 200 Balance -50 / -50 1436.67 / 1436.67 1040 / 1040 Lab / Micro Data 09/07/23 09:58 09/07/23 09:58 Labs: Laboratory Results - last 24 hr 09/07/23 09:58: Hgb 12.6, Hct 40.1 Micro: Microbiology 09/01/23 15:00 Stool Stool Occult Blood (JUDI) - Final 08/30/23 17:20 Urine, Catheterized Urine Culture - Final Escherichia coli Physical Exam Const alert and oriented x3 General Appearance: cooperative HEENT Mouth: dry mucous membranes Resp normal respiratory effort Resp Narrative: Few coarse crackles in the bases Effort and Inspection: Negative for tachypneic or labored Auscultation: diminished lung sounds Cardio Cardio Narrative: sinus rhythm with very frequent premature beats and this is not new. No gallop. GI normal to inspection, nondistended, normoactive bowel sounds, soft to palpation and non-tender GI Narrative: no pain/guarding with palpation Inspection: Negative for abdominal distention Extremity no calf tenderness Skin Rashes: no rashes Neuro Neuro Narrative: soft voice, shuffling gait, bradykinesia, masked facies Psych cooperative Appearance: appropriate Assessment & Plan Assessment/Plan (1) Physical debility: (2) Hemothorax on right: (3) History of thoracic surgery: (4) Deep vein thrombosis: QUALIFIERS: Affected thrombotic vein of extremity: tibial Chronicity: acute DVT location: lower extremity Laterality: left Qualified Code(s): I82.442 - Acute embolism and thrombosis of left tibial vein (5) Pulmonary embolism: QUALIFIERS: Pulmonary embolism type: multiple subsegmental (without acute cor pulmonale) Qualified Code(s): I26.94 - Multiple subsegmental pulmonary emboli without acute cor pulmonale (6) Acute blood loss anemia: (7) RBD (REM behavioral disorder): (8) Parkinson's disease: QUALIFIERS: Dyskinesia presence: unspecified whether dyskinesia Fluctuating manifestations: unspecified whether manifestations fluctuate Qualified Code(s): G20.A1 - Parkinson's disease without dyskinesia, without mention of fluctuations (9) Ribs, multiple fractures: QUALIFIERS: Encounter type: subsequent encounter Fracture type: closed Laterality: right (10) Acute cystitis: QUALIFIERS: Hematuria presence: without hematuria Qualified Code(s): N30.00 - Acute cystitis without hematuria PLAN: Prsent at admission to rehab. Due to E. Coli. Resolved with antibiotic. PLAN: Plan 1. Continue therapy 2. Continue to encourage increased fluid intake. 3. No changes to the drug regimen today. Charges/Coding Visit Charges Inpatient E&M: 08707 [facility] L1
[2023-09-07 10:36] LABS: Anion Gap 7 (5-15); BUN 12 mg/dL (7-18); BUN/Creat Ratio 14.9 RATIO (10-20); Calcium,Total 9.3 mg/dL (8.5-10.1); Chloride 109 mmol/L (98-107); EST Glomerular Filtration Rate 75 mL/min (>60); Est Glom Filt Rate - Afr Amer 91 mL/min (>60); Estimated Creatinine Clearance 61.46 ml/min; Glucose 140 mg/dL (74-106); Potassium 3.6 mmol/L (3.5-5.1); Sodium Level 145 mmol/L (136-145)
--- NOTE | 2023-09-07 14:02 | CASEMGMT ---
Addendum entered by Sejal Walton 09/07/23 17:03: SW took SNF list to patient's room and was present. He reviewed list and stated he would really like pt to got to [facility] as first choice if bed available. If not, he will review list and give other options. Sejal MARTINEZ Original Note: Social Work Pt's called SW and stated he brought in a 4 wheeled walker and would like to know if it is safe for patient to use. SW will notify therapy and ask therapy to update on this. SW spoke with about insurance update today and DC plans. stated at patient's current status he does not feel he can take her home and is interested in finding SNF placement. A list of SNF providers including quality and resource use data and consistent with the patient?s preferred geographic region, medical needs, and insurance network were provided from the [employer] Guide. stated he would not want [facility] or the former [facility]. Those names not on the list. SW asked to review list and let SW know so we can make referral. SW to continue assisting with DC planning. Sejal MARTINEZ
[2023-09-07] MEDS: clonazePAM 0.5 MG Tablet 0.75 MG PO (20:15)
[2023-09-07 21:36] VITALS: BP 162/72; PULSE 87; RESP 18; TEMP 36.8; O2SAT 96
[2023-09-08] MEDS: Menthol/Lanolin/Calamine/Znox 113 GM Tube 1 APPLIC TOPICAL ×2 (06:04→20:40)
[2023-09-08] MEDS: Carbidopa/Levodopa 25/100 Tablet PO ×4 (06:05→17:56)
[2023-09-08] MEDS: Acetaminophen 500 MG Tablet 1000 MG PO ×3 (06:06→20:33)
[2023-09-08] MEDS: Heparin Injection (Vial) 5,000 UNIT/ML VIAL 5000 UNIT SC ×3 (06:06→20:32)
[2023-09-08 08:28] VITALS: BP 118/57; PULSE 77; RESP 18; TEMP 36.7; O2SAT 97
[2023-09-08] MEDS: Carvedilol 3.125 MG TABLET 3.25 MG PO ×2 (09:12→20:32)
[2023-09-08] MEDS: Cyanocobalamin 500 MCG Tablet PO (09:12)
[2023-09-08] MEDS: Ascorbic Acid 500 MG Tablet PO (09:12)
[2023-09-08] MEDS: Vibegron 75 MG TABLET PO (09:13)
[2023-09-08] MEDS: Senna/Docusate Sodium 1 Tablet 2 TABLET PO (09:14)
[2023-09-08] MEDS: Multivitamins,Therapeutic Tablet 1 TABLET PO (09:14)
[2023-09-08] MEDS: 0.9% Saline Lock 10 ML Syringe IV ×2 (17:56→20:39)
[2023-09-08 19:54] VITALS: BP 131/71; PULSE 60; RESP 17; TEMP 36.6; O2SAT 94
[2023-09-08] MEDS: clonazePAM 0.5 MG Tablet 0.75 MG PO (20:31)
[2023-09-08] MEDS: Atorvastatin Calcium 10 MG Tablet PO (20:34)
[2023-09-09] MEDS: Acetaminophen 500 MG Tablet 1000 MG PO ×3 (06:27→20:39)
[2023-09-09] MEDS: Carbidopa/Levodopa 25/100 Tablet PO ×4 (06:27→17:51)
[2023-09-09] MEDS: Heparin Injection (Vial) 5,000 UNIT/ML VIAL 5000 UNIT SC ×3 (06:27→20:37)
[2023-09-09] MEDS: Menthol/Lanolin/Calamine/Znox 113 GM Tube 1 APPLIC TOPICAL ×2 (06:29→20:35)
[2023-09-09 07:21] LABS: Bedside Glucose 98 mg/dL (74-106)
--- NOTE | 2023-09-09 07:28 | NURSING ---
pt impulsive this a.m. Set off ba and when staff arrived in room, pt was at end of bed with legs over side of bed, reaching over end of bed attempting to disengage ba. Staff reminded pt of safety measures in place for pt's sake. Staff checked on pt frequently.
[2023-09-09] MEDS: Multivitamins,Therapeutic Tablet 1 TABLET PO (08:04)
[2023-09-09] MEDS: Vibegron 75 MG TABLET PO (08:04)
[2023-09-09] MEDS: Carvedilol 3.125 MG TABLET 3.25 MG PO ×2 (08:04→20:36)
[2023-09-09] MEDS: Cyanocobalamin 500 MCG Tablet PO (08:04)
[2023-09-09] MEDS: Ascorbic Acid 500 MG Tablet PO (08:05)
[2023-09-09] MEDS: Nystatin Powder 15gm Bottle 1 APPLIC TOPICAL ×2 (08:06→20:38)
[2023-09-09 08:46] VITALS: BP 142/70; PULSE 72; RESP 16; TEMP 36.6; O2SAT 98
[2023-09-09 19:27] VITALS: BP 134/65; PULSE 83; RESP 16; TEMP 36.3; O2SAT 100
--- NOTE | 2023-09-09 19:53 | NURSING ---
03:00- Upon rounding, staff found bed in highest position and BA disengaged. Staff had ensured alarm was engaged during check and change but the alarm was now disengaged. 07:00- Pt set off BA and was found at foot of bed with legs over railing. Pt was reaching over the end of bed to disengage BA. Pt reminded of safety measures in place to ensure pt safety. Grippie socks were applied. [place] [facility] [place] and gait belt. BA was activated. Pt repositioned into bed and BA activated.
[2023-09-09] MEDS: clonazePAM 0.5 MG Tablet 0.75 MG PO (20:34)
--- NOTE | 2023-09-10 01:43 | NURSING ---
Reviewed and agree with Tu CASAS, documentation and assessment charting.
--- NOTE | 2023-09-10 01:49 | NURSING ---
Pt impulsive and sets off BA while attempting to get OOB. Pt is disheveled in bed. Pt assisted with toileting needs by staff and repositioned into bed. Alarms activated. Pt reoriented to time of day.
[2023-09-10] MEDS: Heparin Injection (Vial) 5,000 UNIT/ML VIAL 5000 UNIT SC ×2 (06:40→13:23)
[2023-09-10] MEDS: Carbidopa/Levodopa 25/100 Tablet PO ×4 (06:40→18:21)
[2023-09-10] MEDS: Acetaminophen 500 MG Tablet 1000 MG PO ×3 (06:40→19:59)
[2023-09-10] MEDS: Menthol/Lanolin/Calamine/Znox 113 GM Tube 1 APPLIC TOPICAL (06:41)
[2023-09-10] MEDS: 0.9% Saline Lock 10 ML Syringe IV ×2 (06:51→13:29)
[2023-09-10 07:35] VITALS: BP 147/86; PULSE 69; RESP 17; TEMP 36.3; O2SAT 95
[2023-09-10] MEDS: Ascorbic Acid 500 MG Tablet PO (07:48)
[2023-09-10] MEDS: Carvedilol 3.125 MG TABLET 3.25 MG PO ×2 (07:48→19:59)
[2023-09-10] MEDS: Vibegron 75 MG TABLET PO (07:48)
[2023-09-10] MEDS: Senna/Docusate Sodium 1 Tablet 2 TABLET PO ×2 (07:48→19:59)
[2023-09-10] MEDS: Cyanocobalamin 500 MCG Tablet PO (07:48)
[2023-09-10] MEDS: Multivitamins,Therapeutic Tablet 1 TABLET PO (07:48)
--- NOTE | 2023-09-10 11:20 | PN_ITS ---
Subjective Subjective Charline was seen on TEAM rounds today. Her Randall was present in the room for rounds. Afebrile VSS blood pressure is mildly elevated at times however she had significant orthostatic hypotension last week. Will repeat orthostatics today and make a decision about increasing her hypertensives. she gets very weak when she is orthostatic and then can not do her therapy. Maintaining appropriate oxygen saturation on RA Oral intake - FOOD good FLUIDS doing better. Had 1400 cc in yesterday and 1530 the day before. Discussed with nursing - no problems that need addressed. Sleeping well at night and had no incontinence last night. Reviewed the THERAPY notes Medication list reviewed. Denies lightheadedness. CP, SOB, N/V, calf pain and cephalgia. She has an occasional dry cough. Objective Data Objective Data Vital Signs: Vital Signs Temp Pulse Resp BP Pulse Ox O2 Del Method 97.3 F L 69 17 147/86 H 95 Room Air 09/10/23 07:35 09/10/23 07:35 09/10/23 07:35 09/10/23 07:35 09/10/23 07:35 09/10/23 07:35 Oxygen Delivery Method Room Air Weight: 145 lb 8.081 oz Body Mass Index (BMI) 25.7 Intake & Output: Intake and Output for Last 24 Hours 09/08/23 09/09/23 09/10/23 23:59 23:59 23:59 Intake Total 1530 / 1530 1400 / 1400 100 / 100 Output Total 900 / 900 700 / 700 100 / 100 Balance 630 / 630 700 / 700 0 / 0 Lab / Micro Data 09/07/23 09:58 09/07/23 09:58 Micro: Microbiology 09/01/23 15:00 Stool Stool Occult Blood (JUDI) - Final 08/30/23 17:20 Urine, Catheterized Urine Culture - Final Escherichia coli Physical Exam Const alert and no apparent distress General Appearance: cooperative HEENT moist oral mucous membranes Resp Resp Narrative: Better air exchange in the bases today. Coarse crackles in both bases with no wheezes. Effort and Inspection: Negative for tachypneic or labored Cardio regular rhythm Cardio Narrative: Frequent premature beats. GI normal to inspection, nondistended, normoactive bowel sounds, soft to palpation and non-tender Extremity no calf tenderness Extremity Narrative: No pitting edema. Skin General Skin Exam: no breakdown Rashes: no rashes Neuro Neuro Narrative: Voice is getting stronger as she progresses in therapy. Better control with ambulation with fewer loss of balance episodes. Still with bradykinesia. Psych cooperative Psych Narrative: Sleeping well at night. Good appetite and intake. Cooperative. Still impulsive and tries to get up by herself when she has to use the BR Assessment & Plan Assessment/Plan (1) Physical debility: (2) Hemothorax on right: (3) History of thoracic surgery: (4) Deep vein thrombosis: QUALIFIERS: DVT location: lower extremity Affected thrombotic vein of extremity: tibial Chronicity: acute Laterality: left Qualified Code(s): I82.442 - Acute embolism and thrombosis of left tibial vein (5) Pulmonary embolism: QUALIFIERS: Pulmonary embolism type: multiple subsegmental (without acute cor pulmonale) Qualified Code(s): I26.94 - Multiple subsegmental pulmonary emboli without acute cor pulmonale (6) Acute blood loss anemia: (7) RBD (REM behavioral disorder): (8) Parkinson's disease: QUALIFIERS: Dyskinesia presence: unspecified whether dyskinesia Fluctuating manifestations: unspecified whether manifestations fluctuate Qualified Code(s): G20.A1 - Parkinson's disease without dyskinesia, without mention of fluctuations (9) Ribs, multiple fractures: QUALIFIERS: Encounter type: subsequent encounter Fracture type: closed Laterality: right (10) Acute cystitis: QUALIFIERS: Hematuria presence: without hematuria Qualified Code(s): N30.00 - Acute cystitis without hematuria PLAN: Prsent at admission to rehab. Due to E. Coli. Resolved with antibiotic. PLAN: Plan 1. Continue therapy. She is making good progress. I suspect she had been declining for 6 weeks (ever since the ribs were fractured) prior to coming to the ED for SOB/hemothorax. Air exchange in the R base is improving. 2. No changes to the drug regimen at this time. 3 All Randall's questions were answered. Will likely need [facility] [place] from rehab but, I expect that she is going to be able to go home. Charges/Coding Visit Charges Inpatient E&M: 29892 Subs Hosp L2
[2023-09-10 11:21] VITALS: BP 101/59; BP 107/51; BP 109/52; PULSE 52; PULSE 86; PULSE 92
--- NOTE | 2023-09-10 12:43 | CASEMGMT ---
Social Work IDT met with patient and at bedside for care planning. Discussed patient progress with therapy (PT/OT/ST) and nursing. Patient is improving with therapy. SW notified patient and of [facility] insurance coverage next review date , 09/12. SW informed patient and that continued coverage is not guaranteed. SW discussed potential placement at TCU for continued rehabilitation post IPR stay. Patient's prefer placement at SNF at this time. Patient's expressed concerns regarding dressing and bathing support, should patient transition to home. Therapy addressed concerns for patient care in home. Patient has no history of home health care services per , but he is open to additional supportive services for patient care. SW will continue to follow to support continued transition of care planning. ESMER Shepherd
--- NOTE | 2023-09-10 19:31 | NURSING ---
Pt set off alarms and found attempting to stand at foot of bed. Pt claims that she wants to get up. Pt denied toileting needs. Pt repositioned into bed and alarms reset.
[2023-09-10] MEDS: Atorvastatin Calcium 10 MG Tablet PO (19:59)
[2023-09-10 20:00] VITALS: BP 142/68; PULSE 76; RESP 18; TEMP 36.9; O2SAT 94
[2023-09-10] MEDS: clonazePAM 0.5 MG Tablet 0.75 MG PO (20:00)
--- NOTE | 2023-09-11 03:15 | NURSING ---
reviewed and agree with Chapin CASAS, documentation and assessment charting.
--- NOTE | 2023-09-11 05:34 | NURSING ---
Pt extremely restless and impulsive this hs. Not sleeping much and attempting to get oob. Pt is able to dislodge bed lock somehow. Pt states she cant sleep and staff has been in room numerous times.
[2023-09-11] MEDS: Menthol/Lanolin/Calamine/Znox 113 GM Tube 1 APPLIC TOPICAL ×2 (06:32→19:48)
[2023-09-11] MEDS: Heparin Injection (Vial) 5,000 UNIT/ML VIAL 5000 UNIT SC ×3 (06:32→20:04)
[2023-09-11] MEDS: Carbidopa/Levodopa 25/100 Tablet PO ×4 (06:33→17:32)
[2023-09-11] MEDS: Acetaminophen 500 MG Tablet 1000 MG PO ×3 (06:33→19:46)
[2023-09-11 07:36] VITALS: BP 149/79; PULSE 83; RESP 15; TEMP 36.7; O2SAT 96
[2023-09-11] MEDS: Vibegron 75 MG TABLET PO (08:01)
[2023-09-11] MEDS: Carvedilol 3.125 MG TABLET 3.25 MG PO ×2 (08:02→19:46)
[2023-09-11] MEDS: Multivitamins,Therapeutic Tablet 1 TABLET PO (08:02)
[2023-09-11] MEDS: Ascorbic Acid 500 MG Tablet PO (08:03)
[2023-09-11] MEDS: Cyanocobalamin 500 MCG Tablet PO (08:03)
[2023-09-11] MEDS: Senna/Docusate Sodium 1 Tablet 2 TABLET PO ×2 (08:03→19:47)
[2023-09-11] MEDS: 0.9% Saline Lock 10 ML Syringe IV (09:49)
[2023-09-11 19:45] VITALS: BP 108/77; PULSE 71; RESP 16; TEMP 36.4; O2SAT 95
[2023-09-11] MEDS: clonazePAM 0.5 MG Tablet 0.75 MG PO (19:47)
[2023-09-12] MEDS: Heparin Injection (Vial) 5,000 UNIT/ML VIAL 5000 UNIT SC ×3 (07:30→20:04)
[2023-09-12] MEDS: Menthol/Lanolin/Calamine/Znox 113 GM Tube 1 APPLIC TOPICAL ×2 (07:30→20:20)
[2023-09-12] MEDS: Acetaminophen 500 MG Tablet 1000 MG PO ×3 (07:31→20:03)
[2023-09-12] MEDS: Carbidopa/Levodopa 25/100 Tablet PO ×4 (07:31→17:57)
[2023-09-12] MEDS: Senna/Docusate Sodium 1 Tablet 2 TABLET PO ×2 (09:56→20:03)
[2023-09-12] MEDS: Cyanocobalamin 500 MCG Tablet PO (09:57)
[2023-09-12] MEDS: Multivitamins,Therapeutic Tablet 1 TABLET PO (09:57)
[2023-09-12] MEDS: Ascorbic Acid 500 MG Tablet PO (09:57)
[2023-09-12] MEDS: Carvedilol 3.125 MG TABLET 3.25 MG PO ×2 (09:57→20:02)
[2023-09-12] MEDS: Vibegron 75 MG TABLET PO (09:57)
[2023-09-12 10:00] VITALS: BP 137/50; PULSE 72; RESP 20; TEMP 36.6; O2SAT 97
[2023-09-12 20:00] VITALS: PULSE 53; RESP 20; O2SAT 94
[2023-09-12] MEDS: clonazePAM 0.5 MG Tablet 0.75 MG PO (20:03)
[2023-09-12] MEDS: Atorvastatin Calcium 10 MG Tablet PO (20:06)
[2023-09-12 20:30] VITALS: BP 156/55; PULSE 53; RESP 20; TEMP 36.9; O2SAT 94
[2023-09-13] MEDS: Acetaminophen 500 MG Tablet 1000 MG PO ×2 (05:21→20:34)
[2023-09-13] MEDS: Carbidopa/Levodopa 25/100 Tablet PO ×3 (05:21→17:51)
[2023-09-13] MEDS: Heparin Injection (Vial) 5,000 UNIT/ML VIAL 5000 UNIT SC ×2 (05:21→20:34)
[2023-09-13] MEDS: Menthol/Lanolin/Calamine/Znox 113 GM Tube 1 APPLIC TOPICAL ×2 (05:22→19:26)
[2023-09-13 07:25] VITALS: BP 141/79; PULSE 85; RESP 18; TEMP 36.5; O2SAT 96
--- NOTE | 2023-09-13 08:54 | PCM.PROGNOTE ---
Subjective Subjective Afebrile VSS-systolic blood pressure is mildly elevated but we are tolerating this to prevent symptomatic orthostatic hypotension due to severe Parkinson's disease. Heart rate is goal. Maintaining appropriate oxygen saturation on RA Oral intake - FOOD good FLUIDS good Discussed with nursing -incontinent of urine at night. Not using the call gama and setting of the chair alarm and the bed alarm fairly frequently. Reviewed the THERAPY notes - She is ambulating to the BR with a with a wall rail on the L side at Min Assist. Toileting tasks are min assist for adjusting the attends pad. She was able to complete posterior hygiene post void. She stood at the sink to wash her hands. Medication list reviewed. Jojo denies lightheadedness, chest pain, shortness of breath, nausea/vomiting/abdominal pain, constipation/diarrhea, burning with urination and calf tenderness. Objective Data Objective Data Vital Signs: Vital Signs Temp Pulse Resp BP Pulse Ox O2 Del Method O2 Flow Rate 97.7 F L 85 18 141/79 H 96 Room Air 2 09/13/23 07:25 09/13/23 07:25 09/13/23 07:25 09/13/23 07:25 09/13/23 07:25 09/13/23 07:25 09/11/23 07:36 Oxygen Flow Rate (L/min) 2 Oxygen Delivery Method Room Air Weight: 145 lb 8.081 oz Body Mass Index (BMI) 25.7 Intake & Output: Intake and Output for Last 24 Hours 09/11/23 09/12/23 09/13/23 23:59 23:59 23:59 Intake Total 798 / 798 1605 / 1605 340 / 340 Output Total 600 / 600 600 / 600 100 / 100 Balance 198 / 198 1005 / 1005 240 / 240 Lab / Micro Data 09/14/23 05:10 09/14/23 05:10 Micro: Microbiology 09/01/23 15:00 Stool Stool Occult Blood (JUDI) - Final 08/30/23 17:20 Urine, Catheterized Urine Culture - Final Escherichia coli Physical Exam Const alert and no apparent distress Constitutional Narrative: confused at night. General Appearance: cooperative HEENT moist oral mucous membranes Mouth: dry mucous membranes Neck supple Resp Resp Narrative: Coarse crackles in both bases with no wheezes. This is chronic. Effort and Inspection: Negative for tachypneic or labored Cardio regular rate, regular rhythm and no gallops Cardio Narrative: Frequent premature beats. GI normal to inspection, nondistended, normoactive bowel sounds, soft to palpation and non-tender GI Narrative: No guarding with palpation. Having a bowel movement every 2 to 3 days. Extremity no calf tenderness Extremity Narrative: No pitting edema. General Extremity: edema Skin General Skin Exam: no breakdown Rashes: no rashes Wounds: Negative for wounds noted Psych cooperative Psych Narrative: Sleeping well at night. Good appetite and intake. Cooperative. Still impulsive and tries to get up by herself when she has to use the BR Assessment & Plan Assessment/Plan (1) Physical debility: (2) Hemothorax on right: (3) History of thoracic surgery: (4) Deep vein thrombosis: QUALIFIERS: DVT location: lower extremity Affected thrombotic vein of extremity: tibial Chronicity: acute Laterality: left Qualified Code(s): I82.442 - Acute embolism and thrombosis of left tibial vein (5) Pulmonary embolism: QUALIFIERS: Pulmonary embolism type: multiple subsegmental (without acute cor pulmonale) Qualified Code(s): I26.94 - Multiple subsegmental pulmonary emboli without acute cor pulmonale (6) Acute blood loss anemia: (7) RBD (REM behavioral disorder): (8) Parkinson's disease: QUALIFIERS: Dyskinesia presence: unspecified whether dyskinesia Fluctuating manifestations: unspecified whether manifestations fluctuate Qualified Code(s): G20.A1 - Parkinson's disease without dyskinesia, without mention of fluctuations (9) Ribs, multiple fractures: QUALIFIERS: Encounter type: subsequent encounter Fracture type: closed Laterality: right PLAN: Plan 1. Continue therapy 2. Check a CBC and BMP in the a.m. 3. No changes to the medication regimen at this time. 4. Continue SQ Heparin q 8 H. Not sure what to do about the recent DVT in the posterior tibial vein and the pulmonary emboli. She has a hx of DVT. She is at high risk for falls. consider repeating venous US of the Left LE and if the clot is gone would not likely place her on LT anticoagulation. Will D/W with vascular surgery.......would she be a candidate for an IVC filter given the recurrent DVT and the frequent falls? Charges/Coding Visit Charges Inpatient E&M: 20674 Subs Hosp L1
[2023-09-13] MEDS: Senna/Docusate Sodium 1 Tablet 2 TABLET PO ×2 (10:10→19:27)
[2023-09-13] MEDS: Vibegron 75 MG TABLET PO (10:10)
[2023-09-13] MEDS: Carvedilol 3.125 MG TABLET 3.25 MG PO ×2 (10:10→20:34)
[2023-09-13] MEDS: Multivitamins,Therapeutic Tablet 1 TABLET PO (10:10)
[2023-09-13] MEDS: Cyanocobalamin 500 MCG Tablet PO (10:10)
[2023-09-13] MEDS: Ascorbic Acid 500 MG Tablet PO (10:10)
--- NOTE | 2023-09-13 13:24 | CASEMGMT ---
Social Work SW attempted to contact patient's , Edi Arreguin to discuss transition of care plans; no answer. SW left a voicemail requesting follow up. ESMER Shepherd
--- NOTE | 2023-09-13 14:05 | NURSING ---
pt refused 1400 meds. restlessness and confusion noted this afternoon. cueing and reminders to use call light for assistance. Alarms in place. call light in reach
[2023-09-13] MEDS: clonazePAM 0.5 MG Tablet 0.75 MG PO (19:13)
[2023-09-13 20:07] VITALS: BP 134/65; PULSE 95; RESP 16; TEMP 36.5; O2SAT 99
[2023-09-14] MEDS: Carbidopa/Levodopa 25/100 Tablet PO ×4 (05:43→17:53)
[2023-09-14] MEDS: Heparin Injection (Vial) 5,000 UNIT/ML VIAL 5000 UNIT SC ×3 (05:43→20:37)
[2023-09-14] MEDS: Acetaminophen 500 MG Tablet 1000 MG PO ×3 (05:43→20:28)
[2023-09-14] MEDS: Menthol/Lanolin/Calamine/Znox 113 GM Tube 1 APPLIC TOPICAL ×2 (05:45→20:31)
[2023-09-14 05:50] LABS: Hematocrit 37.3 % (37-47); Hemoglobin 11.9 g/dL (12.0-15.0); Mean Corp Hgb Conc 31.9 g/dL (32-36); Mean Corpuscular Hgb 31.2 pg (27.0-32.0); Mean Corpuscular Volume 97.6 fL (81-99); Mean Platelet Vol. 11.1 fl (6.2-12.0); Platelet Count 203 K/mm3 (150-450); RBC Distribution Width CV 15.4 % (11.6-14.6); RBC Distribution Width SD 55.1 fl (35.1-43.9); Red Blood Count 3.82 M/mm3 (4.2-5.4); White Blood Count 4.8 K/mm3 (4.4-11.0)
[2023-09-14 06:52] LABS: Anion Gap 5 (5-15); BUN 24 mg/dL (7-18); Calcium,Total 9.2 mg/dL (8.5-10.1); Chloride 109 mmol/L (98-107); Creatinine, Serum 0.73 mg/dL (0.55-1.02); EST Glomerular Filtration Rate 84 mL/min (>60); Est Glom Filt Rate - Afr Amer 102 mL/min (>60); Estimated Creatinine Clearance 61.46 ml/min; Glucose 91 mg/dL (74-106); Sodium Level 142 mmol/L (136-145)
--- NOTE | 2023-09-14 07:00 | NURSING ---
Restless throughout the night and slept fair to poor. Patient confused per her normal while on Rehab at night and needs constant cues and reminders. Forgetful to call light use and attempts multiple self transfers. Very pleasant with staff. Nursing offers toileting when she attempts self transfers and she is cooperative with laying back down in bed after. Patient is incontinent and continent during the night time. x2 assist to BSC used due to debility from Parkinson's disease and she leans back with standing and transferring.
[2023-09-14 07:50] VITALS: BP 132/78; PULSE 71; RESP 17; TEMP 36.6; O2SAT 96
[2023-09-14] MEDS: Senna/Docusate Sodium 1 Tablet 2 TABLET PO ×2 (09:41→20:27)
[2023-09-14] MEDS: Multivitamins,Therapeutic Tablet 1 TABLET PO (09:41)
[2023-09-14] MEDS: Carvedilol 3.125 MG TABLET 3.25 MG PO (09:41)
[2023-09-14] MEDS: Cyanocobalamin 500 MCG Tablet PO (09:41)
[2023-09-14] MEDS: Ascorbic Acid 500 MG Tablet PO (09:41)
[2023-09-14] MEDS: Vibegron 75 MG TABLET PO (09:41)
--- NOTE | 2023-09-14 11:55 | PN_ITS ---
Subjective Subjective Afebrile VSS Maintaining appropriate oxygen saturation on RA Oral intake - FOOD good FLUIDS erratic. She took 1060 cc orally yesterday. On Sunday and Sunday she took less than 800 cc. Discussed with nursing Seems to be more confused at night recently and trying to get out of bed. No fevers, denies dysuria, no cough, no recent changes to the medication regimen. she is taking Klonopin 0.75 mg at 8 AM. Reviewed the THERAPY notes Medication list reviewed. All lab from today was personally reviewed. The white blood cell count is normal at 4.8 and hemoglobin is stable at 11.9. Platelet count is normal. Sodium is 142 and the potassium is 4.0. BUN is 24 and the creatinine is 0.53 which is stable and within her baseline. No complaints today. Objective Data Objective Data Vital Signs: Vital Signs Temp Pulse Resp BP Pulse Ox O2 Del Method O2 Flow Rate 98 F 71 17 132/78 H 96 Room Air 2 09/14/23 07:50 09/14/23 07:50 09/14/23 07:50 09/14/23 07:50 09/14/23 07:50 09/14/23 07:50 09/11/23 07:36 Oxygen Flow Rate (L/min) 2 Oxygen Delivery Method Room Air Weight: 145 lb 8.081 oz Body Mass Index (BMI) 25.7 Intake & Output: Intake and Output for Last 24 Hours 09/12/23 09/13/23 09/14/23 23:59 23:59 23:59 Intake Total 1605 / 1605 1060 / 1060 300 / 300 Output Total 600 / 600 550 / 550 350 / 350 Balance 1005 / 1005 510 / 510 -50 / -50 Lab / Micro Data 09/14/23 05:10 09/14/23 05:10 Labs: Laboratory Results - last 24 hr 09/14/23 05:10: WBC 4.8, RBC 3.82 L, Hgb 11.9 L, Hct 37.3, MCV 97.6, MCH 31.2, MCHC 31.9 L, RDW Std Deviation 55.1 H, RDW Coeff of Carie 15.4 H, Plt Count 203, MPV 11.1, Sodium 142, Potassium 4.0, Chloride 109 H, Carbon Dioxide 28.0, Anion Gap 5, BUN 24 H, Creatinine 0.73, Estim Creat Clear Calc 61.46, Est GFR (MDRD) Af Amer 102, Est GFR (MDRD) Non-Af 84, BUN/Creatinine Ratio 33.0 H, Glucose 91, Calcium 9.2 Micro: Microbiology 09/01/23 15:00 Stool Stool Occult Blood (JUDI) - Final 08/30/23 17:20 Urine, Catheterized Urine Culture - Final Escherichia coli Physical Exam Const alert and no apparent distress Constitutional Narrative: confused at night. General Appearance: cooperative HEENT Mouth: dry mucous membranes Neck supple Resp Resp Narrative: Coarse crackles in both bases with no wheezes. This is chronic. Effort and Inspection: Negative for tachypneic or labored Cardio regular rate, regular rhythm and no gallops Cardio Narrative: Frequent premature beats. GI normal to inspection, nondistended, normoactive bowel sounds, soft to palpation and non-tender GI Narrative: No guarding with palpation. Having a bowel movement every 2 to 3 days. Extremity no calf tenderness Extremity Narrative: No pitting edema. General Extremity: edema Skin General Skin Exam: no breakdown Rashes: no rashes Wounds: Negative for wounds noted Psych cooperative Assessment & Plan Assessment/Plan (1) Physical debility: (2) Hemothorax on right: (3) History of thoracic surgery: (4) Deep vein thrombosis: QUALIFIERS: DVT location: lower extremity Affected thrombotic vein of extremity: tibial Chronicity: acute Laterality: left Qualified Code(s): I82.442 - Acute embolism and thrombosis of left tibial vein (5) Pulmonary embolism: QUALIFIERS: Pulmonary embolism type: multiple subsegmental (without acute cor pulmonale) Qualified Code(s): I26.94 - Multiple subsegmental pulmonary emboli without acute cor pulmonale (6) Acute blood loss anemia: (7) RBD (REM behavioral disorder): (8) Parkinson's disease: QUALIFIERS: Dyskinesia presence: unspecified whether dyskinesia Fluctuating manifestations: unspecified whether manifestations fluctuate Qualified Code(s): G20.A1 - Parkinson's disease without dyskinesia, without mention of fluctuations (9) Ribs, multiple fractures: QUALIFIERS: Encounter type: subsequent encounter Fracture type: closed Laterality: right PLAN: Plan 1. Continue therapy 2. Charline has advanced PD. She has marked bradykinesia and rigidity. She gets confused at night. She has frequent falls at home. She has recurrent DVT and PE. She needs constant reminders to increase fluid intake and when she gets dehydrated she becomes severely orthostatic. This all complicates her care. Her would like to take her home but, he is 85 years old and I do not know if he can provide enough help. I am not inclined to start LT anticoagulation due to the high fall risk and potential serious injury... ..recently with R rib fractures and a hemothorax due to a fall. Will need to address this with her and Charline at the team meeting on Sunday. 3. Venous US of the left leg. Hold off on IV fluids for elevated BUN/CREAT ratio and offer water frequently. Dehydration/orthostatic hypotension is a recurring problem with her and she will not be getting IV fluids at home. Charges/Coding Visit Charges Inpatient E&M: 17031 Subs Hosp L1
[2023-09-14 19:48] VITALS: BP 138/74; PULSE 86; RESP 16; TEMP 36.3; O2SAT 97
[2023-09-14] MEDS: clonazePAM 0.5 MG Tablet 0.75 MG PO (20:17)
[2023-09-14] MEDS: Atorvastatin Calcium 10 MG Tablet PO (20:28)
[2023-09-14] MEDS: Carvedilol 3.125 MG TABLET PO (20:38)
[2023-09-15] MEDS: Menthol/Lanolin/Calamine/Znox 113 GM Tube 1 APPLIC TOPICAL ×2 (04:34→20:54)
[2023-09-15] MEDS: Carbidopa/Levodopa 25/100 Tablet PO ×4 (05:56→17:32)
[2023-09-15] MEDS: Acetaminophen 500 MG Tablet 1000 MG PO ×3 (05:56→20:45)
[2023-09-15] MEDS: Heparin Injection (Vial) 5,000 UNIT/ML VIAL 5000 UNIT SC ×3 (05:56→20:44)
--- NOTE | 2023-09-15 07:44 | NURSING ---
Restless on and off throughout the night. Patient requested to call her brother at 3 am and was not aware of the time or place. Alert to self per her normal. Redirected at that time and she went back to bed for a short time. Patient forgetful to call gama usage. x2 assists used for transfers.
[2023-09-15 09:02] VITALS: BP 158/89; PULSE 90; RESP 18; TEMP 36.9; O2SAT 94
[2023-09-15] MEDS: Cyanocobalamin 500 MCG Tablet PO (09:39)
[2023-09-15] MEDS: Ascorbic Acid 500 MG Tablet PO (09:39)
[2023-09-15] MEDS: Carvedilol 3.125 MG TABLET PO ×2 (09:39→22:00)
[2023-09-15] MEDS: Multivitamins,Therapeutic Tablet 1 TABLET PO (09:39)
[2023-09-15] MEDS: Vibegron 75 MG TABLET PO (09:39)
[2023-09-15] MEDS: Senna/Docusate Sodium 1 Tablet 2 TABLET PO ×2 (09:40→20:44)
--- NOTE | 2023-09-15 10:47 | VDLE_ITS ---
Reason For Study: Known LLE DVT RIGHT LEFT CFV is compressible, spontaneous, phasic, GSV is normal. competent and demonstrates normal CFV is compressible, spontaneous, phasic, augmentation. competent, and demonstrates normal Procedure augmentation. This is a venous duplex using B-mode, color FV is compressible, spontaneous, phasic, flow and spectral Doppler. competent and demonstrates normal Exam performed portable in patient room. augmentation. A preliminary report was called and/or faxed POP V is compressible, spontaneous, phasic, to Dr. Birmingham. competent and demonstrates normal augmentation. T/P Trunk is compressible. LT PerV is compressible. Lt PTV and SoleusV are DILATED and NON COMPRESSIBLE consistent with acute DVT. VL/Venous Duplex US, Unilateral Interpretation Summary Acute deep vein thrombosis is noted in the left posterior tibial vein, soleus v ein. Ordering Physician: Alyssa Birmingham Referring Physician: Abdullahi Major Performed By: Janina Maldonado, CHARLIE, RVT
[2023-09-15 16:07] LABS: Bacteria 0 SEEN /hpf (None Seen); Mucous, Urine 0 SEEN /hpf (<or=2+); Red Blood Cells-Urine 0 SEEN /hpf (0-5); Squamous Epithelial Cells - UA 0 SEEN /hpf (5-10); White Blood Cells 0 SEEN /hpf (0-5)
[2023-09-15 16:08] LABS: Color, Urine Yellow (Yellow); Glucose, Dipstick Normal (Normal); Ketone-Dipstick Negative (Negative); Leukocyte Esterase-Dipstick 25 /ul (Negative); Nitrite-Dipstick Negative (Negative); Occult Blood-Urine Negative /ul (Negative); Protein-Dipstick Negative (Negative); Specific Gravity, Urine 1.015 (1.002-1.030); Urine Bilirubin Dipstick Negative (Negative); Urine Clarity Clear (Clear); Urine Urobilinogen Normal (Normal); Urine pH 6.5 (5.0 - 8.0)
[2023-09-15 19:10] VITALS: BP 113/45; PULSE 56; RESP 17; TEMP 36.7; O2SAT 98
[2023-09-15] MEDS: clonazePAM 0.5 MG Tablet 0.75 MG PO (20:40)
[2023-09-15 21:59] VITALS: BP 126/67; PULSE 87
[2023-09-16] MEDS: Acetaminophen 500 MG Tablet 1000 MG PO ×3 (05:45→20:48)
[2023-09-16] MEDS: Heparin Injection (Vial) 5,000 UNIT/ML VIAL 5000 UNIT SC ×3 (05:45→20:24)
[2023-09-16] MEDS: Carbidopa/Levodopa 25/100 Tablet PO ×4 (05:45→17:47)
[2023-09-16] MEDS: Menthol/Lanolin/Calamine/Znox 113 GM Tube 1 APPLIC TOPICAL ×2 (05:48→20:42)
[2023-09-16 07:35] VITALS: BP 141/54; PULSE 79; RESP 18; TEMP 36.8; O2SAT 94
[2023-09-16] MEDS: Multivitamins,Therapeutic Tablet 1 TABLET PO (09:30)
[2023-09-16] MEDS: Cyanocobalamin 500 MCG Tablet PO (09:31)
[2023-09-16] MEDS: Carvedilol 3.125 MG TABLET PO ×2 (09:31→20:24)
[2023-09-16] MEDS: Vibegron 75 MG TABLET PO (09:32)
[2023-09-16] MEDS: Ascorbic Acid 500 MG Tablet PO (09:32)
[2023-09-16] MEDS: Senna/Docusate Sodium 1 Tablet 2 TABLET PO ×2 (09:32→20:25)
[2023-09-16 20:11] VITALS: BP 108/70; PULSE 75; RESP 16; TEMP 36.9; O2SAT 98
[2023-09-16] MEDS: clonazePAM 0.5 MG Tablet 0.75 MG PO (20:23)
[2023-09-16] MEDS: Atorvastatin Calcium 10 MG Tablet PO (20:25)
[2023-09-17] MEDS: Carbidopa/Levodopa 25/100 Tablet PO ×4 (05:31→17:41)
[2023-09-17] MEDS: Acetaminophen 500 MG Tablet 1000 MG PO ×3 (05:31→20:25)
[2023-09-17] MEDS: Heparin Injection (Vial) 5,000 UNIT/ML VIAL 5000 UNIT SC ×3 (05:31→20:24)
[2023-09-17] MEDS: Menthol/Lanolin/Calamine/Znox 113 GM Tube 1 APPLIC TOPICAL ×2 (05:32→20:25)
[2023-09-17 07:00] VITALS: BP 147/78; PULSE 87; RESP 16; TEMP 36.3; O2SAT 97
--- NOTE | 2023-09-17 09:24 | PCM.PROGNOTE ---
Subjective Subjective Jojo was seen on team rounds today. Her Randall was present in the room. Afebrile VSS-blood pressure last night was 108/70. This morning her blood pressure is 147/78. Orthostatics are + again today....this may be responsible for the increased confusion. She denies lightheadedness though. Maintaining appropriate oxygen saturation on RA Oral intake - FOOD intake ranges generally from 50 to 100%. FLUIDS fair even with constant encouragement to increase her fluid intake. Discussed with nursing - no problems that need addressed. UA on Sunday was negative for infection. She slept well last night. Reviewed the THERAPY notes Medication list reviewed. More confused recently. Oral fluid intake remains poor. Last BUN/CREAT ratio was 33 and has been climbing. Appetite is down a little. I have not heard her coughing. Objective Data Objective Data Vital Signs: Vital Signs Temp Pulse Resp BP Pulse Ox O2 Del Method O2 Flow Rate 97.4 F L 87 16 147/78 H 97 Room Air 2 09/17/23 07:00 09/17/23 07:00 09/17/23 07:00 09/17/23 07:00 09/17/23 07:00 09/17/23 07:00 09/11/23 07:36 Oxygen Flow Rate (L/min) 2 Oxygen Delivery Method Room Air Weight: 145 lb 8.081 oz Body Mass Index (BMI) 25.7 Intake & Output: Intake and Output for Last 24 Hours 09/15/23 09/16/23 09/17/23 23:59 23:59 23:59 Intake Total 1140 / 1140 900 / 900 500 / 500 Output Total 300 / 300 300 / 300 200 / 200 Balance 840 / 840 600 / 600 300 / 300 Lab / Micro Data 09/14/23 05:10 09/14/23 05:10 Micro: Microbiology 09/01/23 15:00 Stool Stool Occult Blood (JUDI) - Final 08/30/23 17:20 Urine, Catheterized Urine Culture - Final Escherichia coli Assessment & Plan Assessment/Plan (1) Physical debility: (2) Hemothorax on right: (3) History of thoracic surgery: (4) Deep vein thrombosis: QUALIFIERS: DVT location: lower extremity Affected thrombotic vein of extremity: tibial Chronicity: acute Laterality: left Qualified Code(s): I82.442 - Acute embolism and thrombosis of left tibial vein (5) Pulmonary embolism: QUALIFIERS: Pulmonary embolism type: multiple subsegmental (without acute cor pulmonale) Qualified Code(s): I26.94 - Multiple subsegmental pulmonary emboli without acute cor pulmonale (6) Acute blood loss anemia: (7) RBD (REM behavioral disorder): (8) Parkinson's disease: QUALIFIERS: Dyskinesia presence: unspecified whether dyskinesia Fluctuating manifestations: unspecified whether manifestations fluctuate Qualified Code(s): G20.A1 - Parkinson's disease without dyskinesia, without mention of fluctuations (9) Ribs, multiple fractures: QUALIFIERS: Encounter type: subsequent encounter Fracture type: closed Laterality: right PLAN: Plan 1. Continue therapy 2. The Venous US is now positive for DVT in the L posterior tibial AND the Soleus. Will consult Dr. Tellez for a possible IVC filter as a better option than chronic anticoagulation in this elderly female with advanced PD and frequent falls. The fall 7 weeks ago fractured R ribs and caused a hemothorax. 3. Will need to have ongoing decision making regarding the plan for DC. In my opinion she needs 24/ supervision and I am not sure her , who is 18 years older than her, is able to provide this kind of care. She has stairs at home to the basement and that is where she showers. She gets confused at night and she never remembers to use the call light when she wants to get up. She is a 2 person assist at night. She requires constant reminders to increase fluid intake and even with that she still is not getting enough fluid in. I discussed this with both Charline and Randall. Charline was very tearful. Randall was more realistic and he tells me it is a 24 hour a day job and he has been sleep deprived because of this. SW to give Randall list of area home agencies and ECF's. Will continue to do therapy. Her ability to do therapy waxes and wanes from day to day 4. Will get a KUB at request of Dr. tellez to make sure she did not have a IVC filter at [facility].......maybe they did it and did not send the paperwork Charges/Coding Visit Charges Inpatient E&M: 24796 Subs Hosp L2
[2023-09-17 09:25] VITALS: BP 125/66; BP 136/76; BP 86/48; PULSE 42; PULSE 82
[2023-09-17] MEDS: Senna/Docusate Sodium 1 Tablet 2 TABLET PO ×2 (09:47→20:24)
[2023-09-17] MEDS: Ascorbic Acid 500 MG Tablet PO (09:47)
[2023-09-17] MEDS: Multivitamins,Therapeutic Tablet 1 TABLET PO (09:47)
[2023-09-17] MEDS: Carvedilol 3.125 MG TABLET PO ×2 (09:47→20:26)
[2023-09-17] MEDS: Vibegron 75 MG TABLET PO (09:47)
[2023-09-17] MEDS: Cyanocobalamin 500 MCG Tablet PO (09:47)
--- NOTE | 2023-09-17 15:20 | CASEMGMT ---
Social Work IDT met with patient and at bedside to discuss care plans. Discussed patient progress with therapy. Patient has new clot; venous US is now positive for DVT in the L posterior tibial and the Soleus. The patient has follow up appointment Dr. Tellez for follow up care. Therapy services informed patient and that 24hr care is required due to mentation and physical care needs. REGINA educated patient and , Edi of [facility] insurance next review date 09/19/2023. REGINA discussed recommendations for 24/hr care with additional support and terminal make up operator care placement. Edi informed REGINA that he would like patient to discharge to the transitional care unit. REGINA informed Edi that due to patient current ambulation and physical mobility; patient insurance approval for placement is unlikely to be approved. REGINA informed Edi that the patient will require terminal make up operator care whether in home with private duty support or chcf care. Patient was tearful during the discussion stating, I don't want to be alone. Patient is not agreeable to care home placement for terminal make up operator care. SW will continue to follow to assist with discharge planning. REGINA met with patient's , Edi post IDT meeting. Edi informed REGINA that he acknowledge that the patient's care needs has increased over the past few years. Edi informed REGINA that toileting assistance has become increasingly difficult with the patient during the night. Edi informed REGINA that the patient is not agreeable to care home placement. REGINA reviewed potential level of care required for patient alf care in nursing facility or home health care/ private duty support and additional family support. Edi informed REGINA that his children live out of town; no local family support. REGINA provided patient and , Edi with resources for assisted living, chcf care facilities, and private duty care. Edi informed REGINA that he will look at all resources and contact patient insurance. Edi informed RGEINA that he would like referral sent to [facility] for potential approval. ESMER Shepherd
--- NOTE | 2023-09-17 16:40 | RAD_ITS ---
INDICATION: to determine if she has an IVC filter EXAMINATION/TECHNIQUE: X-RAY - XR Abdomen 1 View COMPARISON: None FINDINGS: BOWEL GAS PATTERN: Nonspecific non-obstructive bowel gas pattern with prominent scattered colonic gas. FREE AIR: Not well assessed on a supine view. ORGANOMEGALY: Not seen. CALCIFICATIONS: No concerning calcifications. LOWER CHEST: No acute pathology. BONES AND SOFT TISSUES: No acute pathology. No radiopaque IVC filter RAD/Abdomen Single View IMPRESSION: No radiopaque IVC filter Non-obstructive bowel gas pattern. Electronically Signed: Abbe Storey MD at 17:09 EDT ,
[2023-09-17 20:02] VITALS: BP 150/87; PULSE 68; RESP 16; TEMP 37.1; O2SAT 97
[2023-09-17] MEDS: clonazePAM 0.5 MG Tablet 0.75 MG PO (20:16)
[2023-09-17 22:00] VITALS: PULSE 80; RESP 15; O2SAT 96
--- NOTE | 2023-09-18 02:14 | NURSING ---
Pt stripped naked in bed and threw clothes/bedding onto floor. Pt disengaged the BA, wrapped a blanket around self, and self-transferred out of bed. Pt heard shuffling in hallway towards nursing station. Pt stated she wanted to put quarters into the machine. Pt escorted back to pt's room, redressed, repositioned into bed, Alarm reengaged. Bed pad alarm added to built in BA for reinforcement of safety. Staff reoriented pt to time of day and encouraged pt to try to get some sleep.
--- NOTE | 2023-09-18 03:30 | CASEMGMT ---
Social Work SW met with patient and at bedside to follow up with transition of care plans. Patient's informed REGINA that he has been in contact with [facility] would [facility] qualify for 36 hrs of personal care. SW discussed concerns for care and barriers to private duty care. SW discussed longterm care nursing facility. Patient's informed SW that he would like placement at TCU. SW informed patient's that TCU may not be approved by insurance due to patient level of functioning. Due to patient cognition, she will require memory care or longterm care for support. Patient's informed REGINA that he will continue to review longterm. ESMER Shepherd
--- NOTE | 2023-09-18 05:17 | NURSING ---
pt found stripping in bed and incontinent. Complete bed change as pt failed to alert staff of toileting needs. Pt pulled O2 off and yanked on tubing till it dislodged from flow meter. Pt was trying to tie soiled gown to bed rail while staff was changing bed linens and gown. Staff encouraged pt to use call light for toileting needs, even if it is for incontinence needs instead of stripping self. Staff repositioned pt in bed and pt denied further needs at this time.
[2023-09-18] MEDS: Acetaminophen 500 MG Tablet 1000 MG PO ×3 (05:22→20:01)
[2023-09-18] MEDS: Heparin Injection (Vial) 5,000 UNIT/ML VIAL 5000 UNIT SC ×3 (05:24→20:01)
[2023-09-18] MEDS: Menthol/Lanolin/Calamine/Znox 113 GM Tube 1 APPLIC TOPICAL ×2 (05:24→20:01)
[2023-09-18] MEDS: Carbidopa/Levodopa 25/100 Tablet PO ×4 (05:25→18:16)
[2023-09-18 07:07] VITALS: BP 153/78; PULSE 77; RESP 15; TEMP 36.5; O2SAT 100
--- NOTE | 2023-09-18 08:38 | EX.PCM.CON.S ---
Assessment & Plan Assessment/Plan (1) Pulmonary embolism: QUALIFIERS: Pulmonary embolism type: multiple subsegmental (without acute cor pulmonale) Qualified Code(s): I26.94 - Multiple subsegmental pulmonary emboli without acute cor pulmonale (2) Deep vein thrombosis: QUALIFIERS: Affected thrombotic vein of extremity: tibial Chronicity: acute DVT location: lower extremity Laterality: left Qualified Code(s): I82.442 - Acute embolism and thrombosis of left tibial vein PLAN: Plan Agree that IVC Filter is indicated. I discussed with the patient the reasons for IVC filter placement, the procedure itself, and the recovery. We also discussed the risks of the procedure including but not limited to bleeding/infection and risks of having the IVC filter in place including but not limited to the filter becoming clogged and potentially requiring additional procedures to address this. We discussed that in some cases, likely her included, the IVC filter is left in place indefinitely, but that it can also be removed if the risks of VTE and/or bleeding are felt to be reasonably resolved or diminished. She would like to take time to consider. She expresses that she has been through a lot over the last few weeks and is not eager for additional procedures. She does express understanding that this procedure is to reduce her risk for PE which could have significant associated morbidity and mortality. I did ask if I could call and discuss the procedure as above with her , she does wish for me to do this. After further discussion with her and Dr. Birmingham, she is agreeable to proceed with IVC Filter. Tentatively on for the cook house laborer this afternoon, potentially could be pushed to tomorrow if prior cases go long. If today, then will utilize local anesthesia as she has eaten today. If tomorrow, then NPO after midnight. HPI Consult Data Date of Consult: 09/18/23 HPI Narrative HPI Narrative: GLORIA WOOD, is a 67 F who was admitted to [facility] Acute Rehab unit on 08/30/23 [address] an admission at [facility] from 08/21/23-08/31/23. She had initially presented to the [facility] ER with progressive SOB. 5 weeks prior she'd had a fall which resulted in several broken ribs. In the ER, CXR showed R pleural effusion. US guided thoracentesis produced 930 ml dark red fluid. CTA showed subsegmental right upper lobe PE. She was transferred to [facility] and underwent R thoracoscopy. Fortunately, no evidence of malignancy. While admitted at [facility], she was found to have L PT DVT. Here on 09/03/23 she had repeat venous duplex which showed only L PT DVT. Another repeat duplex was obtained on 09/17/23 and showed new L soleal DVT in addition to PT DVT despite prophylactic subq heparin. With her high risk for recurrent falls/injury in the setting of advanced Parkinson's she is at elevated risk of bleeding with long-term anticoagulation. Likewise, with her decreasing mobility and history of prior VTE, she is at elevated risk of recurrent VTE. We are consulted for consideration of IVC Filter placement. [facility] Medical History (Updated 09/17/23 @ 11:[address] Alyssa Birmingham DO) Abnormal TSH Arrhythmia C. difficile diarrhea Chest pain Collagenous colitis CPAP (continuous positive airway pressure) dependence Depression with anxiety Diverticulosis Elevated alkaline phosphatase level Essential hypertension Grade I diastolic dysfunction History of pulmonary embolus (PE) (07/31/21) Hyperlipidemia Hypothyroidism Melanoma Neurogenic bladder Non-smoker NEHEMIAH on CPAP Parkinson's disease Physical debility Pulmonary embolism RBD (REM behavioral disorder) Squamous cell cancer of skin of forearm Syncope Home Medications ascorbic acid (vitamin C) 500 mg tablet 500 mg PO DAILY supplement 11/10/20 [History Last Taken 07/30/21] multivitamin 1 tab PO DAILY supplement 11/10/20 [History Last Taken 07/30/21] atorvastatin 10 mg tablet 10 mg PO QODAY cholesterol #30 tabs 08/19/21 [Rx Last Taken Unknown] carbidopa 25 mg-levodopa 100 mg tablet 1 tab PO 0600,1000,1800 parkinsons #90 tabs 08/19/21 [Rx Last Taken 08/30/23] carbidopa 25 mg-levodopa 100 mg tablet 1.5 tab PO 1400 parkinsons #45 tabs 08/19/21 [Rx Last Taken 08/30/23] clonazepam 0.5 mg tablet 0.5 mg PO QHS sleep 08/29/21 [History Last Taken 08/29/23] acetaminophen 325 mg tablet (Tylenol) 325 mg PO Q6H PRN PRN PAIN 07/11/22 [History Last Taken Unknown] cyanocobalamin (vitamin B-12) 100 mcg tablet (Vitamin B-12) 100 mcg PO DAILY supplement 07/11/22 [History Last Taken Unknown] carvedilol 6.25 mg tablet 6.25 mg PO BID blood pressure #180 tabs 11/13/22 [Rx Last Taken 08/30/23] vibegron 75 mg tablet (Gemtesa) 75 mg PO DAILY overactive bladder 08/20/23 [History Last Taken Unknown] hydrocodone-acetaminophen 5-325mg 5mg-325mg 1 tab PO Q6H PRN pain 1-10 08/30/23 [History Last Taken 08/29/23] Allergy/AdvReac Type Severity Reaction Status Date / Time prochlorperazine Allergy Unknown unknown Verified 01/02/23 15:19 [From Compazine] promethazine [From Phenergan] Allergy Unknown unknown Verified 01/02/23 15:19 thioridazine Allergy Unknown unknown Verified 01/02/23 15:19 haloperidol [From Haldol] Allergy Other Verified 01/02/23 15:19 haloperidol lactate Allergy Other Verified 01/02/23 15:19 [From Haldol] metoclopramide HCl Allergy Other Verified 01/02/23 15:19 [From Reglan] Family History Father Diabetes Heart disease Mother Hypertension Diabetes Cancer brain, lymphoma Hyperlipidemia Sister Seizures Brother Heart disease Surgical History (Updated 08/30/23 @ 17:[address] Alyssa Birmingham DO) History of appendectomy History of bunionectomy (~02/2008) History of colonoscopy (07/19/12) History of hammer toe correction (~02/2008) History of thoracic surgery History of total abdominal hysterectomy and bilateral salpingo-oophorectomy (~1995) S/P deep brain stimulator placement (06/23/13) Social History household members: spouse housing: house Smoking Status: Never smoker alcohol intake: current alcohol intake frequency: a few times a month Alcohol type: wine substance use type: does not use Physical Exam Const alert Orientation / Consciousness: oriented to person and oriented to place HEENT normocephalic, head/scalp atraumatic, hearing grossly normal bilaterally, external ears normal and external nose normal Eyes General Eye: normal appearance of both eyes Neck General: normal visual inspection and trachea midline Resp normal respiratory effort, no retractions and no use of accessory muscles Effort and Inspection: Negative for respiratory distress, labored, grunting, stridor, actively coughing or audible wheezes Cardio regular rate and regular rhythm Extremity Extremity Narrative: Mild LLE edema. No calf tenderness, erythema, excessive warmth. Skin no rashes or lesions noted Psych Appearance: grossly normal Attitude: calm Activity / Motor Behavior: appropriate eye contact Speech: slow and soft Mood & Affect: euthymic mood Lab / Micro Data 09/14/23 05:10 09/14/23 05:10 Imaging Radiology Impression Venous Doppler Study 09/15/23 10:47 Interpretation Summary Acute deep vein thrombosis is noted in the left posterior tibial vein, soleus vein. Ordering Physician: Alyssa Birmingham Referring Physician: Abdullahi Major Performed By: Janina Maldonado, DESIREECS, RVT
[2023-09-18] MEDS: Senna/Docusate Sodium 1 Tablet 2 TABLET PO (10:18)
[2023-09-18] MEDS: Multivitamins,Therapeutic Tablet 1 TABLET PO (10:18)
[2023-09-18] MEDS: Ascorbic Acid 500 MG Tablet PO (10:18)
[2023-09-18] MEDS: Cyanocobalamin 500 MCG Tablet PO (10:18)
[2023-09-18] MEDS: Vibegron 75 MG TABLET PO (10:18)
[2023-09-18] MEDS: Carvedilol 3.125 MG TABLET PO ×2 (10:18→20:01)
--- NOTE | 2023-09-18 10:20 | PCM.PROGNOTE ---
Subjective Subjective Afebrile VSS -systolic blood pressure is mildly elevated but she is orthostatic so will tolerate this mild elevation without any change to her antihypertensive regimen. Heart rate is within normal limits. Maintaining appropriate oxygen saturation on RA Oral intake - FOOD erratic. She ate 75 to 100% of breakfast and supper last night but had only 25 to 49% of breakfast. FLUIDS she did better with fluids yesterday and took a total of 1860. Fluid balance yesterday was +1310. Discussed with nursing -restless and confused at night. She is impulsive and set off her chair alarm multiple times yesterday trying to get up from a chair without calling the nurse. Reviewed the THERAPY notes Medication list reviewed. Jojo denies lightheadedness, cephalgia, shortness of breath at rest, chest pain, nausea/vomiting/epigastric pain/abdominal pain, dysuria, suprapubic pain and calf pain. I reviewed the KUB done last night and there is no IVC filter present. Radiology report is still pending. The colon is distended due to air. No air fluid levels. She has no abd pain and she has been having regular BM's. Had 2 BM's yesterday. Charline was seen by vascular surgery today and I reviewed the consult. IVC was recommended. Pt wanted to think about it. I discussed the options for tx for recurrent DVT's and PE with Charline and her Randall. Option 1 is anticoagulate chronically. Not a good option due to very frequent falls with recent fall resulting in R rib fractures and a R hemothorax (was not on anticoagulation) Option 2 is to insert IVC filter and Option 3 is to do nothing. Charline and Randall are agreeable to inserting a IVC filter. Objective Data Objective Data Vital Signs: Vital Signs Temp Pulse Resp BP Pulse Ox O2 Del Method O2 Flow Rate 97.7 F L 77 15 153/78 H 100 Room Air 2 09/18/23 07:07 09/18/23 07:07 09/18/23 07:07 09/18/23 07:07 09/18/23 07:07 09/18/23 07:07 09/11/23 07:36 Oxygen Flow Rate (L/min) 2 Oxygen Delivery Method Room Air Weight: 145 lb 8.081 oz Body Mass Index (BMI) 25.7 Intake & Output: Intake and Output for Last 24 Hours 09/16/23 09/17/23 09/18/23 23:59 23:59 23:59 Intake Total 900 / 900 1860 / 1860 100 / 100 Output Total 300 / 300 550 / 1050 900 / 900 Balance 600 / 600 1310 / 810 -800 / -800 Lab / Micro Data 09/14/23 05:10 09/14/23 05:10 Micro: Microbiology 09/01/23 15:00 Stool Stool Occult Blood (JUDI) - Final 08/30/23 17:20 Urine, Catheterized Urine Culture - Final Escherichia coli Radiography Diagnostic Testing: Radiology Impression Venous Doppler Study 09/15/23 10:47 Interpretation Summary Acute deep vein thrombosis is noted in the left posterior tibial vein, soleus vein. Ordering Physician: Alyssa Birmingham Referring Physician: Abdullahi Major Performed By: Janina Maldonado, CHARLIE, RVT Physical Exam Const alert Constitutional Narrative: Voice volume is better and I can hear her when she is talking with me. Speech is not as slurred. No agitated or confused a the present time. General Appearance: cooperative Resp clear to auscultation bilaterally Effort and Inspection: Negative for tachypneic or respiratory distress Auscultation: diminished lung sounds bilateral lower Cardio regular rate, regular rhythm and no gallops Cardio Narrative: No ectopy GI normal to inspection, nondistended, normoactive bowel sounds, soft to palpation and non-tender GI Narrative: no guarding with palpation. Mildly tympanic in the mid to lower abd. Extremity no calf tenderness Skin General Skin Exam: no breakdown Rashes: no rashes Wound Narrative: There is a very small dry eschar R chest wall due to prior Chest tube. She picks at it sometimes and we are keeping it covered. There is no swelling and no erythema around the wound and there is no DC. Assessment & Plan Assessment/Plan (1) Physical debility: (2) Ribs, multiple fractures: QUALIFIERS: Encounter type: subsequent encounter Fracture type: closed Laterality: right (3) Hemothorax on right: (4) History of thoracic surgery: (5) Deep vein thrombosis: QUALIFIERS: DVT location: lower extremity Affected thrombotic vein of extremity: tibial Chronicity: acute Laterality: left Qualified Code(s): I82.442 - Acute embolism and thrombosis of left tibial vein PLAN: Recurrent and associated with PE's. Despite Heparin 5,000 units SQ Q 8 hours she has developed another DVT in the L soleus vein, in addition to the DVT she had in the left posterior tibial vein at admission to rehab. (6) Pulmonary embolism: QUALIFIERS: Pulmonary embolism type: multiple subsegmental (without acute cor pulmonale) Qualified Code(s): I26.94 - Multiple subsegmental pulmonary emboli without acute cor pulmonale (7) Acute blood loss anemia: (8) RBD (REM behavioral disorder): (9) Parkinson's disease: QUALIFIERS: Dyskinesia presence: unspecified whether dyskinesia Fluctuating manifestations: unspecified whether manifestations fluctuate Qualified Code(s): G20.A1 - Parkinson's disease without dyskinesia, without mention of fluctuations PLAN: Plan 1. Continue therapy 2. Randall and Jojo are agreeable to an IVC filter and I notified Dr. Tellez and a text. 3. Randall tells me that Jojo does not want to go to an extended care facility and he plans on taking her home. Charges/Coding Visit Charges Inpatient E&M: 56023 Subs Hosp L1
[2023-09-18 19:20] VITALS: BP 140/66; PULSE 74; RESP 14; TEMP 36.4; O2SAT 99
[2023-09-18] MEDS: clonazePAM 0.5 MG Tablet 0.75 MG PO (19:44)
[2023-09-18] MEDS: Atorvastatin Calcium 10 MG Tablet PO (20:01)
[2023-09-18 20:06] VITALS: PULSE 74; RESP 15; O2SAT 97
[2023-09-19 05:45] VITALS: BMI 25.4
[2023-09-19] MEDS: Heparin Injection (Vial) 5,000 UNIT/ML VIAL 5000 UNIT SC (06:34)
[2023-09-19] MEDS: Menthol/Lanolin/Calamine/Znox 113 GM Tube 1 APPLIC TOPICAL (06:35)
[2023-09-19 07:27] VITALS: BP 148/76; PULSE 82; RESP 16; TEMP 36.4; O2SAT 97
--- NOTE | 2023-09-19 15:07 | NURSING ---
Addendum entered by Germaine Webb 09/19/23 17:26: Returned to unit. Original Note: pt left the unit for procedure
[2023-09-19] MEDS: Carbidopa/Levodopa 25/100 Tablet PO (17:54)
--- NOTE | 2023-09-19 18:12 | OP.PCM_ITS ---
Report of Operation Date of Procedure: 09/19/23 Pre-Operative Diagnosis: VTE, contraindication to anticoagulation Post-Operative Diagnosis: same Surgery/Procedure Performed:: insertion IVC filter Surgeon: Juan Tellez Type of Anesthesia: Local and Sedation,Conscious Estimated Blood Loss (mL): 2 Description of Procedure: HPI: Patient is a 59 atrial female with multiple prior pulmonary emboli most recently approximate 1 month prior and multiple falls due to her progressively worsening Parkinson's disease. She is felt to be poor candidate for long-term anticoagulation so an IVC filter is felt to be appropriate. Description of procedure: Upon obtaining informed consent and verification correct patient procedure and site patient was taken to [facility] where she was positioned prepped and draped in usual fashion. Time was performed consultation administered Versed and fentanyl. The right common femoral vein was evaluated with ultrasound and the skin overlying anesthetized 1% lidocaine. The vessel was then accessed under ultrasound guidance with micropuncture needle wire was then exchanged for micropuncture sheath. Hand-injection ilio caval venogram confirmed satisfactory positioning no extravasation dissection and revealed a patent normal caliber vena cava. This imaging also was adequate to reveal the confluence of the renal veins which were then marked on the screen. [employer] wire was then advanced to the micropuncture sheath and the micropuncture sheath exchanged for the Bard Sol filter delivery system. The filter was then advanced in the position deployed below the lowest renal vein. Completion venography confirmed satisfactory position with no significant tilt. Sheath withdrawn a minute pressure held for 5 minutes after which time patient was taken recovery room for bedrest prior to return to the rehab unit.
[2023-09-19] MEDS: clonazePAM 0.5 MG Tablet 0.75 MG PO (20:19)
[2023-09-19 20:45] VITALS: BP 116/60; PULSE 60; RESP 15; TEMP 36.7; O2SAT 95
--- NOTE | 2023-09-19 20:54 | NURSING ---
went in to do clinical findings on the pt; staff got pts medications ready and refused stating that she wasnt going to take any more vitamins. staff explained that she wasn't getting vitamins at this time. medication was handed to the pt and pt stated that is too much Klonopin, you are giving me too much. staff tried to explain that she has been receiving this amt for awhile and nothing has changed. pt statedi'm not taking any theses pills. when staff asked why pt reported that the doctor said she didn't have to. that she would wait for digna to come in. staff reminded pt that visiting hours were over but we could call him and talk to him on the phone. spouse was called and spoke with pt and pt became angry. pt thrust the phone back to the staff, staff proceeded to talk to spouse. spouse stated that the pt was angry but she would take the klonopin. if the staff needed anything else to give him a call. pt also refused her heparin shot after getting her didier filter placed today. pt was educated on the risks of not taking her heparin and continued to decline to take it. rn made aware of the above charting
--- NOTE | 2023-09-20 01:50 | NURSING ---
2130 groin dressing checked and was found to be dry and intact with no bruising noted, pt denied discomfort 0130 dressing to the rt groin checked and was found to be dry and intact with no bruising noted to area. pt denied discomfort to the site
[2023-09-20 08:34] VITALS: BP 150/81; PULSE 92; RESP 16; TEMP 36.6; O2SAT 94
--- NOTE | 2023-09-20 08:50 | PN_ITS ---
Subjective Subjective POD #1 S/P IVC filter Afebrile VSS - Systolic is mildly elevated. diastolics are WNL. Maintaining appropriate oxygen saturation on RA Oral intake - FOOD Eats only a light breakfast but eats 75-100% of lunch and supper most days. FLUIDS highly variable. Discussed with nursing - has been incontinent of urine. She has been very confused at night. Setting off the bed alarms, getting undressed, shredding the attends, requiring 2 nurses to get her to the BR. Telling the nurses she has to go see her brother, go to the lodge. Had been sleeping better after the dose of Klonopin was increased to 0.75 mg Q HS. she is lucid during the day and is appropriate except for not using the call light and setting off the chair alarm frequently. Reviewed the THERAPY notes Medication list reviewed. Has been kept in bed since the IVC filter....inserted in the R groin. She will be allowed up at 4 PM today. she is confused today. Did not sleep well last night and for a few nights prior due to confusion in the evening and at night. 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 She is AF and there is no sign of infection. We checked a UA and it was negative. She is not coughing and she is not nauseated or vomiting. She has no wounds. The scab R lateral ribs is stable and she has not been picking at it. There is no discharge from the scab (site of previous chest tube) and there is no erythema. Objective Data Objective Data Vital Signs: Vital Signs Temp Pulse Resp BP Pulse Ox O2 Del Method O2 Flow Rate 97.8 F 92 16 150/81 H 94 Room Air 2 09/20/23 08:34 09/20/23 08:34 09/20/23 08:34 09/20/23 08:34 09/20/23 08:34 09/20/23 08:34 09/11/23 07:36 Oxygen Flow Rate (L/min) 2 Oxygen Delivery Method Room Air Weight: 143 lb 8.335 oz Body Mass Index (BMI) 25.4 Intake & Output: Intake and Output for Last 24 Hours 09/18/23 09/19/23 09/20/23 23:59 23:59 23:59 Intake Total 660 / 660 340 / 340 120 / 120 Output Total 1200 / 1200 475 / 475 Balance -540 / -540 -135 / -135 120 / 120 Lab / Micro Data 09/14/23 05:10 09/14/23 05:10 Micro: Microbiology 09/01/23 15:00 Stool Stool Occult Blood (JUDI) - Final 08/30/23 17:20 Urine, Catheterized Urine Culture - Final Escherichia coli Physical Exam Const alert Constitutional Narrative: Confused. Still not using the call light when she needs something. She has stayed in bed. She can be redirected. Has not been combative or agitated. Resp normal respiratory effort and clear to auscultation bilaterally Effort and Inspection: Negative for tachypneic or labored Auscultation: diminished lung sounds bilateral lower Cardio regular rate, regular rhythm and no gallops GI normal to inspection, nondistended, normoactive bowel sounds, soft to palpation and non-tender Extremity no calf tenderness Skin Rashes: rashes noted Wound Narrative: The right groin puncture site is dry with no erythema, no discharge and no swelling. Dressing is dry. Neuro Neuro Narrative: She is actually doing better than she was at home at baseline. Randall tends to enable her to do less than she can by doing everything for her. Assessment & Plan Assessment/Plan (1) Physical debility: (2) Ribs, multiple fractures: QUALIFIERS: Encounter type: subsequent encounter Fracture type: closed Laterality: right (3) Hemothorax on right: (4) History of thoracic surgery: (5) Deep vein thrombosis: QUALIFIERS: DVT location: lower extremity Affected thrombotic vein of extremity: tibial Chronicity: acute Laterality: left Qualified Code(s): I82.442 - Acute embolism and thrombosis of left tibial vein (6) Pulmonary embolism: QUALIFIERS: Pulmonary embolism type: multiple subsegmental (without acute cor pulmonale) Qualified Code(s): I26.94 - Multiple subsegmental pulmonary emboli without acute cor pulmonale (7) Acute blood loss anemia: (8) RBD (REM behavioral disorder): (9) Parkinson's disease: QUALIFIERS: Dyskinesia presence: unspecified whether dyskinesia Fluctuating manifestations: unspecified whether manifestations fluctuate Qualified Code(s): G20.A1 - Parkinson's disease without dyskinesia, without mention of fluctuations PLAN: Plan 1. Continue therapy 2. SW is working with on LT care planning. 3. Add Seroquel 25 mg at 8 PM nightly. If this is effective in controlling b ehavior at night would try and decrease the dose of the Klonopin back to 0.5 mg nightly as Benzodiazepines in the elderly can increase confusion. Charges/Coding Visit Charges Inpatient E&M: 50956 Subs Hosp L1
[2023-09-20] MEDS: Carbidopa/Levodopa 25/100 Tablet PO ×3 (10:14→18:01)
--- NOTE | 2023-09-20 11:33 | PCM.PN.SRG ---
Subjective Subjective Charline was seen resting comfortably in bed this morning. She reports that she feels she tolerated the procedure well. She has some soreness at the access site and the IV site but relatively mild. There were no issues with bleeding from the access site overnight. Objective Data Objective Data Vital Signs: Vital Signs Temp Pulse Resp BP Pulse Ox O2 Del Method O2 Flow Rate 97.8 F 92 16 150/81 H 94 Room Air 2 09/20/23 08:34 09/20/23 08:34 09/20/23 08:34 09/20/23 08:34 09/20/23 08:34 09/20/23 08:34 09/11/23 07:36 Oxygen Flow Rate (L/min) 2 Oxygen Delivery Method Room Air Weight: 143 lb 8.335 oz Body Mass Index (BMI) 25.4 Intake & Output: Intake and Output for Last 24 Hours 09/18/23 09/19/23 09/20/23 23:59 23:59 23:59 Intake Total 660 / 660 340 / 340 120 / 120 Output Total 1200 / 1200 475 / 475 Balance -540 / -540 -135 / -135 120 / 120 Lab / Micro Data 09/14/23 05:10 09/14/23 05:10 Micro: Microbiology 09/01/23 15:00 Stool Stool Occult Blood (JUDI) - Final 08/30/23 17:20 Urine, Catheterized Urine Culture - Final Escherichia coli Physical Exam Const alert and oriented x3 General Appearance: cooperative and comfortable HEENT normocephalic, head/scalp atraumatic, hearing grossly normal bilaterally, external ears normal and external nose normal Eyes EOMs intact bilaterally General Eye: normal appearance of both eyes Neck General: normal visual inspection and trachea midline Resp normal respiratory effort and normal air movement Effort and Inspection: able to speak in complete sentences; Negative for labored, stridor or audible wheezes Cardio regular rate and regular rhythm Extremity Extremity Narrative: R groin access site with pressure dressing C/D/I. Minimal ecchymosis, no erythema. Skin no rashes or lesions noted Neuro oriented x3, CN's II-XII intact bilaterally and moves all extremities Assessment & Plan Assessment/Plan (1) Pulmonary embolism: QUALIFIERS: Pulmonary embolism type: multiple subsegmental (without acute cor pulmonale) Qualified Code(s): I26.94 - Multiple subsegmental pulmonary emboli without acute cor pulmonale (2) Deep vein thrombosis: QUALIFIERS: Affected thrombotic vein of extremity: tibial Chronicity: acute DVT location: lower extremity Laterality: left Qualified Code(s): I82.442 - Acute embolism and thrombosis of left tibial vein PLAN: Plan She is POD#1 from IVC filter insertion. The procedure was without complications and she tolerated it well. The access site is satisfactory in appearance with no evidence of bleeding/hematoma. The pressure dressing in the R groin may be removed after 24 hours then okay to be left open to air. Will plan for follow-up in the office in about 4-5 weeks.
[2023-09-20] MEDS: Heparin Injection (Vial) 5,000 UNIT/ML VIAL 5000 UNIT SC ×2 (14:14→19:37)
--- NOTE | 2023-09-20 17:11 | CASEMGMT ---
Social Work REGINA met with patient's , Edi to discuss transition of care plans and notify of insurance next review date. REGINA informed patient's that [facility] NRD is 09/25. Edi informed REGINA that he is still unsure of plan, stating one day I want to take her home and then other days she is having a bad night and I think facility. Patient requires [facility] care plans. REGINA reviewed fdc care options and discussed potential risk/benefits for patient returning home and going to a facility. Edi informed REGINA that he will think about plan of care. In addition, patient's informed REGINA that he has updated Advanced Directive for patient. REGINA informed Edi to provide a copy to staff to upload into chart. ESMER Shepherd
[2023-09-20 19:30] VITALS: BP 103/60; PULSE 49; RESP 16; TEMP 37; O2SAT 99
[2023-09-20] MEDS: Acetaminophen 500 MG Tablet 1000 MG PO (19:34)
[2023-09-20] MEDS: Carvedilol 3.125 MG TABLET PO (19:34)
[2023-09-20] MEDS: QUEtiapine 25 MG Tablet PO (19:35)
[2023-09-20] MEDS: clonazePAM 0.5 MG Tablet 0.75 MG PO (19:36)
[2023-09-20] MEDS: Atorvastatin Calcium 10 MG Tablet PO (19:37)
[2023-09-20] MEDS: Menthol/Lanolin/Calamine/Znox 113 GM Tube 1 APPLIC TOPICAL (19:38)
[2023-09-21] MEDS: Carbidopa/Levodopa 25/100 Tablet PO ×4 (06:53→17:05)
[2023-09-21] MEDS: Acetaminophen 500 MG Tablet 1000 MG PO ×3 (06:53→20:17)
[2023-09-21] MEDS: Heparin Injection (Vial) 5,000 UNIT/ML VIAL 5000 UNIT SC ×3 (06:54→20:18)
[2023-09-21] MEDS: Menthol/Lanolin/Calamine/Znox 113 GM Tube 1 APPLIC TOPICAL ×2 (06:54→20:18)
[2023-09-21 07:42] VITALS: BP 117/63; PULSE 87; RESP 16; TEMP 36.6; O2SAT 96
[2023-09-21] MEDS: Cyanocobalamin 500 MCG Tablet PO (07:53)
[2023-09-21] MEDS: Ascorbic Acid 500 MG Tablet PO (07:53)
[2023-09-21] MEDS: Carvedilol 3.125 MG TABLET PO ×2 (07:54→20:17)
[2023-09-21] MEDS: Multivitamins,Therapeutic Tablet 1 TABLET PO (07:54)
[2023-09-21] MEDS: Vibegron 75 MG TABLET PO (07:54)
[2023-09-21 09:26] VITALS: PULSE 56
[2023-09-21 20:00] VITALS: BP 114/67; PULSE 71; RESP 16; TEMP 36.7; O2SAT 97
[2023-09-21] MEDS: QUEtiapine 25 MG Tablet PO (20:17)
[2023-09-21] MEDS: Senna/Docusate Sodium 1 Tablet 2 TABLET PO (20:17)
[2023-09-21] MEDS: clonazePAM 0.5 MG Tablet PO (20:18)
[2023-09-22] MEDS: Acetaminophen 500 MG Tablet 1000 MG PO ×3 (06:49→20:52)
[2023-09-22] MEDS: Menthol/Lanolin/Calamine/Znox 113 GM Tube 1 APPLIC TOPICAL ×2 (06:49→20:53)
[2023-09-22] MEDS: Carbidopa/Levodopa 25/100 Tablet PO ×4 (06:49→17:57)
[2023-09-22] MEDS: Heparin Injection (Vial) 5,000 UNIT/ML VIAL 5000 UNIT SC ×3 (06:50→20:50)
[2023-09-22 07:44] VITALS: BP 138/72; PULSE 83; RESP 18; TEMP 36.6; O2SAT 94
[2023-09-22] MEDS: Multivitamins,Therapeutic Tablet 1 TABLET PO (07:55)
[2023-09-22] MEDS: Cyanocobalamin 500 MCG Tablet PO (07:55)
[2023-09-22] MEDS: Ascorbic Acid 500 MG Tablet PO (07:55)
[2023-09-22] MEDS: Carvedilol 3.125 MG TABLET PO ×2 (07:55→20:49)
[2023-09-22] MEDS: Senna/Docusate Sodium 1 Tablet 2 TABLET PO ×2 (07:55→20:51)
[2023-09-22] MEDS: Vibegron 75 MG TABLET PO (07:55)
[2023-09-22 20:32] VITALS: BP 144/84; PULSE 81; RESP 16; TEMP 36.4; O2SAT 97
[2023-09-22] MEDS: QUEtiapine 25 MG Tablet PO (20:41)
[2023-09-22] MEDS: clonazePAM 0.5 MG Tablet PO (20:49)
[2023-09-22] MEDS: Atorvastatin Calcium 10 MG Tablet PO (20:51)
[2023-09-22] MEDS: traMADol 50 MG Tablet 25 MG PO (20:53)
[2023-09-23] MEDS: Acetaminophen 500 MG Tablet 1000 MG PO ×3 (06:33→20:45)
[2023-09-23] MEDS: Heparin Injection (Vial) 5,000 UNIT/ML VIAL 5000 UNIT SC ×3 (06:39→20:45)
[2023-09-23] MEDS: Carbidopa/Levodopa 25/100 Tablet PO ×4 (06:39→18:13)
[2023-09-23] MEDS: Menthol/Lanolin/Calamine/Znox 113 GM Tube 1 APPLIC TOPICAL ×2 (06:40→20:46)
[2023-09-23 08:03] VITALS: BP 95/35; PULSE 56; RESP 16; TEMP 36.9; O2SAT 98
[2023-09-23] MEDS: Multivitamins,Therapeutic Tablet 1 TABLET PO (08:14)
[2023-09-23] MEDS: Ascorbic Acid 500 MG Tablet PO (09:43)
[2023-09-23] MEDS: Cyanocobalamin 500 MCG Tablet PO (09:43)
[2023-09-23] MEDS: Carvedilol 3.125 MG TABLET PO ×2 (09:43→20:44)
[2023-09-23] MEDS: Vibegron 75 MG TABLET PO (09:43)
[2023-09-23] MEDS: Senna/Docusate Sodium 1 Tablet 2 TABLET PO ×2 (09:43→20:45)
[2023-09-23 19:50] VITALS: BP 150/67; PULSE 67; RESP 17; TEMP 35.9; O2SAT 96
[2023-09-23] MEDS: QUEtiapine 25 MG Tablet PO (20:44)
[2023-09-23] MEDS: clonazePAM 0.5 MG Tablet PO (20:44)
[2023-09-24] MEDS: Acetaminophen 500 MG Tablet 1000 MG PO ×3 (05:13→20:36)
[2023-09-24] MEDS: Carbidopa/Levodopa 25/100 Tablet PO ×4 (05:13→18:02)
[2023-09-24] MEDS: Heparin Injection (Vial) 5,000 UNIT/ML VIAL 5000 UNIT SC ×3 (05:14→21:58)
[2023-09-24] MEDS: Menthol/Lanolin/Calamine/Znox 113 GM Tube 1 APPLIC TOPICAL ×2 (05:15→22:00)
[2023-09-24 07:43] VITALS: BP 139/68; PULSE 63; RESP 15; TEMP 36.7; O2SAT 98
[2023-09-24] MEDS: Ascorbic Acid 500 MG Tablet PO (09:48)
[2023-09-24] MEDS: Multivitamins,Therapeutic Tablet 1 TABLET PO (09:48)
[2023-09-24] MEDS: Carvedilol 3.125 MG TABLET PO ×2 (09:48→20:36)
[2023-09-24] MEDS: Vibegron 75 MG TABLET PO (09:48)
[2023-09-24] MEDS: Senna/Docusate Sodium 1 Tablet 2 TABLET PO ×2 (09:48→20:36)
[2023-09-24] MEDS: Cyanocobalamin 500 MCG Tablet PO (09:49)
--- NOTE | 2023-09-24 10:07 | PN_ITS ---
Subjective Subjective Jojo was seen on team rounds today. Her Randall was present in the room for rounds. Charline was seen on TEAM rounds today. Her Randall was present in the room for rounds. Afebrile VSS - Maintaining appropriate oxygen saturation on RA Oral intake - FOOD good FLUIDS good Discussed with nursing - no problems that need addressed. Has been sleeping much better with the addition of Seroquel to the drug regimen at at bedtime for agitation/restlessness and confusion. Reviewed the THERAPY notes Medication list reviewed. She scored only 23/50 on the BCAT (brief cognitive assessment). In 2021 she scored 37/50. Has been agitated and confused at night with behavioral disturbances. Better with the addition of Seroquel to the drug regimen. Denies lightheadedness, cephalgia, cough, shortness of breath, chest pain, nausea/vomiting/abdominal pain (other than the pain she has with heparin in jections), dysuria and calf tenderness. Objective Data Objective Data Vital Signs: Vital Signs Temp Pulse Resp BP Pulse Ox O2 Del Method O2 Flow Rate 98.0 F 63 15 139/68 H 98 Room Air 2 09/24/23 07:43 09/24/23 07:43 09/24/23 07:43 09/24/23 07:43 09/24/23 07:43 09/24/23 07:43 09/11/23 07:36 Oxygen Flow Rate (L/min) 2 Oxygen Delivery Method Room Air Weight: 143 lb 8.335 oz Body Mass Index (BMI) 25.4 Intake & Output: Intake and Output for Last 24 Hours 09/22/23 09/23/23 09/24/23 23:59 23:59 23:59 Intake Total 1640 / 1640 2380 / 2380 390 / 390 Output Total 825 / 825 1650 / 1650 Balance 815 / 815 730 / 730 390 / 390 Lab / Micro Data 09/25/23 05:22 09/25/23 05:22 Micro: Microbiology 09/01/23 15:00 Stool Stool Occult Blood (JUDI) - Final 08/30/23 17:20 Urine, Catheterized Urine Culture - Final Escherichia coli Physical Exam Const alert Resp Resp Narrative: Few coarse crackles in the bases but otherwise clear to auscultation. No wheezi ng, no tachypnea, no conversational dyspnea. Cardio regular rate and no gallops GI normal to inspection, nondistended, normoactive bowel sounds, soft to palpation and non-tender GI Narrative: Some bruising of the lower abdominal wall secondary to heparin injections. Extremity no calf tenderness Extremity Narrative: No pitting edema Skin General Skin Exam: no breakdown Rashes: no rashes Assessment & Plan Assessment/Plan (1) Physical debility: (2) Ribs, multiple fractures: QUALIFIERS: Encounter type: subsequent encounter Fracture type: closed Laterality: right (3) Hemothorax on right: (4) History of thoracic surgery: (5) Deep vein thrombosis: QUALIFIERS: DVT location: lower extremity Affected thrombotic vein of extremity: tibial Chronicity: acute Laterality: left Qualified Code(s): I82.442 - Acute embolism and thrombosis of left tibial vein (6) Pulmonary embolism: QUALIFIERS: Pulmonary embolism type: multiple subsegmental (witho ut acute cor pulmonale) Qualified Code(s): I26.94 - Multiple subsegmental pulmonary emboli without acute cor pulmonale (7) Acute blood loss anemia: (8) RBD (REM behavioral disorder): (9) Parkinson's disease: QUALIFIERS: Dyskinesia presence: unspecified whether dyskinesia Fluctuating manifestations: unspecified whether manifestations fluctuate Qualified Code(s): G20.A1 - Parkinson's disease without dyskinesia, without mention of fluctuations (10) S/P IVC filter: PLAN: Plan 1. I feel that Charline has plateaued in therapy. She is actually doing better than her baseline. She does not want to go to an ECF. In my opinion she needs 24/7 supervision and I do not feel that her is capable of providing that kind of support. 2. Recheck a BMP and a CBC in the AM. Charges/Coding Visit Charges Inpatient E&M: 62267 Subs Hosp L2
--- NOTE | 2023-09-24 12:53 | CASEMGMT ---
Social Work IDT met with patient and at bedside to complete care plans. Discussed patient progress with therapy (PT/OT/ST) and nursing. Patient has progressed beyond baseline with therapy. Recommendations for discharge was discussed with Physician, Dr. [place] and therapy services. Patient is recommended for home with home health v. custodial care in longterm. Patient's informed IDT that he would like to transition patient to home with assistance. SW discussed home health care services with patient and . Patient's is agreeable to discharge home with home health PT/OT/ST/SN/[facility]. Patient will discharge on 09/28/23
[2023-09-24 20:26] VITALS: PULSE 69
[2023-09-24 20:35] VITALS: BP 142/82; PULSE 69; RESP 14; TEMP 36.7; O2SAT 99
[2023-09-24] MEDS: clonazePAM 0.5 MG Tablet PO (20:36)
[2023-09-24] MEDS: QUEtiapine 25 MG Tablet PO (20:36)
[2023-09-24] MEDS: Atorvastatin Calcium 10 MG Tablet PO (20:36)
[2023-09-25] MEDS: Acetaminophen 500 MG Tablet 1000 MG PO ×3 (05:03→19:48)
[2023-09-25] MEDS: Carbidopa/Levodopa 25/100 Tablet PO ×4 (05:03→18:04)
[2023-09-25] MEDS: Heparin Injection (Vial) 5,000 UNIT/ML VIAL 5000 UNIT SC (05:03)
[2023-09-25] MEDS: Menthol/Lanolin/Calamine/Znox 113 GM Tube 1 APPLIC TOPICAL ×2 (05:04→19:59)
[2023-09-25 05:45] LABS: Hematocrit 40.7 % (37-47); Hemoglobin 12.9 g/dL (12.0-15.0); Mean Corp Hgb Conc 31.7 g/dL (32-36); Mean Corpuscular Hgb 30.6 pg (27.0-32.0); Mean Corpuscular Volume 96.4 fL (81-99); Mean Platelet Vol. 11.1 fl (6.2-12.0); Platelet Count 207 K/mm3 (150-450); RBC Distribution Width CV 15.2 % (11.6-14.6); RBC Distribution Width SD 54.2 fl (35.1-43.9); Red Blood Count 4.22 M/mm3 (4.2-5.4); White Blood Count 5.2 K/mm3 (4.4-11.0)
[2023-09-25 06:07] LABS: Anion Gap 5 (5-15); BUN 21 mg/dL (7-18); BUN/Creat Ratio 28.2 RATIO (10-20); Calcium,Total 9.9 mg/dL (8.5-10.1); Chloride 107 mmol/L (98-107); Creatinine, Serum 0.75 mg/dL (0.55-1.02); EST Glomerular Filtration Rate 82 mL/min (>60); Est Glom Filt Rate - Afr Amer 99 mL/min (>60); Estimated Creatinine Clearance 61.07 ml/min; Glucose 99 mg/dL (74-106); Potassium 3.7 mmol/L (3.5-5.1); Sodium Level 141 mmol/L (136-145)
[2023-09-25 07:46] VITALS: BP 145/69; PULSE 86; RESP 16; O2SAT 94
--- NOTE | 2023-09-25 09:05 | CASEMGMT ---
Discharge Planning A list of HH providers including quality and resource use data and consistent with the patient's preferred geographic region, medical needs, and insurance network was created in [facility]Port Guide.? This list was provided to the SW. Jeanette Tavares Discharge Planning Asst.
[2023-09-25] MEDS: Ascorbic Acid 500 MG Tablet PO (09:53)
[2023-09-25] MEDS: Vibegron 75 MG TABLET PO (09:53)
[2023-09-25] MEDS: Multivitamins,Therapeutic Tablet 1 TABLET PO (09:53)
[2023-09-25] MEDS: Carvedilol 3.125 MG TABLET PO ×2 (09:53→19:49)
[2023-09-25] MEDS: Cyanocobalamin 500 MCG Tablet PO (09:53)
--- NOTE | 2023-09-25 12:33 | PCM.PROGNOTE ---
Subjective Subjective Afebrile VSS - Maintaining appropriate oxygen saturation on RA Oral intake - FOOD good FLUIDS - fluctuates. We are constantly offering water and encouraging her to increase her fluid intake. Discussed with nursing - Has been agitated at times and refusing to take her medications. Still not using the call light and sets off the chair alarm multiple times a day. The bizarre behavior at night is better since the Seroquel was added at bedtime. She is no longer stripping and shredding her Attends and throwing them on the floor. She is very particular which nurses she will do things for and can be manipulative. is feeling guilty about leaving her when she is crying. He also feels that he has to take her home because she does no want to go to an ECF. I believe she requires more care than he is able to provide at home. She requires care 11/12 and sometimes needs 2 nurses to manage her due to agitation/behavioral disturbance ely at night. Reviewed the THERAPY notes - She has plateaued and is actually doing much better than she does on a regular basis at home. Her enables her and does many things for her that she could do for herself. I pointed out that this is not helping her because if he is doing everything for her she will decline even faster. It is important to allow her to do what she is able to do and not enable her by doing things like feeding her. Medication list reviewed. Her apparently received a message form [facility] PD dept about Seroquel. They are concerned about this medication but, she has had behavioral disturbances, ely at night, and now that she is on the small dose of Seroquel at night she is sleeping through the night and the agitation has resolved. she gets more confused in the evening and gets very agitated at times. It was taking 2 nurses at night to care for her. Charline appears to be in no distress. She denies lightheadedness, CP, SOB, cough and dysuria. She tells me that she has pain in the abd wall where she gets the Heparin injections. She has been cooperative with therapy today and finally took her medications after much cajoling by the nursing staff. Continues to set off the chair and bed alarms and never rings her call light. All lab drawn this morning was personally reviewed. The white blood cell count is normal at 5.2. Hemoglobin is normal at 12.9 and the platelets are also within normal limits. Sodium is 141 and the potassium is stable at 3.7. The BUN is 21 and the creatinine is stable at 0.75. BUN/creatinine ratio is 28.2. It improves only when we give her IV fluids. Calcium is 9.9. Will check a albumin to calculate the calcium corrected for hypoalbuminemia. Objective Data Objective Data Vital Signs: Vital Signs Temp Pulse Resp BP Pulse Ox O2 Del Method O2 Flow Rate 98.1 F 86 16 145/69 H 94 Room Air 2 09/24/23 20:35 09/25/23 07:46 09/25/23 07:46 09/25/23 07:46 09/25/23 07:46 09/25/23 07:46 09/11/23 07:36 Oxygen Flow Rate (L/min) 2 Oxygen Delivery Method Room Air Weight: 143 lb 8.335 oz Body Mass Index (BMI) 25.4 Intake & Output: Intake and Output for Last 24 Hours 09/23/23 09/24/23 09/25/23 23:59 23:59 23:59 Intake Total 2380 / 2380 1255 / 1255 240 / 240 Output Total 1650 / 1650 200 / 350 150 / 150 Balance 730 / 730 1055 / 905 90 / 90 Lab / Micro Data 09/25/23 05:22 09/25/23 05:22 Labs: Laboratory Results - last 24 hr 09/25/23 05:22: WBC 5.2, RBC 4.22, Hgb 12.9, Hct 40.7, MCV 96.4, MCH 30.6, MCHC 31.7 L, RDW Std Deviation 54.2 H, RDW Coeff of Carie 15.2 H, Plt Count 207, MPV 11.1, Sodium 141, Potassium 3.7, Chloride 107, Carbon Dioxide 29.0, Anion Gap 5, BUN 21 H, Creatinine 0.75, Estim Creat Clear Calc 61.07, Est GFR (MDRD) Af Amer 99, Est GFR (MDRD) Non-Af 82, BUN/Creatinine Ratio 28.2 H, Glucose 99, Calcium 9.9 Micro: Microbiology 09/01/23 15:00 Stool Stool Occult Blood (JUDI) - Final 08/30/23 17:20 Urine, Catheterized Urine Culture - Final Escherichia coli Physical Exam Const alert Constitutional Narrative: Pleasant with me and cooperative. She is oriented to person, place and can tell me the month and the year today. She could not tell me her age or Randall's age or how long they have been . She tells me that she is restrained in her bed at night for misbehaving. She has never been in restraints. She wants to be able to get up and walk around without supervision. She does not understand that the reason she is not allowed to get up by herself is that she is at high risk for falls. She denies frequent falls at home. She does not recall why she is in rehab. She has poor safety awareness and is impulsive. HEENT moist oral mucous membranes HEENT Narrative: Her voice is stronger than it was at admission but, it is still difficult for use to hear her and her (who has BL hearing aids) can not understand what she is saying a lot of the time. Eyes PERRL and EOMs intact bilaterally Resp Resp Narrative: Minimal coarse crackles in the bases. No wheezing, no tachypnea and no conversational dyspnea. She has no tachypnea or labored breathing even with ambulation. Cardio regular rate, regular rhythm and no gallops GI normal to inspection, nondistended, normoactive bowel sounds, soft to palpation and non-tender Extremity no calf tenderness Extremity Narrative: No pitting edema Skin General Skin Exam: no breakdown Rashes: no rashes Assessment & Plan Assessment/Plan (1) Physical debility: (2) Ribs, multiple fractures: QUALIFIERS: Encounter type: subsequent encounter Fracture type: closed Laterality: right (3) Hemothorax on right: (4) History of thoracic surgery: (5) Deep vein thrombosis: QUALIFIERS: DVT location: lower extremity Affected thrombotic vein of extremity: tibial Chronicity: acute Laterality: left Qualified Code(s): I82.442 - Acute embolism and thrombosis of left tibial vein (6) Pulmonary embolism: QUALIFIERS: Pulmonary embolism type: multiple subsegmental (without acute cor pulmonale) Qualified Code(s): I26.94 - Multiple subsegmental pulmonary emboli without acute cor pulmonale (7) Acute blood loss anemia: (8) RBD (REM behavioral disorder): (9) Parkinson's disease: QUALIFIERS: Dyskinesia presence: unspecified whether dyskinesia Fluctuating manifestations: unspecified whether manifestations fluctuate Qualified Code(s): G20.A1 - Parkinson's disease without dyskinesia, without mention of fluctuations (10) S/P IVC filter: PLAN: Plan 1. Continue therapy 2. Plan DC home on Sunday with [facility]. 3. Will DC Heparin at patient's. 4. I plan on continuing Seroquel at DC. She will follow up with [facility] PD dept and they can DC if desired. Charges/Coding Visit Charges Inpatient E&M: 82175 Subs Hosp L1
--- NOTE | 2023-09-25 12:33 | CASEMGMT ---
Social Work SW left home health care list including quality and resource use data and consistent with the patient's preferred geographic region, medical needs, and insurance network was created in CarePort Guide at bedside. REGINA contacted patient's via phone to notify of home health care services and provided overview of home health care and services with Edi Arreguin. Edi informed REGINA that he has been reviewing home health care services. Edi will be at bedside between [id number]. Edi will provide choice after review. ESMER Shepherd
[2023-09-25 13:40] LABS: Albumin, Serum 3.2 g/dL (3.2-5.0)
[2023-09-25 19:40] VITALS: BP 120/65; PULSE 72; RESP 16; TEMP 36.5; O2SAT 98
[2023-09-25] MEDS: clonazePAM 0.5 MG Tablet PO (19:48)
[2023-09-25] MEDS: Senna/Docusate Sodium 1 Tablet 2 TABLET PO (19:48)
[2023-09-25] MEDS: QUEtiapine 25 MG Tablet PO (19:49)
--- NOTE | 2023-09-26 02:39 | NURSING ---
Reviewed and agree with Chapin CASAS, documentation and assessment charting.
[2023-09-26 06:00] VITALS: BMI 25.4
[2023-09-26] MEDS: Carbidopa/Levodopa 25/100 Tablet PO ×4 (06:58→18:25)
[2023-09-26] MEDS: Acetaminophen 500 MG Tablet 1000 MG PO ×2 (06:59→19:43)
[2023-09-26] MEDS: Menthol/Lanolin/Calamine/Znox 113 GM Tube 1 APPLIC TOPICAL ×2 (06:59→19:48)
[2023-09-26 07:24] VITALS: BP 145/82; PULSE 87; RESP 16; TEMP 36.6; O2SAT 97
[2023-09-26] MEDS: Vibegron 75 MG TABLET PO (10:17)
[2023-09-26] MEDS: Carvedilol 3.125 MG TABLET PO ×2 (10:17→19:44)
[2023-09-26] MEDS: Multivitamins,Therapeutic Tablet 1 TABLET PO (10:17)
[2023-09-26] MEDS: Cyanocobalamin 500 MCG Tablet PO (10:17)
[2023-09-26] MEDS: Ascorbic Acid 500 MG Tablet PO (10:17)
--- NOTE | 2023-09-26 15:40 | CASEMGMT ---
Social Work SW met with patient's to discuss discharge. 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 Patient's inquired about additional mental health support for the patient. SW provide resources for additional in home support and resources for mental health/Parkinsons. Patient's inquired about [place] [facility] [place], should home health become overwhelming. SW reviewed process for [place] [facility] [place] from home. SW submitted [facility]. Patient anticipates discharge on 09/28/2023. Patient's would like to transport patient in the AM between 8am-10am. ESMER Shepherd
[2023-09-26] MEDS: clonazePAM 0.5 MG Tablet PO (19:43)
[2023-09-26] MEDS: QUEtiapine 25 MG Tablet PO (19:44)
[2023-09-26] MEDS: Atorvastatin Calcium 10 MG Tablet PO (19:48)
[2023-09-26 19:50] VITALS: BP 163/79; PULSE 77; RESP 16; TEMP 36.4; O2SAT 98
--- NOTE | 2023-09-26 23:44 | NURSING ---
pt restless this hs was found sitting on the edge of the bed at 2300 and reported that she had an accident, staff assisted pt to the toilet and assisted with clean up and changing her attends after voiding. pt then assisted back to the bed . earlier when alarms were going off pt was already oob near the night stand by the time staff got to the room. pt assisted to the toilet then returned her to bed
[2023-09-27] MEDS: Menthol/Lanolin/Calamine/Znox 113 GM Tube 1 APPLIC TOPICAL ×2 (06:47→20:23)
[2023-09-27] MEDS: Acetaminophen 500 MG Tablet 1000 MG PO ×2 (06:47→14:15)
[2023-09-27] MEDS: Carbidopa/Levodopa 25/100 Tablet PO ×4 (06:47→18:25)
[2023-09-27 07:51] VITALS: BP 143/69; PULSE 79; RESP 16; TEMP 36.4; O2SAT 95
[2023-09-27] MEDS: Ascorbic Acid 500 MG Tablet PO (08:30)
[2023-09-27] MEDS: Cyanocobalamin 500 MCG Tablet PO (08:31)
[2023-09-27] MEDS: Carvedilol 3.125 MG TABLET PO (08:31)
[2023-09-27] MEDS: Multivitamins,Therapeutic Tablet 1 TABLET PO (08:31)
[2023-09-27] MEDS: Senna/Docusate Sodium 1 Tablet 2 TABLET PO (08:31)
[2023-09-27] MEDS: Vibegron 75 MG TABLET PO (08:32)
[2023-09-27] MEDS: QUEtiapine 25 MG Tablet 12.5 MG PO (09:47)
--- NOTE | 2023-09-27 10:53 | CASEMGMT ---
Addendum entered by Anmol Espana 09/27/23 12:35: SW received a call from [facility] that they are unable to accept patient due to high acuity. Addendum entered by Anmol Espana 09/27/23 11:46: SW contacted patient's , Edi to notify of home health care acceptance. Edi informed SW that [facility] is his first choice for home health care services. 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 ESMER Shepherd
--- NOTE | 2023-09-27 11:44 | PN_ITS ---
Subjective Subjective Afebrile VSS - Maintaining appropriate oxygen saturation on RA Oral intake - FOOD. FLUIDS poor for the past 2 days. Discussed with nursing - did not go to sleep until 1-1:30 last night but, she slept well after that. Agitated this AM, not wanting to take her medications. Ate 100% of her breakfast though. More confused the past few days. More agitated. She is angry. Had to be kept in the nurses station yesterday because she would not stay in the chair in her room and kept setting the alarms off. Reviewed the THERAPY notes Medication list reviewed. No cough, no SOB, denies CP, SOB, N/V/abd pain. Denies dysuria. No fevers. Objective Data Objective Data Vital Signs: Vital Signs Temp Pulse Resp BP Pulse Ox O2 Del Method O2 Flow Rate 97.5 F L 79 16 143/69 H 95 Room Air 2 09/27/23 07:51 09/27/23 07:51 09/27/23 07:51 09/27/23 07:51 09/27/23 07:51 09/27/23 07:51 09/11/23 07:36 Oxygen Flow Rate (L/min) 2 Oxygen Delivery Method Room Air Weight: 143 lb 8.335 oz Body Mass Index (BMI) 25.4 Intake & Output: Intake and Output for Last 24 Hours 09/25/23 09/26/23 09/27/23 23:59 23:59 23:59 Intake Total 770 / 770 920 / 920 680 / 680 Output Total 400 / 400 900 / 900 250 / 250 Balance 370 / 370 20 / 20 430 / 430 Lab / Micro Data 09/25/23 05:22 09/25/23 05:22 Micro: Microbiology 09/01/23 15:00 Stool Stool Occult Blood (JUDI) - Final 08/30/23 17:20 Urine, Catheterized Urine Culture - Final Escherichia coli Physical Exam Const alert Constitutional Narrative: More confused than normal. Orientation / Consciousness: confused HEENT Mouth: dry mucous membranes Resp Resp Narrative: Minimal coarse crackles in the bases. No wheezing, no tachypnea and no conversational dyspnea. She has no tachypnea or labored breathing even with ambulation. No cough with deep breathing. Cardio regular rate, regular rhythm and no gallops GI normal to inspection, nondistended, normoactive bowel sounds, soft to palpation and non-tender GI Narrative: No guarding with palpation. No flank pain. No tenderness at the costovertebral angle. Extremity no calf tenderness Extremity Narrative: No pitting edema Skin General Skin Exam: no breakdown Rashes: no rashes Assessment & Plan Assessment/Plan (1) Physical debility: (2) Ribs, multiple fractures: QUALIFIERS: Encounter type: subsequent encounter Fracture type: closed Laterality: right (3) Hemothorax on right: (4) History of thoracic surgery: (5) Deep vein thrombosis: QUALIFIERS: DVT location: lower extremity Affected thrombotic vein of extremity: tibial Chronicity: acute Laterality: left Qualified Code(s): I82.442 - Acute embolism and thrombosis of left tibial vein (6) Pulmonary embolism: QUALIFIERS: Pulmonary embolism type: multiple subsegmental (without acute cor pulmonale) Qualified Code(s): I26.94 - Multiple subsegmental pulmonary emboli without acute cor pulmonale (7) Acute blood loss anemia: (8) RBD (REM behavioral disorder): (9) Parkinson's disease: QUALIFIERS: Dyskinesia presence: unspecified whether dyskinesia Fluctuating manifestations: unspecified whether manifestations fluctuate Qualified Code(s): G20.A1 - Parkinson's disease without dyskinesia, without mention of fluctuations (10) S/P IVC filter: (11) Dementia with behavioral disturbance: (12) Orthostatic hypotension due to Parkinson's disease: (13) Acute cystitis: QUALIFIERS: Hematuria presence: without hematuria Qualified Code(s): N30.00 - Acute cystitis without hematuria PLAN: Plan 1. Straight cath for UA 2. Uncooperative today. Constantly trying to get out of bed or out of the chair. Continues not to use the call light. Constantly setting off the bed/c hair alarm. Ate 100% of her breakfast today. No N/V. Restless last night. Did not go to sleep until 1-1:30 but then slept the rest of the night. Often refusing medications. Having some delusions, thinks she is being punished for misbehaving. At times she seems lucid and she is cooperative. She picks and chooses which staff she will cooperate with. Given 12.5 mg of Seroquel this morning and she has been cooperative since then. 3. Plan DC home tomorrow. I do not feel her is able to care for her 11/12 without compromising his own health. She requires a lot of assistance, ely at night. She is constantly getting up without calling for help and she is high risk for falls........was falling daily at home prior to this admission. Recommend ECF at [place]. He is going to take her home but, he was told if her care is too much for him that he should call the and she would be able to facilitate getting her into an ECF. 4. Plan follow up at [facility] dept post [place]. I am sending her home on Seroquel 25 mg at Bedtime. Prior to this admission to the hospital he was up most of the night attending to her and trying to keep her from falling and injuring herself. She does calm down significantly and is re-directable after the small dose of Seroquel. 5. Poor oral fluid intake the past few days. Encouraged her to increase fluid intake today. Charges/Coding Addendum Addendum: UA was positive for Nitrite and she had 500 leukocyte esterase with 5-10 white blood cells per high-power field and rare bacteria. Urine was obtained by straight cath. Urine culture has been ordered. Will give Rocephin 1 g IM tonight and 1 g prior to discharge tomorrow and start her on Duricef 1 g daily for 5 days thereafter. Visit Charges Inpatient E&M: 60616 Subs Hosp L1
[2023-09-27 15:34] LABS: Mucous, Urine 0 SEEN /hpf (<or=2+); Red Blood Cells-Urine 0 SEEN /hpf (0-5); Squamous Epithelial Cells - UA 0 SEEN /hpf (5-10)
[2023-09-27 16:06] LABS: Color, Urine Yellow (Yellow); Glucose, Dipstick Normal (Normal); Ketone-Dipstick Negative (Negative); Leukocyte Esterase-Dipstick 500 /ul (Negative); Nitrite-Dipstick Positive (Negative); Occult Blood-Urine Negative /ul (Negative); Protein-Dipstick 15 mg/dl (Negative); Urine Bilirubin Dipstick Negative (Negative); Urine Clarity Clear (Clear); Urine Urobilinogen Normal (Normal)
--- NOTE | 2023-09-27 16:08 | PCM.DC.SUM ---
Providers Date of Admission: 08/30/23 Date of Discharge: 09/28/23 Primary Care Physician: Dr. Abdullahi Major MD Consultations 09/17/23 11:01 Consult: Vascular Surgery Routine Consulting Provider: Juan Tellez Reason for Consult: recurrent DVT/PE high risk for anticoagulation EMERGENT Consult: No MD Notified: Yes Date Notified: 09/17/23 Time Notified: 11:02 Method of Notification: Text Reason For Visit: DEBILITY Diagnosis Discharge Diagnosis (1) Physical debility: Status: Acute Code(s): R53.81 - Other malaise (2) Ribs, multiple fractures: Status: Acute Code(s): S22.49XA - Multiple fractures of ribs, unspecified side, initial encounter for closed fracture Qualifiers: Encounter type: subsequent encounter Fracture type: closed Laterality: right (3) Hemothorax on right: Status: Resolved Code(s): J94.2 - Hemothorax (4) History of thoracic surgery: Status: Inactive Code(s): Z98.890 - Other specified postprocedural states (5) Deep vein thrombosis: Status: Acute Code(s): I82.409 - Acute embolism and thrombosis of unspecified deep veins of unspecified lower extremity Qualifiers: Affected thrombotic vein of extremity: tibial Chronicity: acute DVT location: lower extremity Laterality: left Qualified Code(s): I82.442 - Acute embolism and thrombosis of left tibial vein Plan: Has had DVT in the past with PE's. She had DVT in the left posterior V at admission to rehab and was on DVT prophylaxis. She had a PE at the time she was admitted to [facility] for R side hemothorax. Repeat US on 09/17/2023 showed clot not only in the left posterior tibial vein but clot in the soleus vein. Vascular surgery was consulted since the patient is very high risk for falls/bleeding and chronic anticoagulation is contraindicated. An IVC filter was inserted by Dr. Juan Tellez on 09/19/2023. (6) Pulmonary embolism: Status: Acute Code(s): I26.99 - Other pulmonary embolism without acute cor pulmonale Qualifiers: Pulmonary embolism type: multiple subsegmental (without acute cor pulmonale) Qualified Code(s): I26.94 - Multiple subsegmental pulmonary emboli without acute cor pulmonale Plan: Pulse ox on RA has been WNL and she is not requiring any supplemental oxygen. She denies CP. IVC filter was placed on 09/19/23. (7) Acute blood loss anemia: Status: Acute Code(s): D62 - Acute posthemorrhagic anemia Plan: HGB is stable at DC. The last HGB was 12.9 on 09/25/23. (8) RBD (REM behavioral disorder): Status: Acute Code(s): G47.52 - REM sleep behavior disorder Plan: Continue Klonopin 0.5 mg at HS. She was not sleeping at night and was very restless so Klonopin was increased to 0.75 mg at HS but, confusion worsened and she still was not sleeping. She was taking off all her clothes and shredding her depends and throwing them on the floor. She required 2 nurses at night to keep her in the bed. She is impulsive and was constantly setting off the bed/chair alarms trying to get up by herself. She never used the call light. She was started on Seroquel at HS and behavior improved and she was sleeping better. She gets very agitated at times and needs to be placed in the nurses station so that they can keep an eye on her and keep her safe. The Seroquel is effective in calming her down and she is more cooperative. She only scored 23/50 on the BCAT (behavioral cognitive assessment tool) this admission. This is a significant decline from the last time the test was administered in this hospital which was was 1 year ago when she score 37/50. I suspect she has dementia and she also now has behavioral disturbances. (9) Parkinson's disease: Status: Chronic Code(s): G20 - Parkinson's disease Qualifiers: Dyskinesia presence: unspecified whether dyskinesia Fluctuating manifestations: unspecified whether manifestations fluctuate Qualified Code(s): G20.A1 - Parkinson's disease without dyskinesia, without mention of fluctuations Plan: Continue Sinemet. Will follow up with neurology at [facility] post DC. (10) S/P IVC filter: Status: Acute Code(s): Z95.828 - Presence of other vascular implants and grafts Plan: 09/19/[address] Juan Tellez for increasing clot burden in the LLE despite DVT prophylaxis. She has a hx of DVT/PE in the past and was at one time on an anticoagulant but, she is at very high risk for falls and bleeding so a filter was inserted. 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 The culture grew E. Coli and it was Resistant to Ampicillin but, sensitive to everything else. Follow up UA after treatment was negative. A UA was done on 09/27/23 (straight cath) and had rare bacteria with 5-10 WBC's. She has been AF and the WBC on 09/25/2023 was 5.2. Urine culture has been ordered and is pending at the time of DC. Plan 1. Dc tomorrow home with [facility]. 2. Rocephin 1 GM IM tonight and 1 GM tomorrow prior to DC. Urine culture ordered. 3. Will follow up with neurology at [facility] and also follow up with PCP. Medications at Discharge Home Medications ascorbic acid (vitamin C) 500 mg tablet 500 mg PO DAILY supplement 11/10/20 multivitamin 1 tab PO DAILY supplement 11/10/20 atorvastatin 10 mg tablet 10 mg PO QODAY cholesterol #30 tabs 08/19/21 carbidopa 25 mg-levodopa 100 mg tablet 1 tab PO 0600,1000,1800 parkinsons #90 tabs 08/19/21 carbidopa 25 mg-levodopa 100 mg tablet 1.5 tab PO 1400 parkinsons #45 tabs 08/19/21 clonazepam 0.5 mg tablet 0.5 mg PO QHS sleep 08/29/21 acetaminophen 325 mg tablet (Tylenol) 325 mg PO Q6H PRN PRN PAIN 07/11/22 cyanocobalamin (vitamin B-12) 100 mcg tablet (Vitamin B-12) 100 mcg PO DAILY supplement 07/11/22 vibegron 75 mg tablet (Gemtesa) 75 mg PO DAILY overactive bladder 08/20/23 carvedilol 3.125 mg tablet 3.125 mg PO BID #60 tabs 09/27/23 cefadroxil 1 gram tablet 1,000 mg PO DAILY 10 days #5 tabs 09/27/23 quetiapine 25 mg tablet See Rx Instructions .Route .COMPLEX #45 tabs 09/27/23 sennosides 8.6 mg-docusate sodium 50 mg tablet (Stool Softener-Stimulant Laxative) 2 tab PO BID #120 tabs 09/27/23 Hospital Course Operations None Procedures IVC filter placement (09/19/[address] Juan Tellez.) Summary of Care Provided Minutes Spent on Discharge: 40 Hospital Course: CHARLINE WOOD, is a 67 YO F known to me from previous admission to acute inpt rehab with a PMH of Parkinson's disease with autonomic dysfunction, history of implantation of deep brain stimulator, RBD (REM behavioral disorder), essential hypertension, remote history of a pulmonary embolism, collagenous colitis, anxiety/depression, history of diverticulosis, hyperlipidemia, history of melanoma, neurogenic bladder, obstructive sleep apnea on CPAP and mild oropharyngeal dysphagia diagnosed on a modified barium swallow in 2019. She presented to the emergency department at [facility] on 08/20/2023 with a complaint of increasing shortness of breath. Respiratory rate in the emergency room was in the 40s. She had diminished breath sounds in the right base. Chest x-ray showed a large right-sided pleural effusion and subacute fractures of the right eighth, ninth and 10th ribs. Her related that she had fallen 5 weeks prior and broke some ribs ( she falls daily at home and sometimes multiple times a day). A CTA of the chest showed subsegmental right upper lobe pulmonary emboli. She had pulmonary emboli in the past but, anticoagulation had been discontinued since then. An ultrasound-guided thoracentesis was performed and there was only mild improvement in the aeration of the right lung. The fluid was bloody. She was transferred to [facility] and was seen by Dr. Archie Russ. On 08/21/2023 she underwent a right thoracoscopy, partial decortication, biopsy of a diaphragmatic nodule, biopsy of pleura and cryoanalgesia. Pleural fluid was negative for malignant cells. The pleura had extensive chronic inflammation with reactive mesothelial cells, hemorrhage and abundant hemosiderin laden macrophages. The diaphragmatic nodule was consistent with an organizing blood clot. There was no evidence of atypia or malignancy seen on the biopsies. While at [facility] she was found to have a DVT in the left posterior tibial vein and she was placed on subcu heparin 3 times daily. While at [facility] she was seen by PT and OT and she was felt to be unsafe for home-going due to requiring maximal assistance for all ADLs with 1-2 people present for safety. Acute inpatient rehab was recommended at discharge. She was transferred to the acute inpatient rehab unit at [facility] on 08/30/2023 for 3 hours of therapy daily to restore function/independence at or near her level prior to recent fall and fractured ribs. I suspected she had been declining at home for the preceding 5 weeks and not just since she was diagnosed with the hemothorax. Charline was restless at night, more confused and not sleeping well, even with the Klonopin 0.5 mg at bedtime. Her related that this had also been happening at home and he is up very frequently with her at nights. We tried increasing the Klonopin to 0.75 mg but, this was not effective and the confusion worsened. She was taking off all her clothes at night and shredding the Depends and throwing them on the floor. she was constantly setting off the bed alarm trying to get out of bed. It took 2 nurses to get her up to use the BR at night. Seroquel 25 mg was added to the drug regimen and Klonopin was decreased back to 0.5 mg at HS. She began sleeping better but, continued to set off the chair and bed alarms trying to get up by herself. She is impulsive and has a poor memory. Cognitive testing was done by the . Her cognition since the last time she was on rehab has significantly declined. Her score on the BCAT (brief cognitive assessment tool) declined from 37/50 to 23/50 in 1 year. She is not cooperative often times and she refuses her medications. She is paranoid and thinks she is being held prisoner for misbehaving. On rare occasions we had to give 12.5 mg in the morning to calm her down and this has been effective. Charline was on SQ heparin for DVT prophylaxis at admission to rehab. An US of the LE's showed persistent clot in the L posterior tibial vein. She had a CT scan of the chest prior to arrival to rehab and it showed PE's. She had been treated for PE/DVT in the past with anticoagulation. The venous US was repeated later in the admission and she had clots in the left posterior tibial vein and the soleus vein, the new clot developed while she was taking heparin 5,000 units Q 8H. Charline has PD, orthostatic hypotension, cognitive decline, increased impulsivity and very poor safety awareness. She falls frequently at home and she is at high risk for complications with chronic anticoagulation. Consult was obtained with Dr. Tellez from vascular surgery and he recommended an IVC filter. She was in agreement with this and so was her , Randall. She had an IVC filter inserted on 09/19/23. Charline improved with therapy to the point where she was better than her baseline had been at home. She is able to ascend/descend 13 steps with 2 handrails at contact-guard assist but with 1 handrail requires min/mod assist and for the last 2 stairs up she required max assist for a retrolean. Charline bathes in the basement of their house. She has ambulated up to 326 feet with a walking stick at contact-guard assist but, has loss of balance. She is able to autocorrect most of the time. She is able to feed herself. She is supervision/set up for grooming. She is standby assist for toileting and toilet transfer. She requires maximum assistance for lower body dressing. Prior to DC Randall came in for family training to see how she was doing and to learn how best to help her. He commented that he had to do much more for her at home and was surprised that she was able to do so much for herself. Charline requires 24/7 supervision. There is no family to help at home. Charline refuses to go to an ECF for penitentiary care. Randall decided to take her home. I do not feel he will be able to manage her at home. He was given the contact number for the SW at DC and was told if he could not manage at home he could call and the SW would help facilitate admission to and ECF. HHC was arranged by the SW prior to DC from rehab. She will have PT/OT/SN/SENIOR EMBEDDED SOFTWARE ENGINEER/ST and EXECUTIVE PERSONAL ASSISTANT. She will follow up with Dr. Major and with [facility] neurology post DC. She will also follow up with Dr. Archie Russ and Dr. Juan Tellez. On the day of Dc she was more cooperative and was also calm. She is oriented to person, month and year (she knows she can look at the dry erase board in her room to find the answers to these questions. She can not tell me her age, her husbands age, how long they have been , why she has been in rehab. Urine culture is pending at the time of DC and when I have the results if I need to change the antibiotic I will call her. Physical Exam Const alert Constitutional Narrative: Cooperative with me today. Orientation / Consciousness: confused HEENT Mouth: dry mucous membranes Eyes PERRL and EOMs intact bilaterally Neck supple Resp Resp Narrative: Poor inspiratory effort, decreased air exchange throughout, coarse crackles in both bases, no wheezing, not tachypneic and no conversational dyspnea. Cardio regular rate, regular rhythm and no gallops GI normal to inspection, nondistended, normoactive bowel sounds, soft to palpation and non-tender Extremity Extremity Narrative: No pitting edema of the ankles Skin Skin Narrative: Still has a small dry eschar in the right chest from previous chest surgery. There is no erythema and no discharge. General Skin Exam: no breakdown Rashes: no rashes Weight / BMI Weight Weight: 143 lb 8.335 oz Body Mass Index (BMI) 25.4 ABG / Lab / Microbiology Data 09/25/23 05:22 09/25/23 05:22 Microbiology: Microbiology 09/01/23 15:00 Stool Stool Occult Blood (JUDI) - Final 08/30/23 17:20 Urine, Catheterized Urine Culture - Final Escherichia coli Meaningful Use Info Meaningful Use Meaningful Use Diagnoses (Choose all that apply): None applicable Ischemic Stroke Statin Dosing Therapy Reference: STATIN DOSE THERAPY REFERENCE: * Patients > 75 years receive moderate or high dose statin therapy. * Patients 75 years or YOUNGER should receive HIGH intensity statin dose unless contraindicated. You will be required to document reason for non-treatment if statin daily dose does not meet guidelines. HIGH DOSE STATIN THERAPY DAILY Atorvastatin > than or = to 40 mg Rosuvastatin > than or = to 20 mg Amlodipine + Atorvastatin > than or = to 2.5/40 mg Ezetimibe + Simvastatin 10/80 mg Simvastatin 80mg Discharge Plan Admission Admit Date/Time: 08/30/23 15:45 Primary Reason for Your Visit: Debility due to advanced PD. Attending Provider: Alyssa [place] Primary Care Provider: Abdullahi Major Instructions Additional Instructions / Restrictions: [facility] PT/OT/ST/SN/EXECUTIVE PERSONAL ASSISTANT Discharge Orders/Prescriptions Prescriptions: New quetiapine 25 mg Tablet See Rx Instructions .ROUTE .COMPLEX Qty: 45 0RF Rx Instructions: 1 TAB at bedtime and can have 1/2 tab in the AM if agitated. carvedilol 3.125 mg Tablet 3.125 mg PO BID Qty: 60 0RF sennosides-docusate sodium [Stool Softener-Stimulant Laxat] 8.6-50 mg Tablet 2 tab PO BID Qty: 120 0RF cefadroxil 1 gram tablet 1,000 mg PO DAILY 10 Days Qty: 5 0RF Continued multivitamin Tablet 1 tab PO DAILY ascorbic acid (vitamin C) 500 mg tablet 500 mg PO DAILY acetaminophen [Tylenol] 325 mg tablet 325 mg PO Q6H PRN PRN (Reason: PAIN) cyanocobalamin (vitamin B-12) [Vitamin B-12] 100 mcg tablet 100 mcg PO DAILY atorvastatin 10 MG tablet 10 mg PO QODAY Qty: 30 0RF carbidopa-levodopa 25-100 mg tablet 1 tab PO 0600,1000,1800 Qty: 90 0RF carbidopa-levodopa 25-100 mg tablet 1.5 tab PO 1400 Qty: 45 0RF clonazepam 0.5 mg Tablet 0.5 mg PO QHS Gemtesa 75 mg tablet 75 mg PO DAILY Discontinued hydrocodone-acetaminophen 5-325 mg tablet 1 tab PO Q6H PRN (Reason: pain 1-10) carvedilol 6.25 mg tablet 6.25 mg PO BID Qty: 180 3RF Referrals / Follow Up: [facility] [Other] - In 1 Week ( to make appt) Archie Katz [Other] - 10/01/23 10:15 am Juan Tellez MD [Med Staff - Active Staff] - 10/17/23 3:30 pm Abdullahi Major MD [Primary Care Provider] - (Spouse to make appt) Disposition Disposition (needs filled in before D/C Order can be placed): Home Health Service Charges/Coding Visit Charges Inpatient E&M: 50443 Disch Hosp >30min
[2023-09-27 16:34] LABS: White Blood Cells 5-10 SEEN /hpf (0-5)
[2023-09-27 16:35] LABS: Bacteria RARE /hpf (None Seen)
[2023-09-27] MEDS: Ceftriaxone 1 GM Vial IM (18:22)
[2023-09-27 20:00] VITALS: BP 123/65; PULSE 66; RESP 17; TEMP 36.6; O2SAT 97
[2023-09-27] MEDS: QUEtiapine 25 MG Tablet PO (20:11)
[2023-09-27] MEDS: clonazePAM 0.5 MG Tablet PO (20:12)
--- NOTE | 2023-09-27 20:25 | NURSING ---
clinical findings completed and hs medications given, pt refused to take medications initially, stating that she was afraid of mixing her medications. staff acknowledged her concerns and stated that she had been taking the same medications since she has been here. staff did get pt to take her klonopin and seraquel but refused any other medication. rn aware
[2023-09-28] MEDS: Carbidopa/Levodopa 25/100 Tablet PO ×3 (05:56→13:33)
[2023-09-28] MEDS: CEFTRIAXONE 999 GM IM (05:57)
[2023-09-28] MEDS: Senna/Docusate Sodium 1 Tablet 2 TABLET PO (07:37)
[2023-09-28] MEDS: Cyanocobalamin 500 MCG Tablet PO (07:37)
[2023-09-28] MEDS: Multivitamins,Therapeutic Tablet 1 TABLET PO (07:37)
[2023-09-28] MEDS: Carvedilol 3.125 MG TABLET PO (07:37)
[2023-09-28] MEDS: Vibegron 75 MG TABLET PO (07:37)
[2023-09-28] MEDS: Ascorbic Acid 500 MG Tablet PO (07:37)
[2023-09-28 07:39] VITALS: BP 94/67; PULSE 78; RESP 18; TEMP 36.4; O2SAT 94
[2023-09-28] MEDS: Acetaminophen 500 MG Tablet 1000 MG PO (13:33)
== END 2023-09-28 14:05 | disposition home health service (06) | DRG 939 ==
PROVIDERS: Admitting Provider Internal Medicine; PCP Family Medicine; Visit Provider Internal Medicine
DX: Z48.813 Encounter for surgical aftercare following surgery on the respiratory system (principal); I26.94 Multiple subsegmental thrombotic pulmonary emboli without acute cor pulmonale; I82.442 Acute embolism and thrombosis of left tibial vein; F02.818 Dementia in other diseases classified elsewhere, unspecified severity, with other behavioral disturbance; N30.00 Acute cystitis without hematuria; G20.A1 Parkinson's disease without dyskinesia, without mention of fluctuations; I10 Essential (primary) hypertension; E78.5 Hyperlipidemia, unspecified; G47.33 Obstructive sleep apnea (adult) (pediatric); W19.XXXD Unspecified fall, subsequent encounter; I95.1 Orthostatic hypotension; S22.41XD Multiple fractures of ribs, right side, subsequent encounter for fracture with routine healing; S27.1XXD Traumatic hemothorax, subsequent encounter; N31.9 Neuromuscular dysfunction of bladder, unspecified; G47.52 REM sleep behavior disorder; R13.12 Dysphagia, oropharyngeal phase; Z79.899 Other long term (current) drug therapy; B96.20 Unspecified Escherichia coli [E. coli] as the cause of diseases classified elsewhere
CPT/HCPCS: 36415; 37191; 70450; 74018; 76937; 80048; 80053; 81001; 82040; 82274; 82962; 83036; 83735; 84100; 84439; 84443; 85014; 85018; 85025; 85027; 87077; 87086; 87088; 87186; 92507; 92523; 92526; 92610; 93970; 93971; 96125; 97110; 97112; 97116; 97129; 97130; 97162; 97166; 97530; 97535; 97802; 97803; 99152; 99153; C1894; J7040; J7120; Q9967; A4216; C1880

== ENCOUNTER 2024-01-30 20:07 | Emergency (ER) | payer MEDICARE, SELFPAY ==
[2024-01-30 20:08] VITALS: BP 148/56; PULSE 56; RESP 16; TEMP 36.4; O2SAT 97
--- NOTE | 2024-01-30 20:47 | EDS_ITS ---
HPI History of Present Illness Chief Complaint: Head Injury Detail of Chief Complaint: Fall with head injury Informant: patient and spouse/S.O. Narrative Narrative: Patient presents to the emergency department after sustaining a fall and in juring her head. Patient was in the basement and she states she reached for something and overextended and fell backwards hit her head on a metal box. heard her hit her head. No loss of consciousness. Patient has history of Parkinson's and falls frequently. She has a deep brain stimulator. She has a mild headache. She is not on blood thinners. was concerned about concussion. She denies significant neck pain. Patient has been ambulatory. She is up-to-date on tetanus. [facility] Medical History (Updated 01/30/24 @ 22:[address] Colton Fuller, DO) Ribs, multiple fractures Grade I diastolic dysfunction Deep vein thrombosis CPAP (continuous positive airway pressure) dependence Non-smoker Pulmonary embolism History of pulmonary embolus (PE) (07/31/21) Abnormal TSH Arrhythmia Syncope C. difficile diarrhea Physical debility Elevated alkaline phosphatase level Hypothyroidism Chest pain Melanoma Squamous cell cancer of skin of forearm Neurogenic bladder RBD (REM behavioral disorder) Depression with anxiety Essential hypertension Hyperlipidemia NEHEMIAH on CPAP Parkinson's disease Collagenous colitis Diverticulosis Home Medications ?Medication ?Instructions ?Recorded ?Last Taken ?Type ascorbic acid (vitamin C) 500 mg 500 mg PO DAILY supplement 11/10/20 07/30/21 History tablet multivitamin 1 tab PO DAILY supplement 11/10/20 07/30/21 History atorvastatin 10 mg tablet 10 mg PO QODAY cholesterol #30 tabs 08/19/21 Unknown Rx carbidopa 25 mg-levodopa 100 mg 1 tab PO 0600,1000,1800 parkinsons 08/19/21 08/30/23 Rx tablet #90 tabs carbidopa 25 mg-levodopa 100 mg 1.5 tab PO 1400 parkinsons #45 tabs 08/19/21 08/30/23 Rx tablet clonazepam 0.5 mg tablet 0.5 mg PO QHS sleep 08/29/21 08/29/23 History acetaminophen 325 mg tablet 325 mg PO Q6H PRN PRN PAIN 07/11/22 Unknown History (Tylenol) cyanocobalamin (vitamin B-12) 100 100 mcg PO DAILY supplement 07/11/22 Unknown History mcg tablet (Vitamin B-12) vibegron 75 mg tablet (Gemtesa) 75 mg PO DAILY overactive bladder 08/20/23 Unknown History carvedilol 3.125 mg tablet 3.125 mg PO BID #60 tabs 09/27/23 Unknown Rx cefadroxil 1 gram tablet 1,000 mg PO DAILY 10 days #5 tabs 09/27/23 Unknown Rx quetiapine 25 mg tablet See Rx Instructions .Route 09/27/23 Unknown Rx .COMPLEX #45 tabs sennosides 8.6 mg-docusate sodium 2 tab PO BID #120 tabs 09/27/23 Unknown Rx 50 mg tablet (Stool Softener-Stimulant Laxative) Allergy/AdvReac Type Severity Reaction Status Date / Time prochlorperazine (From Allergy Unknown unknown Verified 01/30/24 20:10 Compazine) promethazine (From Phenergan) Allergy Unknown unknown Verified 01/30/24 20:10 thioridazine Allergy Unknown unknown Verified 01/30/24 20:10 haloperidol (From Haldol) Allergy Other Verified 01/30/24 20:10 haloperidol lactate (From Allergy Other Verified 01/30/24 20:10 Haldol) metoclopramide HCl (From Allergy Other Verified 01/30/24 20:10 Reglan) Family History Father Diabetes Heart disease Mother Hypertension Diabetes Cancer brain, lymphoma Hyperlipidemia Sister Seizures Brother Heart disease Surgical History S/P IVC filter History of thoracic surgery S/P deep brain stimulator placement (06/23/13) History of colonoscopy (07/19/12) History of total abdominal hysterectomy and bilateral salpingo-oophorectomy (~1995) History of hammer toe correction (~02/2008) History of bunionectomy (~02/2008) History of appendectomy Social History household members: spouse housing: house Smoking Status: Never smoker alcohol intake: current alcohol intake frequency: a few times a month Alcohol type: wine substance use type: does not use ROS ROS ED Review of Systems ROS Unobtainable: other Constitutional Constitutional ED: Reports lethargy; Denies chills, fever(s), sweats or weight loss Eyes Eyes: Denies blurry vision, change in vision or diplopia ENT ENT ED: Reports other Details: Scalp laceration ; Denies rhinorrhea or sore throat Cardiovascular Cardiovascular: Denies chest pain, orthopnea or racing heartbeat Respiratory/Chest Respiratory/Chest: Denies cough, dyspnea, dyspnea on exertion, orthopnea or sputum Gastrointestinal Gastrointestinal: Denies abdominal pain, diarrhea, nausea or vomiting Genitourinary Genitourinary ED: Denies dysuria, hematuria or urinary frequency Musculoskeletal Musculoskeletal: Denies arthralgias, back pain, myalgias or neck pain Integumentary Denies abscess, Abrasions or rash Neurologic Neurologic: Reports headache(s); Denies weakness Psychiatric Psychiatric: Denies anxiety, depression or suicidal thoughts Endocrine Endocrinology: Denies polydipsia, polyphagia or polyuria Hematologic/Lymphatic Hematologic/Lymphatic: Denies easy bleeding, easy bruising or lymphadenopathy Allergic/Immunologic Allergic/Immunologic ED: Denies mouth swelling, tongue swelling or urticaria EXAM Physical Exam Const Vital Signs: 01/30/24 20:08 01/30/24 20:54 Temperature 97.6 F L Temperature Source Temporal Pulse Rate 56 L Respiratory Rate 16 Respiratory Effort Normal Non-Labored Respiratory Depth Normal Respiratory Pattern Normal Blood Pressure 148/56 H Blood Pressure Mean 86 Pulse Ox 97 Oxygen Delivery Method Room Air Room Air Positive well nourished and well developed General Appearance ED: well developed and NAD HEENT Reports TM's clear and moist mucous membranes HEENT Narrative: 1 cm laceration to posterior occiput. No significant active bleeding. No bony step-offs or depressions. normocephalic; Negative for trauma or tenderness Tympanic Membrane ED: Yes TM's clear Eyes PERRL and EOMs intact bilaterally General Eye ED: Negative for pale conjunctiva or scleral icterus Neck no lymphadenopathy, supple and no JVD Neck Narrative: Mild diffuse tenderness. No bony step-offs. General: tenderness Chest Wall inspection of chest normal and palpation of chest normal Chest: Negative for tenderness Resp normal respiratory effort and clear to auscultation bilaterally Effort and Inspection: Negative for respiratory distress or pain with movement Auscultation: Negative for rhonchi, wheezes or diminished lung sounds Cardio regular rate, regular rhythm, S1 normal heart sound, S2 normal heart sound and no murmurs Peripheral Pulses: pulses 2+ throughout GI normal to inspection, nondistended, normoactive bowel sounds, soft to palpation, non-tender, non-distended and no masses Back/Spine no CVA tenderness and no thoracic nor lumbar tenderness Extremity normal to inspection General Extremety ED: Negative for edema General Extremity: Negative for edema Neuro oriented x3, CN's II-XII intact bilaterally, no sensory deficits noted and gait normal Sensorium / Orientation: awake, alert, oriented to person, oriented to place and oriented to time Motor Exam: strength 5/5 throughout and strength abnormal Psych mental status grossly normal Skin no rashes or lesions noted and no wounds MDM MDM MDM Narrative Medical decision making narrative: Patient presents with a fall and head injury and laceration to her scalp. CT scan of the brain without contrast showed no acute intracranial abnormality. Patient also had CT of the cervical spine that was unremarkable. Only showed degenerative changes. Patient was offered suture repair of a 1 cm laceration and she does not want to have it repaired. I think this is reasonable and I think will do fine without any type of repair. There is no significant active bleeding at this time. Advised to follow-up with primary care physician in 3 to 5 days for wound check. To return if increasing pain, redness, swelling, purulent drainage, or condition worsening way Radiography Diagnostic Testing: Clinical Impression(s) from Imaging Studies Brain CT 01/30/24 21:07 IMPRESSION: No acute intracranial abnormality. Electronically Signed: Butch Chung MD at 21:23 EDT , Cervical Spine CT 01/30/24 21:07 IMPRESSION: No evidence of acute cervical spinal fracture or spondylolisthesis. Electronically Signed: Butch Chung MD at 21:24 EDT , Discharge Plan Triage Chief Complaint: Head Injury ED Provider: Colton Fuller Dx/Rx/DC Orders Clinical Impression: Closed head injury, Laceration of scalp Instructions: ED Head Injury (Adult), ED Laceration Superficial No Stitch Prescriptions: No Action multivitamin Tablet 1 tab PO DAILY ascorbic acid (vitamin C) 500 mg tablet 500 mg PO DAILY acetaminophen [Tylenol] 325 mg tablet 325 mg PO Q6H PRN PRN (Reason: PAIN) cyanocobalamin (vitamin B-12) [Vitamin B-12] 100 mcg tablet 100 mcg PO DAILY atorvastatin 10 MG tablet 10 mg PO QODAY Qty: 30 0RF carbidopa-levodopa 25-100 mg tablet 1 tab PO 0600,1000,1800 Qty: 90 0RF carbidopa-levodopa 25-100 mg tablet 1.5 tab PO 1400 Qty: 45 0RF clonazepam 0.5 mg Tablet 0.5 mg PO QHS quetiapine 25 mg Tablet See Rx Instructions .ROUTE .COMPLEX Qty: 45 0RF Rx Instructions: 1 TAB at bedtime and can have 1/2 tab in the AM if agitated. carvedilol 3.125 mg Tablet 3.125 mg PO BID Qty: 60 0RF sennosides-docusate sodium [Stool Softener-Stimulant Laxat] 8.6-50 mg Tablet 2 tab PO BID Qty: 120 0RF cefadroxil 1 gram tablet 1,000 mg PO DAILY 10 Days Qty: 5 0RF Gemtesa 75 mg tablet 75 mg PO DAILY Primary Care Provider: Abdullahi Major Referrals: Abdullahi Major MD [Primary Care Provider] - 3-5 Days Print Language: Portuguese Disposition Disposition: Home, Self Care
--- NOTE | 2024-01-30 21:07 | CT_ITS ---
EXAMINATION : Head CT w/out contrast HISTORY : fall, head injury COMPARISON : None. TECHNIQUE : Multiple contiguous axial images were obtained from the skull base to the vertex without intravenous contrast. A radiation dose optimization technique was used for this scan. FINDINGS : The ventricles and sulci are normal in size. There is no evidence for acute intracranial hemorrhage, mass effect, or midline shift. There is no extra-axial fluid collection. There is normal olson-white differentiation, without CT evidence of acute ischemia or infarct. The skull base and calvarium are unremarkable. The orbits are unremarkable. The paranasal sinuses are clear. The mastoid air cells are well-aerated. The soft tissues are unremarkable. CT/Brain/Head without Contrast IMPRESSION: No acute intracranial abnormality. Electronically Signed: Butch Chung MD at 21:23 EDT ,
--- NOTE | 2024-01-30 21:07 | CT_ITS ---
INDICATION: fall EXAMINATION: CT CERVICAL SPINE - CT Spine Cervical W/O Contrast Injection TECHNIQUE: Helically acquired images were obtained of the cervical spine. 2D reformatted images were reviewed. A radiation dose optimization technique was used for this scan. IV Contrast dosage and agent: None. COMPARISON: None. FINDINGS: VERTEBRAE: No fracture or traumatic subluxation. No discrete lytic or blastic abnormality. Normal alignment. Normal craniocervical junction and cervicothoracic junction. DISCS and SPINAL CANAL: Mild multilevel degenerative disc disease and spondylosis. No critical stenosis. NECK SOFT TISSUES: No prevertebral soft tissue swelling. There is no cervical adenopathy. LUNG APICES: Clear. CT/Spine Cervical without Contras IMPRESSION: No evidence of acute cervical spinal fracture or spondylolisthesis. Electronically Signed: Butch Chung MD at 21:24 EDT ,
== END 2024-01-30 22:24 | disposition home or self-care (01) ==
PROVIDERS: Emergency Provider Emergency Medicine; PCP Family Medicine; Visit Provider Emergency Medicine
DX: S01.01XA Laceration without foreign body of scalp, initial encounter (principal); G20.A1 Parkinson's disease without dyskinesia, without mention of fluctuations; S09.90XA Unspecified injury of head, initial encounter; E78.5 Hyperlipidemia, unspecified; I10 Essential (primary) hypertension; R51.9 Headache, unspecified; Z96.82 Presence of neurostimulator; W19.XXXA Unspecified fall, initial encounter
CPT/HCPCS: 70450; 72125; 99283